=== PATIENT | male | born 1930 | race Caucasian/White ===

== ENCOUNTER → 2016-07-09 | Outpatient (CLI) | payer MEDICARE, BC ==
[~2016-07-09] MED LIST: ALAV10TA PO; ASCO500C PO; ASPI81 PO; CALC1TAB87 PO; CARA1SUS3 PO; CIAL5TAB PO; EQUALIQ7; GLYB1TAB51 PO; GLYB5TAB3 PO; HUMALOG SQ; HYDR25TA5 PO; LANTUS2P SQ; LEVA.63I NEB; LISI-515 PO; LISI-587 PO; LORA10TA PO; METF-324 PO; METF1000 PO; METO-309 PO; METO50TA PO; MSM/CAP PO; MULT1TAB85 PO; NITR0.4S SL; OMEGCAP29 PO; OMEP20TA PO; PANT40P IV PUSH; PROT40TA PO; RIVA20 PO; SIMV10TA PO; TAB-TAB PO; XARE20TA PO; ZOCO10TA PO; ZOCO40TA PO; ZYRT10TA PO
[2016-07-09 12:31] LABS: AUTOMATED NEUTROPHIL # 3.4 TH/MM3 (1.8-7.7); BASOPHIL % 0.8 % (0.0-2.0); EOSINOPHIL # 0.3 TH/MM3 (0-0.4); EOSINOPHIL % 4.8 % (0.0-4.0); HEMATOCRIT 35.3 % (39.0-51.0); HEMO FLAGS DIFF FINAL; LYMPH % 22.6 % (9.0-44.0); LYMPHOCYTE # 1.2 TH/MM3 (1.0-4.8); MEAN CELL VOLUME 81.3 FL (80.0-100.0); MEAN CORPUSCULAR HEMOGLOBIN 25.9 PG (27.0-34.0); MEAN CORPUSCULAR HGB CONC 31.8 % (32.0-36.0); MONO % 9.2 % (0.0-8.0); NEUT % 62.6 % (16.0-70.0); PLATELET COUNT 135 TH/MM3 (150-450); RED BLOOD COUNT 4.35 MIL/MM3 (4.50-5.90); RED CELL DISTRIBUTION WIDTH 14.7 % (11.6-17.2); WHITE BLOOD COUNT 5.5 TH/MM3 (4.0-11.0)
[2016-07-09 12:48] LABS: MICRO ALBUMIN RANDOM URINE RAW 18.9 MG/L (0.0-30.0)
[2016-07-09 12:59] LABS: ALKALINE PHOSPHATASE 42 U/L (45-117); ALT (GPT) 21 U/L (12-78); ANION GAP 8 MEQ/L (5-15); AST (GOT) 17 U/L (15-37); BICARBONATE 29.4 MEQ/L (21.0-32.0); BLOOD UREA NITROGEN 14 MG/DL (7-18); CHLORIDE 101 MEQ/L (98-107); FREE T4 0.96 NG/DL (0.76-1.46); GLOMERULAR FILTRATION RATE 87 ML/MIN (>89); GLUCOSE,FASTING 82 MG/DL (74-99); POTASSIUM 4.5 MEQ/L (3.5-5.1); SODIUM (NA) 138 MEQ/L (136-145); TOTAL BILIRUBIN ADULT 0.9 MG/DL (0.2-1.0)
[2016-07-09 13:50] LABS: HEMOGLOBIN A1a 1.4 %; HEMOGLOBIN A1b 1.8 %; HEMOGLOBIN Ao 83.8 %; HEMOGLOBIN LA1C 1.8 %; HEMOGLOBIN P3 3.9 %
== END ==
LOC: PLAB 07:43
PROVIDERS: ATTEND Family Medicine
DX: E11.9 Type 2 diabetes mellitus without complications (principal); R94.6 Abnormal results of thyroid function studies
CPT/HCPCS: 36415; 80053; 82043; 83036; 84153; 84439; 85025

== ENCOUNTER 2016-09-02 09:47 | Inpatient (IN) | payer MEDICARE, BC ==
[~2016-09-02] VITALS: Ht 182.9 cm; Wt 91.0 kg
[~2016-09-02 09:47] MED LIST changes: -ASCO500C PO; -CALC1TAB87 PO; -CARA1SUS3 PO; -CIAL5TAB PO; -EQUALIQ7; -GLYB5TAB3 PO; -HUMALOG SQ; -HYDR25TA5 PO; -LANTUS2P SQ; -LEVA.63I NEB; -LISI-515 PO; -LORA10TA PO; -METF1000 PO; -METO-309 PO; -MSM/CAP PO; -MULT1TAB85 PO; -OMEGCAP29 PO; -PANT40P IV PUSH; -PROT40TA PO; -SIMV10TA PO; -XARE20TA PO; -ZOCO10TA PO; -ZYRT10TA PO
[2016-09-02 09:53] VITALS: BP 108/61; PULSE 113; RESP 20
[2016-09-02 09:57] VITALS: O2SAT 98
[2016-09-02] MEDS ORDERED: SODIUM CHLORIDE 0.9% FLUSH 10 ML FLUSH IVF PRN (10:00)
[2016-09-02] MEDS ORDERED: OMEGCAP29 PO (10:07)
[2016-09-02] MEDS ORDERED: ASCO500C PO (10:07)
[2016-09-02] MEDS ORDERED: LORA10TA PO (10:07)
[2016-09-02] MEDS ORDERED: EQUALIQ7 (10:07)
[2016-09-02] MEDS ORDERED: LISI-515 PO (10:07)
[2016-09-02] MEDS ORDERED: XARE20TA PO (10:07)
[2016-09-02] MEDS ORDERED: HYDR25TA5 PO (10:07)
[2016-09-02] MEDS ORDERED: METO50TA PO (10:07)
[2016-09-02] MEDS ORDERED: OMEP20TA PO (10:07)
[2016-09-02] MEDS ORDERED: MULT1TAB85 PO (10:07)
[2016-09-02] MEDS ORDERED: CIAL5TAB PO (10:07)
[2016-09-02] MEDS ORDERED: CALC1TAB87 PO (10:07)
[2016-09-02] MEDS ORDERED: ZOCO10TA PO (10:07)
[2016-09-02] MEDS ORDERED: MSM/CAP PO (10:07)
[2016-09-02] MEDS ORDERED: GLYB5TAB3 PO (10:07)
[2016-09-02] MEDS ORDERED: METF1000 PO (10:07)
[2016-09-02 10:21] LABS: BASOPHIL % 0.8 % (0.0-2.0); EOSINOPHIL # 0.1 TH/MM3 (0-0.4); EOSINOPHIL % 1.9 % (0.0-4.0); HEMATOCRIT 29.6 % (39.0-51.0); HEMO FLAGS DIFF FINAL; LYMPH % 17.7 % (9.0-44.0); MEAN CELL VOLUME 80.3 FL (80.0-100.0); MEAN CORPUSCULAR HEMOGLOBIN 25.4 PG (27.0-34.0); MEAN CORPUSCULAR HGB CONC 31.6 % (32.0-36.0); MONO % 7.4 % (0.0-8.0); NEUT % 72.2 % (16.0-70.0); PLATELET COUNT 151 TH/MM3 (150-450); RED BLOOD COUNT 3.69 MIL/MM3 (4.50-5.90); RED CELL DISTRIBUTION WIDTH 16.4 % (11.6-17.2); WHITE BLOOD COUNT 5.6 TH/MM3 (4.0-11.0)
[2016-09-02 10:41] LABS: ALT (GPT) 18 U/L (12-78); ANION GAP 7 MEQ/L (5-15); AST (GOT) 14 U/L (15-37); BICARBONATE 27.7 MEQ/L (21.0-32.0); BLOOD UREA NITROGEN 26 MG/DL (7-18); CHLORIDE 107 MEQ/L (98-107); GLOMERULAR FILTRATION RATE 94 ML/MIN (>89); SODIUM (NA) 142 MEQ/L (136-145)
[2016-09-02 10:43] LABS: ALKALINE PHOSPHATASE 39 U/L (45-117); TOTAL BILIRUBIN ADULT 0.8 MG/DL (0.2-1.0)
--- NOTE | 2016-09-02 10:43 | PD ---
HPI Chief Complaint: Bleeding Time Seen by Provider: 09:55 Travel History International Travel<30 days: No Contact w/Intl Traveler<30days: No Traveled to known affect area: No History of Present Illness HPI Patient 86-year-old male who is on Xarelto for age fibrillation presents emergency department for evaluation of rectal bleeding. Patient states that he had some dark stool yesterday which became bloody this morning. He also endorses some fatigue. He states that when he sat up today he felt very dizzy and that's what caused him to come into the emergency department. He states as long as he lays down he feels okay. Denies any chest pain shortness of breath abdominal pain nausea or vomiting. Denies any fevers. He states that every bowel movement he is having now is nearly all blood. PFSH Past Medical History Arthritis: Yes (JOINTS) Atrial Fibrillation: Yes Autoimmune Disease: No Blood Disorders: No Anxiety: No Depression: No Heart Rhythm Problems: Yes (A FIB) Cancer: Yes (SKIN) Cardiac Catheterization: Yes Cardiovascular Problems: Yes High Cholesterol: Yes Chest Pain: Yes Congestive Heart Failure: No Coronary Artery Disease: Yes Diabetes: Yes Patient Takes Glucophage: Yes Diminished Hearing: No Endocrine: Yes Gastrointestinal Disorders: Yes GERD: Yes Glaucoma: No Genitourinary: No Hepatitis: No Hiatal Hernia: No Hypertension: Yes Immune Disorder: No Inguinal Hernia: Yes Implanted Vascular Access Dvce: No Musculoskeletal: Yes Neurologic: No Psychiatric: No Reproductive: No Respiratory: No Integumentary: No Immunizations Current: No Myocardial Infarction: No Thyroid Disease: No Ulcer: Yes Tetanus Vaccination: < 5 Years Past Surgical History Abdominal Surgery: Yes (MINE. INGUINAL HERNIOPLASTY) AICD: No Arteriovenous Shunt: No Cardiac Surgery: Yes (CARDIAC STENT X 2 PLACED) Coronary Stent: Yes (IN 2000) Ear Surgery: No Endocrine Surgery: No Eye Surgery: Yes (RIGHT LID SURGERY; CYST REMOVED) Genitourinary Surgery: No Gynecologic Surgery: No Insulin Pump: No Joint Replacement: Yes (RIGHT KNEE AND R ROTATOR CUFF) Neurologic Surgery: No Oral Surgery: No Pacemaker: No Thoracic Surgery: No Tonsillectomy: Yes Other Surgery: Yes (HERNIA X2, RIGHT KNEE,BILAT HANDS,EYE LID,LEFT CATARACT, HEMRHOIDS) Social History Alcohol Use: No Tobacco Use: No (quit 40+ yrs ago) Substance Use: No Allergies-Medications (Allergen,Severity, Reaction): Coded Allergies: No Known Allergies (Verified , 02/19/15) Reported Meds & Prescriptions Reported Meds & Active Scripts Active Reported Cialis (Tadalafil) 5 Mg Tab 5 Mg PO DAILY Do not exceed 1 dose/day. Xarelto (Rivaroxaban) 20 Mg Tab 20 Mg PO DAILY Omeprazole 20 Mg Tab 20 Mg PO DAILY Zocor (Simvastatin) 10 Mg Tab 10 Mg PO BID Metformin (Metformin HCl) 1,000 Mg Tab 1,000 Mg PO BIDPC With meals MSM-Glucosamine (Glucosamine Sulfate-Methylsulf) 250-250 Mg Cap 1 Cap PO DAILY Metoprolol Tartrate 50 Mg Tab 50 Mg PO BID Glyburide 5 Mg Tab 5 Mg PO BID Take with meals at the same time each day Hydrochlorothiazide 25 Mg Tab 25 Mg PO DAILY Lisinopril 20 Mg Tab 20 Mg PO DAILY Multivitamin Men (Multiple Vitamins W/ Minerals) 1 Tab Tab 1 Tab PO DAILY Vitamin C (Ascorbic Acid) 500 Mg Cap 500 Mg PO DAILY Equate (Nutritional Supplements) 1 Liq Liq Calcium 600 with Vitamin D (Calcium Carbonate-Cholecalciferol) 600-400 mg-Unit Tab 1 Tab PO DAILY Loratadine 10 Mg Tab 10 Mg PO DAILY [facility] ([place] 3 Fatty Xxhlr-Czelzs-Gmsdrypvfy) 250-2.5-0.5 Mg Cap 1 Cap PO DAILY Review of Systems Except as stated in HPI: all other systems reviewed are Neg Physical Exam Narrative GENERAL: Well-developed well-nourished no apparent distress, appears younger than stated age and quite pleasant. SKIN: Focused skin assessment warm/dry. HEAD: Atraumatic. Normocephalic. EYES: Pupils equal and round. No scleral icterus. No injection or drainage. ENT: No nasal bleeding or discharge. Mucous membranes pink and moist. NECK: Trachea midline. No JVD. CARDIOVASCULAR: Irregularly irregular with controlled rate, however become tachycardic when he sits up.. No murmur appreciated. RESPIRATORY: No accessory muscle use. Clear auscultation. Breath sounds equal bilaterally. GASTROINTESTINAL: Abdomen soft, non-tender, nondistended. Hepatic and splenic margins not palpable. Rectal exam shows moderate gross blood with minimal stool component. MUSCULOSKELETAL: No obvious deformities. No clubbing. No cyanosis. No edema. NEUROLOGICAL: Awake and alert. No obvious cranial nerve deficits. Motor grossly within normal limits. Normal speech. PSYCHIATRIC: Appropriate mood and affect; insight and judgment normal. Data Data Last Documented VS Vital Signs Date Time Temp Pulse Resp B/P Pulse Ox O2 Delivery O2 Flow Rate FiO2 09/02/16 09:57 98 09/02/16 09:53 113 20 108/61 Orders Complete Blood Count With Diff (09/02/16 09:55) Comprehensive Metabolic Panel (09/02/16 09:55) Prothrombin Time / Inr (Pt) (09/02/16 09:55) Act Partial Throm Time (Ptt) (09/02/16 09:55) Type And Screen (09/02/16 09:55) Ecg Monitoring (09/02/16 09:55) Iv Access Insert/Monitor (09/02/16 09:55) Oximetry (09/02/16 09:55) Sodium Chloride 0.9% Flush (Ns Flush) (09/02/16 10:00) Sodium Chlor 0.9% 1000 Ml Inj (Ns 1000 M (09/02/16 10:45) Pantoprazole Inj (Protonix Inj) (09/02/16 10:45) Pantoprazole Inj (Protonix Inj) (09/02/16 12:45) Consult Gastroenterology (09/02/16 ) (Hub Use Only)Inp Phy Cons/Ref (09/02/16 ) Admit Order (Ed Use Only) (09/02/16 ) Labs Laboratory Tests Test 09/02/16 10:00 Prothrombin Time 12.1 SEC Prothromb Time International 1.1 RATIO Ratio Activated Partial 22.7 SEC Thromboplast Time Sodium Level 142 MEQ/L Potassium Level 4.0 MEQ/L Chloride Level 107 MEQ/L Carbon Dioxide Level 27.7 MEQ/L Anion Gap 7 MEQ/L Blood Urea Nitrogen 26 MG/DL Creatinine 0.78 MG/DL Estimat Glomerular Filtration 94 ML/MIN Rate Random Glucose 216 MG/DL Calcium Level 8.4 MG/DL Total Bilirubin 0.8 MG/DL Aspartate Amino Transf 14 U/L (AST/SGOT) Alanine Aminotransferase 18 U/L (ALT/SGPT) Alkaline Phosphatase 39 U/L Total Protein 5.8 GM/DL Albumin 3.1 GM/DL Blood Type AB POSITIVE Antibody Screen NEGATIVE White Blood Count 5.6 TH/MM3 Red Blood Count 3.69 MIL/MM3 Hemoglobin 9.4 GM/DL Hematocrit 29.6 % Mean Corpuscular Volume 80.3 FL Mean Corpuscular Hemoglobin 25.4 PG Mean Corpuscular Hemoglobin 31.6 % Concent Red Cell Distribution Width 16.4 % Platelet Count 151 TH/MM3 Mean Platelet Volume 7.9 FL Neutrophils (%) (Auto) 72.2 % Lymphocytes (%) (Auto) 17.7 % Monocytes (%) (Auto) 7.4 % Eosinophils (%) (Auto) 1.9 % Basophils (%) (Auto) 0.8 % Neutrophils # (Auto) 4.0 TH/MM3 Lymphocytes # (Auto) 1.0 TH/MM3 Monocytes # (Auto) 0.4 TH/MM3 Eosinophils # (Auto) 0.1 TH/MM3 Basophils # (Auto) 0.0 TH/MM3 CBC Comment DIFF FINAL Differential Comment MDM Medical Decision Making Medical Screen Exam Complete: Yes Emergency Medical Condition: Yes Differential Diagnosis GI bleeding, diverticulosis, AVM, cancer wrist lesion in the GI tract, varices seems less likely, Narrative Course Patient 86-year-old male roomed in the emergency department, he appears well and in no distress and has no abdominal pain. Vital signs are normal except for when he sits up she does become somewhat tachycardic. He does have moderate amount of gross red blood on digital rectal exam, review of his labs show a downward trend of his hemoglobin over the past 4 months, he was 13 in April, last month and now 9. Coupled with the patient being on Xarelto this obviates the need for admission for further workup including colonoscopy and GI consultation. Patient was discussed with Drs. Tess Dumas who agrees. Patient was discussed for medicine for admission. He is stable at this time for the floor. Diagnosis Primary Impression: GI bleed Qualified Code: K92.2 - Gastrointestinal hemorrhage, unspecified gastrointestinal hemorrhage type Additional Impression: Anticoagulated Admitting Information Admitting Physician Requests: Admit Condition: Stable Garcia Durbin MD September 02, 2016 10:43
[2016-09-02 10:44] LABS: APTT (PATIENT) 22.7 SEC (24.3-30.1); INTERNATIONAL NORMALIZED RATIO 1.1 RATIO; PROTHROMBIN TIME - PATIENT 12.1 SEC (9.8-11.6)
[2016-09-02] MEDS ORDERED: SODIUM CHLOR 0.9% 1000 ML INJ 1,000 ML IV ONE (10:45)
[2016-09-02] MEDS ORDERED: PANTOPRAZOLE SODIUM 40 MG VIAL IV PUSH ONE (10:45)
--- NOTE | 2016-09-02 12:17 | PD.CONS ---
HPI History of Present Illness This is a 86 year old [gentleman] presented to ER with rectal bleeding that started yesterday afternoon. He had dark red blood while having BM, denies constipation or straining. He saw both dark and BRBper rectum when he wiped, and dark red "goo." He had liquid BM this morning with blood as well, that ran down his leg. He says his PCP told him a few months ago that he was anemic and he's been eating greens. He takes xarelto for AF he last had xarelto 2 days ago. Denies n/v, abdominal pain, dark tarry stool. He has distant h/o ulcers, 50 years ago. He last had colonoscopy years ago, doesn't remember results. Denies frequent NSAID use. Does take daily baby ASA. (Rachel Roberson) PFSH Past Medical History AF DM "whatever pills she gives me I take, i don't keep records" Past Surgical History right knee replacement 2 x stent in heart right rotator cuff repiar left hand surgery right eye surgery 2 x hernia repair, years ago (Rachel Roberson) Coded Allergies: No Known Allergies (Verified , 02/19/15) Medications Current Medications Medications (Trade) Dose Ordered Sig/Lennox Route PRN Reason Start Time Stop Time Status Last Admin Dose Admin Sodium Chloride 2 ml 2 ml UNSCH PRN IVF FLUSH AFTER USING IV ACCESS 09/02/16 10:00 Pantoprazole Sodium/Sodium Chloride (Protonix Inj/NS Inj) 100 ml @ 10 mls/hr Q10H IV 09/02/16 12:45 Family History unk Social History No ETOH, no tobacco, no drugs (Rachel Roberson) Review of Systems Constitutional: DENIES: Fever, Weight loss Eyes: DENIES: Blurred vision Ears, nose, mouth, throat: COMPLAINS OF: Hearing loss Respiratory: DENIES: Hemoptysis Cardiovascular: DENIES: Chest pain Gastrointestinal: COMPLAINS OF: Bloody stools, Diarrhea, DENIES: Abdominal pain, Black stools, Constipation, Nausea, Vomiting, Swelling of Abdomen, Hematemesis Genitourinary: DENIES: Hematuria Musculoskeletal: DENIES: Muscle aches Integumentary: DENIES: Abnormal pigmentation Hematologic/lymphatic: COMPLAINS OF: Bruising (from xarelto) Neurologic: DENIES: Abnormal gait Psychiatric: DENIES: Confusion (Rachel Roberson) GI Exam Vitals I&O Vital Signs Date Time Temp Pulse Resp B/P Pulse Ox O2 Delivery O2 Flow Rate FiO2 09/02/16 09:57 98 09/02/16 09:53 113 20 108/61 Laboratory Test 09/02/16 10:00 White Blood Count 5.6 TH/MM3 Red Blood Count 3.69 MIL/MM3 Hemoglobin 9.4 GM/DL Hematocrit 29.6 % Mean Corpuscular Volume 80.3 FL Mean Corpuscular Hemoglobin 25.4 PG Mean Corpuscular Hemoglobin 31.6 % Concent Red Cell Distribution Width 16.4 % Platelet Count 151 TH/MM3 Mean Platelet Volume 7.9 FL Neutrophils (%) (Auto) 72.2 % Lymphocytes (%) (Auto) 17.7 % Monocytes (%) (Auto) 7.4 % Eosinophils (%) (Auto) 1.9 % Basophils (%) (Auto) 0.8 % Neutrophils # (Auto) 4.0 TH/MM3 Lymphocytes # (Auto) 1.0 TH/MM3 Monocytes # (Auto) 0.4 TH/MM3 Eosinophils # (Auto) 0.1 TH/MM3 Basophils # (Auto) 0.0 TH/MM3 CBC Comment DIFF FINAL Differential Comment Prothrombin Time 12.1 SEC Prothromb Time International 1.1 RATIO Ratio Activated Partial 22.7 SEC Thromboplast Time Sodium Level 142 MEQ/L Potassium Level 4.0 MEQ/L Chloride Level 107 MEQ/L Carbon Dioxide Level 27.7 MEQ/L Anion Gap 7 MEQ/L Blood Urea Nitrogen 26 MG/DL Creatinine 0.78 MG/DL Estimat Glomerular Filtration 94 ML/MIN Rate Random Glucose 216 MG/DL Calcium Level 8.4 MG/DL Total Bilirubin 0.8 MG/DL Aspartate Amino Transf 14 U/L (AST/SGOT) Alanine Aminotransferase 18 U/L (ALT/SGPT) Alkaline Phosphatase 39 U/L Total Protein 5.8 GM/DL Albumin 3.1 GM/DL Blood Type AB POSITIVE Antibody Screen NEGATIVE Physical Examination HEENT: EOMI; normocephalic; atraumatic; no jaundice. CHEST: Chest is clear to auscultation and percussion. CARDIAC: irregularly irregular HR ABDOMEN: Soft, nondistended, nontender; no hepatosplenomegaly; bowel sounds are present in all four quadrants. EXTREMITIES: No clubbing, cyanosis, or edema. SKIN: Normal; no rash; no jaundice. SUPERVISOR CEREAL: No focal deficits; alert and oriented times three. (Rachel Roberson) Assessment and Plan Plan ASSESSMENT - Anemia with rectal bleeding - 9.4, 29.6. rectal bleeding that started yesterday with liquid BM and blood this morning. Pt reports he was told months ago by PCP he was anemic. Had been taking xarelto for AF, last had 2 days ago. PLAN - colonoscopy, EGD Saturday - obtain consents - clears today - GoLytely prep - NPO after midnight - monitor HH - transfused for hgb < 8.0 - further recommendations based on results of above This pt seen by myself and Dr Patel and this note is written on his behalf. ( Rachel Roberson) Physician Comments Seen and examined with [employer], rectal bleeding, egd/colonoscopy planned for saturday. Golytle prep. Monitor H/H and for signs of active bleeding. Dr. Dia to follow. Thank you (Maryan Patel MD) Rachel Roberson September 02, 2016 12:17 Maryan Patel MD September 02, 2016 16:27
[2016-09-02] MEDS ORDERED: GLUCAGON 1 MG/ML VIAL OTHER PRN (12:45)
[2016-09-02] MEDS ORDERED: DEXTROSE 50% IN WATER 50 ML VIAL(D50) IV PUSH PRN (12:45)
--- NOTE | 2016-09-02 12:47 | HHI.HP ---
[facility] Lynnette Ziegler MD Admission Diagnosis GI bleed, near syncope. Diagnoses: (1) Rectal bleed Diagnosis: Principal Chief Complaint: rectal bleed Travel History International Travel<30 Days: No Contact w/Intl Traveler <30 Da: No Traveled to Known Affected Are: No History of Present Illness patient is a 86 y/o male with history of CAD- s/p stent- on Xarelto, presented to ER with rectal bleed. he says that the he started to have rectal bleed yesterday afternoon. since then he's had a few blood bowel movements. he says that this morning when he went to bathroom he had a large amount of darkish blood per rectum. he says that he didn't have any abdominal pain, nausea or vomiting but he felt dizzy at the time. he didn't pass out and he denies any chest pain or sob. he says that he had EGD and colonoscopy in the past. reportedly he had peptic ulcer disease diagnosed years ago.he denies taking NSAIDs. Review of Systems Constitutional: COMPLAINS OF: Dizziness, DENIES: Fever, Weight loss, Chills, Night Sweats Eyes: DENIES: Blurred vision, Diplopia, Vision loss, Double Vision Ears, nose, mouth, throat: DENIES: Tinnitus, Vertigo, Throat pain, Epistaxis Respiratory: DENIES: Apneas, Cough, Snoring, Wheezing, Hemoptysis, Sputum production, Shortness of breath Cardiovascular: DENIES: Chest pain, Palpitations, Syncope, Dyspnea on Exertion , PND, Lower Extremity Edema, Orthopnea, Claudication Gastrointestinal: COMPLAINS OF: Bloody stools, DENIES: Abdominal pain, Black stools, Constipation, Diarrhea, Nausea, Vomiting, Difficulty Swallowing, Anorexia Genitourinary: DENIES: Urinary frequency, Urgency, Hematuria, Dysuria Musculoskeletal: DENIES: Joint pain, Muscle aches, Stiffness, Joint Swelling Integumentary: DENIES: Rash Neurologic: DENIES: Abnormal gait, Headache, Localized weakness, Paresthesias, Seizures, Speech Problems, Tremor, Poor Balance Psychiatric: DENIES: Anxiety, Confusion, Mood changes, Depression, Hallucinations, Agitation, Suicidal Ideation, Homicidal Ideation, Delusions Past Family Social History Past Medical History CAD hypertension a-fib diabetes mellitus Past Surgical History right knee replacement 2 x stent in heart right rotator cuff repiar left hand surgery right eye surgery 2 x hernia repair, years ago Reported Medications Cialis (Tadalafil) 5 Mg Tab 5 Mg PO DAILY Do not exceed 1 dose/day. Xarelto (Rivaroxaban) 20 Mg Tab 20 Mg PO DAILY Omeprazole 20 Mg Tab 20 Mg PO DAILY Zocor (Simvastatin) 10 Mg Tab 10 Mg PO BID Metformin (Metformin HCl) 1,000 Mg Tab 1,000 Mg PO BIDPC With meals MSM-Glucosamine (Glucosamine Sulfate-Methylsulf) 250-250 Mg Cap 1 Cap PO DAILY Metoprolol Tartrate 50 Mg Tab 50 Mg PO BID Glyburide 5 Mg Tab 5 Mg PO BID Take with meals at the same time each day Hydrochlorothiazide 25 Mg Tab 25 Mg PO DAILY Lisinopril 20 Mg Tab 20 Mg PO DAILY Multivitamin Men (Multiple Vitamins W/ Minerals) 1 Tab Tab 1 Tab PO DAILY Vitamin C (Ascorbic Acid) 500 Mg Cap 500 Mg PO DAILY Equate (Nutritional Supplements) 1 Liq Liq Calcium 600 with Vitamin D (Calcium Carbonate-Cholecalciferol) 600-400 mg-Unit Tab 1 Tab PO DAILY Loratadine 10 Mg Tab 10 Mg PO DAILY [facility] ([place] 3 Fatty Cdsek-Qcoohd-Yghfbgwkzd) 250-2.5-0.5 Mg Cap 1 Cap PO DAILY Allergies: Coded Allergies: No Known Allergies (Verified , 02/19/15) Active Ordered Medications Current Medications Sodium Chloride 2 ml 2 ml UNSCH PRN IVF FLUSH AFTER USING IV ACCESS; Start 09/02 at 10:00 Sodium Chloride (NS 1000 ml Inj) 1,000 ml @ 999 mls/hr BOLUS ONCE IV ; Start 09/02/16 at 10:45; Stop 09/02/16 at 11:45; Status DC Pantoprazole Sodium 40 mg 40 mg ONCE ONCE IV PUSH ; Start 09/02/16 at 10:45; Stop 09/02/16 at 10:46; Status DC Pantoprazole Sodium/Sodium Chloride (Protonix Inj/NS Inj) 100 ml @ 10 mls/hr Q10H IV ; Start 09/02/16 at 12:45 Dextrose (D50w (Vial) Inj) 25 ml UNSCH PRN IV PUSH HYPOGLYCEMIA-SEE COMMENTS; Start 09/02/16 at 12:45; Status UNV Glucagon (Glucagon Inj) 1 mg UNSCH PRN OTHER HYPOGLYCEMIA-SEE COMMENTS; Start 09/02/16 at 12:45; Status UNV Insulin Aspart 1 1 ACHS SLIDING SCALE SQ ; Start 09/02/16 at 16:00; Status UNV Sodium Chloride (NS 1000 ml Inj) 1,000 ml @ 84 mls/hr [id number] IV ; Start at 12:45; Status UNV Family History unk Social History No ETOH, no tobacco, no drugs Physical Exam Vital Signs Vital Signs Date Time Temp Pulse Resp B/P Pulse Ox O2 Delivery O2 Flow Rate FiO2 09/02/16 09:57 98 09/02/16 09:53 113 20 108/61 Physical Exam GENERAL: looks somewhat pale but in no apparent distress. SKIN: No rashes, ecchymoses or lesions. Cool and dry. HEAD: Atraumatic. Normocephalic. No temporal or scalp tenderness. EYES: Pupils equal round and reactive. Extraocular motions intact. No scleral icterus. No injection or drainage. ENT: Nose without bleeding, purulent drainage or septal hematoma. Throat without erythema, tonsillar hypertrophy or exudate. Uvula midline. Airway patent. NECK: Trachea midline. No JVD or lymphadenopathy. Supple, nontender, no meningeal signs. CARDIOVASCULAR: Regular rate and rhythm without murmurs, gallops, or rubs. RESPIRATORY: Clear to auscultation. Breath sounds equal bilaterally. No wheezes , rales, or rhonchi. GASTROINTESTINAL: Abdomen soft, non-tender, nondistended. No hepato-splenomegaly , or palpable masses. No guarding. MUSCULOSKELETAL: Extremities without clubbing, cyanosis, or edema. No joint tenderness, effusion, or edema noted. No calf tenderness. Negative Homans sign bilaterally. NEUROLOGICAL: Awake and alert. Cranial nerves II through XII intact. Motor and sensory grossly within normal limits. Five out of 5 muscle strength in all muscle groups. Normal speech. Laboratory Laboratory Tests Test 09/02/16 10:00 White Blood Count 5.6 Red Blood Count 3.69 Hemoglobin 9.4 Hematocrit 29.6 Mean Corpuscular Volume 80.3 Mean Corpuscular Hemoglobin 25.4 Mean Corpuscular Hemoglobin 31.6 Concent Red Cell Distribution Width 16.4 Platelet Count 151 Mean Platelet Volume 7.9 Neutrophils (%) (Auto) 72.2 Lymphocytes (%) (Auto) 17.7 Monocytes (%) (Auto) 7.4 Eosinophils (%) (Auto) 1.9 Basophils (%) (Auto) 0.8 Neutrophils # (Auto) 4.0 Lymphocytes # (Auto) 1.0 Monocytes # (Auto) 0.4 Eosinophils # (Auto) 0.1 Basophils # (Auto) 0.0 CBC Comment DIFF FINAL Differential Comment Prothrombin Time 12.1 Prothromb Time International 1.1 Ratio Activated Partial 22.7 Thromboplast Time Sodium Level 142 Potassium Level 4.0 Chloride Level 107 Carbon Dioxide Level 27.7 Anion Gap 7 Blood Urea Nitrogen 26 Creatinine 0.78 Estimat Glomerular Filtration 94 Rate Random Glucose 216 Calcium Level 8.4 Total Bilirubin 0.8 Aspartate Amino Transf 14 (AST/SGOT) Alanine Aminotransferase 18 (ALT/SGPT) Alkaline Phosphatase 39 Total Protein 5.8 Albumin 3.1 Blood Type AB POSITIVE Antibody Screen NEGATIVE Result Diagram: 09/02/16 1000 09/02/16 1000 Assessment and Plan Assessment and Plan A/P - rectal bleed- on Xarelto keep NPO- start IV fluid- continue with protonix- monitor H/H closely- GI consulted -CAD- s/p stent / a-fib/ hypertension- hold BP meds for now in light of GI bleed and dizziness- hold Xarelto. -diabetes mellitus; accu-check with SSI- hold oral hypoglycemics for now -DVT prophylaxis with SCD's- no chemical prophylaxis due to GI bleed. Discussed Condition With ER physician and the patient. Bora Chu MD September 02, 2016 12:46
[2016-09-02] MEDS: PANTOPRAZOLE INJ 80 MG in SODIUM CHLORIDE 0.9% INJ 100 ML IV SCH ×3 (12:59→21:37)
[2016-09-02] MEDS ORDERED: ONDANSETRON HCL 4 MG/2 ML VIAL IV PUSH PRN (13:00)
[2016-09-02] MEDS: SODIUM CHLOR 0.9% 1000 ML INJ 1,000 ML IV SCH ×2 (14:33→21:37)
[2016-09-02 16:00] VITALS: BP 119/67; PULSE 78; RESP 16; TEMP 97.6; O2SAT 100
[2016-09-02] MEDS: INSULIN ASPART SUPPLEMENTAL SCALE SQ SCH ×2 (16:00→21:00)
[2016-09-02] MEDS ORDERED: PEG (High)/E-LYTE SOLN 4000 ML BTL PO ONE (16:00)
[2016-09-02 18:32] LABS: HEMATOCRIT 24.7 % (39.0-51.0)
[2016-09-02 20:00] VITALS: BP 130/69; PULSE 99; RESP 20; TEMP 96.4; O2SAT 97
[2016-09-03] VITALS (16 sets, daily range): BP systolic 100–128; BP diastolic 53–66; PULSE 53–95; RESP 18–21; TEMP 96.8–98.1; O2SAT 96–100
[2016-09-03 00:20] LABS: HEMATOCRIT 28.7 % (39.0-51.0)
[2016-09-03] MEDS ORDERED: CHLORHEXIDINE GLUCONATE 2 % 1 PACK (2 CLOTHS) TOPICAL PRN (07:00)
[2016-09-03] MEDS ORDERED: METOPROLOL TARTRATE 25 MG TAB PO PRN (07:00)
[2016-09-03] MEDS ORDERED: POVIDONE IODINE 5% (ANTISEPSIS KIT) 4 APPLICATIONS EACH NARE PRN (07:00)
[2016-09-03] MEDS ORDERED: SODIUM CHLORID 0.9% 500 ML IV PRN (07:00)
[2016-09-03] MEDS ORDERED: LACTATED RINGER'S 1000 ML IV PRN (07:00)
[2016-09-03 07:04] LABS: HEMATOCRIT 22.7 % (39.0-51.0)
[2016-09-03] MEDS: PANTOPRAZOLE INJ 80 MG in SODIUM CHLORIDE 0.9% INJ 100 ML IV SCH ×2 (08:45→18:45)
--- NOTE | 2016-09-03 11:11 | EKG ---
Date Performed: 09/03/2016 Time Performed: 09:14:09 PTAGE: 86 years EKG: ATRIAL FIBRILLATION INCOMPLETE RIGHT BUNDLE BRANCH BLOCK MINIMAL ST DEPRESSION ABNORMAL RHY THM ECG PREVIOUS TRACING : 02/19/2015 20.31 DOCTOR: Uziel Riddle Interpretating Date/Time 09/03/2016 11:10:44
[2016-09-03] MEDS ORDERED: PROPOFOL 200 MG/20 ML AMP IV ONE (11:21)
[2016-09-03] MEDS ORDERED: PHENYLEPH/NS 1000 MCG/10 ML SYR IV ONE (12:00)
[2016-09-03] MEDS ORDERED: DO NOT ADM ANY ANTICOAGULANT DRUGS PRN (12:00)
[2016-09-03] MEDS ORDERED: ONDANSETRON HCL 4 MG/2 ML VIAL IV PUSH ONE (12:00)
--- NOTE | 2016-09-03 12:00 | GIPROC ---
[facility] [address] [facility]. [facility], [id number] EGD PROCEDURE REPORT EXAM DATE: 09/03/2016 PATIENT NAME: Jae Castillo MR #: [id number] BIRTHDATE: 1930 ATTENDING: Constance Dia MD ORDER #: [id number] [employer]: Patrick Aguilera Dan STATUS: inpatient INDICATIONS: The patient is a 86 yr old male here for an EGD due to anemia, gi bleeding PROCEDURE PERFORMED: EGD w/ biopsy MEDICATIONS: None and Per Anesthesia. TOPICAL ANESTHETIC: none CONSENT: The patient understands the risks and benefits of the procedure and understands that these risks include, but are not limited to: sedation, allergic reaction, infection, perforation and/or bleeding. Alternative means of evaluation and treatment include, among others: physical exam, x-rays, and/or surgical intervention. The patient elects to proceed with this endoscopic procedure. medical equipment was checked for proper function. Hand hygiene and appropriate measures for infection prevention was taken. After the risks, benefits and alternatives of the procedure were thoroughly explained, Informed consent was verified, confirmed and timeout was successfully executed by the treatment team. The patient was anesthetized with topical anesthesia and the [id number] (Pedi C) endoscope was introduced through the mouth and advanced to the second portion of the duodenum. Retroflexed views revealed a hiatal hernia The gastroscope was then slowly withdrawn and removed. 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 ADVERSE EVENTS: There were no complications. IMPRESSIONS: 1. 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 Retroflexed views revealed a hiatal hernia RECOMMENDATIONS: 1. Anti-reflux regimen 2. Await biopsy results. Biopsy results will not be ready for 7-10 days. If you don't hear from us in two weeks, call our office for biopsy results. 3. Start PPI 4. Avoid NSAIDS PATIENT CONDITION: stable DISPOSITION: Inpatient REPEAT EXAM: EGD pending biopsy results Constance Dia MD eSigned: Constance Dia MD 09/03/2016 12:00 PM cc: PATIENT NAME: Jae Castillo MR#: [id number]
--- NOTE | 2016-09-03 12:06 | GIPROC ---
[facility] [address] [facility]. [facility] [place], [address] COLONOSCOPY PROCEDURE REPORT EXAM DATE: 09/03/2016 PATIENT NAME: Jae Castillo MR #: [id number] BIRTHDATE: 1930 ENDOSCOPIST: Constance Dia MD ORDER #: [id number] GENERAL CLAIMS AGENT: Frankie Lucas and Gardenia Aguilera STATUS: inpatient INDICATIONS: The patient is a 86 yr old male here for a colonoscopy due to aneami, gi bleeding PROCEDURE PERFORMED: Colonoscopy, diagnostic MEDICATIONS: None and Per Anesthesia. PREP QUALITY: 50 % obscured PREP TYPE:GoLytely ESTIMATED BLOOD LOSS: None CONSENT: The patient understands the risks and benefits of the procedure and understands that these risks include, but are not limited to: sedation, allergic reaction, infection, perforation and/or bleeding. Alternative means of evaluation and treatment include, among others: physical exam, x-rays, and/or surgical intervention. The patient elects to proceed with this endoscopic procedure. medical equipment was checked for proper function. Hand hygiene and appropriate measures for infection prevention was taken. After the risks, benefits and alternatives of the procedure were thoroughly explained, Informed consent was verified, confirmed and timeout was successfully executed by the treatment team. A digital exam revealed hemorrhoids The Pentax [id number] endoscope was introduced through the anus and advanced to the cecum, which was identified by both the appendix and ileocecal valve. The instrument was then slowly withdrawn as the colon was fully examined. COLON FINDINGS: Large amount of fresh blood throughout colon, mostly in right colon pandiverticulosis no source of bleeding seen. Retroflexed views revealed internal hemorrhoids and Retroflexed views revealed medium internal hemorrhoids The scope was then completely withdrawn from the patient and the procedure terminated. PROCEDURE WITHDRAWAL TIME:10minutes ADVERSE EVENTS: There were no complications. IMPRESSIONS: 1. Large amount of fresh blood throughout colon, mostly in right colon pandiverticulosis no source of bleeding seen 2. Retroflexed views revealed internal hemorrhoids 3. Retroflexed views revealed medium internal hemorrhoids 4. Revealed hemorrhoids RECOMMENDATIONS: Transfer to unit transfuse total of 4 units of prbc stat IR consult for angiogram consult surgery cbc post prbc RECALL: 1. NONE 2. Return 2 days Colonoscopy Constance Dia MD eSigned: Constance Dia MD 09/03/2016 12:06 PM cc: PATIENT NAME: Jae Castillo Shaka MR#: [id number]
[2016-09-03] MEDS ORDERED: KETAMINE HCL 500 MG/5 ML VIAL ONE (12:09)
[2016-09-03] MEDS ORDERED: MIDAZOLAM HCL 2 MG/2 ML VIAL ONE (12:09)
[2016-09-03] MEDS: SODIUM CHLOR 0.9% 1000 ML INJ 1,000 ML IV SCH ×2 (13:00→23:01)
--- NOTE | 2016-09-03 13:24 | HHI.PR ---
Subjective Remarks in no acute distress. denies abdominal pain. no nausea or vomiting. noted a drop in H/H. receiving PRBC transfusion. d/w the RN. Objective Vitals Vital Signs Date Time Temp Pulse Resp B/P Pulse Ox O2 Delivery O2 Flow Rate FiO2 09/03/16 10:50 97.1 53 20 124/56 98 09/03/16 10:35 97.1 53 20 124/56 98 09/03/16 10:08 97.6 84 18 119/59 99 09/03/16 08:00 97.8 75 18 128/60 99 09/03/16 07:45 Room Air 09/03/16 04:00 97.8 78 18 119/56 99 09/03/16 00:00 97.5 77 20 100/56 100 09/02/16 20:00 96.4 99 20 130/69 97 09/02/16 19:30 Room Air 09/02/16 17:00 Room Air 09/02/16 16:00 97.6 78 16 119/67 100 I/O 09/02/16 09/02/16 09/02/16 09/03/16 09/03/16 09/03/16 07:00 15:00 23:00 07:00 15:00 23:00 Intake Total 547 ml 700 ml Balance 547 ml 700 ml Intake IV Total 547 ml 700 ml # Voids 2 Result Diagram: 09/03/16 0510 09/02/16 1000 Objective Remarks GENERAL: This is a well-nourished, well-developed patient, in no apparent distress. CARDIOVASCULAR: Regular rate and regular rhythm without murmurs, gallops, or rubs. RESPIRATORY: Clear to auscultation. Breath sounds equal bilaterally. No wheezes , rales, or rhonchi. GASTROINTESTINAL: Abdomen soft, non-tender, nondistended. Normal, active bowel sounds MUSCULOSKELETAL: Extremities without clubbing, cyanosis, or edema. NEURO: Alert & Oriented x4 to person, place, time, situation. Moves all ext x4 Procedures EGD/ colonoscopy Medications and IVs Current Medications Sodium Chloride 2 ml 2 ml UNSCH PRN IVF FLUSH AFTER USING IV ACCESS; Start 09/02 at 10:00 Sodium Chloride (NS 1000 ml Inj) 1,000 ml @ 999 mls/hr BOLUS ONCE IV Last administered on 09/02/16 13:38; Start 09/02/16 at 10:45; Stop 09/02/16 at 11:45; Status DC Pantoprazole Sodium 40 mg 40 mg ONCE ONCE IV PUSH Last administered on 13:37; Start 09/02/16 at 10:45; Stop 09/02/16 at 10:46; Status DC Pantoprazole Sodium/Sodium Chloride (Protonix Inj/NS Inj) 100 ml @ 10 mls/hr Q10H IV Last administered on 09/02/16 21:37; Start 09/02/16 at 12:45 Dextrose (D50w (Vial) Inj) 25 ml UNSCH PRN IV PUSH HYPOGLYCEMIA-SEE COMMENTS; Start 09/02/16 at 12:45 Glucagon (Glucagon Inj) 1 mg UNSCH PRN OTHER HYPOGLYCEMIA-SEE COMMENTS; Start 09/02/16 at 12:45 Insulin Aspart 1 1 ACHS SLIDING SCALE SQ ; Start 09/02/16 at 16:00 Sodium Chloride (NS 1000 ml Inj) 1,000 ml @ 84 mls/hr [id number] IV Last administered on 09/02/16 21:37; Start 09/02/16 at 12:45 Ondansetron HCl (Zofran Inj) 4 mg Q8HR PRN IV PUSH NAUSEA; Start 09/02/16 at 13: 00 Polyethylene Glycol/ Electrolytes 4000 ml 4,000 ml ONCE ONCE PO Last administered on 09/02/16 18:11; Start 09/02/16 at 16:00; Stop 09/02/16 at 16:01; Status DC Lactated Ringer's 1,000 ml @ 30 mls/hr Q24H PRN IV SEE LABEL COMMENTS; Start at 07:00; Stop 09/06/16 at 06:59 Sodium Chloride (NS 500 ml Inj) 500 ml @ 30 mls/hr [id number] PRN IV SEE LABEL COMMENTS; Start 09/03/16 at 07:00; Stop 09/06/16 at 06:59 Metoprolol Tartrate (Lopressor) 25 mg SEAFOOD PACKER PRN PO SEE LABEL COMMENTS; Start 09/03/16 at 07:00; Stop 09/06/16 at 06:59 Povidone Iodine (Betadine 5% Antisepsis Kit) 1 applic SEAFOOD PACKER PRN EACH NARE SEE LABEL COMMENTS; Start 09/03/16 at 07:00; Stop 09/06/16 at 06:59 Chlorhexidine Gluconate (Chlorhexidine 2% Cloth) 3 pack SEAFOOD PACKER PRN TOPICAL SEE LABEL COMMENTS; Start 09/03/16 at 07:00; Stop 09/06/16 at 06:59 Midazolam HCl (Versed Inj) 2 mg STK-MED ONCE .ROUTE ; Start 09/03/16 at 12:09; Stop 09/03/16 at 12:10; Status DC Ketamine HCl (Ketalar Inj) 500 mg STK-MED ONCE .ROUTE ; Start 09/03/16 at 12:09; Stop 09/03/16 at 12:10; Status DC Miscellaneous Information ALL NURSING DEPARTME... UNSCH PRN .XX SEE LABEL COMMENTS; Start 09/03/16 at 12:00; Stop 09/04/16 at 11:59 A/P Assessment and Plan A/P - rectal bleed- has been on Xarelto s/p EGD with gastritis and esophagitis s/p colonoscopy with fresh blood in the colon- diverticulosis with no obvious source of bleeding. IR and surgery were consulted- GI following. continue PPI. -acute anemia due to GI bleed- will transfuse with PRBC and close monitoring of H/H- GI work-up as noted above. -CAD- s/p stent / a-fib/ hypertension- hold BP meds for now in light of GI bleed and dizziness- hold Xarelto. -diabetes mellitus; accu-check with SSI- hold oral hypoglycemics for now -DVT prophylaxis with SCD's- no chemical prophylaxis due to GI bleed. patient has been transferred to ICU for close monitoring. d/w and INO. Bora Chu MD September 03, 2016 13:24
[2016-09-03] MEDS ORDERED: MIDAZOLAM HCL 5 MG/5 ML VIAL ONE (14:59)
[2016-09-03] MEDS ORDERED: fentaNYL CITRATE 250 MCG/5 ML AMP ONE (15:00)
[2016-09-03] MEDS: INSULIN ASPART SUPPLEMENTAL SCALE SQ SCH ×2 (16:00→21:00)
[2016-09-03] MEDS ORDERED: IODIXANOL 320 MG/ML 50 ML VIAL (for RAD SPEC) I-ARTERIAL ONE (16:05)
--- NOTE | 2016-09-03 16:43 | RADRPT ---
EXAM DATE/TIME: 09/03/2016 16:01 [facility] COMPARISON: No previous studies available for comparison. INDICATIONS : Rectal bleeding. MEDICAL HISTORY : 1. Rectal bleeding 2. CAD 3. HTN 4. A fib 5. DM SURGICAL HISTORY : 1Right knee 2. coronary stents 3. Right rotator cuff repair 4. Left hand surgery 5. hernia repair ENCOUNTER: Initial ACUITY: 1 day PAIN SCORE: 0/10 FLUORO TIME: 16.7 minutes IMAGE SERIES: 7 ACCESS SITE: Right Femoral artery SEDATION TIME: 50 minutes CONTRAST: 1.) 120 cc Visipaque (iodixanol) MEDICATION(S): 1.) 2 mg midazolam (Versed) IV 2.) 100 mcg fentanyl (Sublimaze) IV DEVICE(S): 1.) Right common femoral artery 6 fr Angio-Seal PROCEDURE : 1. Ultrasound-guided puncture of the access site. 2. Angiography of the access site prior to closure device. 3. Conscious sedation with continuous EKG and Oximetry monitoring. 4. Percutaneous closure of the access site. 5. Angiography of the abdominal aorta 6. Angiography of the superior mesenteric artery The risks, benefits and alternatives to the procedure were explained and verbal and written consent w as obtained. The site was prepped in sterile fashion. Full sterile technique was used, including ca p, mask, sterile gloves and gown and a large sterile sheet. Hand hygiene and 2% chlorhexidine and/or betadine/alcohol prep was utilized per protocol for cutaneous antisepsis. The skin and subcutaneous tissues were infiltrated with local anesthetic solution. With ultrasound and fluoroscopic guidance the selected artery was punctured and a vascular sheath was placed. Angiography of the common femoral artery was performed for evaluation prior to percutaneous closure device placement. Abdominal aortogram: A celiac, superior mesenteric and renal arteries are patent. There is a single renal artery to each k idney. Otherwise described disease is seen. Focal plaque with ulceration is identified in the mid inf rarenal segment. There is no evidence of aortic stenosis or aneurysm. The superior mesenteric artery contains a moderate stenosis at its origin measuring 50-60%. Superior mesenteric arteriogram: The superior mesenteric artery was selectively catheterized and a catheter advanced into the proximal segment. Digital angiography of the right colon and transverse colon performed. The arterial, capillary and venous phases are unremarkable. There are no angina dysplastic changes or evidence of active bleeding. Hemostasis was obtained with the prescribed medicated closure device. Conscious sedation was perform ed with the prescribed dosages and duration as above in the presence of an independent trained radiol ogy nurse to assist in the monitoring of the patient. EKG and oximetry remained stable throughout th e procedure. 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 Unremarkable superior mesenteric arteriogram without evidence of active bleeding, angiodysplasia or a bnormal blush. 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 Dale Forrset MD on September 03, 2016 at 16:32 Board Certified Radiologist. This report was verified electronically.
--- NOTE | 2016-09-03 16:58 | PD.RAD ---
Post Procedure Progress Note Pre Procedure Diagnosis: (1) GI bleed (2) Rectal bleed Post Procedure Diagnosis: (1) GI bleed (2) Rectal bleed Procedure Date: September 03, 2016 Supervising Radiologist: Dale Forrest Proceduralist/Assist: Selene Starks RT(R), Ashtyn Fonseca RT(R)(CV) Anesthesia: Local, Conscious Sedation Plan of Activity Patient to Unit: Critical Care Patient Condition: Fair See PACS Report for procedural detail/treatment Vascular-Arterial Procedure Procedure 1 Procedure Site: Abdominal Procedure(s): Angiogram Access Access Site(s): Right Femoral Artery Closure Site(s): Right vascular closure device Findings: No evid of active bleeding or focal lesion. Dale Forrest MD September 03, 2016 16:58
[2016-09-03 18:10] LABS: BASOPHIL % 0.4 % (0.0-2.0); EOSINOPHIL # 0.1 TH/MM3 (0-0.4); HEMATOCRIT 23.8 % (39.0-51.0); HEMO FLAGS DIFF FINAL; LYMPH % 12.1 % (9.0-44.0); LYMPHOCYTE # 1.2 TH/MM3 (1.0-4.8); MEAN CELL VOLUME 83.4 FL (80.0-100.0); MEAN CORPUSCULAR HEMOGLOBIN 27.2 PG (27.0-34.0); MEAN CORPUSCULAR HGB CONC 32.6 % (32.0-36.0); MONO % 5.6 % (0.0-8.0); NEUT % 80.9 % (16.0-70.0); PLATELET COUNT 110 TH/MM3 (150-450); RED BLOOD COUNT 2.85 MIL/MM3 (4.50-5.90); RED CELL DISTRIBUTION WIDTH 15.8 % (11.6-17.2); WHITE BLOOD COUNT 9.8 TH/MM3 (4.0-11.0)
[2016-09-03] MEDS ORDERED: MORPHINE SULFATE 4 MG/ML INJ IV PRN (19:00)
--- NOTE | 2016-09-03 22:51 | RADRPT ---
EXAM DATE/TIME: 09/03/2016 20:29 [facility] COMPARISON: No previous studies available for comparison. INDICATIONS : Rectal bleeding for one day. DOSE: 20.4 mCi Tc99m Ultratag labeled red blood cells IV IMAGIN hrs MEDICAL HISTORY : Diabetes mellitus type 2. Hypertension. SURGICAL HISTORY : Inguinal hernia repair. Coronary artery stent. ENCOUNTER: Initial ACUITY: 1 day PAIN SCALE: 0/10 LOCATION: upper quadrant TECHNIQUE: Following the modified in vitro labeling of autologous red cells, dynamic continuous images were acqu ired for the specified interval. FINDINGS: BIODISTRIBUTION: There is a very good labeling of red cells without significant uptake in the gastric wall. There is good delineation of the blood pool of the spleen and abdominal vessels. BLEEDING: No episodes of active GI bleeding are observed during specified interval of continuous observation. CONCLUSION: Negative Nishant English MD on September 03, 2016 at 22:48 Board Certified Radiologist. This report was verified electronically.
[2016-09-04] VITALS (14 sets, daily range): BP systolic 94–132; BP diastolic 47–61; PULSE 81–105; RESP 16–21; TEMP 97.4–98; O2SAT 96–100
[2016-09-04 02:08] LABS: HEMATOCRIT 23.7 % (39.0-51.0)
[2016-09-04] MEDS: PANTOPRAZOLE INJ 80 MG in SODIUM CHLORIDE 0.9% INJ 100 ML IV SCH ×2 (04:36→14:45)
[2016-09-04] MEDS: INSULIN ASPART SUPPLEMENTAL SCALE SQ SCH ×4 (04:38→21:00)
--- NOTE | 2016-09-04 05:56 | MB ---
cc: CHARKATTJHON FALCON DATE OF CONSULTATION 09/03/2016 REASON FOR CONSULTATION GI bleed. REQUESTING PHYSICIAN Dr. Constance Dia of GI HISTORY OF PRESENT ILLNESS The patient is an 86-year-old male who is currently on Xarelto for atrial fibrillation and bright red blood per rectum, was admitted to the hospital on 09/03/2011. The patient states that he has never previously had any GI bleeding but was placed on Xarelto after a stent with coronary artery disease and atrial fibrillation. The patient initially had some large amount of dark red blood per rectum. He had felt dizzy and presented to the emergency department. The patient denies abdominal pain, nausea, vomiting, fevers, chills, night sweats or any chest pain or shortness of breath. After admission the patient was noted have a hemoglobin of 8 and required transfusion. The patient was worked up with colonoscopy which showed blood throughout the colon, more on the right side with no active bleeding. Upper endoscopy was negative. Angiographic performed on 09/03/2016 at 04:40 p.m. was negative for bleeding or blush. Clinically the patient remained stable. Last hemoglobin was 7.1. The patient is actively being infused, was passing small amounts of bright red blood and blood clots per rectum. PAST MEDICAL HISTORY 1. Coronary artery disease. 2. Atrial fibrillation. 3. Hypertension. 4. Diabetes. PAST SURGICAL HISTORY 1. Knee replacement. 2. Two stents in heart. 3. Hernia repairs. MEDICATIONS 1. Cialis. 2. Xarelto. 3. Omeprazole. 4. Zocor. 5. Metformin. 6. Glucosamine. 7. Metoprolol. 8. Glyburide. 9. Hydrochlorothiazide. 10. Lisinopril. 11. Loratadine. ALLERGIES No known drug allergies. SOCIAL HISTORY The patient denies alcohol, tobacco or illicit drug use. FAMILY HISTORY Noncontributory. PHYSICAL EXAMINATION VITAL SIGNS: Blood pressure 110/55, heart rate 86, O2 saturation 98%. GENERAL: The patient is a well-developed, well-nourished male in no acute distress. HEAD: Normocephalic, atraumatic. EYES: Pupils round, reactive to light. Sclerae anicteric. Mucous membranes are moist. NECK: Supple. No JVD. LUNGS: Clear to auscultation bilaterally. HEART: PMI is nondisplaced. Heart is regular. No murmurs. ABDOMEN: Soft, nondistended. No organomegaly. No ascites. No rebound tenderness. No surgical scars on the midline or upper abdomen. EXTREMITIES: No clubbing, cyanosis or edema. BACK: No CVA tenderness. NEUROLOGIC EXAMINATION: Patient is awake and oriented x 4, moving all extremities nonfocally. Cranial nerves II-XII are grossly intact. ASSESSMENT AND PLAN The patient is an 86-year-old male with acute lower GI bleed, unknown source - questionable colon versus distal small bowel. The patient right now is hemodynamically stable, currently being transfused. Due to the patient being stable and of unknown source, I do recommend further workup for the patient's bleed to verify if he is still bleeding as well as locate a possible source. If the patient becomes denies unstable due to massive bleeding, we would recommend operative intervention and possible on-table endoscopies. However, if the patient does resolve, would recommend continued nonoperative management due to his surgical risk and coronary artery disease. The patient was taking Xarelto up until Saturday night. Thank you very much for this consultation. We will follow along with this patient. MD IVET Anderson/HEAVEN /6:22 PM /5:45 AM
[2016-09-04 05:59] LABS: HEMATOCRIT 25.4 % (39.0-51.0)
[2016-09-04 06:17] LABS: BICARBONATE 22.1 MEQ/L (21.0-32.0); POTASSIUM 3.6 MEQ/L (3.5-5.1)
--- NOTE | 2016-09-04 08:07 | HHI.PR ---
Subjective Remarks resting comfortably with no distress. last blood BM was last night. no abdominal pain. no dizziness or sob. d/w the RN. Objective Vitals Vital Signs Date Time Temp Pulse Resp B/P Pulse Ox O2 Delivery O2 Flow Rate FiO2 09/04/16 06:00 88 09/04/16 04:00 97.5 88 21 125/60 100 09/04/16 04:00 91 09/04/16 02:00 93 09/04/16 00:00 97.6 89 18 131/60 97 09/04/16 00:00 89 09/03/16 23:52 96 Nasal Cannula 2.00 09/03/16 22:00 88 09/03/16 20:00 89 09/03/16 20:00 97.2 95 21 106/56 98 09/03/16 19:30 97.2 89 20 106/56 99 09/03/16 19:00 99 Room Air 09/03/16 18:00 78 09/03/16 16:00 97.8 91 18 110/55 98 09/03/16 16:00 93 09/03/16 14:00 90 09/03/16 13:00 98.1 18 128/66 98 09/03/16 12:45 20 117/56 99 Nasal Cannula 2 09/03/16 12:30 20 114/56 99 Nasal Cannula 2 09/03/16 12:15 85 20 109/55 99 Nasal Cannula 2 09/03/16 12:02 97.6 92 20 125/58 99 Nasal Cannula 2 09/03/16 11:44 97.1 92 20 113/56 100 09/03/16 11:33 96.8 94 20 109/53 100 09/03/16 10:50 97.1 53 20 124/56 98 09/03/16 10:35 97.1 53 20 124/56 98 09/03/16 10:08 97.6 84 18 119/59 99 I/O 09/03/16 09/03/16 09/03/16 09/04/16 09/04/16 09/04/16 07:00 15:00 23:00 07:00 15:00 23:00 Intake Total 700 ml 2200 ml 532 ml 643 ml Output Total 200 ml 400 ml Balance 700 ml 2200 ml 332 ml 243 ml Intake IV Total 700 ml 900 ml 232 ml 643 ml Packed Cells 300 ml 300 ml Other 1000 ml Output Urine Total 200 ml 400 ml # Voids 2 2 # Bowel Movements 3 1 0 Result Diagram: 09/04/16 0530 09/04/16 0530 Imaging Last Impressions Abdominal Angiography 09/03/16 1603 Signed Impressions: Service Date/Time: Saturday, September 03, 2016 16:01 - CONCLUSION: 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 Unremarkable superior mesenteric arteriogram without evidence of active bleeding, angiodysplasia or abnormal blush. 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 Dale Forrest MD GI Bleed Scan Nuclear Medicine 09/03/16 0000 Signed Impressions: Service Date/Time: Saturday, September 03, 2016 20:29 - CONCLUSION: Negative Nishant English MD Objective Remarks GENERAL: This is a well-nourished, well-developed patient, in no apparent distress. CARDIOVASCULAR: Regular rate and regular rhythm without murmurs, gallops, or rubs. RESPIRATORY: Clear to auscultation. Breath sounds equal bilaterally. No wheezes , rales, or rhonchi. GASTROINTESTINAL: Abdomen soft, non-tender, nondistended. Normal, active bowel sounds MUSCULOSKELETAL: Extremities without clubbing, cyanosis, or edema. NEURO: Alert & Oriented x4 to person, place, time, situation. Moves all ext x4 Procedures EGD/ colonoscopy Medications and IVs Current Medications Sodium Chloride 2 ml 2 ml UNSCH PRN IVF FLUSH AFTER USING IV ACCESS; Start 09/02 at 10:00 Sodium Chloride (NS 1000 ml Inj) 1,000 ml @ 999 mls/hr BOLUS ONCE IV Last administered on 09/02/16 13:38; Start 09/02/16 at 10:45; Stop 09/02/16 at 11:45; Status DC Pantoprazole Sodium 40 mg 40 mg ONCE ONCE IV PUSH Last administered on 13:37; Start 09/02/16 at 10:45; Stop 09/02/16 at 10:46; Status DC Pantoprazole Sodium/Sodium Chloride (Protonix Inj/NS Inj) 100 ml @ 10 mls/hr Q10H IV Last administered on 09/04/16 04:36; Start 09/02/16 at 12:45 Dextrose (D50w (Vial) Inj) 25 ml UNSCH PRN IV PUSH HYPOGLYCEMIA-SEE COMMENTS; Start 09/02/16 at 12:45 Glucagon (Glucagon Inj) 1 mg UNSCH PRN OTHER HYPOGLYCEMIA-SEE COMMENTS Last administered on 09/03/16 16:47; Start 09/02/16 at 12:45 Insulin Aspart 1 1 ACHS SLIDING SCALE SQ ; Start 09/02/16 at 16:00 Sodium Chloride (NS 1000 ml Inj) 1,000 ml @ 84 mls/hr [id number] IV Last administered on 09/03/16 23:01; Start 09/02/16 at 12:45 Ondansetron HCl (Zofran Inj) 4 mg Q8HR PRN IV PUSH NAUSEA Last administered on 09/03/16 19:27; Start 09/02/16 at 13:00 Polyethylene Glycol/ Electrolytes 4000 ml 4,000 ml ONCE ONCE PO Last administered on 09/02/16 18:11; Start 09/02/16 at 16:00; Stop 09/02/16 at 16:01; Status DC Lactated Ringer's 1,000 ml @ 30 mls/hr Q24H PRN IV SEE LABEL COMMENTS; Start at 07:00; Stop 09/06/16 at 06:59 Sodium Chloride (NS 500 ml Inj) 500 ml @ 30 mls/hr [id number] PRN IV SEE LABEL COMMENTS; Start 09/03/16 at 07:00; Stop 09/06/16 at 06:59 Metoprolol Tartrate (Lopressor) 25 mg REJOINER PRN PO SEE LABEL COMMENTS; Start 09/03/16 at 07:00; Stop 09/06/16 at 06:59 Povidone Iodine (Betadine 5% Antisepsis Kit) 1 applic REJOINER PRN EACH NARE SEE LABEL COMMENTS; Start 09/03/16 at 07:00; Stop 09/06/16 at 06:59 Chlorhexidine Gluconate (Chlorhexidine 2% Cloth) 3 pack REJOINER PRN TOPICAL SEE LABEL COMMENTS; Start 09/03/16 at 07:00; Stop 09/06/16 at 06:59 Midazolam HCl (Versed Inj) 2 mg STK-MED ONCE .ROUTE ; Start 09/03/16 at 12:09; Stop 09/03/16 at 12:10; Status DC Ketamine HCl (Ketalar Inj) 500 mg STK-MED ONCE .ROUTE ; Start 09/03/16 at 12:09; Stop 09/03/16 at 12:10; Status DC Miscellaneous Information ALL NURSING DEPARTME... UNSCH PRN .XX SEE LABEL COMMENTS; Start 09/03/16 at 12:00; Stop 09/04/16 at 11:59 Midazolam HCl (Versed Inj) 5 mg STK-MED ONCE .ROUTE Last administered on 14:59; Start 09/03/16 at 14:59; Stop 09/03/16 at 15:00; Status DC Fentanyl Citrate (fentaNYL INJ) 250 mcg STK-MED ONCE .ROUTE Last administered on 09/03/16 15:00; Start 09/03/16 at 15:00; Stop 09/03/16 at 15:01; Status DC Iodixanol (VISIPAQUE 320 INJ (Rad Spec)) 120 ml STK-MED ONCE I-ARTERIAL Last administered on 09/03/16 16:05; Start 09/03/16 at 16:05; Stop 09/03/16 at 16:06; Status DC Propofol (Diprivan 200 Mg/20 ml Inj) 80 mg STK-MED ONCE IV ; Start 09/03/16 at 11:21; Stop 09/03/16 at 17:47; Status DC Morphine Sulfate (Morphine Inj) 2 mg Q4H PRN IV PAIN 1-10 Last administered on 09/03/16 19:27; Start 09/03/16 at 19:00 Heparin Sodium (Porcine) (Heparin Central Flush) 500 units STK-MED ONCE IV FLUSH ; Start 09/03/16 at 20:01; Stop 09/03/16 at 20:02; Status DC A/P Assessment and Plan A/P - rectal bleed- has been on Xarelto s/p EGD with gastritis and esophagitis s/p colonoscopy with fresh blood in the colon- diverticulosis with no obvious source of bleeding. abdominal angiogram negative for active bleed. surgery consult appreciated and recommended non-op work-up at this time. continue PPI. GI following and previously d/w . -acute anemia due to GI bleed-improved transfused with PRBC and will continue with close monitoring of H/H- GI work-up as noted above. -CAD- s/p stent / a-fib/ hypertension- hold BP meds for now in light of GI bleed - hold Xarelto. -diabetes mellitus; accu-check with SSI- hold oral hypoglycemics for now -DVT prophylaxis with SCD's- no chemical prophylaxis due to GI bleed. continue to observe in ICU for the next 24 hrs. d/w the RN. Bora Chu MD September 04, 2016 08:07 Bora Chu MD September 04, 2016 08:07
[2016-09-04] MEDS: SODIUM CHLOR 0.9% 1000 ML INJ 1,000 ML IV SCH (12:25)
--- NOTE | 2016-09-04 14:15 | HHI.GIFU ---
Subjective Remarks Resting in bed. States he is thirsty and wanting some soup that was promised to him. He denies nausea/vomiting/abdominal pain. He has not had any further bleeding. (Lilly Lopez) Objective Vitals I&O Vital Signs Date Time Temp Pulse Resp B/P Pulse Ox O2 Delivery O2 Flow Rate FiO2 09/04/16 12:00 85 09/04/16 12:00 98.0 82 20 132/59 96 09/04/16 10:00 85 09/04/16 09:36 98 21 09/04/16 08:00 98.0 88 16 129/61 99 09/04/16 08:00 101 09/04/16 07:00 95 3.00 09/04/16 06:00 88 09/04/16 04:00 97.5 88 21 125/60 100 09/04/16 04:00 91 09/04/16 02:00 93 09/04/16 00:00 97.6 89 18 131/60 97 09/04/16 00:00 89 09/03/16 23:52 96 Nasal Cannula 2.00 09/03/16 22:00 88 09/03/16 20:00 89 09/03/16 20:00 97.2 95 21 106/56 98 09/03/16 19:30 97.2 89 20 106/56 99 09/03/16 19:00 99 Room Air 09/03/16 18:00 78 09/03/16 16:00 97.8 91 18 110/55 98 09/03/16 16:00 93 I/O 09/03/16 09/03/16 09/03/16 09/04/16 09/04/16 09/04/16 07:00 15:00 23:00 07:00 15:00 23:00 Intake Total 700 ml 2200 ml 532 ml 643 ml Output Total 200 ml 400 ml Balance 700 ml 2200 ml 332 ml 243 ml Intake IV Total 700 ml 900 ml 232 ml 643 ml Packed Cells 300 ml 300 ml Other 1000 ml Output Urine Total 200 ml 400 ml # Voids 2 2 # Bowel Movements 3 1 0 Laboratory Laboratory Tests Test 09/03/16 09/04/16 09/04/16 17:29 01:52 05:30 White Blood Count 9.8 Red Blood Count 2.85 Hemoglobin 7.7 8.1 8.4 Hematocrit 23.8 23.7 25.4 Mean Corpuscular Volume 83.4 Mean Corpuscular Hemoglobin 27.2 Mean Corpuscular Hemoglobin 32.6 Concent Red Cell Distribution Width 15.8 Platelet Count 110 Mean Platelet Volume 8.0 Neutrophils (%) (Auto) 80.9 Lymphocytes (%) (Auto) 12.1 Monocytes (%) (Auto) 5.6 Eosinophils (%) (Auto) 1.0 Basophils (%) (Auto) 0.4 Neutrophils # (Auto) 8.0 Lymphocytes # (Auto) 1.2 Monocytes # (Auto) 0.6 Eosinophils # (Auto) 0.1 Basophils # (Auto) 0.0 CBC Comment DIFF FINAL Differential Comment Sodium Level 146 Potassium Level 3.6 Chloride Level 114 Carbon Dioxide Level 22.1 Anion Gap 10 Blood Urea Nitrogen 17 Creatinine 0.63 Estimat Glomerular Filtration 121 Rate Random Glucose 129 Calcium Level 7.5 Imaging Last Impressions Abdominal Angiography 09/03/16 1603 Signed Impressions: Service Date/Time: Saturday, September 03, 2016 16:01 - CONCLUSION: 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 Unremarkable superior mesenteric arteriogram without evidence of active bleeding, angiodysplasia or abnormal blush. 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 Dale Forrest MD GI Bleed Scan Nuclear Medicine 09/03/16 0000 Signed Impressions: Service Date/Time: Saturday, September 03, 2016 20:29 - CONCLUSION: Negative Nishant English MD Physical Exam HEENT: Normocephalic; atraumatic; no jaundice. CHEST: CTA CARDIAC: Irregular ABDOMEN: Soft, nondistended, nontender; no hepatosplenomegaly; bowel sounds are present in all four quadrants. EXTREMITIES: No clubbing, cyanosis, or edema. SKIN: Generalized pallor AERODYNAMICS TEACHER: No focal deficits; alert and oriented times three. (Lilly Lopez) Assessment and Plan Plan ASSESSMENT - GIB, Rectal bleeding in patient that was on Xarelto until Saturday night. S/P EGD/Colonoscopy (09/03/16)-----> 1. 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 Retroflexed views revealed a hiatal hernia, 1. Large amount of fresh blood throughout colon, mostly in right colon pandiverticulosis no source of bleeding seen 2. Retroflexed views revealed internal hemorrhoids 3. Retroflexed views revealed medium internal hemorrhoids 4. Revealed hemorrhoids. Had bleeding and therefore went for GI Bleed Scan Nuclear Medicine (09/03/16)---> Negative. 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 Unremarkable superior mesenteric arteriogram without evidence of active bleeding, angiodysplasia or abnormal blush. 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 No further bleeding. S/P 4 units PRBC. HH 8.4/25.4. GS following. Will give clears today and then plan for colonoscopy in am if no further bleeding. If active bleeding, then stat CTA abdomen. Xarelto on hold - Anemia secondary to blood loss. S/P 4 units PRBC. HH 8.4/25.4. - Atrial fibrillation. Was taking Xaraelto up until 08/31. Currently on hold. Per primary - DM, CAD, Hx HTN per primary PLAN - Plan for colonoscopy in am - Obtain consents - Clear liquids - NPO after midnight - Cont. PPI - If active bleeding, then stat CTA abdomen/pelvis - Monitor HH - Transfused for hgb < 8.0 - Hold anticoagulation - Further recommendations based on results of above - Pt seen and examined by Dr. Dia and myself and this note is written on her behalf (Lilly Lopez) Physician Comments seen, examined agree with above (Constance Dia MD) Lilly Lopez September 04, 2016 14:15 Constance Dia MD September 04, 2016 17:24
--- NOTE | 2016-09-04 16:28 | HHI.PR ---
Subjective Subjective Notes Resting in bed Thirsty No red blood SC since yesterday Objective Vitals/I&O Vital Signs Date Time Temp Pulse Resp B/P Pulse Ox O2 Delivery O2 Flow Rate FiO2 09/04/16 12:00 85 09/04/16 12:00 98.0 20 132/59 96 09/04/16 09:36 21 09/04/16 07:00 3.00 09/03/16 23:52 Nasal Cannula Labs Laboratory Tests Test 09/03/16 09/04/16 09/04/16 17:29 01:52 05:30 White Blood Count 9.8 Red Blood Count 2.85 Hemoglobin 7.7 8.1 8.4 Hematocrit 23.8 23.7 25.4 Mean Corpuscular Volume 83.4 Mean Corpuscular Hemoglobin 27.2 Mean Corpuscular Hemoglobin 32.6 Concent Red Cell Distribution Width 15.8 Platelet Count 110 Mean Platelet Volume 8.0 Neutrophils (%) (Auto) 80.9 Lymphocytes (%) (Auto) 12.1 Monocytes (%) (Auto) 5.6 Eosinophils (%) (Auto) 1.0 Basophils (%) (Auto) 0.4 Neutrophils # (Auto) 8.0 Lymphocytes # (Auto) 1.2 Monocytes # (Auto) 0.6 Eosinophils # (Auto) 0.1 Basophils # (Auto) 0.0 CBC Comment DIFF FINAL Differential Comment Sodium Level 146 Potassium Level 3.6 Chloride Level 114 Carbon Dioxide Level 22.1 Anion Gap 10 Blood Urea Nitrogen 17 Creatinine 0.63 Estimat Glomerular Filtration 121 Rate Random Glucose 129 Calcium Level 7.5 Cardiovascular: Regular Lungs: Clear Abdomen: Non-distended, Non-tender Extremities: No edema A/P Assessment and Plan 86 year old male on chronic anticoagulation with LGIB -s/p EGD/colonoscopy -Bleeding scan negative -Hmg 8.4 today---stable -VSS -Okay to start sips of clears -GI planning to repeat EGD/Colonoscopy tomorrow -No acute surgical issues at this time Attending Statement The exam, history, and the medical decision-making described in the above note were completed with the assistance of the mid-level provider. I reviewed and agree with the findings presented. I attest that I had a [id number] encounter with the patient on the same day, and personally performed and documented my assessment and findings in the medical record. vitals stable, recommend continued non-surgical management at this time, will follow Faviola Bullock September 04, 2016 16:28 Arun Mathew MD September 25, 2016 16:20
[2016-09-04 19:26] LABS: HEMATOCRIT 22.5 % (39.0-51.0); REVIEW FLAG FINAL
[2016-09-04 21:15] LABS: REVIEW FLAG FINAL
[2016-09-04 21:16] LABS: HEMATOCRIT 20.3 % (39.0-51.0)
[2016-09-04] MEDS ORDERED: IOHEXOL 350 MG/ML 10 ML VIAL (for RAD DIAG) IV ONE (21:23)
--- NOTE | 2016-09-04 21:38 | RADRPT ---
EXAM DATE/TIME: 09/04/2016 20:04 [facility] COMPARISON: No previous studies available for comparison. INDICATIONS : Diffuse abdomen pain. IV CONTRAST: 70 cc Omnipaque 350 (iohexol) IV ORAL CONTRAST: No oral contrast ingested. RADIATION DOSE: 7.45 CTDIvol (mGy) MEDICAL HISTORY : Cardiovascular disease. Hypertension. Diabetes mellitus type 2. SURGICAL HISTORY : Prostate sx ENCOUNTER: Initial ACUITY: 1 day PAIN SCALE: 3/10 LOCATION: Bilateral lower quadrant TECHNIQUE: Volumetric scanning was performed using a multi-row detector CT scanner. The data was post processed with a variety of visualization algorithms including full volume maximum intensity projection, multi -planar sliding thin slab reformation, curved planar reformation, and surface rendering techniques. Using automated exposure control and adjustment of the mA and/or kV according to patient size, radiat ion dose was kept as low as reasonably achievable to obtain optimal diagnostic quality images. FINDINGS: The abdominal aorta is notable for moderate atheromatous irregularity and patchy intimal calcificatio ns. There is no evidence of significant aortic or iliac stenosis. No aneurysm is present. The visuali zed proximal thigh vessels are intact. Looking at the aortic visceral vessels, the celiac is intact with minimal ostial stenosis. The SMA is notable for severe proximal stenosis estimated at greater than 70%. There is severe proximal left re nal artery stenosis. Minimal ostial narrowing of the right renal artery. The MARIAH is patent. Elsewhere on the exam comment note is made of consolidative changes in the lung bases, left worse logan t right with some elevation or eventration of the diaphragm which is incompletely evaluated on this s tudy. There are multiple stones layering in the gallbladder. A 14 mm circumscribed low density mass is present in the proximal body of the pancreas. This may be a small cyst, however followup would be recommended. Tiny renal cysts are present. There is diverticular involvement of the distal colon. No definite abnormal dilatation, wall thickeni ng or focal inflammatory change. There are prostatic calcifications present. Degenerative changes present in the spine and hips. CONCLUSION: High-grade proximal SMA stenosis Small low density mass in the pancreatic body. Additional imaging evaluation with PET CT and/or MRI o n an outpatient elective basis recommended Gallstones. Colonic diverticulosis. Incompletely evaluated changes in the lung bases.. Nishant English MD on September 04, 2016 at 21:26 Board Certified Radiologist. This report was verified electronically.
[2016-09-05] VITALS (16 sets, daily range): BP systolic 93–169; BP diastolic 51–71; PULSE 70–110; RESP 19–28; TEMP 97.7–97.9; O2SAT 97–100
[2016-09-05] MEDS: SODIUM CHLOR 0.9% 1000 ML INJ 1,000 ML IV SCH ×2 (00:20→12:15)
[2016-09-05] MEDS: PANTOPRAZOLE INJ 80 MG in SODIUM CHLORIDE 0.9% INJ 100 ML IV SCH ×3 (00:45→20:22)
[2016-09-05] MEDS ORDERED: MAGNESIUM CITRATE SOLN 300 ML BTL PO ONE (05:00)
[2016-09-05] MEDS: INSULIN ASPART SUPPLEMENTAL SCALE SQ SCH ×4 (06:11→20:32)
[2016-09-05 08:53] LABS: AUTOMATED NEUTROPHIL # 6.1 TH/MM3 (1.8-7.7); BASOPHIL % 0.3 % (0.0-2.0); EOSINOPHIL # 0.2 TH/MM3 (0-0.4); EOSINOPHIL % 2.5 % (0.0-4.0); HEMATOCRIT 24.7 % (39.0-51.0); HEMO FLAGS DIFF FINAL; LYMPH % 12.1 % (9.0-44.0); MEAN CORPUSCULAR HEMOGLOBIN 25.8 PG (27.0-34.0); MONO % 8.7 % (0.0-8.0); NEUT % 76.4 % (16.0-70.0); PLATELET COUNT 122 TH/MM3 (150-450); RED BLOOD COUNT 3.16 MIL/MM3 (4.50-5.90); RED CELL DISTRIBUTION WIDTH 20.3 % (11.6-17.2)
--- NOTE | 2016-09-05 08:53 | HHI.PR ---
Subjective Remarks in no acute distress. but had some more rectal bleed last night. denies abdominal pain, nausea or vomiting. awaiting colonoscopy today. Objective Vitals Vital Signs Date Time Temp Pulse Resp B/P Pulse Ox O2 Delivery O2 Flow Rate FiO2 09/05/16 06:00 105 09/05/16 04:00 80 09/05/16 04:00 97.7 80 20 126/62 100 09/05/16 02:00 75 09/05/16 00:00 89 09/05/16 00:00 97.8 89 20 126/58 99 09/04/16 22:00 87 09/04/16 21:50 98 21 09/04/16 20:00 104 09/04/16 20:00 97.4 104 16 94/47 99 09/04/16 19:00 99 Room Air 09/04/16 18:00 105 09/04/16 16:00 100 09/04/16 16:00 81 20 125/58 96 09/04/16 14:00 85 09/04/16 12:00 85 09/04/16 12:00 98.0 82 20 132/59 96 09/04/16 10:00 85 09/04/16 09:36 98 21 I/O 09/04/16 09/04/16 09/04/16 09/05/16 09/05/16 09/05/16 07:00 15:00 23:00 07:00 15:00 23:00 Intake Total 643 ml 950 ml 3360 ml 1573 ml Output Total 400 ml 500 ml 200 ml 560 ml Balance 243 ml 450 ml 3160 ml 1013 ml Intake Oral 300 ml 1065 ml 300 ml IV Total 643 ml 650 ml 1551 ml 595 ml Packed Cells 444 ml FFP 678 ml Platelets 300 ml Output Urine Total 400 ml 500 ml 200 ml 560 ml # Bowel Movements 0 3 0 0 Result Diagram: 09/04/16205409/04/16 0530 Imaging Last Impressions Abdomen/Pelvis CT 09/04/16 0000 Signed Impressions: Service Date/Time: Sunday, September 04, 2016 20:04 - CONCLUSION: High-grade proximal SMA stenosis Small low density mass in the pancreatic body. Additional imaging evaluation with PET CT and/or MRI on an outpatient elective basis recommended Gallstones. Colonic diverticulosis. Incompletely evaluated changes in the lung bases.. 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 Unremarkable superior mesenteric arteriogram without evidence of active bleeding, angiodysplasia or abnormal blush. 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 Dale Forrest MD GI Bleed Scan Nuclear Medicine 09/03/16 0000 Signed Impressions: Service Date/Time: Saturday, September 03, 2016 20:29 - CONCLUSION: Negative Nishant English MD Objective Remarks GENERAL: This is a well-nourished, well-developed patient, in no apparent distress. CARDIOVASCULAR: Regular rate and regular rhythm without murmurs, gallops, or rubs. RESPIRATORY: Clear to auscultation. Breath sounds equal bilaterally. No wheezes , rales, or rhonchi. GASTROINTESTINAL: Abdomen soft, non-tender, nondistended. Normal, active bowel sounds MUSCULOSKELETAL: Extremities without clubbing, cyanosis, or edema. NEURO: Alert & Oriented x4 to person, place, time, situation. Moves all ext x4 Procedures EGD/ colonoscopy Medications and IVs Current Medications Sodium Chloride 2 ml 2 ml UNSCH PRN IVF FLUSH AFTER USING IV ACCESS; Start 09/02 at 10:00 Sodium Chloride (NS 1000 ml Inj) 1,000 ml @ 999 mls/hr BOLUS ONCE IV Last administered on 09/02/16 13:38; Start 09/02/16 at 10:45; Stop 09/02/16 at 11:45; Status DC Pantoprazole Sodium 40 mg 40 mg ONCE ONCE IV PUSH Last administered on 13:37; Start 09/02/16 at 10:45; Stop 09/02/16 at 10:46; Status DC Pantoprazole Sodium/Sodium Chloride (Protonix Inj/NS Inj) 100 ml @ 10 mls/hr Q10H IV Last administered on 09/05/16 00:45; Start 09/02/16 at 12:45 Dextrose (D50w (Vial) Inj) 25 ml UNSCH PRN IV PUSH HYPOGLYCEMIA-SEE COMMENTS; Start 09/02/16 at 12:45 Glucagon (Glucagon Inj) 1 mg UNSCH PRN OTHER HYPOGLYCEMIA-SEE COMMENTS Last administered on 09/03/16 16:47; Start 09/02/16 at 12:45 Insulin Aspart 1 1 ACHS SLIDING SCALE SQ Last administered on 09/04/16 21:00; Start 09/02/16 at 16:00 Sodium Chloride (NS 1000 ml Inj) 1,000 ml @ 84 mls/hr [id number] IV Last administered on 09/05/16 00:20; Start 09/02/16 at 12:45 Ondansetron HCl (Zofran Inj) 4 mg Q8HR PRN IV PUSH NAUSEA Last administered on 09/03/16 19:27; Start 09/02/16 at 13:00 Polyethylene Glycol/ Electrolytes 4000 ml 4,000 ml ONCE ONCE PO Last administered on 09/02/16 18:11; Start 09/02/16 at 16:00; Stop 09/02/16 at 16:01; Status DC Lactated Ringer's 1,000 ml @ 30 mls/hr Q24H PRN IV SEE LABEL COMMENTS; Start at 07:00; Stop 09/06/16 at 06:59 Sodium Chloride (NS 500 ml Inj) 500 ml @ 30 mls/hr [id number] PRN IV SEE LABEL COMMENTS; Start 09/03/16 at 07:00; Stop 09/06/16 at 06:59 Metoprolol Tartrate (Lopressor) 25 mg BURNER HAND PRN PO SEE LABEL COMMENTS; Start 09/03/16 at 07:00; Stop 09/06/16 at 06:59 Povidone Iodine (Betadine 5% Antisepsis Kit) 1 applic BURNER HAND PRN EACH NARE SEE LABEL COMMENTS; Start 09/03/16 at 07:00; Stop 09/06/16 at 06:59 Chlorhexidine Gluconate (Chlorhexidine 2% Cloth) 3 pack BURNER HAND PRN TOPICAL SEE LABEL COMMENTS; Start 09/03/16 at 07:00; Stop 09/06/16 at 06:59 Midazolam HCl (Versed Inj) 2 mg STK-MED ONCE .ROUTE ; Start 09/03/16 at 12:09; Stop 09/03/16 at 12:10; Status DC Ketamine HCl (Ketalar Inj) 500 mg STK-MED ONCE .ROUTE ; Start 09/03/16 at 12:09; Stop 09/03/16 at 12:10; Status DC Miscellaneous Information ALL NURSING DEPARTME... UNSCH PRN .XX SEE LABEL COMMENTS; Start 09/03/16 at 12:00; Stop 09/04/16 at 11:59; Status DC Midazolam HCl (Versed Inj) 5 mg STK-MED ONCE .ROUTE Last administered on 14:59; Start 09/03/16 at 14:59; Stop 09/03/16 at 15:00; Status DC Fentanyl Citrate (fentaNYL INJ) 250 mcg STK-MED ONCE .ROUTE Last administered on 09/03/16 15:00; Start 09/03/16 at 15:00; Stop 09/03/16 at 15:01; Status DC Iodixanol (VISIPAQUE 320 INJ (Rad Spec)) 120 ml STK-MED ONCE I-ARTERIAL Last administered on 09/03/16 16:05; Start 09/03/16 at 16:05; Stop 09/03/16 at 16:06; Status DC Propofol (Diprivan 200 Mg/20 ml Inj) 80 mg STK-MED ONCE IV ; Start 09/03/16 at 11:21; Stop 09/03/16 at 17:47; Status DC Morphine Sulfate (Morphine Inj) 2 mg Q4H PRN IV PAIN 1-10 Last administered on 09/03/16 19:27; Start 09/03/16 at 19:00 Heparin Sodium (Porcine) (Heparin Central Flush) 500 units STK-MED ONCE IV FLUSH ; Start 09/03/16 at 20:01; Stop 09/03/16 at 20:02; Status DC Phenylephrine HCl (Neosynephrine/ NS 1000 Mcg/10ml Syr) 100 mcg STK-MED ONCE IV ; Start 09/03/16 at 12:00; Stop 09/04/16 at 09:04; Status DC Ondansetron HCl (Zofran Inj) 4 mg STK-MED ONCE IV PUSH ; Start 09/03/16 at 12:00 ; Stop 09/04/16 at 09:05; Status DC Iohexol (Omnipaque 350 Inj) 70 ml STK-MED ONCE IV Last administered on 21:23; Start 09/04/16 at 21:23; Stop 09/04/16 at 21:24; Status DC Magnesium Citrate (Citroma Liq) 300 ml ONCE ONCE PO Last administered on t 06:10; Start 09/05/16 at 05:00; Stop 09/05/16 at 05:01; Status DC A/P Assessment and Plan A/P - rectal bleed- has been on Xarelto s/p EGD with gastritis and esophagitis s/p colonoscopy with fresh blood in the colon- diverticulosis with no obvious source of bleeding. abdominal angiogram negative for active bleed. CT of the abdomen with high-grade proximal SMA stenosis Small low density mass in the pancreatic body. surgery following with conservative treatment. continue PPI. GI following ; plan for colonoscopy today. -acute anemia due to GI bleed-further drop in H/H last night- s/p PRBC transfusion. will continue to monitor H/H closely. GI work-up as noted above. -CAD- s/p stent / a-fib/ hypertension- hold BP meds for now in light of GI bleed - hold Xarelto. -diabetes mellitus; accu-check with SSI- hold oral hypoglycemics for now -DVT prophylaxis with SCD's- no chemical prophylaxis due to GI bleed. continue to observe in ICU . Bora Chu MD September 05, 2016 08:53
--- NOTE | 2016-09-05 13:47 | HHI.PR ---
Subjective Subjective Notes Patient sitting on the side of the bed Reports BM this AM that was red Understands he is going for colonoscopy today which is confirmed by RN Jeremiah Objective Vitals/I&O Vital Signs Date Time Temp Pulse Resp B/P Pulse Ox O2 Delivery O2 Flow Rate FiO2 09/05/16 12:00 85 09/05/16 12:00 97.8 19 143/65 98 09/05/16 08:04 21 09/05/16 07:00 3.00 09/04/16 19:00 Room Air Labs Laboratory Tests Test 09/04/16 09/04/16 09/04/16 09/04/16 18:31 18:50 20:55 21:58 Blood Type AB POSITIVE Crossmatch Leukocyte-Reduced Red Blood Cells Blood Bank Comment Hemoglobin 7.2 6.8 Hematocrit 22.5 20.3 Test 09/05/16 08:40 White Blood Count 8.0 Red Blood Count 3.16 Hemoglobin 8.1 Hematocrit 24.7 Mean Corpuscular Volume 78.0 Mean Corpuscular Hemoglobin 25.8 Mean Corpuscular Hemoglobin 33.0 Concent Red Cell Distribution Width 20.3 Platelet Count 122 Mean Platelet Volume 7.3 Neutrophils (%) (Auto) 76.4 Lymphocytes (%) (Auto) 12.1 Monocytes (%) (Auto) 8.7 Eosinophils (%) (Auto) 2.5 Basophils (%) (Auto) 0.3 Neutrophils # (Auto) 6.1 Lymphocytes # (Auto) 1.0 Monocytes # (Auto) 0.7 Eosinophils # (Auto) 0.2 Basophils # (Auto) 0.0 CBC Comment DIFF FINAL Differential Comment Cardiovascular: Regular Lungs: Clear Abdomen: Non-distended, Non-tender Extremities: No edema A/P Assessment and Plan 86 year old male on chronic anticoagulation with LGIB -Repeat colonoscopy today -Bleeding scan negative -Hmg 8.1 today---stable -VSS -NPO for colonoscopy -No acute surgical issues at this time Attending Statement The exam, history, and the medical decision-making described in the above note were completed with the assistance of the mid-level provider. I reviewed and agree with the findings presented. I attest that I had a [id number] encounter with the patient on the same day, and personally performed and documented my assessment and findings in the medical record. Abdominal exam stable, do not recommend surgery if not clear source and patient is stable Faviola Bullock September 05, 2016 13:47 Arun Mathew MD September 25, 2016 16:29
--- NOTE | 2016-09-05 15:26 | RADRPT ---
EXAM DATE/TIME: 09/05/2016 12:39 [facility] COMPARISON: No previous studies available for comparison. INDICATIONS : Rectal bleeding. DOSE: 21.2 mCi Tc99m Ultratag labeled red blood cells IV IMAGIN hrs MEDICAL HISTORY : Gastroesophageal reflux disease. Hypertension. SURGICAL HISTORY : Tonsillectomy. CABG Coronary artery stent. ENCOUNTER: Initial ACUITY: 3 days PAIN SCALE: 0/10 LOCATION: lower quadrant TECHNIQUE: Following the modified in vitro labeling of autologous red cells, dynamic continuous images were acqu ired for the specified interval. FINDINGS: BIODISTRIBUTION: There is a very good labeling of red cells without significant uptake in the gastric wall. There is good delineation of the blood pool of the spleen and abdominal vessels. BLEEDING: No episodes of active GI bleeding are observed during specified interval of continuous observation. CONCLUSION: No active GI bleeding. Nirav Lainez MD on September 05, 2016 at 15:22 Board Certified Radiologist. This report was verified electronically.
--- NOTE | 2016-09-05 16:45 | GIPROC ---
[facility] [address] [facility]. [facility] [place], [address] COLONOSCOPY PROCEDURE REPORT EXAM DATE: 09/05/2016 PATIENT NAME: Jae Castillo MR #: [id number] BIRTHDATE: 1930 ENDOSCOPIST: Constance Dia MD ORDER #: [id number] CRANE ENGINEER: Frankie Lucas and Stacy Guajardo STATUS: inpatient INDICATIONS: The patient is a 86 yr old male here for a colonoscopy due to bleeding PROCEDURE PERFORMED: Colonoscopy with polypectomy MEDICATIONS: None and Per Anesthesia. PREP QUALITY: fair PREP TYPE:Magnesium Citrate ESTIMATED BLOOD LOSS: None CONSENT: The patient understands the risks and benefits of the procedure and understands that these risks include, but are not limited to: sedation, allergic reaction, infection, perforation and/or bleeding. Alternative means of evaluation and treatment include, among others: physical exam, x-rays, and/or surgical intervention. The patient elects to proceed with this endoscopic procedure. medical equipment was checked for proper function. Hand hygiene and appropriate measures for infection prevention was taken. After the risks, benefits and alternatives of the procedure were thoroughly explained, Informed consent was verified, confirmed and timeout was successfully executed by the treatment team. A digital exam revealed hemorrhoids The Pentax [id number] endoscope was introduced through the anus and advanced to the cecum, which was identified by both the appendix and ileocecal valve. The instrument was then slowly withdrawn as the colon was fully examined. COLON FINDINGS: Diverticulosis sigmoid,descending polyp ascending colon- sessile 7 mm-hot snare polypectomy, 1 clip applied. Retroflexed views revealed internal hemorrhoids and Retroflexed views revealed small internal hemorrhoids The scope was then completely withdrawn from the patient and the procedure terminated. PROCEDURE WITHDRAWAL TIME:10minutes ADVERSE EVENTS: There were no complications. IMPRESSIONS: 1. Diverticulosis sigmoid,descending polyp ascending colon- sessile 7 mm-hot snare polypectomy, 1 clip applied 2. Retroflexed views revealed internal hemorrhoids 3. Retroflexed views revealed small internal hemorrhoids 4. Revealed hemorrhoids RECOMMENDATIONS: 1. Await biopsy results. Biopsy results will not be ready for 7-10 days. If you don't hear from us in two weeks, call our office for results. 2. Probiotics from any [facility] [address] or health food store 3. Yearly rectal exams RECALL: Colonoscopy, pending biopsy results Constance Dia MD eSigned: Constance Dia MD 09/05/2016 4:45 PM cc:
[2016-09-05] MEDS ORDERED: NAPHAZOLINE HCL 0.012% OPHT SOLN 15 ML BOTTLE EACH EYE PRN (17:00)
[2016-09-05] MEDS ORDERED: PROPOFOL 200 MG/20 ML AMP IV ONE (17:17)
[2016-09-05] MEDS ORDERED: DO NOT ADM ANY ANTICOAGULANT DRUGS PRN (17:45)
[2016-09-05 21:33] LABS: HEMATOCRIT 18.9 % (39.0-51.0); REVIEW FLAG FINAL
[2016-09-05] MEDS ORDERED: SODIUM CHLOR 0.9% 250 ML INJ 250 ML IV ONE (23:15)
--- NOTE | 2016-09-05 23:43 | PD.CONS ---
[facility] Service Critical Care Medicine Consult Requested By Dr. Dia Reason for Consult Critical care management of patient with active GI bleeding Primary Care Physician Lynnette Ziegler MD History of Present Illness 86-year-old male with past medical history of coronary artery disease status post PCI, hypertension, atrial fibrillation on chronic anticoagulation as an outpatient with xarelto, diabetes mellitus who presented to [facility] emergency department 09/02/16 with GI bleeding. The exact source of his bleeding has been challenging to determine and he has had recurrent episodes of brisk lower GI bleeding requiring transfusions. He has undergone colonoscopy 09/03 that demonstrated blood throughout the colon, primarily in Right colon with some in distal ileum. He underwent negative nuclear bleeding scan x2 09/03 and 09/05. Angiography 09/03 performed while bleeding was also negative. Tonight he has had recurrent bleeding and has had 5 a very large bowel movements with bright red blood per rectum. Transfusion of 4 units packed red cells, 2 units FFP, 1 platelet pharesis pack have been ordered and Dr. Dia has consulted [facility] to assist with resuscitation and management. Placed CVL to facilitate resuscitation as he had difficult IV access. He denies abdominal pain Past Family Social History Allergies: Coded Allergies: Cultivated Oat Pollen (Verified Allergy, Mild, nasal congestion, 09/11/16) Past Medical History Hypertension Diabetes Atrial fibrillation on Chronic anticoagulation with xarelto Hyperlipidemia Had a bleeding duodenal ulcer in the for which she was hospitalized for 30 days Past Surgical History Right knee replacement Right rotator cuff surgery Left Hand surgery Cardiac catheterization with stent 2 Right eye surgery Prior EGD in 1949 Reported Medications Lisinopril 20 mg by mouth daily Xarelto 20 mill grams by mouth daily Metoprolol 50 mg by mouth twice a day Metformin 1000 mill grams by mouth twice a day Nutritional supplement shakes Zocor 10 mill grams by mouth twice a day Multivitamin Glucosamine one by mouth daily [place]thage-3 fatty acids 1 tab by mouth daily Cialis 5 mill grams by mouth daily Omeprazole 20 mg by mouth daily Calcium carbonate 600 with vitamin D one by mouth daily Loratadine 10 mill grams by mouth daily Glyburide 5 mill grams by mouth twice a day HCTZ 25 mg by mouth daily Vitamin C 500 mg by mouth daily Family History Patient states his mother at age 84. He was not aware of any medical history. His father was killed in a mining accident. He has no siblings. Social History He states he quit smoking 50 years ago. Denies alcohol or illicit drug use His for 42 years in 2006 Physical Exam Vital Signs Vital Signs Date Time Temp Pulse Resp B/P Pulse Ox O2 Delivery O2 Flow Rate FiO2 09/05/16 18:00 70 09/05/16 17:15 98.6 80 23 131/62 99 Room Air 09/05/16 17:00 78 22 136/65 99 Room Air 09/05/16 16:47 97.8 83 23 117/56 99 Nasal Cannula 2 09/05/16 12:00 85 09/05/16 12:00 97.8 85 19 143/65 98 09/05/16 10:00 74 09/05/16 08:04 99 21 09/05/16 08:00 109 09/05/16 08:00 97.7 109 24 169/71 99 09/05/16 07:00 99 3.00 09/05/16 06:00 105 09/05/16 04:00 80 09/05/16 04:00 97.7 80 20 126/62 100 09/05/16 02:00 75 09/05/16 00:00 89 09/05/16 00:00 97.8 89 20 126/58 99 Physical Exam GENERAL: Very pleasant elderly male who appears younger than stated age. SKIN: Warm and dry. HEAD: Atraumatic. Normocephalic. EYES: Pupils equal and round. No scleral icterus. ENT: No nasal bleeding or discharge. NECK: Trachea midline. No JVD. CARDIOVASCULAR: Irregularly irregular with rate in the 110s no murmurs rubs or gallops. RESPIRATORY: No accessory muscle use. Clear to auscultation. Breath sounds equal bilaterally. GASTROINTESTINAL: Abdomen soft, non-tender, bowel sounds are present. MUSCULOSKELETAL: Extremities without clubbing, cyanosis, or edema. NEUROLOGICAL: Awake and alert. No obvious cranial nerve deficits. Motor grossly within normal limits. No apparent focal deficit. Normal speech. Laboratory Laboratory Tests Test 09/05/16 09/05/16 09/05/16 08:40 20:51 22:22 White Blood Count 8.0 Red Blood Count 3.16 Hemoglobin 8.1 6.1 Hematocrit 24.7 18.9 Mean Corpuscular Volume 78.0 Mean Corpuscular Hemoglobin 25.8 Mean Corpuscular Hemoglobin 33.0 Concent Red Cell Distribution Width 20.3 Platelet Count 122 Mean Platelet Volume 7.3 Neutrophils (%) (Auto) 76.4 Lymphocytes (%) (Auto) 12.1 Monocytes (%) (Auto) 8.7 Eosinophils (%) (Auto) 2.5 Basophils (%) (Auto) 0.3 Neutrophils # (Auto) 6.1 Lymphocytes # (Auto) 1.0 Monocytes # (Auto) 0.7 Eosinophils # (Auto) 0.2 Basophils # (Auto) 0.0 CBC Comment DIFF FINAL Differential Comment Crossmatch Leukocyte-Reduced Red Blood Cells Blood Bank Comment Result Diagram: 09/05/16205009/04/16 0530 Assessment and Plan Assessment and Plan NEURO: Morphine as needed for pain RESP: Nasal cannula wean as tolerated and spelled spirometry every hour CV: Atrial fibrillation Anticoagulation with xarelto has been on hold since admission due to acute GI bleeding Monitor hemodynamic GI: GI bleeding Protonix drip colonoscopy 09/03 that demonstrated blood throughout the colon, primarily in Right colon with some in distal ileum. Nuclear bleeding scan negative 09/03 and 09/05. Dr. Dia requested repeat nuclear scan, but unable to repeat currently due to residual tracer. Angiography 09/03 performed was also negative. Discussed with Dr. Forrest and he does not feel repeat angio is warranted in this patient. Dr. Dia suggest CTA abdomen however this was deferred because it appeared that bleeding had stopped. Can be reordered if appears bleeding has resumed. General Surgery following, Dr. Mathew. May require bowel resection but will make all attempts to localize bleeding first. FEN/RENAL: Voiding. Monitor intake and output. Monitor electrolytes and replace as indicated ID: Monitor for evidence infection HEME: Acute blood loss anemia Hemoglobin every 6 hours Transfusing 4 units packed red cells, 2 units FFP, 1 unit of platelets, 10 units prior currently. Follow up repeat coags and fibrinogen ENDO: Diabetes mellitus Low-dose insulin sliding scale ac/hs PROPH: Protonix drip as per above. Pharmacologic DVT prophylaxis contraindicated due to acute GI hemorrhage. SCDs for DVT prophylaxis ACCESS: Right IJ central venous line placed 09/05/#[address] Dia on multiple occasion. Discussed with Dr. Malone , Dr. Forrest and bedside RN Patient updated at bedside CCT 60 minutes exclusive of separately billable procedures. Sultana Rees MD September 05, 2016 23:43
--- NOTE | 2016-09-05 23:46 | PD.PROCEDR ---
Procedure Note Procedure DATE: 09/05/16 CENTRAL LINE PLACEMENT: Right internal jugular vein. Ultrasound-guided INDICATION: Central venous access CONSENT Informed consent for procedure was obtained from patient after discussion of risks, benefits, alternatives. Signed consent is on the chart. DESCRIPTION OF THE PROCEDURE The patient was placed in supine position, mild Trendelenburg. The skin was cleansed with Chloraprep x3. Additional barrier precautions included large sterile drape, sterile gloves, sterile gown, face mask, and hat. 1 % lidocaine was used for local anesthesia. Under direct ultrasound guidance and on single attempt, the vein was accessed with an introducer needle. The guide wire was advanced and the tract was dilated. Using Seldinger technique a 7 Malian 20 cm antimicrobial coated triple-lumen catheter was advanced to a depth of 18 centimeters. The guide wire was removed. All ports had good return of dark venous blood and flushed easily with saline. The central line was secured with 2.0 silk. A sterile dressing with antibiotic disc was applied. ESTIMATED BLOOD LOSS: Minimal COMPLICATIONS: No apparent complications. STAT chest x-ray is pending. Sultana Rees MD September 05, 2016 23:46
[2016-09-06] VITALS (33 sets, daily range): BP systolic 122–198; BP diastolic 58–124; PULSE 67–98; RESP 14–29; TEMP 98–98.7; O2SAT 74–100
[2016-09-06] MEDS: SODIUM CHLOR 0.9% 1000 ML INJ 1,000 ML IV SCH (00:10)
--- NOTE | 2016-09-06 00:53 | RADRPT ---
EXAM DATE/TIME: 09/06/2016 00:08 [place] COMPARISON: CHEST SINGLE AP, February 19, 2015, 21:13. INDICATIONS : Central line placement. MEDICAL HISTORY : Cardiovascular disease. Hypertension Diabetes mellitus type II. SURGICAL HISTORY : None. ENCOUNTER: Initial ACUITY: 1 day PAIN SCORE: 0/10 LOCATION: Bilateral chest FINDINGS: A single portable frontal view of the chest shows a right-sided central line. Tip is at the cavoatria l junction. No pneumothorax. Left lower lobe infiltrate. Mild cardiomegaly. No effusions. CONCLUSION: 1. Right-sided central line in good position without pneumothorax. 2. Left lower lobe infiltrate. Juanito Iqbal Jr., MD on September 06, 2016 at 0:50 Board Certified Radiologist. This report was verified electronically.
[2016-09-06 04:21] LABS: BICARBONATE 25.5 MEQ/L (21.0-32.0); POTASSIUM 3.3 MEQ/L (3.5-5.1)
[2016-09-06 04:32] LABS: CALCIUM-PROTEIN CORRECTED 8.4 MG/DL (8.5-10.1)
[2016-09-06] MEDS: PANTOPRAZOLE INJ 80 MG in SODIUM CHLORIDE 0.9% INJ 100 ML IV SCH ×2 (05:35→13:07)
[2016-09-06] MEDS: INSULIN ASPART SUPPLEMENTAL SCALE SQ SCH ×4 (06:41→21:00)
--- NOTE | 2016-09-06 10:10 | HHI.PR ---
Subjective Subjective Notes Patient sitting up in bed Reports no abdominal pain but did have bright red BM last night INO Cosby at bedside----on last unit of 4 of PRBCs Going to bleeding scan today Objective Vitals/I&O Vital Signs Date Time Temp Pulse Resp B/P Pulse Ox O2 Delivery O2 Flow Rate FiO2 09/06/16 08:00 95 Room Air 09/06/16 06:00 79 09/06/16 04:00 98.7 20 138/63 09/05/16 19:00 3.00 09/05/16 08:04 21 Labs Laboratory Tests Test 09/05/16 09/05/16 09/05/16 09/06/16 20:51 22:22 23:27 00:23 Hemoglobin 6.1 Hematocrit 18.9 Crossmatch Leukocyte-Reduced Leukocyte-Reduced Red Blood Red Blood Cells Cells Blood Bank Comment Blood Type AB POSITIVE Antibody Screen NEGATIVE Test 09/06/16 03:15 Sodium Level 143 Potassium Level 3.3 Chloride Level 110 Carbon Dioxide Level 25.5 Anion Gap 8 Blood Urea Nitrogen 11 Creatinine 0.60 Estimat Glomerular Filtration 128 Rate Random Glucose 185 Calcium Level 7.2 Protein Corrected Calcium 8.4 Total Protein 4.9 Cardiovascular: Regular Lungs: Clear Abdomen: Non-distended, Non-tender Extremities: No edema Narrative Exam RIGHT IJ central line in place A/P Assessment and Plan 86 year old male on chronic anticoagulation with LGIB -s/p repeat colonoscopy yesterday -Repeat bleeding scan today -Obtain hmg level after last transfusion complete -VSS -NPO -Will follow up on labs and bleeding scan -Discussed with INO Cosby at bedside Attending Statement The exam, history, and the medical decision-making described in the above note were completed with the assistance of the mid-level provider. I reviewed and agree with the findings presented. I attest that I had a [id number] encounter with the patient on the same day, and personally performed and documented my assessment and findings in the medical record. no bleeding source in colon or EGD, likely small bowel, possibly AVM, may need capsule endoscopy and/or provoked bleeding angiogram Faviola Bullock September 06, 2016 10:10 Arun Mathew MD September 25, 2016 16:36
--- NOTE | 2016-09-06 11:07 | HHI.GIFU ---
Subjective Remarks Resting in bed. Had GI bleeding overnight with rectal bleeding. Nurse reports he did not have any this shift until I went in to see patient and he passed about 200cc of dark maroon blood clots. Pt denies nausea, vomiting, abdominal pain. VSS. Call placed to [facility] for ongoing GI bleeding capsule endoscopy, +/- double balloon enteroscopy. Awaiting call back from taxation accountant physician. (Lilly Lopez) Objective Vitals I&O Vital Signs Date Time Temp Pulse Resp B/P Pulse Ox O2 Delivery O2 Flow Rate FiO2 09/06/16 08:00 95 Room Air 09/06/16 06:00 79 09/06/16 04:00 98.7 84 20 138/63 98 09/06/16 04:00 84 09/06/16 02:00 85 09/06/16 01:00 85 22 131/61 100 09/06/16 00:00 98.0 98 23 122/58 74 09/06/16 00:00 98 09/05/16 23:00 85 26 113/55 100 09/05/16 22:47 85 24 93/54 97 09/05/16 22:00 94 09/05/16 22:00 94 24 111/51 97 09/05/16 21:00 98 23 113/53 98 09/05/16 20:00 105 09/05/16 20:00 97.9 105 22 160/66 98 09/05/16 19:34 110 28 148/66 99 09/05/16 19:00 86 23 09/05/16 19:00 90 3.00 09/05/16 18:00 70 09/05/16 17:15 98.6 80 23 131/62 99 Room Air 09/05/16 17:00 78 22 136/65 99 Room Air 09/05/16 16:47 97.8 83 23 117/56 99 Nasal Cannula 2 09/05/16 12:00 85 09/05/16 12:00 97.8 85 19 143/65 98 I/O 09/05/16 09/05/16 09/05/16 09/06/16 09/06/16 09/06/16 07:00 15:00 23:00 07:00 15:00 23:00 Intake Total 1573 ml 875 ml 990 ml 2368 ml Output Total 560 ml 250 ml Balance 1013 ml 875 ml 990 ml 2118 ml Intake Oral 300 ml 100 ml 50 ml IV Total 595 ml 725 ml 740 ml 532 ml Packed Cells 500 ml FFP 678 ml 150 ml 576 ml Platelets 447 ml Cryoprecipitate 263 ml Other 150 ml Output Urine Total 560 ml 250 ml # Voids 2 # Bowel Movements 0 3 5 0 Laboratory Laboratory Tests Test 09/05/16 09/05/16 09/05/16 09/06/16 20:51 22:22 23:27 00:23 Hemoglobin 6.1 Hematocrit 18.9 Crossmatch Leukocyte-Reduced Leukocyte-Reduced Red Blood Red Blood Cells Cells Blood Bank Comment Blood Type AB POSITIVE Antibody Screen NEGATIVE Test 09/06/16 03:15 Sodium Level 143 Potassium Level 3.3 Chloride Level 110 Carbon Dioxide Level 25.5 Anion Gap 8 Blood Urea Nitrogen 11 Creatinine 0.60 Estimat Glomerular Filtration 128 Rate Random Glucose 185 Calcium Level 7.2 Protein Corrected Calcium 8.4 Total Protein 4.9 Imaging Last Impressions GI Bleed Scan Nuclear Medicine 09/05/16 0000 Signed Impressions: Service Date/Time: Monday, September 05, 2016 12:39 - CONCLUSION: No active GI bleeding. Nirav Lainez MD Chest X-Ray 09/05/16 0000 Signed Impressions: Service Date/Time: August 00:08 - CONCLUSION: 1. Right-sided central line in good position without pneumothorax. 2. Left lower lobe infiltrate. Juanito Iqbal Jr., MD Abdomen/Pelvis CT 09/04/16 0000 Signed Impressions: Service Date/Time: Sunday, September 04, 2016 20:04 - CONCLUSION: High-grade proximal SMA stenosis Small low density mass in the pancreatic body. Additional imaging evaluation with PET CT and/or MRI on an outpatient elective basis recommended Gallstones. Colonic diverticulosis. Incompletely evaluated changes in the lung bases.. 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 Unremarkable superior mesenteric arteriogram without evidence of active bleeding, angiodysplasia or abnormal blush. 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 Dale Forrest MD Physical Exam HEENT: Normocephalic; atraumatic; no jaundice. CHEST: CTA CARDIAC: Irregular, rate controlled. ABDOMEN: Soft, nondistended, nontender; no hepatosplenomegaly; bowel sounds are present in all four quadrants. Passed about 200cc dark maroon/blood clots from rectum. EXTREMITIES: No clubbing, cyanosis, or edema. SKIN: Generalized pallor MACHINE OPERATOR HELPER: No focal deficits; alert and oriented times three. (Lilly Lopez) Assessment and Plan Plan ASSESSMENT - Persistent GIB, Rectal bleeding in patient that was on Xarelto until Saturday night. S/P EGD/Colonoscopy (09/03/16)-----> 1. 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 Retroflexed views revealed a hiatal hernia, 1. Large amount of fresh blood throughout colon, mostly in right colon pandiverticulosis no source of bleeding seen 2. Retroflexed views revealed internal hemorrhoids 3. Retroflexed views revealed medium internal hemorrhoids 4. Revealed hemorrhoids. Had bleeding and therefore went for GI Bleed Scan Nuclear Medicine (09/03/16)---> Negative. 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 Unremarkable superior mesenteric arteriogram without evidence of active bleeding, angiodysplasia or abnormal blush. 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 No further bleeding. Rpt. Colonoscopy ()-----> 1. Diverticulosis sigmoid,descending polyp ascending colon- sessile 7 mm- hot snare polypectomy, 1 clip applied 2. Retroflexed views revealed internal hemorrhoids 3. Retroflexed views revealed small internal hemorrhoids 4. Revealed hemorrhoids. Pt had bleeding overnight and again this am when I evaluated patient- about 200cc of dark maroon blood clots. B/P and HR stable. Scheduled for bleeding scan at noon. [place] [facility] endoscopy, +/- double balloon enteroscopy. Awaiting call back from taxation accountant physician. CM consulted. S/P 10 units PRBC, 4 units FFP, 2 units platelets, 1 unit cryoprecipitate. Protonix Gtt. NPO. Last unit of blood finished. HH pending. D/W patient the plan. - Anemia secondary to blood loss. 10 units PRBC, 4 units FFP, 2 units platelets , 1 unit cryoprecipitate. Protonix Gtt. NPO. HH pending (just finished last unit of blood) - Barretts Esophagus with dysplasia. GE mucosal biopsy with moderate chronic gastric inflammatory changes consistent with reflux exhibiting foci of intestinal metaplasia and low grade dysplasia confined to subsurface glandular epithelium. Protonix. D/W patient. Will need EGD with Barrx as outpt. - Atrial fibrillation. Was taking Xaraelto up until 08/31. Currently on hold. Per primary - DM, CAD, Hx HTN per primary PLAN - NPO - Protonix - GI bleeding scan scheduled - Monitor HH - Transfuse as necessary - CM consult: Tx to tertiary ([facility] vs. [facility] for persistent GI bleeding, capsule endoscopy, +/- double balloon enteroscopy)- Spoke to transfer center for capsule endoscopy, +/- double balloon enteroscopy. Awaiting call back from taxation accountant physician. - Notify GI of active bleeding - Cont. to hold anticoagulation - Further recommendations based on results of above - Will need EGD with Barrx as outpatient for Frank's with low grade dysplasia- d/w patient - Pt seen and examined by Dr. Dia and myself and this note is written on her behalf Addendum: 12:15. Spoke to Dr. Hankins at [facility]- will accept patient as nonemergent, but if not transferred by tomorrow am, will change this to emergent. Will be admitted to Dr. Miramontes's service for GI. Tx to plug shaper hand for report, but poor connection and he requested that I call back in 10 minutes- Dr. Reyes (?sp). Will call back. Addendum: Spoke to Dr. Blake (plug shaper hand), report given, accept's pt. Will be under GI service- Kulwinder/Cr. (Lilly Lopez) Physician Comments seen, examined agree with above discussed with IR-no role of repeat angiogram, also discussed with surgery- would like a clear source of bleeding before taking to OR bleeding scan was ordered today, to much activity from yesterday study , bleeding scan cannot be done today capsule endoscopy not available as in patient at this hospital, patient cannot be discharged at this point to have this procedure outpatient transfer to a facility that can offer capsule endoscopy and potential double balloon enteroscopy discussed with patient and daughter (Constance Dia MD) Lilly Lopez September 06, 2016 11:07 Constance Dia MD September 06, 2016 15:27
--- NOTE | 2016-09-06 12:05 | HHI.CCPN ---
Subjective Remarks/Hospital Course 86-year-old male with past medical history of coronary artery disease status post PCI, hypertension, atrial fibrillation on chronic anticoagulation as an outpatient with xarelto, diabetes mellitus who presented to [facility] emergency department 09/02/16 with GI bleeding. The exact source of his bleeding has been challenging to determine and he has had recurrent episodes of brisk lower GI bleeding requiring transfusions. He has undergone colonoscopy 09/03 that demonstrated blood throughout the colon, primarily in Right colon with some in distal ileum. He underwent negative nuclear bleeding scan x2 09/03 and 09/05. Angiography 09/03 performed while bleeding was also negative. Tonight he has had recurrent bleeding and has had 5 a very large bowel movements with bright red blood per rectum. Transfusion of 4 units packed red cells, 2 units FFP, 1 platelet pheresis pack have been ordered and Dr. Dia has consulted [facility] to assist with resuscitation and management. Placed CVL to facilitate resuscitation as he had difficult IV access. He denies abdominal pain. Subjective: 09/06: Patient has received a total of 4 units of blood since admission. Discussion with Dr. Dia GI , there is a planned transfer to [facility]. Dr. Dubose. Continue serial H&H. Bleeding scan scheduled for today, follow-up results. Objective Vital Signs Date Time Temp Pulse Resp B/P Pulse Ox O2 Delivery O2 Flow Rate FiO2 09/06/16 08:00 95 Room Air 09/06/16 06:00 79 09/06/16 04:00 98.7 20 138/63 09/05/16 19:00 3.00 09/05/16 08:04 21 Intake and Output 09/05/16 09/05/16 09/05/16 07:59 15:59 23:59 Intake Total 1573 ml 875 ml 990 ml Output Total 560 ml Balance 1013 ml 875 ml 990 ml Result Diagram: 09/05/16205009/06/165 Other Results Current Medications Medications (Trade) Dose Ordered Sig/Lennox Route Start Time Stop Time Status Last Admin Sodium Chloride 2 ml 2 ml UNSCH PRN IVF 09/02/16 10:00 (Protonix Inj/NS Inj) 100 ml @ 10 mls/hr Q10H IV 09/02/16 12:45 09/06/16 13:07 (D50w (Vial) Inj) 25 ml UNSCH PRN IV PUSH 09/02/16 12:45 Glucagon 1 mg 1 mg UNSCH PRN OTHER 09/02/16 12:45 09/03/16 16:47 (NS 1000 ml Inj) 1,000 ml @ 84 mls/hr [id number] IV 09/02/16 12:45 09/06/16 00:10 (Zofran Inj) 4 mg Q8HR PRN IV PUSH 09/02/16 13:00 09/03/16 19:27 (Morphine Inj) 2 mg Q4H PRN IV 09/03/16 19:00 09/03/16 19:27 (Clear Eyes Redness Relief 0.012% Opth Soln) 1 drop QID PRN EACH EYE 09/05/16 17:00 Miscellaneous Information ALL NURSING DEPARTME... UNSCH PRN .XX 09/05/16 17:45 09/06/16 17:44 (Lopressor Inj) 2.5 mg Q6H PRN IV PUSH 09/06/16 12:30 09/06/16 12:15 Objective Remarks GENERAL: Very pleasant elderly male who appears younger than stated age. In no acute distress. SKIN: Warm and dry. HEAD: Atraumatic. Normocephalic. EYES: Pupils equal and round. No scleral icterus. ENT: No nasal bleeding or discharge. NECK: Trachea midline. No JVD. CARDIOVASCULAR: Irregularly irregular with rate in the 86, no murmurs rubs or gallops. RESPIRATORY: No accessory muscle use. Clear to auscultation. Breath sounds equal bilaterally. GASTROINTESTINAL: Abdomen soft, non-tender, bowel sounds are present. MUSCULOSKELETAL: Extremities without clubbing, cyanosis, or edema. NEUROLOGICAL: Awake and alert. No obvious cranial nerve deficits. Motor grossly within normal limits. No apparent focal deficit. Normal speech. Procedures Follow-up bleeding scan A/P Assessment and Plan NEURO: Morphine as needed for pain RESP: Nasal cannula wean as tolerated and incentive spirometry every hour while awake CV: Atrial fibrillation Anticoagulation with xarelto has been on hold since admission due to acute GI bleeding Monitor hemodynamic GI: GI bleeding Protonix drip colonoscopy 09/03 that demonstrated blood throughout the colon, primarily in Right colon with some in distal ileum. Nuclear bleeding scan negative 09/03 and 09/05. Dr. Dia requested repeat nuclear scan, but unable to repeat currently due to residual tracer. Angiography 09/03 performed was also negative. Discussed with Dr. Forrest and he does not feel repeat angio is warranted in this patient. Dr. Dia suggest CTA abdomen however this was deferred because it appeared that bleeding had stopped. Can be reordered if appears bleeding has resumed. General Surgery following, Dr. Mathew. May require bowel resection but will make all attempts to localize bleeding first. 09/06-repeat bleeding scan FEN/RENAL: Voiding. Monitor intake and output. Monitor electrolytes and replace as indicated ID: Monitor for evidence infection HEME: Acute blood loss anemia Hemoglobin every 6 hours Transfusing 4 units packed red cells, 2 units FFP, 1 unit of platelets, 10 units prior currently. Follow up repeat coags and fibrinogen ENDO: Diabetes mellitus Low-dose insulin sliding scale ac/hs PROPH: Protonix drip as per above. Pharmacologic DVT prophylaxis contraindicated due to acute GI hemorrhage. SCDs for DVT prophylaxis ACCESS: Right IJ central venous line placed 09/05/#1 Discussed with Tonya TORRES and CIRCUS HAND at bedside Patient updated at bedside This patient remains critically ill with one or more organ systems which are or may become a threat to life. I have spent in excess of 35 minutes discontinuously in the care and management of this patient. This time is exclusive of procedures, and includes, but is not limited to, evaluation of the patient, review of the medical record, discussions with family, consultants, nursing staff, or respiratory therapy, and documentation in the medical record. Physician Sade Dolan MD September 06, 2016 12:05
[2016-09-06] MEDS ORDERED: METOPROLOL TARTRATE 5 MG/5 ML VIAL ONE (12:14)
[2016-09-06] MEDS: METOPROLOL TARTRATE 5 MG/5 ML VIAL IV PUSH PRN ×2 (12:15→18:16)
[2016-09-06 13:50] LABS: HEMATOCRIT 25.3 % (39.0-51.0)
[2016-09-06 13:59] LABS: APTT (PATIENT) 25.8 SEC (24.3-30.1); PROTHROMBIN TIME - PATIENT 11.5 SEC (9.8-11.6)
[2016-09-06 14:23] LABS: BICARBONATE 24.9 MEQ/L (21.0-32.0)
[2016-09-06 14:35] LABS: CALCIUM-PROTEIN CORRECTED 8.6 MG/DL (8.5-10.1)
[2016-09-07] VITALS (13 sets, daily range): BP systolic 132–198; BP diastolic 75–96; PULSE 68–97; RESP 18–28; TEMP 98.3–98.7; O2SAT 94–95
[2016-09-07 00:03] LABS: HEMATOCRIT 25.5 % (39.0-51.0); PLATELET COUNT 105 TH/MM3 (150-450); RED BLOOD COUNT 3.19 MIL/MM3 (4.50-5.90); RED CELL DISTRIBUTION WIDTH 17.3 % (11.6-17.2); REVIEW FLAG FINAL
[2016-09-07] MEDS: METOPROLOL TARTRATE 5 MG/5 ML VIAL IV PUSH PRN ×2 (02:07→07:30)
[2016-09-07] MEDS: PANTOPRAZOLE INJ 80 MG in SODIUM CHLORIDE 0.9% INJ 100 ML IV SCH ×2 (02:40→13:41)
[2016-09-07 06:25] LABS: HEMATOCRIT 28.1 % (39.0-51.0); MEAN CELL VOLUME 80.8 FL (80.0-100.0); MEAN CORPUSCULAR HEMOGLOBIN 27.5 PG (27.0-34.0); PLATELET COUNT 119 TH/MM3 (150-450); RED BLOOD COUNT 3.48 MIL/MM3 (4.50-5.90); RED CELL DISTRIBUTION WIDTH 17.1 % (11.6-17.2); REVIEW FLAG FINAL; WHITE BLOOD COUNT 7.5 TH/MM3 (4.0-11.0)
[2016-09-07 06:48] LABS: BICARBONATE 25.8 MEQ/L (21.0-32.0); MAGNESIUM 2.2 MG/DL (1.5-2.5); POTASSIUM 3.2 MEQ/L (3.5-5.1)
--- NOTE | 2016-09-07 09:44 | HHI.PR ---
Subjective Subjective Notes Case management at bedside to do paperwork to transfer patient to Street Objective Vitals/I&O Vital Signs Date Time Temp Pulse Resp B/P Pulse Ox O2 Delivery O2 Flow Rate FiO2 09/07/16 06:00 78 09/07/16 04:00 98.5 20 174/84 95 09/06/16 20:00 Room Air 09/05/16 19:00 3.00 09/05/16 08:04 21 Labs Laboratory Tests Test 09/06/16 09/06/16 09/06/16 09/07/16 11:50 23:40 23:59 05:55 Hemoglobin 8.8 8.9 9.6 Hematocrit 25.3 25.5 28.1 Prothrombin Time 11.5 Prothromb Time International 1.0 Ratio Activated Partial 25.8 Thromboplast Time Fibrinogen 265 257 306 Sodium Level 144 144 Potassium Level 3.0 3.2 Chloride Level 110 109 Carbon Dioxide Level 24.9 25.8 Anion Gap 9 9 Blood Urea Nitrogen 10 6 Creatinine 0.43 0.54 Estimat Glomerular Filtration 188 144 Rate Random Glucose 138 138 Calcium Level 7.4 7.5 Protein Corrected Calcium 8.6 Total Protein 5.0 White Blood Count 6.0 7.5 Red Blood Count 3.19 3.48 Mean Corpuscular Volume 80.0 80.8 Mean Corpuscular Hemoglobin 28.0 27.5 Mean Corpuscular Hemoglobin 35.0 34.0 Concent Red Cell Distribution Width 17.3 17.1 Platelet Count 105 119 Mean Platelet Volume 7.5 7.4 Phosphorus Level 1.3 Magnesium Level 2.2 Cardiovascular: Regular Lungs: Clear Abdomen: Non-distended, Non-tender Extremities: No edema Narrative Exam RIGHT IJ central line in place A/P Assessment and Plan 86 year old male on chronic anticoagulation with LGIB -Arrangements being made to transfer to Street for capsule endoscopy -s/p repeat colonoscopy -Hmg 9.6 today -No rectal bleeding overnight -Discussed with INO Cosby at bedside Attending Statement The exam, history, and the medical decision-making described in the above note were completed with the assistance of the mid-level provider. I reviewed and agree with the findings presented. I attest that I had a [id number] encounter with the patient on the same day, and personally performed and documented my assessment and findings in the medical record. discussed with GI, will need capsule endoscopy, agree with transfer to [facility] September 07, 2016 09:44 Arun Mathew MD September 25, 2016 16:40
[2016-09-07] MEDS ORDERED: POTASSIUM CHLOR 20 MEQ PREMIX 100 ML IV PRN ×2 (10:00)
[2016-09-07] MEDS ORDERED: POTASSIUM CHLORIDE 25 MEQ EFFERVESCENT TAB PO PRN (10:00)
[2016-09-07] MEDS ORDERED: SODIUM PHOSPHATE INJ 30 MMOL in SODIUM CHLOR 0.9% 250 ML INJ 240 ML IV PRN (10:00)
[2016-09-07] MEDS ORDERED: hydrALAZINE HCL 20 MG/ML VIAL IV PUSH PRN (10:00)
[2016-09-07] MEDS ORDERED: METOPROLOL TARTRATE 50 MG TAB PO SCH (10:00)
[2016-09-07] MEDS ORDERED: MAGNESIUM OXIDE 400 MG TAB PO PRN (10:00)
[2016-09-07] MEDS ORDERED: POTASSIUM CHLOR 40 MEQ PREMIX 100 ML IV PRN ×2 (10:00)
[2016-09-07] MEDS ORDERED: MAGNESIUM SULFATE INJ 2 GM in SODIUM CHLORIDE 0.9% INJ 96 ML IV PRN (10:00)
[2016-09-07] MEDS ORDERED: POTASSIUM PHOSPHATE MONOBASIC 500 MG TAB PO/TUBE PRN (10:00)
[2016-09-07] MEDS ORDERED: POTASSIUM PHOSPHATE MONOBASIC 500 MG TAB PO PRN (10:00)
[2016-09-07] MEDS ORDERED: MAGNESIUM SULFATE INJ 4 GM in SODIUM CHLORIDE 0.9% INJ 92 ML IV PRN (10:00)
[2016-09-07] MEDS: RESP: ALBUTEROL 2.5 MG/IPRATROPIUM 0.5 MG NEB (SCH) NEB ×2 (10:14→15:47)
--- NOTE | 2016-09-07 10:14 | HHI.CCPN ---
Subjective Remarks/Hospital Course 86-year-old male with past medical history of coronary artery disease status post PCI, hypertension, atrial fibrillation on chronic anticoagulation as an outpatient with xarelto, diabetes mellitus who presented to [facility] emergency department 09/02/16 with GI bleeding. The exact source of his bleeding has been challenging to determine and he has had recurrent episodes of brisk lower GI bleeding requiring transfusions. He has undergone colonoscopy 09/03 that demonstrated blood throughout the colon, primarily in Right colon with some in distal ileum. He underwent negative nuclear bleeding scan x2 09/03 and 09/05. Angiography 09/03 performed while bleeding was also negative. Tonight he has had recurrent bleeding and has had 5 a very large bowel movements with bright red blood per rectum. Transfusion of 4 units packed red cells, 2 units FFP, 1 platelet pheresis pack have been ordered and Dr. Dia has consulted [facility] to assist with resuscitation and management. Placed CVL to facilitate resuscitation as he had difficult IV access. He denies abdominal pain. Subjective: 09/06: Patient has received a total of 4 units of blood since admission. Discussion with Dr. Dia GI , there is a planned transfer to [facility]. Dr. Dubose. Continue serial H&H. Bleeding scan scheduled for today, follow-up results. 09/07 No acute overnight. Hypertensive. On Protonix drip. For possible transfer to [facility] today for capsule endoscopy, +/- double balloon enteroscopy. No bleeding overnight. Objective Vital Signs Date Time Temp Pulse Resp B/P Pulse Ox O2 Delivery O2 Flow Rate FiO2 09/07/16 08:00 72 09/07/16 07:00 96 Room Air 09/07/16 04:00 98.5 20 174/84 09/05/16 19:00 3.00 09/05/16 08:04 21 Intake and Output 09/06/16 09/06/16 09/07/16 08:00 16:00 00:00 Intake Total 2368 ml 2644 ml 860 ml Output Total 250 ml 400 ml 725 ml Balance 2118 ml 2244 ml 135 ml Result Diagram: 09/07/16 0555 09/07/16 0555 Other Results Laboratory Tests Test 09/06/16 09/06/16 09/06/16 09/07/16 11:50 23:40 23:59 05:55 Hemoglobin 8.8 GM/DL 8.9 GM/DL 9.6 GM/DL Hematocrit 25.3 % 25.5 % 28.1 % Prothrombin Time 11.5 SEC Prothromb Time International 1.0 RATIO Ratio Activated Partial 25.8 SEC Thromboplast Time Fibrinogen 265 mg/dL 257 mg/dL 306 mg/dL Sodium Level 144 MEQ/L 144 MEQ/L Potassium Level 3.0 MEQ/L 3.2 MEQ/L Chloride Level 110 MEQ/L 109 MEQ/L Carbon Dioxide Level 24.9 MEQ/L 25.8 MEQ/L Anion Gap 9 MEQ/L 9 MEQ/L Blood Urea Nitrogen 10 MG/DL 6 MG/DL Creatinine 0.43 MG/DL 0.54 MG/DL Estimat Glomerular Filtration 188 ML/MIN 144 ML/MIN Rate Random Glucose 138 MG/DL 138 MG/DL Calcium Level 7.4 MG/DL 7.5 MG/DL Protein Corrected Calcium 8.6 MG/DL Total Protein 5.0 GM/DL White Blood Count 6.0 TH/MM3 7.5 TH/MM3 Red Blood Count 3.19 MIL/MM3 3.48 MIL/MM3 Mean Corpuscular Volume 80.0 FL 80.8 FL Mean Corpuscular Hemoglobin 28.0 PG 27.5 PG Mean Corpuscular Hemoglobin 35.0 % 34.0 % Concent Red Cell Distribution Width 17.3 % 17.1 % Platelet Count 105 TH/MM3 119 TH/MM3 Mean Platelet Volume 7.5 FL 7.4 FL Phosphorus Level 1.3 MG/DL Magnesium Level 2.2 MG/DL Imaging Last Impressions GI Bleed Scan Nuclear Medicine 09/05/16 0000 Signed Impressions: Service Date/Time: Monday, September 05, 2016 12:39 - CONCLUSION: No active GI bleeding. Nirav Lainez MD Chest X-Ray 09/05/16 0000 Signed Impressions: Service Date/Time: August 00:08 - CONCLUSION: 1. Right-sided central line in good position without pneumothorax. 2. Left lower lobe infiltrate. Juanito Iqbal Jr., MD Abdomen/Pelvis CT 09/04/16 0000 Signed Impressions: Service Date/Time: Sunday, September 04, 2016 20:04 - CONCLUSION: High-grade proximal SMA stenosis Small low density mass in the pancreatic body. Additional imaging evaluation with PET CT and/or MRI on an outpatient elective basis recommended Gallstones. Colonic diverticulosis. Incompletely evaluated changes in the lung bases.. 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 Unremarkable superior mesenteric arteriogram without evidence of active bleeding, angiodysplasia or abnormal blush. 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 Dale Forrest MD Objective Remarks GENERAL: Patient is lying in bed in NAD SKIN: Warm and dry. HEAD: Normocephalic. EYES: No scleral icterus. No injection or drainage. NECK: Supple, trachea midline. No JVD or lymphadenopathy. CARDIOVASCULAR: Regular rate and rhythm without murmurs, gallops, or rubs. RESPIRATORY: Breath sounds equal bilaterally. No accessory muscle use. GASTROINTESTINAL: Abdomen soft, non-tender, nondistended. MUSCULOSKELETAL: No cyanosis, or edema. BACK: Nontender without obvious deformity. No CVA tenderness. Neuro: awake and alert. Procedures Follow-up bleeding scan A/P Assessment and Plan NEURO: Morphine as needed for pain RESP: Nasal cannula wean as tolerated and incentive spirometry every hour while awake CV: Atrial fibrillation Hypertension Anticoagulation with xarelto has been on hold since admission due to acute GI bleeding Place on Lopressor 50mg Q12 for BP control. Monitor HR and BP keep MAP>65mmHg GI: GI bleeding For possible transfer to [facility] for capsule endoscopy, +/- double balloon enteroscopy On Protonix drip colonoscopy 09/03 that demonstrated blood throughout the colon, primarily in Right colon with some in distal ileum. Nuclear bleeding scan negative 09/03 and 09/05. Angiography 09/[address] Nails discussed with Dr. Forrest and he does not feel repeat angio is warranted in this patient. General Surgery following, Dr. Mathew. May require bowel resection but will make all attempts to localize bleeding first. On Clear liquid diet, d/c IVF : Monitor renal function, I/O's, electrolytes replacement per protocol. Will need K.Phos replacement today ID: Monitor for evidence infection(fever, WBC) HEME: Acute blood loss anemia Monitor CBC Transfusing 4 units packed red cells, 2 units FFP, 1 unit of platelets, 10 units prior ENDO: Diabetes mellitus Low-dose insulin sliding scale ac/hs PROPH: Protonix drip as per above. Pharmacologic DVT prophylaxis contraindicated due to acute GI hemorrhage. SCDs for DVT prophylaxis ACCESS: Right IJ central venous line placed 09/05 Level 3 Ijeoma Sears MD September 07, 2016 10:14
[2016-09-07] MEDS: INSULIN ASPART SUPPLEMENTAL SCALE SQ SCH ×2 (13:44→16:56)
[2016-09-07 16:01] LABS: REVIEW FLAG FINAL
--- NOTE | 2016-09-07 16:11 | HHI.GIFU ---
Subjective Remarks Resting in bed- no distress. He had not had any bleeding all day, but did have rectal bleeding with moderate amount of red blood/clots about 20 minutes ago. VSS. Stat H/H drawn. [facility] arrived to transport patient, but will hold until we get HH back to see if he needs to be transfused for transfer. Daughter at bedside. Updated on condition and plan. (Lilly Lopez) Objective Vitals I&O Vital Signs Date Time Temp Pulse Resp B/P Pulse Ox O2 Delivery O2 Flow Rate FiO2 09/07/16 14:00 87 09/07/16 12:00 69 09/07/16 12:00 98.3 69 28 155/75 94 09/07/16 10:00 76 09/07/16 08:00 72 09/07/16 08:00 98.4 76 21 198/86 94 09/07/16 07:00 96 Room Air 09/07/16 06:00 78 09/07/16 04:00 98.5 68 20 174/84 95 09/07/16 04:00 75 09/07/16 03:13 80 26 183/84 94 09/07/16 02:13 71 24 158/77 94 09/07/16 02:00 73 09/07/16 01:03 84 25 170/80 94 09/07/16 00:00 98.7 68 20 174/84 95 09/07/16 00:00 68 09/06/16 22:49 97 09/06/16 22:00 78 09/06/16 20:30 84 22 156/75 97 09/06/16 20:01 73 20 174/79 97 09/06/16 20:00 73 09/06/16 20:00 97 Room Air 09/06/16 19:30 91 24 147/78 92 09/06/16 19:00 83 22 174/84 94 09/06/16 18:00 67 09/06/16 16:00 69 22 176/72 98 09/06/16 16:00 69 I/O 09/06/16 09/06/16 09/06/16 09/07/16 09/07/16 09/07/16 07:00 15:00 23:00 07:00 15:00 23:00 Intake Total 2368 ml 2644 ml 860 ml 689 ml Output Total 250 ml 400 ml 725 ml 300 ml Balance 2118 ml 2244 ml 135 ml 389 ml Intake Oral 50 ml 520 ml 240 ml 120 ml IV Total 532 ml 624 ml 620 ml 569 ml Packed Cells 500 ml 1500 ml FFP 576 ml Platelets 447 ml Cryoprecipitate 263 ml Output Urine Total 250 ml 400 ml 725 ml 300 ml # Bowel Movements 0 1 2 0 Laboratory Laboratory Tests Test 09/06/16 09/06/16 09/07/16 23:40 23:59 05:55 Fibrinogen 257 306 White Blood Count 6.0 7.5 Red Blood Count 3.19 3.48 Hemoglobin 8.9 9.6 Hematocrit 25.5 28.1 Mean Corpuscular Volume 80.0 80.8 Mean Corpuscular Hemoglobin 28.0 27.5 Mean Corpuscular Hemoglobin 35.0 34.0 Concent Red Cell Distribution Width 17.3 17.1 Platelet Count 105 119 Mean Platelet Volume 7.5 7.4 Sodium Level 144 Potassium Level 3.2 Chloride Level 109 Carbon Dioxide Level 25.8 Anion Gap 9 Blood Urea Nitrogen 6 Creatinine 0.54 Estimat Glomerular Filtration 144 Rate Random Glucose 138 Calcium Level 7.5 Phosphorus Level 1.3 Magnesium Level 2.2 Imaging Last Impressions GI Bleed Scan Nuclear Medicine 09/05/16 0000 Signed Impressions: Service Date/Time: Monday, September 05, 2016 12:39 - CONCLUSION: No active GI bleeding. Nirav Lainez MD Chest X-Ray 09/05/16 0000 Signed Impressions: Service Date/Time: August 00:08 - CONCLUSION: 1. Right-sided central line in good position without pneumothorax. 2. Left lower lobe infiltrate. Juanito Iqbal Jr., MD Abdomen/Pelvis CT 09/04/16 0000 Signed Impressions: Service Date/Time: Sunday, September 04, 2016 20:04 - CONCLUSION: High-grade proximal SMA stenosis Small low density mass in the pancreatic body. Additional imaging evaluation with PET CT and/or MRI on an outpatient elective basis recommended Gallstones. Colonic diverticulosis. Incompletely evaluated changes in the lung bases.. 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 Unremarkable superior mesenteric arteriogram without evidence of active bleeding, angiodysplasia or abnormal blush. 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 Dale Forrest MD Physical Exam HEENT: Normocephalic; atraumatic; no jaundice. CHEST: CTA CARDIAC: Irregular, rate controlled. ABDOMEN: Soft, nondistended, nontender; no hepatosplenomegaly; bowel sounds are present in all four quadrants. EXTREMITIES: No clubbing, cyanosis, or edema. SKIN: Generalized pallor FORENSICS TEAM DIRECTOR: No focal deficits; alert and oriented times three. (LopezLilly) Assessment and Plan Plan ASSESSMENT - Persistent GIB, Rectal bleeding in patient that was on Xarelto until Saturday night. S/P EGD/Colonoscopy (09/03/16)-----> 1. 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 Retroflexed views revealed a hiatal hernia, 1. Large amount of fresh blood throughout colon, mostly in right colon pandiverticulosis no source of bleeding seen 2. Retroflexed views revealed internal hemorrhoids 3. Retroflexed views revealed medium internal hemorrhoids 4. Revealed hemorrhoids. Had bleeding and therefore went for GI Bleed Scan Nuclear Medicine (09/03/16)---> Negative. 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 Unremarkable superior mesenteric arteriogram without evidence of active bleeding, angiodysplasia or abnormal blush. 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 No further bleeding. Rpt. Colonoscopy ()-----> 1. Diverticulosis sigmoid,descending polyp ascending colon- sessile 7 mm- hot snare polypectomy, 1 clip applied 2. Retroflexed views revealed internal hemorrhoids 3. Retroflexed views revealed small internal hemorrhoids 4. Revealed hemorrhoids. Pt had recurrent bleeding yesterday. Recommend capsule endoscopy +/- double balloon enteroscopy, not available as inpatient at this facility and patient is not stable to be discharged. Spoke to [facility], (for GI) and Dr. Blake for deputy director service yesterday and they have accepted patient. Pt did not have any bleeding this am, but had another episode of bleeding this afternoon- VSS. Spoke to Dr. Juan Tolliver today (deputy director) to update prior to transfer, updated on recent bleed, stat h/h, possible transfusion for transfer. Call [facility] when ready to be transferred- state if he is receiving blood, nurse will need to go, but if not a nurse does not have to travel with patient- . Awaiting Stat H/H. - Anemia secondary to blood loss. 10 units PRBC, 4 units FFP, 2 units platelets , 1 unit cryoprecipitate. 9.6.1 earlier, stat H/H pending. - Barretts Esophagus with dysplasia. GE mucosal biopsy with moderate chronic gastric inflammatory changes consistent with reflux exhibiting foci of intestinal metaplasia and low grade dysplasia confined to subsurface glandular epithelium. Protonix. D/W patient. Will need EGD with Barrx as outpt. - Atrial fibrillation. Was taking Xaraelto up until 08/31. Currently on hold. Per primary - DM, CAD, Hx HTN per primary PLAN - Stat H/H Will start 1 unit PRBC. Once this is hanging the patient is okay to go via [facility]. - Protonix gtt - Plan is to transfer to [facility] for capsule endoscopy, possible double balloon enteroscopy. Accepted by Dr. Hankins (GI) Dr. Blake/Unruly (deputy director). Just awaiting to see if he needs transfusion for transfer - CM consult: Tx to tertiary ([facility] vs. [place] for persistent GI bleeding, capsule endoscopy, +/- double balloon enteroscopy)- Spoke to transfer center for capsule endoscopy, +/- double balloon enteroscopy. Awaiting call back from control system manager physician. - Cont. to hold anticoagulation - Will need EGD with Barrx as outpatient for Frank's with low grade dysplasia- d/w patient - Pt seen and examined by Dr. Dia and myself and this note is written on her behalf -9.0. Will start 1 unit PRBC. Once this is hanging the patient is okay to go via [facility]. (Lilly LopezP) Physician Comments seen, examined agree with above also has Farr's esophagus with low grade dysplasia -will need fu egd/barrx (Constance Dia MD) LopezLilly [email or web address] TORRES September 07, 2016 16:11 Constance Dia MD September 07, 2016 16:19
--- NOTE | 2016-10-15 12:23 | MD ---
cc: EDDIE SMITH M.D. ADMISSION DATE: 09/02/2016 DISCHARGE DATE: 09/07/2016 DATE OF 1930 BRIEF HISTORY AND HOSPITAL COURSE The patient is an 86-year-old female with history of coronary artery disease status post PCI, hypertension, A-fib on chronic anticoagulation, diabetes mellitus who presented to [facility] ED on September 02 with GI bleeding. She underwent a colonoscopy on September 03 which demonstrated blood throughout the colon primarily on the right with some in the distal ileum. She underwent nuclear bleeding scan on September 03 and September 05; both were negative. The patient also underwent angiography on September 03. She was transfused 4 units of PRBCs, 2 units of FFP, one platelet pheresis pack on arrival. The patient was admitted to the ICU for close observation. During her hospital course she was being followed by Dr. Mathew from General Surgery. The patient was placed on electrolyte replacement protocol for electrolyte replacement and sliding scale insulin for glycemic control. She was also placed on a Protonix drip. In addition the patient was on Lopressor 50 mg q. 12 for a blood pressure control. After discussion with Dr. Dia from the GI Service, the patient was transferred to [facility] for a capsule endoscopy +/- double balloon enteroscopy. She was discharged on September 07. MD ESVIN Velasquez/HEAVEN /3:24 PM /12:18 PM
== END 2016-09-07 21:07 | disposition short-term general hospital (02) | DRG 378 ==
LOC: NEPE 09:47 → NEDA 12:27 → N04B 15:09 → HIMW 09-03 13:10
PROVIDERS: ADMIT Anesthesiology; ATTEND Anesthesiology
PROC: 0DB68ZX Excision of Stomach, Via Natural or Artificial Opening Endoscopic, Diagnostic (ICD-10-PCS; 2016-09-03)
PROC: 0DJD8ZZ Inspection of Lower Intestinal Tract, Via Natural or Artificial Opening Endoscopic (ICD-10-PCS; 2016-09-03)
PROC: 30233N1 Transfusion of Nonautologous Red Blood Cells into Peripheral Vein, Percutaneous Approach (ICD-10-PCS; 2016-09-03)
PROC: B4141ZZ Fluoroscopy of Superior Mesenteric Artery using Low Osmolar Contrast (ICD-10-PCS; 2016-09-03)
PROC: B4101ZZ Fluoroscopy of Abdominal Aorta using Low Osmolar Contrast (ICD-10-PCS; 2016-09-03)
PROC: 0DB58ZX Excision of Esophagus, Via Natural or Artificial Opening Endoscopic, Diagnostic (ICD-10-PCS; 2016-09-03 10:38)
PROC: 6A551Z2 Pheresis of Platelets, Multiple (ICD-10-PCS; 2016-09-04)
PROC: 02HV33Z Insertion of Infusion Device into Superior Vena Cava, Percutaneous Approach (ICD-10-PCS; 2016-09-05)
PROC: 0DBK8ZX Excision of Ascending Colon, Via Natural or Artificial Opening Endoscopic, Diagnostic (ICD-10-PCS; principal; 2016-09-05 16:14)
PROC: 30233K1 Transfusion of Nonautologous Frozen Plasma into Peripheral Vein, Percutaneous Approach (ICD-10-PCS; 2016-09-06)
PROC: 30233M1 Transfusion of Nonautologous Plasma Cryoprecipitate into Peripheral Vein, Percutaneous Approach (ICD-10-PCS; 2016-09-06)
DX: K92.2 Gastrointestinal hemorrhage, unspecified (principal); D62 Acute posthemorrhagic anemia; K55.1 Chronic vascular disorders of intestine; I48.91 Unspecified atrial fibrillation; K22.710 Barrett's esophagus with low grade dysplasia; E11.9 Type 2 diabetes mellitus without complications; I25.10 Atherosclerotic heart disease of native coronary artery without angina pectoris; I10 Essential (primary) hypertension; K57.90 Diverticulosis of intestine, part unspecified, without perforation or abscess without bleeding; D12.2 Benign neoplasm of ascending colon; K29.70 Gastritis, unspecified, without bleeding; K21.0 Gastro-esophageal reflux disease with esophagitis; E78.5 Hyperlipidemia, unspecified; I70.0 Atherosclerosis of aorta; K44.9 Diaphragmatic hernia without obstruction or gangrene; K64.8 Other hemorrhoids; K57.30 Diverticulosis of large intestine without perforation or abscess without bleeding; K86.9 Disease of pancreas, unspecified; M19.90 Unspecified osteoarthritis, unspecified site; Z79.01 Long term (current) use of anticoagulants; Z79.84 Long term (current) use of oral hypoglycemic drugs; Z87.891 Personal history of nicotine dependence; Z95.5 Presence of coronary angioplasty implant and graft; Z96.651 Presence of right artificial knee joint
CPT/HCPCS: 36245; 36430; 36556; 71010; 74174; 75726; 76937; 78278; 80048; 80053; 82948; 83735; 84100; 84155; 85014; 85018; 85025; 85027; 85384; 85610; 85730; 86850; 86900; 86901; 86920; 86927; 86965; 88305; 88312; 93005; 94640; 94664; 99152; 99153; 99285; A9560; C1760; C1769; C1887; C1894; C9113; G0269; J0360; J1610; J1642; J1815; J2250; J2270; J2370; J2405; J3010; J3480; J7030; J7050; P9016; P9017; P9035; Q9967

== ENCOUNTER 2016-09-11 15:12 | Inpatient (IN) | payer MEDICARE, BC ==
[~2016-09-11 15:12] MED LIST changes: -ALAV10TA PO; +ASCO500C PO; -ASPI81 PO; +CALC1TAB87 PO; +CIAL5TAB PO; +EQUALIQ7; -GLYB1TAB51 PO; +GLYB5TAB3 PO; +HYDR25TA5 PO; +LISI-515 PO; -LISI-587 PO; +LORA10TA PO; -METF-324 PO; +METF1000 PO; +MSM/CAP PO; +MULT1TAB85 PO; -NITR0.4S SL; +OMEGCAP29 PO; -RIVA20 PO; -TAB-TAB PO; +XARE20TA PO; +ZOCO10TA PO; -ZOCO40TA PO
[2016-09-11] MEDS ORDERED: ZYRT10TA PO (22:38)
[2016-09-11] MEDS ORDERED: NALOXONE HCL 0.4 MG/ML AMP IV PRN (22:45)
[2016-09-11] MEDS ORDERED: SODIUM CHLORIDE 0.9% FLUSH 10 ML FLUSH IV FLUSH PRN (22:45)
[2016-09-11 22:48] VITALS: BP 160/86; PULSE 86; RESP 18; TEMP 98.1; O2SAT 98
[2016-09-11] MEDS ORDERED: LANTUS2P SQ (22:53)
[2016-09-11] MEDS ORDERED: LISI-515 PO (22:53)
[2016-09-11] MEDS ORDERED: HUMALOG SQ (22:53)
[2016-09-11] MEDS ORDERED: LEVA.63I NEB (22:53)
[2016-09-11] MEDS ORDERED: METO-309 PO (22:53)
[2016-09-11] MEDS ORDERED: PANT40P IV PUSH (22:53)
[2016-09-11] MEDS ORDERED: SIMV10TA PO (22:53)
[2016-09-11 23:00] VITALS: PULSE 92
[2016-09-12] VITALS (24 sets, daily range): BP systolic 128–153; BP diastolic 71–92; PULSE 48–100; RESP 16–22; TEMP 98.1–98.6; O2SAT 94–100
[2016-09-12 04:29] LABS: AUTOMATED NEUTROPHIL # 4.1 TH/MM3 (1.8-7.7); BASOPHIL % 0.3 % (0.0-2.0); EOSINOPHIL # 0.3 TH/MM3 (0-0.4); EOSINOPHIL % 5.2 % (0.0-4.0); HEMO FLAGS DIFF FINAL; LYMPH % 15.6 % (9.0-44.0); LYMPHOCYTE # 0.9 TH/MM3 (1.0-4.8); MEAN CELL VOLUME 82.7 FL (80.0-100.0); MEAN CORPUSCULAR HEMOGLOBIN 27.1 PG (27.0-34.0); MEAN CORPUSCULAR HGB CONC 32.7 % (32.0-36.0); MONO % 8.3 % (0.0-8.0); NEUT % 70.6 % (16.0-70.0); PLATELET COUNT 102 TH/MM3 (150-450); RED BLOOD COUNT 3.15 MIL/MM3 (4.50-5.90); RED CELL DISTRIBUTION WIDTH 17.2 % (11.6-17.2); WHITE BLOOD COUNT 5.8 TH/MM3 (4.0-11.0)
[2016-09-12 04:47] LABS: BICARBONATE 28.9 MEQ/L (21.0-32.0); POTASSIUM 3.3 MEQ/L (3.5-5.1)
[2016-09-12] MEDS ORDERED: POTASSIUM CHLORIDE 20 MEQ CONTROLLED RELEASE TAB PO ONE ×3 (05:45→10:30)
[2016-09-12] MEDS: NON-FORMULARY DRUG (Levalbuterol Neb (Xopenex Neb) 0.63 MG) NEB SCH ×4 (07:29→20:29)
--- NOTE | 2016-09-12 08:10 | HHI.HP ---
[facility] Service [facility] Primary Care Physician Lynnette Ziegler MD Admission Diagnosis Diagnoses: Chief Complaint: Transfer from [facility] in [place] Travel History International Travel<30 Days: No Contact w/Intl Traveler <30 Da: No Traveled to Known Affected Are: No History of Present Illness Admitted due to Rectal bleed Sep 02 2016 This is a pleasant 86 y/o Male admitted on Sep 02 2016 with rectal bleed, he has CAD status post coronary stent placement on Xarelto, had Abdominal pain nausea, and vomit, dizziness, transferred to Intensive Care Unit, seen by GI specialist, with Diagnosis of Persistent GI bleed, Rectal Bleeding in a patient that was on Xarelto, S/P EGD/Colonoscopy (09/03/16)-----> 1. 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 Retroflexed views revealed a hiatal hernia, 1. Large amount of fresh blood throughout colon, mostly in right colon pandiverticulosis no source of bleeding seen 2. Retroflexed views revealed internal hemorrhoids 3. Retroflexed views revealed medium internal hemorrhoids 4. Revealed hemorrhoids. Had bleeding and therefore went for GI Bleed Scan Nuclear Medicine (09/03/16)---> Negative. 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 Unremarkable superior mesenteric arteriogram without evidence of active bleeding, angiodysplasia or abnormal blush. 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 No further bleeding. Rpt. Colonoscopy (09/05/16)----->1. Diverticulosis sigmoid,descending polyp ascending colon- sessile 7 mm-hot snare polypectomy, 1 clip applied 2. Retroflexed views revealed internal hemorrhoids 3. Retroflexed views revealed small internal hemorrhoids 4. Revealed hemorrhoids. Pt had recurrent bleeding yesterday. Recommend capsule endoscopy +/- double balloon enteroscopy, not available as inpatient at this facility and patient is not stable to be discharged. Discussed by GI specialist with Dr. 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 Anemia secondary to acute blood loss. 10 units of PRBCs given and 4 units of FFP , 2 units of platelets and one unit of Cryoprecipitate. Barretts Esophagus with Dysplasia. GE mucosal biopsy with moderate chronic gastric inflammatory changes consistent with reflux exhibiting foci of intestinal metaplasia and low grade dysplasia confined to subsurface glandular epithelium. Atrial fibrillation. Was taking Xaraelto up until 08/31. Currently on hold. Per primary DM II Hypertension On that moment recommendations was transfer to [facility] for Capsule Endoscopy, possible Double ballon Enteroscopy, now sent back to [facility]. Past Family Social History Past Medical History CAD hypertension a-fib diabetes mellitus Past Surgical History right knee replacement 2 x stent in heart right rotator cuff repiar left hand surgery right eye surgery 2 x hernia repair, years ago Reported Medications Reported Meds & Active Scripts Active Reported Simvastatin 10 Mg Tab 10 Mg PO HS Lopressor (Metoprolol Tartrate) 50 Mg Tab 50 Mg PO BID Lisinopril 20 Mg Tab 20 Mg PO DAILY Xopenex Neb (Levalbuterol HCl) 0.63 Mg/3 Ml Neb 0.63 Mg NEB QID Humalog Inj (Insulin Human Lispro) 1,000 Unit/10 Ml Vial Unknown Dose SQ ACHS Max dose at bedtime:( )units; sugars< 70,(0)units; sugars 150-199,(1)unit; sugars 200-249,(3)units; sugars 250-299,(5)units; sugars 300-349,(7)units; sugars more than 349,(9)units. Protonix Inj (Pantoprazole Sodium) 40 Mg Inj 40 Mg IV PUSH Q12HR Lantus Inj (Insulin Glargine) 1,000 Unit/10 Ml Vial 15 Units SQ HS Zyrtec Allergy (Cetirizine HCl) 10 Mg Tab 10 Mg PO DAILY Allergies: Coded Allergies: Cultivated Oat Pollen (Verified Allergy, Mild, nasal congestion, 09/11/16) Active Ordered Medications Current Medications Medications (Trade) Dose Ordered Sig/Lennox Route Start Time Stop Time Status Last Admin (NS Flush) 2 ml UNSCH PRN IV FLUSH 09/11/16 22:45 (NS Flush) 2 ml BID IV FLUSH 09/12/16 09:00 (Narcan Inj) 0.4 mg UNSCH PRN IV 09/11/16 22:45 (ZyrTEC) 10 mg DAILY PO 09/12/16 09:00 (Levemir Inj) 15 units HS SQ 09/12/16 21:00 (Prinivil) 20 mg DAILY PO 09/12/16 09:00 (Lopressor) 50 mg BID PO 09/12/16 09:00 (Protonix Inj) 40 mg Q12HR IV PUSH 09/12/16 09:00 (Pravachol) 20 mg HS PO 09/12/16 21:00 (D50w (Vial) Inj) 25 ml UNSCH PRN IV PUSH 09/12/16 08:15 (Glucagon Inj) 1 mg UNSCH PRN OTHER 09/12/16 08:15 (NS Flush) 2 ml UNSCH PRN IV FLUSH 09/12/16 08:15 UNV (NS Flush) 2 ml BID IV FLUSH 09/12/16 09:00 UNV (Tylenol) 650 mg Q4H PRN PO 09/12/16 08:15 UNV (Zofran Inj) 4 mg Q6H PRN IVP 09/12/16 08:15 UNV (Dulcolax Supp) 10 mg DAILY PRN RECTAL 09/12/16 08:15 UNV (Colace) 100 mg Q12H PO 09/12/16 08:15 UNV (Narcan Inj) 0.4 mg UNSCH PRN IV 09/12/16 08:15 UNV Family History asked and denied. Social History denies any toxic habits. Physical Exam Vital Signs Vital Signs Date Time Temp Pulse Resp B/P Pulse Ox O2 Delivery O2 Flow Rate FiO2 09/12/16 06:00 62 09/12/16 05:00 80 09/12/16 04:00 80 09/12/16 03:00 73 09/12/16 03:00 98.6 70 18 146/80 97 09/12/16 02:00 86 09/12/16 01:00 82 09/12/16 00:00 86 09/11/16 23:00 92 09/11/16 22:48 98.1 86 18 160/86 98 Physical Exam GENERAL: no apparent distress. SKIN: No rashes, ecchymoses or lesions. Cool and dry. HEAD: Atraumatic. Normocephalic. No temporal or scalp tenderness. EYES: Pupils equal round and reactive. Extraocular motions intact. No scleral icterus. No injection or drainage. ENT: Nose without bleeding, purulent drainage or septal hematoma. NECK: Trachea midline. No JVD or lymphadenopathy. Supple, nontender, no meningeal signs. CARDIOVASCULAR: Regular rate and rhythm without murmurs, gallops, or rubs. RESPIRATORY: Clear to auscultation. Breath sounds equal bilaterally. No wheezes , rales, or rhonchi. GASTROINTESTINAL: Abdomen soft, non-tender, nondistended. No hepato-splenomegaly , or palpable masses. No guarding. MUSCULOSKELETAL: Extremities without clubbing, cyanosis, or edema. No joint tenderness, effusion, or edema noted. No calf tenderness. Negative Homans sign bilaterally. NEUROLOGICAL: Awake and alert. No focal deficits. Laboratory Laboratory Tests Test 09/12/16 04:11 White Blood Count 5.8 Red Blood Count 3.15 Hemoglobin 8.5 Hematocrit 26.0 Mean Corpuscular Volume 82.7 Mean Corpuscular Hemoglobin 27.1 Mean Corpuscular Hemoglobin 32.7 Concent Red Cell Distribution Width 17.2 Platelet Count 102 Mean Platelet Volume 7.8 Neutrophils (%) (Auto) 70.6 Lymphocytes (%) (Auto) 15.6 Monocytes (%) (Auto) 8.3 Eosinophils (%) (Auto) 5.2 Basophils (%) (Auto) 0.3 Neutrophils # (Auto) 4.1 Lymphocytes # (Auto) 0.9 Monocytes # (Auto) 0.5 Eosinophils # (Auto) 0.3 Basophils # (Auto) 0.0 CBC Comment DIFF FINAL Differential Comment Sodium Level 143 Potassium Level 3.3 Chloride Level 107 Carbon Dioxide Level 28.9 Anion Gap 7 Blood Urea Nitrogen 18 Creatinine 0.55 Estimat Glomerular Filtration 141 Rate Random Glucose 181 Calcium Level 8.0 Result Diagram: 09/12/1641009/12/16 041 Imaging No new Imaging studies. Assessment and Plan Assessment and Plan 1. GI bleed status post multiple blood transfusions and Colonoscopy x 2, GI bleeding scan and SMA angio with no obvious source of bleeding. has severe diverticulosis in the entire colon examined, no evidence of diverticular bleeding, single solitary clean based ulcer in alba ascending ileum. continue Protonix 2. Hypertension continue home medicines 3. DM II on sliding scale 4. Atrial fibrillation continue Metoprolol 5. BPH continue present care 6. Macular degeneration by history DVT prophylaxis with SCDs Code Status Full Code Discussed Condition With Expected in two to three days. Physician Certification 2 Midnight Certification Type: Admission for Inpatient Services Order for Inpatient Services The services are ordered in accordance with Medicare regulations or non- Medicare payer requirements, as applicable. In the case of services not specified as inpatient-only, they are appropriately provided as inpatient services in accordance with the 2-midnight benchmark. Estimated LOS (days): 3 days is the estimated time the patient will need to remain in the hospital, assuming treatment plan goals are met and no additional complications. Post-Hospital Plan: Not yet determined Lit Kaufman MD September 12, 2016 08:10
[2016-09-12 08:11] LABS: MAGNESIUM 2.3 MG/DL (1.5-2.5)
[2016-09-12] MEDS ORDERED: BISACODYL 10 MG SUPP RECTAL PRN (08:15)
[2016-09-12] MEDS ORDERED: NALOXONE HCL 0.4 MG/ML AMP IV PRN (08:15)
[2016-09-12] MEDS ORDERED: SODIUM CHLORIDE 0.9% FLUSH 10 ML FLUSH IV FLUSH PRN (08:15)
[2016-09-12] MEDS ORDERED: ACETAMINOPHEN 325 MG TAB PO PRN (08:15)
[2016-09-12] MEDS ORDERED: ONDANSETRON HCL 4 MG/2 ML VIAL IVP PRN (08:15)
[2016-09-12] MEDS ORDERED: DEXTROSE 50% IN WATER 50 ML VIAL(D50) IV PUSH PRN (08:15)
[2016-09-12] MEDS ORDERED: GLUCAGON 1 MG/ML VIAL OTHER PRN (08:15)
[2016-09-12] MEDS: METOPROLOL TARTRATE 50 MG TAB PO SCH ×2 (08:45→21:33)
[2016-09-12] MEDS: PANTOPRAZOLE SODIUM 40 MG VIAL IV PUSH SCH ×2 (08:45→21:33)
[2016-09-12] MEDS: DOCUSATE SODIUM 100 MG CAP PO SCH ×2 (08:45→21:33)
[2016-09-12] MEDS: LISINOPRIL 20 MG TAB PO SCH (08:45)
[2016-09-12] MEDS: SODIUM CHLORIDE 0.9% FLUSH 10 ML FLUSH IV FLUSH SCH ×2 (08:45→21:33)
[2016-09-12] MEDS: CETIRIZINE HCL 10 MG TAB PO SCH (08:46)
[2016-09-12] MEDS ORDERED: SODIUM CHLORIDE 0.9% FLUSH 10 ML FLUSH IV FLUSH SCH (09:00)
[2016-09-12] MEDS: INSULIN NovoLIN REGULAR SUPPLEMENTAL SCALE SQ SCH ×3 (12:20→21:17)
[2016-09-12] MEDS: RESP: IPRATROPIUM 0.5 MG/2.5 ML NEB NEB SCH ×2 (15:47→20:30)
[2016-09-12] MEDS ORDERED: INSULIN DETEMIR 100 UNITS/ML VIAL SQ SCH (21:00)
[2016-09-12] MEDS ORDERED: PRAVASTATIN SOD 20 MG TAB PO SCH (21:00)
[2016-09-13] VITALS (19 sets, daily range): BP systolic 124–158; BP diastolic 72–83; PULSE 52–90; RESP 16–20; TEMP 97.3–98.5; O2SAT 96–100
[2016-09-13] MEDS: RESP: IPRATROPIUM 0.5 MG/2.5 ML NEB NEB SCH ×3 (03:03→15:27)
[2016-09-13 06:27] LABS: ALKALINE PHOSPHATASE 42 U/L (45-117); ALT (GPT) 24 U/L (12-78); ANION GAP 8 MEQ/L (5-15); AST (GOT) 16 U/L (15-37); BICARBONATE 27.3 MEQ/L (21.0-32.0); BLOOD UREA NITROGEN 15 MG/DL (7-18); CHLORIDE 106 MEQ/L (98-107); GLOMERULAR FILTRATION RATE 123 ML/MIN (>89); POTASSIUM 3.9 MEQ/L (3.5-5.1); SODIUM (NA) 141 MEQ/L (136-145); TOTAL BILIRUBIN ADULT 0.7 MG/DL (0.2-1.0)
[2016-09-13] MEDS: INSULIN NovoLIN REGULAR SUPPLEMENTAL SCALE SQ SCH ×3 (07:00→16:00)
[2016-09-13] MEDS ORDERED: INSULIN DETEMIR 100 UNITS/ML VIAL SQ SCH (08:00)
[2016-09-13] MEDS: CETIRIZINE HCL 10 MG TAB PO SCH (08:35)
[2016-09-13] MEDS: PANTOPRAZOLE SODIUM 40 MG VIAL IV PUSH SCH (08:35)
[2016-09-13] MEDS: SODIUM CHLORIDE 0.9% FLUSH 10 ML FLUSH IV FLUSH SCH (08:35)
[2016-09-13] MEDS: DOCUSATE SODIUM 100 MG CAP PO SCH (08:36)
[2016-09-13] MEDS: METOPROLOL TARTRATE 50 MG TAB PO SCH (08:36)
[2016-09-13] MEDS: LISINOPRIL 20 MG TAB PO SCH (08:36)
[2016-09-13] MEDS ORDERED: PROT40TA PO (15:30)
[2016-09-13] MEDS ORDERED: CARA1SUS3 PO (15:30)
--- NOTE | 2016-09-13 15:31 | HHI.FF ---
Face to Face Verification Diagnosis: (1) GI bleed (2) Rectal bleed (3) Atrial fibrillation (4) GERD (gastroesophageal reflux disease) Physical Therapy Order: Evaluate and Treat, Improve ambulation, Strength and gait training Home Health Nursing Order: Medical education Signs/symptoms of disease process Diabetic education Medication education-adverse effect Nursing assessment with vital signs I have seen patient Jae Castillo on 09/13/16. My clinical findings support the need for the requested home health care services because: Ltd mobility - disease progression I certify that my clinical findings support that this patient is homebound because: Unsafe to leave home unassisted Lit Kaufman MD September 13, 2016 15:31
--- NOTE | 2016-09-13 16:37 | HHI.PR ---
Subjective Remarks Admitted due to Rectal bleed Sep 02 2016 This is a pleasant 86 y/o Male admitted on Sep 02 2016 with rectal bleed, he has CAD status post coronary stent placement on Xarelto, had Abdominal pain nausea, and vomit, dizziness, transferred to Intensive Care Unit, seen by GI specialist, with Diagnosis of Persistent GI bleed, Rectal Bleeding in a patient that was on Xarelto, S/P EGD/Colonoscopy (09/03/16)-----> 1. 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 Retroflexed views revealed a hiatal hernia, 1. Large amount of fresh blood throughout colon, mostly in right colon pandiverticulosis no source of bleeding seen 2. Retroflexed views revealed internal hemorrhoids 3. Retroflexed views revealed medium internal hemorrhoids 4. Revealed hemorrhoids. Had bleeding and therefore went for GI Bleed Scan Nuclear Medicine (09/03/16)---> Negative. 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 Unremarkable superior mesenteric arteriogram without evidence of active bleeding, angiodysplasia or abnormal blush. 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 No further bleeding. Rpt. Colonoscopy (09/05/16)----->1. Diverticulosis sigmoid,descending polyp ascending colon- sessile 7 mm-hot snare polypectomy, 1 clip applied 2. Retroflexed views revealed internal hemorrhoids 3. Retroflexed views revealed small internal hemorrhoids 4. Revealed hemorrhoids. Pt had recurrent bleeding yesterday. Recommend capsule endoscopy +/- double balloon enteroscopy, not available as inpatient at this facility and patient is not stable to be discharged. Discussed by GI specialist with Dr. 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 Anemia secondary to acute blood loss. 10 units of PRBCs given and 4 units of FFP , 2 units of platelets and one unit of Cryoprecipitate. Barretts Esophagus with Dysplasia. GE mucosal biopsy with moderate chronic gastric inflammatory changes consistent with reflux exhibiting foci of intestinal metaplasia and low grade dysplasia confined to subsurface glandular epithelium. Atrial fibrillation. Was taking Xaraelto up until 08/31. Currently on hold. Per primary DM II Hypertension On that moment recommendations was transfer to [facility] for Capsule Endoscopy, possible Double ballon Enteroscopy, now sent back to [facility]. 09/13: Patient stable seen in the room and discussed with nurse, discussed with patient and with his Daughter Mrs. Eve Melendez to the phone number [phone] the patient has no signs of bleeding, his Hemoglobin is stable will need to continue Monitoring he will need to have a new follow up with PCP in 2 days and follow with GI specialist the next 3 to 5 days, with Doctor Cosntance Dia No nausea, vomit or diarrhea. Objective Vital Signs Date Time Temp Pulse Resp B/P Pulse Ox O2 Delivery O2 Flow Rate FiO2 09/13/16 16:23 97.3 76 19 141/76 99 09/13/16 16:22 65 09/13/16 15:14 65 09/13/16 14:43 58 09/13/16 13:00 54 09/13/16 12:00 98.5 54 17 124/72 100 09/13/16 12:00 56 09/13/16 11:00 53 09/13/16 10:00 64 09/13/16 09:00 74 09/13/16 08:00 97.9 67 18 150/83 98 09/13/16 08:00 88 09/13/16 07:00 73 09/13/16 06:00 58 09/13/16 05:00 60 09/13/16 04:00 52 09/13/16 04:00 98.3 64 16 155/78 96 09/13/16 03:00 57 09/13/16 02:00 60 09/13/16 01:00 60 09/13/16 00:00 68 09/13/16 00:00 98.4 72 20 158/76 97 09/12/16 23:00 50 09/12/16 22:00 70 09/12/16 21:00 64 09/12/16 20:00 74 09/12/16 20:00 98.3 66 22 153/71 100 09/12/16 19:00 78 09/12/16 18:00 78 09/12/16 17:00 78 I/O 09/12/16 09/12/16 09/12/16 09/13/16 09/13/16 09/13/16 07:00 15:00 23:00 07:00 15:00 23:00 Intake Total 480 ml 900 ml 480 ml Output Total 450 ml 500 ml 1050 ml Balance 30 ml 400 ml -570 ml Intake Oral 480 ml 900 ml 480 ml Output Urine Total 450 ml 500 ml 1050 ml # Voids 4 # Bowel Movements 3 Result Diagram: 09/12/16 0411 09/13/16 0500 Imaging No new imaging performed. Procedures No new procedures performed. Other Results Laboratory Tests Test 09/12/16 09/13/16 04:11 05:00 White Blood Count 5.8 TH/MM3 Red Blood Count 3.15 MIL/MM3 Hemoglobin 8.5 GM/DL Hematocrit 26.0 % Mean Corpuscular Volume 82.7 FL Mean Corpuscular Hemoglobin 27.1 PG Mean Corpuscular Hemoglobin 32.7 % Concent Red Cell Distribution Width 17.2 % Platelet Count 102 TH/MM3 Mean Platelet Volume 7.8 FL Neutrophils (%) (Auto) 70.6 % Lymphocytes (%) (Auto) 15.6 % Monocytes (%) (Auto) 8.3 % Eosinophils (%) (Auto) 5.2 % Basophils (%) (Auto) 0.3 % Neutrophils # (Auto) 4.1 TH/MM3 Lymphocytes # (Auto) 0.9 TH/MM3 Monocytes # (Auto) 0.5 TH/MM3 Eosinophils # (Auto) 0.3 TH/MM3 Basophils # (Auto) 0.0 TH/MM3 CBC Comment DIFF FINAL Differential Comment Magnesium Level 2.3 MG/DL Sodium Level 141 MEQ/L Potassium Level 3.9 MEQ/L Chloride Level 106 MEQ/L Carbon Dioxide Level 27.3 MEQ/L Anion Gap 8 MEQ/L Blood Urea Nitrogen 15 MG/DL Creatinine 0.62 MG/DL Estimat Glomerular Filtration 123 ML/MIN Rate Random Glucose 136 MG/DL Calcium Level 8.0 MG/DL Total Bilirubin 0.7 MG/DL Aspartate Amino Transf 16 U/L (AST/SGOT) Alanine Aminotransferase 24 U/L (ALT/SGPT) Alkaline Phosphatase 42 U/L Total Protein 5.2 GM/DL Albumin 2.5 GM/DL Objective Remarks GENERAL: no apparent distress. SKIN: No rashes, ecchymoses or lesions. Cool and dry. HEAD: Atraumatic. Normocephalic. No temporal or scalp tenderness. EYES: Pupils equal round and reactive. Extraocular motions intact. No scleral icterus. No injection or drainage. ENT: Nose without bleeding, purulent drainage or septal hematoma. NECK: Trachea midline. No JVD or lymphadenopathy. Supple, nontender, no meningeal signs. CARDIOVASCULAR: Regular rate and rhythm without murmurs, gallops, or rubs. RESPIRATORY: Clear to auscultation. Breath sounds equal bilaterally. No wheezes , rales, or rhonchi. GASTROINTESTINAL: Abdomen soft, non-tender, nondistended. No hepato-splenomegaly , or palpable masses. No guarding. MUSCULOSKELETAL: Extremities without clubbing, cyanosis, or edema. No joint tenderness, effusion, or edema noted. No calf tenderness. Negative Homans sign bilaterally. NEUROLOGICAL: Awake and alert. No focal deficits. Medications and IVs Current Medications Medications (Trade) Dose Ordered Sig/Lennox Route Start Time Stop Time Status Last Admin (ZyrTEC) 10 mg DAILY PO 09/12/16 09:00 09/13/16 08:35 (Levemir Inj) 15 units HS SQ 09/12/16 21:00 09/12/16 21:00 (Prinivil) 20 mg DAILY PO 09/12/16 09:00 09/13/16 08:36 (Lopressor) 50 mg BID PO 09/12/16 09:00 09/13/16 08:36 (Protonix Inj) 40 mg Q12HR IV PUSH 09/12/16 09:00 09/13/16 08:35 (Pravachol) 20 mg HS PO 09/12/16 21:00 09/12/16 21:33 (D50w (Vial) Inj) 25 ml UNSCH PRN IV PUSH 09/12/16 08:15 (Glucagon Inj) 1 mg UNSCH PRN OTHER 09/12/16 08:15 (NS Flush) 2 ml UNSCH PRN IV FLUSH 09/12/16 08:15 (NS Flush) 2 ml BID IV FLUSH 09/12/16 09:00 09/13/16 08:35 (Tylenol) 650 mg Q4H PRN PO 09/12/16 08:15 (Zofran Inj) 4 mg Q6H PRN IVP 09/12/16 08:15 (Dulcolax Supp) 10 mg DAILY PRN RECTAL 09/12/16 08:15 (Colace) 100 mg Q12H PO 09/12/16 09:00 09/13/16 08:36 (Narcan Inj) 0.4 mg UNSCH PRN IV 09/12/16 08:15 (Levemir Inj) 15 units DAILYAC SQ 09/13/16 08:00 09/13/16 08:37 A/P Assessment and Plan 1. GI bleed status post multiple blood transfusions and Colonoscopy x 2, GI bleeding scan and SMA angio with no obvious source of bleeding. has severe diverticulosis in the entire colon examined, no evidence of diverticular bleeding, single solitary clean based ulcer in the ascending ileum. continue Protonix 40 mg BID and Carafate as outpatient. 2. Hypertension controlled continue Home medicines. 3. DM II on sliding scale, continue Home medicines. 4. Atrial fibrillation continue Metoprolol, not possible to anticoagulate. 5. BPH continue present care 6. Macular degeneration by history recommended Glucerna as Protein Boost for the patient three times a day. DVT prophylaxis with SCDs Code Status Full Code Discussed with patient nurse and his Daughter Mrs. Eve Melendez all questions answered to the best of my abilities. Discharge Planning Discharge Home today Lit Kaufman MD September 13, 2016 16:37
--- NOTE | 2016-09-13 16:40 | HHI.DS ---
Discharge Summary Admission Date September 11, 2016 at 22:00 Discharge Date: September 13, 2016 Admitting Diagnosis (1) GERD (gastroesophageal reflux disease) ICD Code: K21.9 Diagnosis: Principal (2) GI bleed ICD Code: K92.2 Diagnosis: Principal (3) Rectal bleed ICD Code: K62.5 Diagnosis: Principal Procedures No procedures performed. Brief History - From Admission Admitted due to Rectal bleed Sep 02 2016 This is a pleasant 86 y/o Male admitted on Sep 02 2016 with rectal bleed, he has CAD status post coronary stent placement on Xarelto, had Abdominal pain nausea, and vomit, dizziness, transferred to Intensive Care Unit, seen by GI specialist, with Diagnosis of Persistent GI bleed, Rectal Bleeding in a patient that was on Xarelto, S/P EGD/Colonoscopy (09/03/16)-----> 1. 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 Retroflexed views revealed a hiatal hernia, 1. Large amount of fresh blood throughout colon, mostly in right colon pandiverticulosis no source of bleeding seen 2. Retroflexed views revealed internal hemorrhoids 3. Retroflexed views revealed medium internal hemorrhoids 4. Revealed hemorrhoids. Had bleeding and therefore went for GI Bleed Scan Nuclear Medicine (09/03/16)---> Negative. 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 Unremarkable superior mesenteric arteriogram without evidence of active bleeding, angiodysplasia or abnormal blush. 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 No further bleeding. Rpt. Colonoscopy (09/05/16)----->1. Diverticulosis sigmoid,descending polyp ascending colon- sessile 7 mm-hot snare polypectomy, 1 clip applied 2. Retroflexed views revealed internal hemorrhoids 3. Retroflexed views revealed small internal hemorrhoids 4. Revealed hemorrhoids. Pt had recurrent bleeding yesterday. Recommend capsule endoscopy +/- double balloon enteroscopy, not available as inpatient at this facility and patient is not stable to be discharged. Discussed by GI specialist with Dr. Hankins at [facility] and back roller transferred to this facility. Anemia secondary to acute blood loss. 10 units of PRBCs given and 4 units of FFP , 2 units of platelets and one unit of Cryoprecipitate. Barretts Esophagus with Dysplasia. GE mucosal biopsy with moderate chronic gastric inflammatory changes consistent with reflux exhibiting foci of intestinal metaplasia and low grade dysplasia confined to subsurface glandular epithelium. Atrial fibrillation. Was taking Xaraelto up until 08/31. Currently on hold. Per primary DM II Hypertension On that moment recommendations was transfer to [facility] for Capsule Endoscopy, possible Double ballon Enteroscopy, now sent back to [facility]. CBC/BMP: 09/12/16 0411 09/13/16 0500 Significant Findings Laboratory Tests Test 09/12/16 09/13/16 04:11 05:00 Red Blood Count 3.15 MIL/MM3 (4.50-5.90) Hemoglobin 8.5 GM/DL (13.0-17.0) Hematocrit 26.0 % (39.0-51.0) Platelet Count 102 TH/MM3 (150-450) Neutrophils (%) (Auto) 70.6 % (16.0-70.0) Monocytes (%) (Auto) 8.3 % (0.0-8.0) Eosinophils (%) (Auto) 5.2 % (0.0-4.0) Lymphocytes # (Auto) 0.9 TH/MM3 (1.0-4.8) Potassium Level 3.3 MEQ/L (3.5-5.1) Creatinine 0.55 MG/DL (0.60-1.30) Random Glucose 181 MG/DL 136 MG/DL (74-106) (74-106) Calcium Level 8.0 MG/DL 8.0 MG/DL (8.5-10.1) (8.5-10.1) Alkaline Phosphatase 42 U/L (45-117) Total Protein 5.2 GM/DL (6.4-8.2) Albumin 2.5 GM/DL (3.4-5.0) Imaging No new imaging studies performed. PE at Discharge GENERAL: no apparent distress. SKIN: No rashes, ecchymoses or lesions. Cool and dry. HEAD: Atraumatic. Normocephalic. No temporal or scalp tenderness. EYES: Pupils equal round and reactive. Extraocular motions intact. No scleral icterus. No injection or drainage. ENT: Nose without bleeding, purulent drainage or septal hematoma. NECK: Trachea midline. No JVD or lymphadenopathy. Supple, nontender, no meningeal signs. CARDIOVASCULAR: Regular rate and rhythm without murmurs, gallops, or rubs. RESPIRATORY: Clear to auscultation. Breath sounds equal bilaterally. No wheezes , rales, or rhonchi. GASTROINTESTINAL: Abdomen soft, non-tender, nondistended. No hepato-splenomegaly , or palpable masses. No guarding. MUSCULOSKELETAL: Extremities without clubbing, cyanosis, or edema. No joint tenderness, effusion, or edema noted. No calf tenderness. Negative Homans sign bilaterally. NEUROLOGICAL: Awake and alert. No focal deficits. Hospital Course Admitted due to Rectal bleed Sep 02 2016 This is a pleasant 86 y/o Male admitted on Sep 02 2016 with rectal bleed, he has CAD status post coronary stent placement on Xarelto, had Abdominal pain nausea, and vomit, dizziness, transferred to Intensive Care Unit, seen by GI specialist, with Diagnosis of Persistent GI bleed, Rectal Bleeding in a patient that was on Xarelto, S/P EGD/Colonoscopy (09/03/16)-----> 1. 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 Retroflexed views revealed a hiatal hernia, 1. Large amount of fresh blood throughout colon, mostly in right colon pandiverticulosis no source of bleeding seen 2. Retroflexed views revealed internal hemorrhoids 3. Retroflexed views revealed medium internal hemorrhoids 4. Revealed hemorrhoids. Had bleeding and therefore went for GI Bleed Scan Nuclear Medicine (09/03/16)---> Negative. 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 Unremarkable superior mesenteric arteriogram without evidence of active bleeding, angiodysplasia or abnormal blush. 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 No further bleeding. Rpt. Colonoscopy (09/05/16)----->1. Diverticulosis sigmoid,descending polyp ascending colon- sessile 7 mm-hot snare polypectomy, 1 clip applied 2. Retroflexed views revealed internal hemorrhoids 3. Retroflexed views revealed small internal hemorrhoids 4. Revealed hemorrhoids. Pt had recurrent bleeding yesterday. Recommend capsule endoscopy +/- double balloon enteroscopy, not available as inpatient at this facility and patient is not stable to be discharged. Discussed by GI specialist with Dr. Hankins at [facility] and back roller transferred to this facility. Anemia secondary to acute blood loss. 10 units of PRBCs given and 4 units of FFP , 2 units of platelets and one unit of Cryoprecipitate. Barretts Esophagus with Dysplasia. GE mucosal biopsy with moderate chronic gastric inflammatory changes consistent with reflux exhibiting foci of intestinal metaplasia and low grade dysplasia confined to subsurface glandular epithelium. Atrial fibrillation. Was taking Xaraelto up until 08/31. Currently on hold. Per primary DM II Hypertension On that moment recommendations was transfer to [facility] for Capsule Endoscopy, possible Double ballon Enteroscopy, now sent back to [facility]. 09/13: Patient stable seen in the room and discussed with nurse, discussed with patient and with his Daughter Mrs. Eve Melendez to the phone number [phone] the patient has no signs of bleeding, his Hemoglobin is stable will need to continue Monitoring he will need to have a new follow up with PCP in 2 days and follow with GI specialist the next 3 to 5 days, with Doctor Constance Dia No nausea, vomit or diarrhea. Assessment and Plan 1. GI bleed status post multiple blood transfusions and Colonoscopy x 2, GI bleeding scan and SMA angio with no obvious source of bleeding. has severe diverticulosis in the entire colon examined, no evidence of diverticular bleeding, single solitary clean based ulcer in the ascending ileum. continue Protonix 40 mg BID and Carafate as outpatient. 2. Hypertension controlled continue Home medicines. 3. DM II on sliding scale, continue Home medicines. 4. Atrial fibrillation continue Metoprolol, not possible to anticoagulate. 5. BPH continue present care 6. Macular degeneration by history recommended Glucerna as Protein Boost for the patient three times a day. DVT prophylaxis with SCDs Code Status Full Code Discussed with patient nurse and his Daughter Mrs. Eve Melendez all questions answered to the best of my abilities. Discharge Planning Discharge Home today Pt Condition on Discharge: Good Discharge Disposition: Disch w/ Home Health Serv Discharge Time: <= 30 minutes Discharge Instructions DIET: Follow Instructions for: Heart Healthy Diet, Diabetic Diet Activities you can perform: Regular-No Restrictions Other Activity Instructions: follow physicial therapy recommendations. Lit Kaufman MD September 13, 2016 16:40
== END 2016-09-13 17:32 | disposition home health service (06) | DRG 379 ==
LOC: HCIS 22:00
PROVIDERS: ADMIT Internal Medicine; ATTEND Internal Medicine
DX: K92.2 Gastrointestinal hemorrhage, unspecified (principal); I48.91 Unspecified atrial fibrillation; E11.9 Type 2 diabetes mellitus without complications; H35.30 Unspecified macular degeneration; N40.0 Benign prostatic hyperplasia without lower urinary tract symptoms; I10 Essential (primary) hypertension; I25.10 Atherosclerotic heart disease of native coronary artery without angina pectoris; Z95.5 Presence of coronary angioplasty implant and graft; Z96.651 Presence of right artificial knee joint; K22.719 Barrett's esophagus with dysplasia, unspecified; K21.0 Gastro-esophageal reflux disease with esophagitis; K44.9 Diaphragmatic hernia without obstruction or gangrene; K64.8 Other hemorrhoids; K57.30 Diverticulosis of large intestine without perforation or abscess without bleeding; Z86.010 Personal history of colon polyps; K29.70 Gastritis, unspecified, without bleeding
CPT/HCPCS: 80048; 80053; 82948; 83735; 84132; 85025; 94640; 94664; C9113; J7644

== ENCOUNTER → 2016-09-27 | Outpatient (CLI) | payer MEDICARE, BC ==
[~2016-09-27] MED LIST changes: -ASCO500C PO; -CALC1TAB87 PO; +CARA1SUS3 PO; -CIAL5TAB PO; -EQUALIQ7; -GLYB5TAB3 PO; +HUMALOG SQ; -HYDR25TA5 PO; +LANTUS2P SQ; +LEVA.63I NEB; -LORA10TA PO; -METF1000 PO; +METO-309 PO; -METO50TA PO; -MSM/CAP PO; -MULT1TAB85 PO; -OMEGCAP29 PO; -OMEP20TA PO; +PANT40P IV PUSH; +PROT40TA PO; +SIMV10TA PO; -XARE20TA PO; -ZOCO10TA PO; +ZYRT10TA PO
[2016-09-27 09:00] LABS: POTASSIUM 3.8 MEQ/L (3.5-5.1)
[2016-09-27 09:05] LABS: BICARBONATE 27.7 MEQ/L (21.0-32.0)
[2016-09-27 09:50] LABS: AUTOMATED NEUTROPHIL # 2.2 TH/MM3 (1.8-7.7); BASOPHIL % 1.1 % (0.0-2.0); EOSINOPHIL # 0.3 TH/MM3 (0-0.4); EOSINOPHIL % 8.3 % (0.0-4.0); HEMATOCRIT 28.3 % (39.0-51.0); HEMO FLAGS DIFF FINAL; LYMPH % 19.7 % (9.0-44.0); LYMPHOCYTE # 0.7 TH/MM3 (1.0-4.8); MEAN CELL VOLUME 80.6 FL (80.0-100.0); MEAN CORPUSCULAR HEMOGLOBIN 25.4 PG (27.0-34.0); MEAN CORPUSCULAR HGB CONC 31.5 % (32.0-36.0); MONO % 10.1 % (0.0-8.0); NEUT % 60.8 % (16.0-70.0); PLATELET COUNT 193 TH/MM3 (150-450); RED BLOOD COUNT 3.52 MIL/MM3 (4.50-5.90); RED CELL DISTRIBUTION WIDTH 16.9 % (11.6-17.2); WHITE BLOOD COUNT 3.6 TH/MM3 (4.0-11.0)
== END ==
LOC: PLAB 07:13
PROVIDERS: ATTEND Internal Medicine Gastroenterology
DX: D64.9 Anemia, unspecified (principal); E78.2 Mixed hyperlipidemia; I11.9 Hypertensive heart disease without heart failure; I48.2 Chronic atrial fibrillation; E11.9 Type 2 diabetes mellitus without complications
CPT/HCPCS: 36415; 80048; 82272; 85025

== ENCOUNTER → 2016-10-16 | Outpatient (CLI) | payer MEDICARE, BC ==
[2016-10-16 09:27] LABS: AUTOMATED NEUTROPHIL # 2.5 TH/MM3 (1.8-7.7); BASOPHIL # 0.1 TH/MM3 (0-0.2); BASOPHIL % 1.5 % (0.0-2.0); EOSINOPHIL # 0.2 TH/MM3 (0-0.4); EOSINOPHIL % 5.7 % (0.0-4.0); HEMATOCRIT 30.4 % (39.0-51.0); HEMO FLAGS DIFF FINAL; LYMPH % 18.3 % (9.0-44.0); LYMPHOCYTE # 0.7 TH/MM3 (1.0-4.8); MEAN CELL VOLUME 78.2 FL (80.0-100.0); MEAN CORPUSCULAR HEMOGLOBIN 23.9 PG (27.0-34.0); MEAN CORPUSCULAR HGB CONC 30.6 % (32.0-36.0); MONO % 13.1 % (0.0-8.0); NEUT % 61.4 % (16.0-70.0); PLATELET COUNT 201 TH/MM3 (150-450); RED BLOOD COUNT 3.89 MIL/MM3 (4.50-5.90); RED CELL DISTRIBUTION WIDTH 18.2 % (11.6-17.2)
== END ==
LOC: PLAB 07:46
PROVIDERS: ATTEND Internal Medicine Interventional Cardiology
DX: D64.9 Anemia, unspecified (principal); Z79.01 Long term (current) use of anticoagulants
CPT/HCPCS: 36415; 85025

== ENCOUNTER → 2016-11-06 | Outpatient (CLI) | payer MEDICARE, BC ==
[2016-11-06 09:39] LABS: AUTOMATED NEUTROPHIL # 2.3 TH/MM3 (1.8-7.7); EOSINOPHIL # 0.2 TH/MM3 (0-0.4); HEMATOCRIT 31.2 % (39.0-51.0); HEMO FLAGS DIFF FINAL; LYMPH % 22.1 % (9.0-44.0); LYMPHOCYTE # 0.9 TH/MM3 (1.0-4.8); MEAN CELL VOLUME 77.7 FL (80.0-100.0); MEAN CORPUSCULAR HEMOGLOBIN 23.7 PG (27.0-34.0); MEAN CORPUSCULAR HGB CONC 30.5 % (32.0-36.0); MONO % 11.9 % (0.0-8.0); PLATELET COUNT 139 TH/MM3 (150-450); RED BLOOD COUNT 4.02 MIL/MM3 (4.50-5.90); RED CELL DISTRIBUTION WIDTH 19.2 % (11.6-17.2); WHITE BLOOD COUNT 3.9 TH/MM3 (4.0-11.0)
[2016-11-06 10:06] LABS: AST (GOT) 14 U/L (15-37); BICARBONATE 28.3 MEQ/L (21.0-32.0); BLOOD UREA NITROGEN 18 MG/DL (7-18); GLOMERULAR FILTRATION RATE 102 ML/MIN (>89); GLUCOSE,FASTING 86 MG/DL (74-99)
[2016-11-06 10:51] LABS: ALKALINE PHOSPHATASE 39 U/L (45-117); ALT (GPT) 16 U/L (12-78); ANION GAP 8 MEQ/L (5-15); CHLORIDE 104 MEQ/L (98-107); HDL CHOLESTEROL 34.4 MG/DL (40.0-60.0); LDL CHOLESTEROL 39 MG/DL (0-99); POTASSIUM 3.6 MEQ/L (3.5-5.1); SODIUM (NA) 140 MEQ/L (136-145); TOTAL BILIRUBIN ADULT 0.8 MG/DL (0.2-1.0); TRANSFERRIN IRON PROFILE 314 MG/DL (200-360)
== END ==
LOC: PLAB 07:25
PROVIDERS: ATTEND Family Medicine
DX: D64.9 Anemia, unspecified (principal); E78.5 Hyperlipidemia, unspecified; R94.6 Abnormal results of thyroid function studies
CPT/HCPCS: 36415; 80053; 80061; 83540; 83550; 84439; 84443; 85025

== ENCOUNTER → 2017-01-16 | Outpatient (CLI) | payer MEDICARE, BC ==
[2017-01-16 13:24] LABS: MEAN CELL VOLUME 84.2 FL (80.0-100.0); PLATELET COUNT 130 TH/MM3 (150-450); RED BLOOD COUNT 4.87 MIL/MM3 (4.50-5.90); RED CELL DISTRIBUTION WIDTH 19.4 % (11.6-17.2); REVIEW FLAG FINAL
== END ==
LOC: PLAB 10:12
PROVIDERS: ATTEND Internal Medicine Interventional Cardiology
DX: I48.0 Paroxysmal atrial fibrillation (principal); E11.9 Type 2 diabetes mellitus without complications; E78.2 Mixed hyperlipidemia; I25.111 Atherosclerotic heart disease of native coronary artery with angina pectoris with documented spasm; D64.9 Anemia, unspecified
CPT/HCPCS: 36415; 85027

== ENCOUNTER → 2017-02-11 | Outpatient (CLI) | payer MEDICARE, BC ==
[2017-02-11 09:44] LABS: AUTOMATED NEUTROPHIL # 3.2 TH/MM3 (1.8-7.7); BASOPHIL % 0.7 % (0.0-2.0); EOSINOPHIL # 0.4 TH/MM3 (0-0.4); EOSINOPHIL % 7.8 % (0.0-4.0); HEMATOCRIT 41.2 % (39.0-51.0); HEMO FLAGS DIFF FINAL; LYMPH % 22.4 % (9.0-44.0); LYMPHOCYTE # 1.2 TH/MM3 (1.0-4.8); MEAN CELL VOLUME 86.1 FL (80.0-100.0); MEAN CORPUSCULAR HEMOGLOBIN 27.8 PG (27.0-34.0); MEAN CORPUSCULAR HGB CONC 32.4 % (32.0-36.0); MONO % 8.9 % (0.0-8.0); NEUT % 60.2 % (16.0-70.0); PLATELET COUNT 130 TH/MM3 (150-450); RED BLOOD COUNT 4.79 MIL/MM3 (4.50-5.90); RED CELL DISTRIBUTION WIDTH 16.4 % (11.6-17.2); WHITE BLOOD COUNT 5.3 TH/MM3 (4.0-11.0)
[2017-02-11 10:33] LABS: ALT (GPT) 19 U/L (12-78); ANION GAP 8 MEQ/L (5-15); AST (GOT) 12 U/L (15-37); BICARBONATE 27.9 MEQ/L (21.0-32.0); BLOOD UREA NITROGEN 20 MG/DL (7-18); CHLORIDE 103 MEQ/L (98-107); GLOMERULAR FILTRATION RATE 104 ML/MIN (>89); GLUCOSE,FASTING 110 MG/DL (74-99); POTASSIUM 3.9 MEQ/L (3.5-5.1); SODIUM (NA) 139 MEQ/L (136-145)
[2017-02-11 10:43] LABS: ALKALINE PHOSPHATASE 39 U/L (45-117); HDL CHOLESTEROL 34.1 MG/DL (40.0-60.0); LDL CHOLESTEROL 39 MG/DL (0-99); TOTAL BILIRUBIN ADULT 0.6 MG/DL (0.2-1.0); TRANSFERRIN IRON PROFILE 268 MG/DL (200-360)
[2017-02-11 15:57] LABS: HEMOGLOBIN A1a 1.3 %; HEMOGLOBIN Ao 82.6 %; HEMOGLOBIN LA1C 2.1 %; HEMOGLOBIN P3 4.1 %
== END ==
LOC: PLAB 07:38
PROVIDERS: ATTEND Family Medicine
DX: E78.5 Hyperlipidemia, unspecified (principal); D64.9 Anemia, unspecified; R94.6 Abnormal results of thyroid function studies; E11.3299 Type 2 diabetes mellitus with mild nonproliferative diabetic retinopathy without macular edema, unspecified eye
CPT/HCPCS: 36415; 80053; 80061; 83036; 83540; 83550; 84443; 85025

== ENCOUNTER 2017-04-09 09:29 | Emergency (ER) | payer MEDICARE, BC ==
[~2017-04-09] VITALS: Ht 175.3 cm; Wt 86.0 kg
[2017-04-09] MEDS ORDERED: FISHCAP4 PO ×2 (09:38)
[2017-04-09] MEDS ORDERED: MULT10CA PO ×2 (09:38)
[2017-04-09] MEDS ORDERED: METF500T PO ×2 (09:38)
[2017-04-09] MEDS ORDERED: CIAL5TAB PO ×2 (09:38)
[2017-04-09] MEDS ORDERED: VITA250C3 CHEW ×2 (09:38)
[2017-04-09] MEDS ORDERED: APIX5TAB PO ×2 (09:38)
[2017-04-09] MEDS ORDERED: MULTTAB67 PO ×2 (09:38)
[2017-04-09] MEDS ORDERED: OMEP20TA93 PO ×2 (09:38)
[2017-04-09] MEDS ORDERED: GLYB5TAB3 PO ×2 (09:38)
[2017-04-09] MEDS ORDERED: TYLE325T PO ×2 (09:38)
[2017-04-09] MEDS ORDERED: LISI20TA3 PO ×2 (09:38)
[2017-04-09] MEDS ORDERED: TRAM50 PO ×2 (09:38)
[2017-04-09 09:39] VITALS: BP 145/83; PULSE 65; RESP 18; TEMP 98; O2SAT 98
[2017-04-09] MEDS ORDERED: TYLETAB34 PO (09:56)
[2017-04-09] MEDS ORDERED: MORPHINE SULFATE 8 MG/ML INJ IM ONE (10:00)
[2017-04-09] MEDS ORDERED: ONDANSETRON HCL 4 MG/2 ML VIAL IM ONE (10:00)
--- NOTE | 2017-04-09 10:01 | PD ---
HPI Chief Complaint: Back/ Neck Pain or Injury Time Seen by Provider: 09:47 Travel History International Travel<30 days: No Contact w/Intl Traveler<30days: No Traveled to known affect area: No History of Present Illness HPI This patient complains of right sided buttock pain that radiates down the back of his leg to the midshin level. Duration one week. No injury. He has no muscle weakness or change in urinary or bowel patterns or any new neurologic problem. He does have some chronic diabetic neuropathy in both feet. He's been taking some tramadol for this without relief. Symptoms severity is moderate. It's worse with position change in activity. PFSH Past Medical History Hx Anticoagulant Therapy: Yes Arthritis: Yes (JOINTS) Atrial Fibrillation: Yes Autoimmune Disease: No Blood Disorders: No Anxiety: No Depression: No Heart Rhythm Problems: Yes (A FIB) Cancer: No Cardiac Catheterization: Yes Cardiovascular Problems: Yes High Cholesterol: Yes Chest Pain: Yes Congestive Heart Failure: No Coronary Artery Disease: Yes Diabetes: Yes Patient Takes Glucophage: Yes Diminished Hearing: No Endocrine: Yes Gastrointestinal Disorders: Yes GERD: Yes Glaucoma: No Genitourinary: No Hepatitis: No Hiatal Hernia: No Hypertension: Yes Immune Disorder: No Inguinal Hernia: Yes Implanted Vascular Access Dvce: No Musculoskeletal: Yes Neurologic: No Psychiatric: No Reproductive: No Respiratory: No Integumentary: No Immunizations Current: No Myocardial Infarction: No Thyroid Disease: No Ulcer: Yes Influenza Vaccination: Yes ?: Not Past Surgical History Abdominal Surgery: Yes (MINE. INGUINAL HERNIOPLASTY) AICD: No Arteriovenous Shunt: No Cardiac Surgery: Yes (CARDIAC STENT X 2 PLACED) Coronary Stent: Yes (IN 2000) Ear Surgery: No Endocrine Surgery: No Eye Surgery: Yes (RIGHT LID SURGERY; CYST REMOVED) Genitourinary Surgery: No Gynecologic Surgery: No Insulin Pump: No Joint Replacement: Yes (RIGHT KNEE AND R ROTATOR CUFF) Neurologic Surgery: No Oral Surgery: No Pacemaker: No Thoracic Surgery: No Tonsillectomy: Yes Other Surgery: Yes (HERNIA X2, RIGHT KNEE,BILAT HANDS,EYE LID,LEFT CATARACT, HEMRHOIDS) Social History Alcohol Use: No Tobacco Use: No (quit 40+ yrs ago) Substance Use: No Allergies-Medications (Allergen,Severity, Reaction): Coded Allergies: grass pollen (Unverified Allergy, Mild, nasal congestion, 04/09/17) Reported Meds & Prescriptions Reported Meds & Active Scripts Active Tylenol-Codeine #3 (Acetaminophen-Codeine) 300-30 mg Tab 1 Tab PO Q6HR PRN Reported Fish Oil + D3 (Fish Oil-Cholecalciferol) 1,200-1,000 Mg-Unit Cap 1 Cap PO DAILY Preservision Areds 2 Softgel (Vit C/E/Zn/Coppr/Lutein/Zeaxan) 250-200-40 Capsule 1 Tab PO HS Ultram (Tramadol HCl) 50 Mg Tab 50 Mg PO Q6H PRN Cialis (Tadalafil) 5 Mg Tab 5 Mg PO HS Do not exceed 1 dose/day. Metformin (Metformin HCl) 500 Mg Tab 500 Mg PO BIDPC Eliquis (Apixaban) 5 Mg Tab 5 Mg PO BID Tylenol (Acetaminophen) 325 Mg Tab 325 Mg PO Q4H PRN Multiple Vitamin 1 Tab 1 Tab PO DAILY Vitamin C (Ascorbic Acid) 250 Mg Chew 500 Mg CHEW DAILY Omeprazole 20 Mg Tab 20 Mg PO HS Lisinopril-Hctz 20-25 Mg Tab 1 Tab PO DAILY Glyburide 5 Mg Tab 5 Mg PO BID Take with meals at the same time each day Simvastatin 10 Mg Tab 20 Mg PO HS Lopressor (Metoprolol Tartrate) 50 Mg Tab 50 Mg PO BID Review of Systems General / Constitutional: No: Fever HENT: No: Headaches Cardiovascular: No: Chest Pain or Discomfort Respiratory: No: Cough Physical Exam Narrative GENERAL: Well-nourished, well-developed patient in no apparent distress. SKIN: Focused skin assessment reveals no rash and nodules. Skin is Warm and dry. HEAD: Atraumatic. Normocephalic. EYES: Pupils equal and round. No scleral icterus. No injection or drainage. ENT: No nasal bleeding or discharge. Mucous membranes pink and moist. NECK: Trachea midline. No JVD. CARDIOVASCULAR: Irregularly irregular rhythm. No murmur appreciated. RESPIRATORY: No accessory muscle use. Clear to auscultation. Breath sounds equal bilaterally. GASTROINTESTINAL: Abdomen soft, non-tender, nondistended. Hepatic and splenic margins not palpable. MUSCULOSKELETAL: No obvious deformities. No clubbing. No cyanosis. No edema. Positive straight leg raise on the right, negative on left. No midline tenderness to the back NEUROLOGICAL: Awake and alert. No obvious cranial nerve deficits. Motor grossly within normal limits. Normal speech. PSYCHIATRIC: Appropriate mood and affect; insight and judgment normal. Data Data Last Documented VS Vital Signs Date Time Temp Pulse Resp B/P (MAP) Pulse Ox O2 Delivery O2 Flow Rate FiO2 04/09/17 09:39 98.0 65 18 145/83 (103) 98 Orders Orders Ondansetron Inj (Zofran Inj) (04/09/17 10:00) Morphine Inj (Morphine Inj) (04/09/17 10:00) [facility] Medical Decision Making Medical Screen Exam Complete: Yes Emergency Medical Condition: Yes Medical Record Reviewed: Yes Differential Diagnosis Sciatica, disc herniation, lumbar strain Narrative Course I have reviewed the patient's electronic medical record. His patient has classic sciatica presentation. He has no neurologic deficit objectively and no urinary complaints or injury. No red flags to suggest emergent imaging is indicated. I have discussed with him and considered imaging but I don't think it would change any management.. I don't think he has a AAA. His A. fib is chronic. His vitals are okay and he is comfortable lying in the bed. However if I raise his right leg or he changes position he develops some discomfort. No pulsatile abdominal mass. I've written him some Tylenol with codeine and gave him injection of morphine and Zofran here for symptom relief He should contact his primary physician for follow-up. Diagnosis Primary Impression: Sciatica of right side Additional Instructions: The patient was advised to follow up with their physician and return if they worsen. The patient was warned about potential sedation for the medications they will receive on prescription. Med/Other Pt SpecificInfo: Prescription(s) given Scripts Acetaminophen-Codeine (Tylenol-Codeine #3) 300-30 mg Tab 1 TAB PO Q6HR Y for PAIN, #20 TAB 0 Refills Prov: Tay Hoffmann MD 04/09/17 Disposition: 01 DISCHARGE HOME Condition: Stable Tay Hoffmann MD Apr 09, 2017 10:01
[2017-04-09 11:07] VITALS: BP 121/59; PULSE 66; RESP 18; O2SAT 98
--- NOTE | 2017-04-09 11:19 | RADRPT ---
EXAM DATE/TIME: 04/09/2017 10:16 [facility] COMPARISON: No previous studies available for comparison. INDICATIONS : Right sided back pain radiating down leg. No injury. RADIATION DOSE: 40.01 CTDIvol (mGy) MEDICAL HISTORY : Hypercholesterolemia. Cardiovascular disease Hypertension.Anticoagulant therapy. Diabetes. SURGICAL HISTORY : Coronary artery stent. Inguinal hernia repair.Orthopedic surgery. ENCOUNTER: Initial ACUITY: 4 - 6 days PAIN SCALE: 5/10 LOCATION: Right spine TECHNIQUE: Volumetric scanning of the lumbar spine was performed. Multiplanar reconstructions in the sagittal, coronal and oblique axial planes were performed. Using automated exposure control and adjustment of the mA and/or kV according to patient size, radiation dose was kept as low as reasonably achievable t o obtain optimal diagnostic quality images. DICOM format image data is available electronically for review and comparison. FINDINGS: VERTEBRAE: Normal vertebral body height. ALIGNMENT: S-shaped scoliosis of the lumbar spine. Sagittal alignment is maintained. Miscellaneous findings: Moderate sigmoid diverticulosis. Diffusely calcified infrarenal aorta which appears non-aneurysmal. T12-L1: Disc space loss with anterior vacuum disc phenomenon. Left eccentric disc protrusion which appears to efface the left anterior thecal sac. Caudal narrowing of the left neural foramina. L1-L2: Severe disc space loss with anterior osteophyte formation and endplate sclerosis. The posterior disc osteophyte complex with effacement of the anterior thecal sac. Bony central canal is grossly patent. Mild caudal bilateral neural foraminal narrowing. L2-L3: Severe disc space loss with osteophyte formation. Mild facet arthropathy. Mild effacement of the ante rior thecal sac. Bony central canal appears grossly patent. Moderate left and mild right neural diallo inal stenosis due to disc osteophyte complex. L3-L4: Severe disc space loss with osteophyte formation and vacuum disc phenomenon. There is mild bilateral facet arthropathy. Central canal is grossly patent. Moderate left and moderate to severe right neural foraminal stenosis secondary to disc osteophyte complex. L4-L5: Severe disc space loss with osteophyte formation and vacuum disc phenomenon. Mild effacement of the a nterior thecal sac. Mild facet arthropathy. Suspect a moderate sized 11 x 6 mm right facet synovial c yst which results in effacement of the right lateral recess. Mild caudal left neural foraminal stenos is. L5-S1: Vacuum disc phenomenon with suspected calcified right disc extrusion effacing the right anterior late ral recess. Mild caudal bilateral neural foraminal narrowing. CONCLUSION: 1. S-shaped lumbar scoliosis with associated advanced multilevel degenerative spondylosis. This is mo st prominent at L4-5 and L5-S1. 2. Suspect a moderate sized 11 x 6 mm right facet synovial cyst which effaces the posterior right lat eral recess at L4-5. Suspect calcified right disc extrusion at L5-S1 effacing the right anterior late ral recess. 3. There is also moderate to severe right neural foraminal stenosis at L3-4 secondary to disc osteoph yte complex. 4. Consider MRI exam or CT myelography if MRI is contraindicated for better evaluation. Mauricio Burgess MD on April 09, 2017 at 11:01 Board Certified Radiologist. This report was verified electronically.
== END 2017-04-09 11:33 | disposition home or self-care (01) ==
LOC: PHED 09:29
DX: M54.31 Sciatica, right side (principal); M51.27 Other intervertebral disc displacement, lumbosacral region; E11.40 Type 2 diabetes mellitus with diabetic neuropathy, unspecified; M19.90 Unspecified osteoarthritis, unspecified site; I48.91 Unspecified atrial fibrillation; E78.00 Pure hypercholesterolemia, unspecified; I25.10 Atherosclerotic heart disease of native coronary artery without angina pectoris; K21.9 Gastro-esophageal reflux disease without esophagitis; I10 Essential (primary) hypertension; Z79.84 Long term (current) use of oral hypoglycemic drugs; Z79.01 Long term (current) use of anticoagulants; Z86.79 Personal history of other diseases of the circulatory system; Z87.19 Personal history of other diseases of the digestive system; Z87.39 Personal history of other diseases of the musculoskeletal system and connective tissue
CPT/HCPCS: 72131; 96372; J2270; J2405

== ENCOUNTER 2017-04-10 04:14 | Inpatient (IN) | payer MEDICARE, BC ==
[~2017-04-10] VITALS: Ht 180.3 cm; Wt 83.4 kg
[~2017-04-10 04:14] MED LIST changes: +APIX5TAB PO; +CIAL5TAB PO; +FISHCAP4 PO; +GLYB5TAB3 PO; +LISI20TA3 PO; +METF500T PO; +MULT10CA PO; +MULTTAB67 PO; +OMEP20TA93 PO; +TRAM50 PO; +TYLE325T PO; +TYLETAB34 PO; +VITA250C3 CHEW
[2017-04-10] MEDS ORDERED: GADODIAMIDE PF 287 MG/ML 20 ML VIAL (for RAD MRI) IVCONTRAST ONE (04:15)
[2017-04-10 04:21] VITALS: BP 150/75; PULSE 86; RESP 18; TEMP 98.6; O2SAT 98
--- NOTE | 2017-04-10 04:22 | PD ---
HPI Time Seen by Provider: 04:20 PFSH Past Medical History Hx Anticoagulant Therapy: Yes Arthritis: Yes (JOINTS) Atrial Fibrillation: Yes Autoimmune Disease: No Blood Disorders: No Anxiety: No Depression: No Heart Rhythm Problems: Yes (A FIB) Cancer: No Cardiac Catheterization: Yes Cardiovascular Problems: Yes High Cholesterol: Yes Chest Pain: Yes Congestive Heart Failure: No Coronary Artery Disease: Yes Diabetes: Yes Diminished Hearing: No Endocrine: Yes Gastrointestinal Disorders: Yes GERD: Yes Glaucoma: No Genitourinary: No Hepatitis: No Hiatal Hernia: No Hypertension: Yes Immune Disorder: No Inguinal Hernia: Yes Implanted Vascular Access Dvce: No Musculoskeletal: Yes Neurologic: No Psychiatric: No Reproductive: No Respiratory: No Integumentary: No Immunizations Current: No Myocardial Infarction: No Thyroid Disease: No Ulcer: Yes Past Surgical History Abdominal Surgery: Yes (MINE. INGUINAL HERNIOPLASTY) AICD: No Arteriovenous Shunt: No Cardiac Surgery: Yes (CARDIAC STENT X 2 PLACED) Coronary Stent: Yes (IN 2000) Ear Surgery: No Endocrine Surgery: No Eye Surgery: Yes (RIGHT LID SURGERY; CYST REMOVED) Genitourinary Surgery: No Gynecologic Surgery: No Insulin Pump: No Joint Replacement: Yes (RIGHT KNEE AND R ROTATOR CUFF) Neurologic Surgery: No Oral Surgery: No Pacemaker: No Thoracic Surgery: No Tonsillectomy: Yes Other Surgery: Yes (HERNIA X2, RIGHT KNEE,BILAT HANDS,EYE LID,LEFT CATARACT, HEMRHOIDS) Social History Alcohol Use: No Tobacco Use: No (quit 40+ yrs ago) Substance Use: No Allergies-Medications (Allergen,Severity, Reaction): Coded Allergies: grass pollen (Unverified Allergy, Mild, nasal congestion, 04/09/17) Reported Meds & Prescriptions Reported Meds & Active Scripts Active Tylenol-Codeine #3 (Acetaminophen-Codeine) 300-30 mg Tab 1 Tab PO Q6HR PRN Reported Fish Oil + D3 (Fish Oil-Cholecalciferol) 1,200-1,000 Mg-Unit Cap 1 Cap PO DAILY Preservision Areds 2 Softgel (Vit C/E/Zn/Coppr/Lutein/Zeaxan) 250-200-40 Capsule 1 Tab PO HS Ultram (Tramadol HCl) 50 Mg Tab 50 Mg PO Q6H PRN Cialis (Tadalafil) 5 Mg Tab 5 Mg PO HS Do not exceed 1 dose/day. Metformin (Metformin HCl) 500 Mg Tab 500 Mg PO BIDPC Eliquis (Apixaban) 5 Mg Tab 5 Mg PO BID Tylenol (Acetaminophen) 325 Mg Tab 325 Mg PO Q4H PRN Multiple Vitamin 1 Tab 1 Tab PO DAILY Vitamin C (Ascorbic Acid) 250 Mg Chew 500 Mg CHEW DAILY Omeprazole 20 Mg Tab 20 Mg PO HS Lisinopril-Hctz 20-25 Mg Tab 1 Tab PO DAILY Glyburide 5 Mg Tab 5 Mg PO BID Take with meals at the same time each day Simvastatin 10 Mg Tab 20 Mg PO HS Lopressor (Metoprolol Tartrate) 50 Mg Tab 50 Mg PO BID Data Data Last Documented VS Vital Signs Date Time Temp Pulse Resp B/P (MAP) Pulse Ox O2 Delivery O2 Flow Rate FiO2 04/10/17 07:18 76 18 100/46 (64) 95 Room Air 04/10/17 05:00 2.00 04/10/17 04:21 98.6 Orders Orders Basic Metabolic Panel (Bmp) (04/10/17 04:21) Comprehensive Metabolic Panel (04/10/17 04:21) Urinalysis - C+S If Indicated (04/10/17 04:21) Iv Access Insert/Monitor (04/10/17 04:21) Ecg Monitoring (04/10/17 04:21) Oximetry (04/10/17 04:21) Morphine Inj (Morphine Inj) (04/10/17 04:30) Sodium Chloride 0.9% Flush (Ns Flush) (04/10/17 04:30) Urinary Catheter Management FIDELIA.Q8H (04/10/17 04:21) Mri T Spine W/O Contrast (04/10/17 ) Complete Blood Count With Diff (04/10/17 05:18) Morphine Inj (Morphine Inj) (04/10/17 06:15) Mri L Spine W&W/O Contrast (04/10/17 ) Gadodiamide Pf Inj (Omniscan Pf Inj) (04/10/17 04:15) Admit Order (Ed Use Only) (04/10/17 08:43) Labs Laboratory Tests Test 04/10/17 04:57 White Blood Count 6.4 TH/MM3 Red Blood Count 4.06 MIL/MM3 Hemoglobin 11.6 GM/DL Hematocrit 36.9 % Mean Corpuscular Volume 91.0 FL Mean Corpuscular Hemoglobin 28.7 PG Mean Corpuscular Hemoglobin Concent 31.6 % Red Cell Distribution Width 13.4 % Platelet Count 136 TH/MM3 Mean Platelet Volume 8.1 FL Neutrophils (%) (Auto) 76.7 % Lymphocytes (%) (Auto) 9.9 % Monocytes (%) (Auto) 10.8 % Eosinophils (%) (Auto) 2.2 % Basophils (%) (Auto) 0.4 % Neutrophils # (Auto) 5.0 TH/MM3 Lymphocytes # (Auto) 0.6 TH/MM3 Monocytes # (Auto) 0.7 TH/MM3 Eosinophils # (Auto) 0.1 TH/MM3 Basophils # (Auto) 0.0 TH/MM3 CBC Comment DIFF FINAL Differential Comment Urine Color YELLOW Urine Turbidity SLIGHT Urine pH 5.0 Urine Specific [place] 1.016 Urine Protein NEG mg/dL Urine Glucose (UA) NEG mg/dL Urine Ketones NEG mg/dL Urine Occult Blood SMALL Urine Nitrite NEG Urine Bilirubin NEG Urine Leukocyte Esterase NEG Urine RBC 4-9 /hpf Urine Squamous Epithelial Cells 0-5 /hpf Urine Amorphous Sediment MOD Urine Hyaline Casts 3-5 /lpf Urine Mucus FEW /lpf Microscopic Urinalysis Comment CULT NOT INDICATED Blood Urea Nitrogen 22 MG/DL Creatinine 0.76 MG/DL Random Glucose 68 MG/DL Total Protein 6.8 GM/DL Albumin 3.5 GM/DL Calcium Level 8.7 MG/DL Alkaline Phosphatase 45 U/L Aspartate Amino Transf (AST/SGOT) 14 U/L Alanine Aminotransferase (ALT/SGPT) 17 U/L Total Bilirubin 1.4 MG/DL Sodium Level 133 MEQ/L Potassium Level 3.4 MEQ/L Chloride Level 99 MEQ/L Carbon Dioxide Level 24.5 MEQ/L Anion Gap 10 MEQ/L Estimat Glomerular Filtration Rate 97 ML/MIN Garcia Durbin MD Apr 10, 2017 04:22
[2017-04-10] MEDS ORDERED: MORPHINE SULFATE 4 MG/ML INJ IV PUSH ONE ×2 (04:30→21:45)
[2017-04-10] MEDS ORDERED: SODIUM CHLORIDE 0.9% FLUSH 10 ML FLUSH IV FLUSH PRN ×2 (04:30→09:00)
--- NOTE | 2017-04-10 04:46 | PD ---
HPI Chief Complaint: Pain: Acute or Chronic Time Seen by Provider: 04:20 Travel History International Travel<30 days: No Contact w/Intl Traveler<30days: No Traveled to known affect area: No History of Present Illness HPI Patient is an 86 year old male presents to the ER for a repeat evaluation of low back pain. He was seen yesterday for same diagnosed with low back pain and sciatica of right side. No imaging was indicated at that time according to note but patient did have ct lumbar spine showing multiple degenerative changes. Patinet states since he left he has not been able to urinate and now the pain is going down both legs. States spontaneous onset and no injury recalled. No fevers, no saddle anesthesia. He states pain is severe. Low back. Radiating down both legs. Associated s/s as above. PFSH Past Medical History Hx Anticoagulant Therapy: Yes Arthritis: Yes (JOINTS) Atrial Fibrillation: Yes Autoimmune Disease: No Blood Disorders: No Anxiety: No Depression: No Heart Rhythm Problems: Yes (A FIB) Cancer: No Cardiac Catheterization: Yes Cardiovascular Problems: Yes High Cholesterol: Yes Chest Pain: Yes Congestive Heart Failure: No Coronary Artery Disease: Yes Diabetes: Yes Patient Takes Glucophage: Yes Diminished Hearing: No Endocrine: Yes Gastrointestinal Disorders: Yes GERD: Yes Glaucoma: No Genitourinary: No Hepatitis: No Hiatal Hernia: No Hypertension: Yes Immune Disorder: No Inguinal Hernia: Yes Implanted Vascular Access Dvce: No Musculoskeletal: Yes Neurologic: No Psychiatric: No Reproductive: No Respiratory: No Integumentary: No Immunizations Current: No Myocardial Infarction: No Thyroid Disease: No Ulcer: Yes Past Surgical History Abdominal Surgery: Yes (MINE. INGUINAL HERNIOPLASTY) AICD: No Arteriovenous Shunt: No Cardiac Surgery: Yes (CARDIAC STENT X 2 PLACED) Coronary Stent: Yes (IN 2000) Ear Surgery: No Endocrine Surgery: No Eye Surgery: Yes (RIGHT LID SURGERY; CYST REMOVED) Genitourinary Surgery: No Gynecologic Surgery: No Insulin Pump: No Joint Replacement: Yes (RIGHT KNEE AND R ROTATOR CUFF) Neurologic Surgery: No Oral Surgery: No Pacemaker: No Thoracic Surgery: No Tonsillectomy: Yes Other Surgery: Yes (HERNIA X2, RIGHT KNEE,BILAT HANDS,EYE LID,LEFT CATARACT, HEMRHOIDS) Social History Alcohol Use: No Tobacco Use: No (quit 40+ yrs ago) Substance Use: No Allergies-Medications (Allergen,Severity, Reaction): Coded Allergies: grass pollen (Unverified Allergy, Mild, nasal congestion, 04/09/17) Reported Meds & Prescriptions Reported Meds & Active Scripts Active Tylenol-Codeine #3 (Acetaminophen-Codeine) 300-30 mg Tab 1 Tab PO Q6HR PRN Reported Fish Oil + D3 (Fish Oil-Cholecalciferol) 1,200-1,000 Mg-Unit Cap 1 Cap PO DAILY Preservision Areds 2 Softgel (Vit C/E/Zn/Coppr/Lutein/Zeaxan) 250-200-40 Capsule 1 Tab PO HS Ultram (Tramadol HCl) 50 Mg Tab 50 Mg PO Q6H PRN Cialis (Tadalafil) 5 Mg Tab 5 Mg PO HS Do not exceed 1 dose/day. Metformin (Metformin HCl) 500 Mg Tab 500 Mg PO BIDPC Eliquis (Apixaban) 5 Mg Tab 5 Mg PO BID Tylenol (Acetaminophen) 325 Mg Tab 325 Mg PO Q4H PRN Multiple Vitamin 1 Tab 1 Tab PO DAILY Vitamin C (Ascorbic Acid) 250 Mg Chew 500 Mg CHEW DAILY Omeprazole 20 Mg Tab 20 Mg PO HS Lisinopril-Hctz 20-25 Mg Tab 1 Tab PO DAILY Glyburide 5 Mg Tab 5 Mg PO BID Take with meals at the same time each day Simvastatin 10 Mg Tab 20 Mg PO HS Lopressor (Metoprolol Tartrate) 50 Mg Tab 50 Mg PO BID Review of Systems Except as stated in HPI: all other systems reviewed are Neg Physical Exam Narrative GENERAL: WD/WN appears uncomfortable. SKIN: Warm and dry. There is a transverse wound well healed in the high lumbar region. patient denies history of surgery to back. HEAD: Atraumatic. Normocephalic. EYES: Pupils equal and round. No scleral icterus. No injection or drainage. ENT: No nasal bleeding or discharge. Mucous membranes pink and moist. NECK: Trachea midline. No JVD. CARDIOVASCULAR: Regular rate and rhythm. RESPIRATORY: No accessory muscle use. Clear to auscultation. Breath sounds equal bilaterally. GASTROINTESTINAL: Abdomen soft, non-tender, nondistended. Hepatic and splenic margins not palpable. MUSCULOSKELETAL: Extremities without clubbing, cyanosis, or edema. No obvious deformities. No midline CTL spine tenderness. patient states hurts in mid lumbar region. NEUROLOGICAL: Awake and alert. No obvious cranial nerve deficits. Motor grossly within normal limits. Five out of 5 muscle strength in the arms and legs. Normal speech. Sensation normal and equal over L4/5 and S1. rectal tone normal. PSYCHIATRIC: Appropriate mood and affect; insight and judgment normal. Data Data Last Documented VS Vital Signs Date Time Temp Pulse Resp B/P (MAP) Pulse Ox O2 Delivery O2 Flow Rate FiO2 04/10/17 07:18 76 18 100/46 (64) 95 Room Air 04/10/17 05:00 2.00 04/10/17 04:21 98.6 Orders Orders Basic Metabolic Panel (Bmp) (04/10/17 04:21) Comprehensive Metabolic Panel (04/10/17 04:21) Urinalysis - C+S If Indicated (04/10/17 04:21) Iv Access Insert/Monitor (04/10/17 04:21) Ecg Monitoring (04/10/17 04:21) Oximetry (04/10/17 04:21) Morphine Inj (Morphine Inj) (04/10/17 04:30) Sodium Chloride 0.9% Flush (Ns Flush) (04/10/17 04:30) Urinary Catheter Management FIDELIA.Q8H (04/10/17 04:21) Mri T Spine W/O Contrast (04/10/17 ) Complete Blood Count With Diff (04/10/17 05:18) Morphine Inj (Morphine Inj) (04/10/17 06:15) Mri L Spine W&W/O Contrast (04/10/17 ) Gadodiamide Pf Inj (Omniscan Pf Inj) (04/10/17 04:15) Admit Order (Ed Use Only) (04/10/17 08:43) Labs Laboratory Tests Test 04/10/17 04:57 White Blood Count 6.4 TH/MM3 Red Blood Count 4.06 MIL/MM3 Hemoglobin 11.6 GM/DL Hematocrit 36.9 % Mean Corpuscular Volume 91.0 FL Mean Corpuscular Hemoglobin 28.7 PG Mean Corpuscular Hemoglobin Concent 31.6 % Red Cell Distribution Width 13.4 % Platelet Count 136 TH/MM3 Mean Platelet Volume 8.1 FL Neutrophils (%) (Auto) 76.7 % Lymphocytes (%) (Auto) 9.9 % Monocytes (%) (Auto) 10.8 % Eosinophils (%) (Auto) 2.2 % Basophils (%) (Auto) 0.4 % Neutrophils # (Auto) 5.0 TH/MM3 Lymphocytes # (Auto) 0.6 TH/MM3 Monocytes # (Auto) 0.7 TH/MM3 Eosinophils # (Auto) 0.1 TH/MM3 Basophils # (Auto) 0.0 TH/MM3 CBC Comment DIFF FINAL Differential Comment Urine Color YELLOW Urine Turbidity SLIGHT Urine pH 5.0 Urine Specific [place] 1.016 Urine Protein NEG mg/dL Urine Glucose (UA) NEG mg/dL Urine Ketones NEG mg/dL Urine Occult Blood SMALL Urine Nitrite NEG Urine Bilirubin NEG Urine Leukocyte Esterase NEG Urine RBC 4-9 /hpf Urine Squamous Epithelial Cells 0-5 /hpf Urine Amorphous Sediment MOD Urine Hyaline Casts 3-5 /lpf Urine Mucus FEW /lpf Microscopic Urinalysis Comment CULT NOT INDICATED Blood Urea Nitrogen 22 MG/DL Creatinine 0.76 MG/DL Random Glucose 68 MG/DL Total Protein 6.8 GM/DL Albumin 3.5 GM/DL Calcium Level 8.7 MG/DL Alkaline Phosphatase 45 U/L Aspartate Amino Transf (AST/SGOT) 14 U/L Alanine Aminotransferase (ALT/SGPT) 17 U/L Total Bilirubin 1.4 MG/DL Sodium Level 133 MEQ/L Potassium Level 3.4 MEQ/L Chloride Level 99 MEQ/L Carbon Dioxide Level 24.5 MEQ/L Anion Gap 10 MEQ/L Estimat Glomerular Filtration Rate 97 ML/MIN [facility] Medical Decision Making Medical Screen Exam Complete: Yes Emergency Medical Condition: Yes Differential Diagnosis Cauda equina, cold fracture, degenerative disc disease, sciatica, BPH, Narrative Course patient roomed in emergency department, reviewed CAT scan results from earlier today showing the following Lumbar scoliosis and multilevel degenerative changes, is a moderate size right facet synovial cysts which effaces the posterior right lateral recess, right disc extrusion at L5-S1 the face in the right anterior lateral recess, moderate to severe right neural foraminal stenosis at L3-L4. Given the symptoms, Zheng catheter was placed in a post void residual 500 cc was found, could be secondary to prostate enlargement could be secondary to cauda equina. Rectal tone was normal, good strength in bilateral lower extremities and sensation is intact. MRI was ordered, will discuss with oncoming provider to follow-up MRI results and disposition the patient properly. Garcia Durbin MD Apr 10, 2017 04:46
[2017-04-10 05:00] VITALS: O2SAT 97
[2017-04-10 05:12] LABS: BLOOD, URINE SMALL (NEG); GLUCOSE,URINE NEG (NEG); KETONE, URINE NEG (NEG); NITRITE,URINE NEG (NEG)
[2017-04-10 05:19] LABS: MUCUS URINE FEW /lpf (OCC); URINE COLOR YELLOW (YELLW/STRAW)
[2017-04-10 05:20] LABS: SQUAMOUS EPITHELIAL CELL URINE 0-5 /hpf (0-5)
[2017-04-10 05:21] LABS: COMMENT (UR) CULT NOT INDICATED; CULTURE IF INDICATED CULT NOT INDICATED
[2017-04-10 05:22] LABS: CHLORIDE 99 MEQ/L (98-107); POTASSIUM 3.4 MEQ/L (3.5-5.1); SODIUM (NA) 133 MEQ/L (136-145)
[2017-04-10 05:26] LABS: ANION GAP 10 MEQ/L (5-15); BICARBONATE 24.5 MEQ/L (21.0-32.0); BLOOD UREA NITROGEN 22 MG/DL (7-18)
[2017-04-10 05:29] LABS: ALT (GPT) 17 U/L (12-78); AST (GOT) 14 U/L (15-37); GLOMERULAR FILTRATION RATE 97 ML/MIN (>89)
[2017-04-10 05:30] LABS: TOTAL BILIRUBIN ADULT 1.4 MG/DL (0.2-1.0)
[2017-04-10 05:32] LABS: ALKALINE PHOSPHATASE 45 U/L (45-117)
[2017-04-10 05:47] LABS: BASOPHIL % 0.4 % (0.0-2.0); EOSINOPHIL # 0.1 TH/MM3 (0-0.4); EOSINOPHIL % 2.2 % (0.0-4.0); HEMATOCRIT 36.9 % (39.0-51.0); HEMO FLAGS DIFF FINAL; LYMPH % 9.9 % (9.0-44.0); LYMPHOCYTE # 0.6 TH/MM3 (1.0-4.8); MEAN CORPUSCULAR HEMOGLOBIN 28.7 PG (27.0-34.0); MEAN CORPUSCULAR HGB CONC 31.6 % (32.0-36.0); MONO % 10.8 % (0.0-8.0); NEUT % 76.7 % (16.0-70.0); PLATELET COUNT 136 TH/MM3 (150-450); RED BLOOD COUNT 4.06 MIL/MM3 (4.50-5.90); RED CELL DISTRIBUTION WIDTH 13.4 % (11.6-17.2); WHITE BLOOD COUNT 6.4 TH/MM3 (4.0-11.0)
[2017-04-10] MEDS ORDERED: MORPHINE SULFATE 8 MG/ML INJ IV PUSH ONE (06:15)
--- NOTE | 2017-04-10 07:15 | RADRPT ---
EXAM DATE/TIME: 04/10/2017 06:12 [facility] COMPARISON: No previous studies available for comparison. INDICATIONS : Severe back pain. MEDICAL HISTORY : Hypertension. Diabetes mellitus type 2. SURGICAL HISTORY : Total knee replacement, right. Inguinal hernia repair. ENCOUNTER: Initial ACUITY: 1 day PAIN SCORE: 0/10 LOCATION: [facility] TECHNIQUE: Multiplanar multisequence MRI of the thoracic spine was performed. FINDINGS: Thoracic kyphosis is slightly exaggerated. No subluxations are demonstrated. Severe disc space narrow ing and suspected ankylosis seen at T6/T7. There is mild disc space narrowing at other levels and wit h very small posterior protrusions from T4/T5-T9/T10. Mild, reactive appearing endplate marrow edema noted, mostly T3/T4, T9/T10. A central to left paracentral mass is seen at T12/L1, most likely an extruded disc fragment. This lev el will be described further on the lumbar spine MRI report to follow. Mild costovertebral and facet osteoarthritis seen bilaterally at essentially all levels. No high-grad e foraminal stenosis demonstrated. CONCLUSION: 1. 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 Generally mild degenerative changes at other levels f rom C7/T1-T11/T12. 2. Large extruded disc fragment at T12/L1; MRI the lumbar spine follow. 3. Mild, reactive appearing endplate marrow edema, most conspicuous at T3/T4 and T9/T10. No fracture or subluxation seen of the thoracic spine. Nishant Unger MD on April 10, 2017 at 7:08 Board Certified Radiologist. This report was verified electronically.
[2017-04-10 07:18] VITALS: BP 100/46; PULSE 76; RESP 18; O2SAT 95
--- NOTE | 2017-04-10 07:48 | RADRPT ---
EXAM DATE/TIME: 04/10/2017 06:12 [facility] COMPARISON: MRI THORACIC SPINE W/O CONTRAST, April 10, 2017, 6:12. CT LUMBAR SPINE W/O CONTRAST, April 09, 2017, 10:16. INDICATIONS : Pain. Abnormal CT. CONTRAST: 18 cc Omniscan (gadodiamide) IV MEDICAL HISTORY : Hypertension. Diabetes mellitus type 2. SURGICAL HISTORY : Total knee replacement, right. Inguinal hernia repair. ENCOUNTER: Initial ACUITY: 1 day PAIN SCORE: 5/10 LOCATION: [facility] TECHNIQUE: Multiplanar multisequence MRI of the lumbar spine was performed with and without contrast. FINDINGS: No fracture or subluxation seen in the lumbar spine. There is an S-shaped curvature. Vertebral bodies have normal height. Conus terminates within normal limits comment of the level of L1. T12-L1: Large, nonenhancing left paracentral epidural mass, presumably an extruded disc fragment. This measur es approximately 9 x 10 mm in greatest transaxial dimension and 18 mm craniocaudal. It extrudes super iorly greater than inferiorly. There is eccentric compression on the conus. No Conus signal abnormali ty demonstrated. Study also shows mild to moderate bilateral costovertebral and facet osteoarthritis at this level. No significant foraminal stenosis. There is mild endplate marrow edema. L1-L2: The disc is desiccated and has severe loss of height. There is mild endplate marrow edema. There is a small moderate, broad but especially left paracentral/foraminal/lateral disc osteophyte complex. Mil d to moderate bilateral facet osteoarthritis present with thickening of the ligamentum flavum. There is mild spinal stenosis without evidence of transiting nerve root impingement. There is mild right an d moderate left foraminal stenosis. L2-L3: The disc is desiccated and has moderate loss of height. There is a small, broad but especially left f oraminal/lateral disc osteophyte complex. Moderate bilateral facet osteoarthritis with thickening of the ligamentum flavum. There is mild spinal stenosis without evidence of transiting nerve root imping ement. There is mild right and moderate left foraminal stenosis. L3-L4: The disc is desiccated and has moderate to severe loss of height. There is a small, broad/diffuse dis c osteophyte complex and moderate bilateral facet osteoarthritis with thickening of the ligamentum fl avum. There is mild spinal stenosis. There is moderate to severe right and moderate left foraminal st enosis. L4-L5: The disc is desiccated and has moderate to severe loss of height. There is a small, broad/diffuse dis c osteophyte complex. There is severe, bilateral facet osteoarthritis with thickening of the ligament um flavum. A right posterolateral nonenhancing epidural mass is present, measures approximately 10 x 13 x 25 mm in size and is presumably a synovial cyst of the right facet joint. There is associated se leslie spinal stenosis and very likely impingement on the transiting right L5 and S1 nerve roots. There is moderate bilateral foraminal stenosis. L5-S1: The disc is desiccated and has mild loss of height and vacuum phenomena. There is a very small, broad /diffuse disc protrusion. Moderate to severe bilateral facet osteoarthritis present. There is mild sp inal stenosis and mild to moderate right, mild left foraminal stenosis. CONCLUSION: 1. Scoliosis and multilevel degenerative changes of the lumbar spine as above. 2. There is a large left paracentral extruded disc fragment at T12/L1 causing spinal stenosis and ecc entric conus compression. 3. 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 There is associated severe spinal stenosis, especially the right lateral recess. 4. Moderate to severe right and moderate left foraminal stenosis at L3/L4. There is moderate bilatera l foraminal stenosis at L4/L5. Elsewhere, foraminal stenosis is generally in the mild or mild to mode rate range. 5. No fracture or acute appearing malalignment demonstrated. Nishant Unger MD on April 10, 2017 at 7:32 Board Certified Radiologist. This report was verified electronically.
--- NOTE | 2017-04-10 08:06 | PD ---
Physical Exam Date Seen by Provider: Apr 10, 2017 Time Seen by Provider: 08:04 Narrative 86-year-old male was seen in the emergency room for lower back pain that is intractable. Patient was seen earlier in the emergency room is in 24 hours ago and came back because the pain continues. The CT scan of his back that was done was abnormal. The previous physicians saw the patient the second time and ordered MRI. Please refer to his history and physical for further details. Sign out was to follow-up on the MRI. Thoracic and the lumbar spine MRI just came back and is significantly abnormal. There is significant spinal stenosis from an epidural Cyst that is large as well as protruded disc material. I put a call out for neurosurgery. Awaiting for surgeon to call back so that I can discuss the case. Data Data Last Documented VS Vital Signs Date Time Temp Pulse Resp B/P (MAP) Pulse Ox O2 Delivery O2 Flow Rate FiO2 04/10/17 07:18 76 18 100/46 (64) 95 Room Air Orders Orders Basic Metabolic Panel (Bmp) (04/10/17 04:21) Comprehensive Metabolic Panel (04/10/17 04:21) Urinalysis - C+S If Indicated (04/10/17 04:21) Iv Access Insert/Monitor (04/10/17 04:21) Ecg Monitoring (04/10/17 04:21) Oximetry (04/10/17 04:21) Morphine Inj (Morphine Inj) (04/10/17 04:30) Sodium Chloride 0.9% Flush (Ns Flush) (04/10/17 04:30) Urinary Catheter Management FIDELIA.Q8H (04/10/17 04:21) Mri T Spine W/O Contrast (04/10/17 ) Complete Blood Count With Diff (04/10/17 05:18) Morphine Inj (Morphine Inj) (04/10/17 06:15) Mri L Spine W&W/O Contrast (04/10/17 ) Gadodiamide Pf Inj (Omniscan Pf Inj) (04/10/17 04:15) Admit Order (Ed Use Only) (04/10/17 08:43) Labs Laboratory Tests Test 04/10/17 04:57 White Blood Count 6.4 TH/MM3 Red Blood Count 4.06 MIL/MM3 Hemoglobin 11.6 GM/DL Hematocrit 36.9 % Mean Corpuscular Volume 91.0 FL Mean Corpuscular Hemoglobin 28.7 PG Mean Corpuscular Hemoglobin Concent 31.6 % Red Cell Distribution Width 13.4 % Platelet Count 136 TH/MM3 Mean Platelet Volume 8.1 FL Neutrophils (%) (Auto) 76.7 % Lymphocytes (%) (Auto) 9.9 % Monocytes (%) (Auto) 10.8 % Eosinophils (%) (Auto) 2.2 % Basophils (%) (Auto) 0.4 % Neutrophils # (Auto) 5.0 TH/MM3 Lymphocytes # (Auto) 0.6 TH/MM3 Monocytes # (Auto) 0.7 TH/MM3 Eosinophils # (Auto) 0.1 TH/MM3 Basophils # (Auto) 0.0 TH/MM3 CBC Comment DIFF FINAL Differential Comment Urine Color YELLOW Urine Turbidity SLIGHT Urine pH 5.0 Urine Specific [place] 1.016 Urine Protein NEG mg/dL Urine Glucose (UA) NEG mg/dL Urine Ketones NEG mg/dL Urine Occult Blood SMALL Urine Nitrite NEG Urine Bilirubin NEG Urine Leukocyte Esterase NEG Urine RBC 4-9 /hpf Urine Squamous Epithelial Cells 0-5 /hpf Urine Amorphous Sediment MOD Urine Hyaline Casts 3-5 /lpf Urine Mucus FEW /lpf Microscopic Urinalysis Comment CULT NOT INDICATED Blood Urea Nitrogen 22 MG/DL Creatinine 0.76 MG/DL Random Glucose 68 MG/DL Total Protein 6.8 GM/DL Albumin 3.5 GM/DL Calcium Level 8.7 MG/DL Alkaline Phosphatase 45 U/L Aspartate Amino Transf (AST/SGOT) 14 U/L Alanine Aminotransferase (ALT/SGPT) 17 U/L Total Bilirubin 1.4 MG/DL Sodium Level 133 MEQ/L Potassium Level 3.4 MEQ/L Chloride Level 99 MEQ/L Carbon Dioxide Level 24.5 MEQ/L Anion Gap 10 MEQ/L Estimat Glomerular Filtration Rate 97 ML/MIN [facility] Supervised Visit with RODERICK: No Narrative Course 8:18 AM I discussed the case with Dr. Chamberlain. He wants the patient to be transferred to the main hospital based on the MRI findings. As per him patient right now can eat. He will see the patient and decide what needs to be done once he has looked at the films. Awaiting for the hospitalist to call back. I let the patient know about the MRI findings and the plan. He is ok with it. He said his pain was controlled at this point. Physician Communication Physician Communication Dr. Chamberlain Diagnosis Primary Impression: Epidural mass Additional Impressions: Spinal stenosis of lumbar region Qualified Codes: M48.062 - Spinal stenosis, lumbar region with neurogenic claudication Protrusion of lumbar intervertebral disc Intractable back pain Admitting Information Admitting Physician Requests: Admit Karla Byrne MD Apr 10, 2017 08:06
[2017-04-10] MEDS ORDERED: DEXTROSE 50% IN WATER 50 ML VIAL(D50) IV PUSH PRN (09:00)
[2017-04-10] MEDS ORDERED: GLUCAGON 1 MG/ML VIAL OTHER PRN (09:00)
[2017-04-10] MEDS ORDERED: NON-FORMULARY DRUG (Lisinopril-Hctz 1 TAB) PO SCH (09:00)
[2017-04-10] MEDS ORDERED: ONDANSETRON HCL 4 MG/2 ML VIAL IVP PRN (09:00)
[2017-04-10] MEDS ORDERED: ACETAMINOPHEN 325 MG TAB PO PRN (09:00)
[2017-04-10] MEDS ORDERED: NALOXONE HCL 0.4 MG/ML AMP IV PUSH PRN (09:00)
[2017-04-10] MEDS: METOPROLOL TARTRATE 50 MG TAB PO SCH ×2 (09:32→20:35)
[2017-04-10] MEDS: LISINOPRIL 20 MG TAB PO SCH (09:32)
[2017-04-10] MEDS: HYDROCHLOROTHIAZIDE 25 MG TAB PO SCH (09:32)
[2017-04-10] MEDS: DOCUSATE SODIUM 50 MG/SENNA 8.6 MG TAB PO SCH ×2 (09:32→20:34)
[2017-04-10] MEDS: SODIUM CHLORIDE 0.9% FLUSH 10 ML FLUSH IV FLUSH SCH ×2 (09:33→20:33)
[2017-04-10] MEDS: MORPHINE SULFATE 2 MG/ML INJ IV PUSH PRN ×4 (09:33→20:34)
--- NOTE | 2017-04-10 10:11 | PD.CONS ---
(Carlos Chamberlain MD) HPI Consult Requested By Primary Care Physician Lynntete Ziegler MD (Carlos Chamberlain MD) Service NRS Consult Requested By Dr. Cortes Reason for Consult epidural mass History of Present Illness Mr. Castillo is 86-year-old male who presented to the ED with severe lower back pain. He reports severe lumbar pain and pain radiating down both lower extremities following L5 distribution with associated dysesthesias. 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 He reports difficulty urinating. He has difficulty walking due to the severity of his pain. An MRI of the Thoracic spine also shows disc extrusion at T12-L1. He denies lower extremity weakness, bowel incontinence, fevers or chills. He was on Eloquis for Atrial Fibrillation which has been held upon admission. (Faustina Garza) Review of Systems Constitutional: DENIES: Fever, Chills Eyes: DENIES: Diplopia, Vision loss Ears, nose, mouth, throat: COMPLAINS OF: Hearing loss, DENIES: Vertigo Respiratory: DENIES: Apneas, Hemoptysis, Shortness of breath Cardiovascular: DENIES: Chest pain, Palpitations Gastrointestinal: DENIES: Nausea, Vomiting Musculoskeletal: COMPLAINS OF: Back pain Neurologic: COMPLAINS OF: Paresthesias, DENIES: Headache, Seizures Psychiatric: DENIES: Confusion (Faustina Garza) Past Family Social History Allergies: Coded Allergies: grass pollen (Unverified Allergy, Mild, nasal congestion, 04/09/17) Active Ordered Medications Current Medications Morphine Sulfate (Morphine Inj) 4 mg ONCE ONCE IV PUSH Last administered on t 05:07; Start 04/10/17 at 04:30; Stop 04/10/17 at 04:31; Status DC Sodium Chloride (NS Flush) 2 ml UNSCH PRN IV FLUSH FLUSH AFTER USING IV ACCESS ; Start 04/10/17 at 04:30; Stop 04/10/17 at 09:02; Status DC Morphine Sulfate (Morphine Inj) 6 mg ONCE ONCE IV PUSH Last administered on 06:13; Start 04/10/17 at 06:15; Stop 04/10/17 at 06:16; Status DC Gadodiamide (Omniscan Pf Inj) 18 ml STK-MED ONCE IVCONTRAST Last administered on 04/10/17 04:15; Start 04/10/17 at 04:15; Stop 04/10/17 at 06:59; Status DC Sodium Chloride (NS Flush) 2 ml UNSCH PRN IV FLUSH FLUSH AFTER USING IV ACCESS ; Start 04/10/17 at 09:00 Sodium Chloride (NS Flush) 2 ml BID IV FLUSH Last administered on 04/10/17 09 :33; Start 04/10/17 at 09:00 Acetaminophen (Tylenol) 650 mg Q4H PRN PO TEMP > 100.4; Start 04/10/17 at 09: 00 Ondansetron HCl (Zofran Inj) 4 mg Q6H PRN IVP NAUSEA OR VOMITING; Start at 09:00 Naloxone HCl (Narcan Inj) 0.4 mg UNSCH PRN IV PUSH SEE LABEL COMMENTS; Start 04/10/17 at 09:00 Senna/Docusate Sodium (Lis-Colace) 1 tab BID PO Last administered on 09:32; Start 04/10/17 at 09:00 Morphine Sulfate (Morphine Inj) 2 mg Q3H PRN IV PUSH pain 1-10 Last administered on 04/10/17 09:33; Start 04/10/17 at 09:00 Dextrose (D50w (Vial) Inj) 50 ml UNSCH PRN IV PUSH HYPOGLYCEMIA-SEE COMMENTS; Start 04/10/17 at 09:00 Glucagon (Glucagon Inj) 1 mg UNSCH PRN OTHER HYPOGLYCEMIA-SEE COMMENTS; Start 04/10/17 at 09:00 Insulin Aspart (NovoLOG SUPPLEMENTAL SCALE) 1 ACHS SLIDING SCALE SQ ; Start at 12:00 Metoprolol Tartrate (Lopressor) 50 mg BID PO Last administered on 04/10/17 09 :32; Start 04/10/17 at 09:15 Non-Formulary Medication 1 tab DAILY PO ; Start 04/10/17 at 09:00; Status UNV Lisinopril (Prinivil) 20 mg DAILY PO Last administered on 04/10/17 09:32; Start 04/10/17 at 09:30 Hydrochlorothiazide (Hydrodiuril) 25 mg DAILY PO Last administered on 09:32; Start 04/10/17 at 09:30 Current Medications Morphine Sulfate (Morphine Inj) 4 mg ONCE ONCE IV PUSH Last administered on 05:07; Start 04/10/17 at 04:30; Stop 04/10/17 at 04:31; Status DC Sodium Chloride (NS Flush) 2 ml UNSCH PRN IV FLUSH FLUSH AFTER USING IV ACCESS ; Start 04/10/17 at 04:30; Stop 04/10/17 at 09:02; Status DC Morphine Sulfate (Morphine Inj) 6 mg ONCE ONCE IV PUSH Last administered on 06:13; Start 04/10/17 at 06:15; Stop 04/10/17 at 06:16; Status DC Gadodiamide (Omniscan Pf Inj) 18 ml STK-MED ONCE IVCONTRAST Last administered on 04/10/17 04:15; Start 04/10/17 at 04:15; Stop 04/10/17 at 06:59; Status DC Sodium Chloride (NS Flush) 2 ml UNSCH PRN IV FLUSH FLUSH AFTER USING IV ACCESS ; Start 04/10/17 at 09:00 Sodium Chloride (NS Flush) 2 ml BID IV FLUSH Last administered on 04/10/17 09 :33; Start 04/10/17 at 09:00 Acetaminophen (Tylenol) 650 mg Q4H PRN PO TEMP > 100.4; Start 04/10/17 at 09: 00 Ondansetron HCl (Zofran Inj) 4 mg Q6H PRN IVP NAUSEA OR VOMITING; Start at 09:00 Naloxone HCl (Narcan Inj) 0.4 mg UNSCH PRN IV PUSH SEE LABEL COMMENTS; Start 04/10/17 at 09:00 Senna/Docusate Sodium (Lis-Colace) 1 tab BID PO Last administered on 09:32; Start 04/10/17 at 09:00 Morphine Sulfate (Morphine Inj) 2 mg Q3H PRN IV PUSH pain 1-10 Last administered on 04/10/17 17:08; Start 04/10/17 at 09:00 Dextrose (D50w (Vial) Inj) 50 ml UNSCH PRN IV PUSH HYPOGLYCEMIA-SEE COMMENTS; Start 04/10/17 at 09:00 Glucagon (Glucagon Inj) 1 mg UNSCH PRN OTHER HYPOGLYCEMIA-SEE COMMENTS; Start 04/10/17 at 09:00 Insulin Aspart (NovoLOG SUPPLEMENTAL SCALE) 1 ACHS SLIDING SCALE SQ ; Start at 12:00 Metoprolol Tartrate (Lopressor) 50 mg BID PO Last administered on 04/10/17 09 :32; Start 04/10/17 at 09:15 Non-Formulary Medication 1 tab DAILY PO ; Start 04/10/17 at 09:00; Status UNV Lisinopril (Prinivil) 20 mg DAILY PO Last administered on 04/10/17 09:32; Start 04/10/17 at 09:30 Hydrochlorothiazide (Hydrodiuril) 25 mg DAILY PO Last administered on 09:32; Start 04/10/17 at 09:30 Potassium Bicarb/ Potassium Chloride (K-Lyte Cl Eff) 25 meq ONCE ONCE PO Last administered on 04/10/17 12:20; Start 04/10/17 at 11:30; Stop 04/10/17 at 11:37; Status DC Pantoprazole Sodium (Protonix) 20 mg HS PO ; Start 04/10/17 at 21:00 Pravastatin Sodium (Pravachol) 40 mg HS PO ; Start 04/10/17 at 21:00 (Carlos Chamberlain MD) Past Medical History Atrial fibrillation on Eliquis Coronary Artery Disease Hypertension Hyperlipidemia Diabetes GERD Osteoarthritis Past Surgical History Coronary Artery Stent Right knee replacement Rotator cuff repair Hernia repair Tonsillectomy Reported Medications Family History Patient reports no significant family history Social History denies tobacco, etoh or illicit drug use (Faustina Garza) Physical Exam Vital Signs Vital Signs Date Time Temp Pulse Resp B/P (MAP) Pulse Ox O2 Delivery O2 Flow Rate FiO2 04/10/17 07:18 76 18 100/46 (64) 95 Room Air 04/10/17 05:00 97 Nasal Cannula 2.00 04/10/17 04:21 98.6 86 18 150/75 (100) 98 Laboratory Laboratory Tests Test 04/10/17 04:57 White Blood Count 6.4 Red Blood Count 4.06 Hemoglobin 11.6 Hematocrit 36.9 Mean Corpuscular Volume 91.0 Mean Corpuscular Hemoglobin 28.7 Mean Corpuscular Hemoglobin Concent 31.6 Red Cell Distribution Width 13.4 Platelet Count 136 Mean Platelet Volume 8.1 Neutrophils (%) (Auto) 76.7 Lymphocytes (%) (Auto) 9.9 Monocytes (%) (Auto) 10.8 Eosinophils (%) (Auto) 2.2 Basophils (%) (Auto) 0.4 Neutrophils # (Auto) 5.0 Lymphocytes # (Auto) 0.6 Monocytes # (Auto) 0.7 Eosinophils # (Auto) 0.1 Basophils # (Auto) 0.0 CBC Comment DIFF FINAL Differential Comment Urine Color YELLOW Urine Turbidity SLIGHT Urine pH 5.0 Urine Specific [place] 1.016 Urine Protein NEG Urine Glucose (UA) NEG Urine Ketones NEG Urine Occult Blood SMALL Urine Nitrite NEG Urine Bilirubin NEG Urine Leukocyte Esterase NEG Urine RBC 4-9 Urine Squamous Epithelial Cells 0-5 Urine Amorphous Sediment MOD Urine Hyaline Casts 3-5 Urine Mucus FEW Microscopic Urinalysis Comment CULT NOT INDICATED Blood Urea Nitrogen 22 Creatinine 0.76 Random Glucose 68 Total Protein 6.8 Albumin 3.5 Calcium Level 8.7 Alkaline Phosphatase 45 Aspartate Amino Transf (AST/SGOT) 14 Alanine Aminotransferase (ALT/SGPT) 17 Total Bilirubin 1.4 Sodium Level 133 Potassium Level 3.4 Chloride Level 99 Carbon Dioxide Level 24.5 Anion Gap 10 Estimat Glomerular Filtration Rate 97 (Carlos Chamberlain MD) Result Diagram: 04/10/17 0457 04/10/17 0457 Imaging Last 48 hours Impressions Thoracic Spine MRI 04/10/17 0000 Signed Impressions: Service Date/Time: Monday, April 10, 2017 06:12 - CONCLUSION: 1. 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 Generally mild degenerative changes at other levels from C7/T1-T11/T12. 2. Large extruded disc fragment at T12/L1; MRI the lumbar spine follow. 3. Mild, reactive appearing endplate marrow edema , most conspicuous at T3/T4 and T9/T10. No fracture or subluxation seen of the thoracic spine. Nishant Unger MD Lumbar Spine MRI 04/10/17 0000 Signed Impressions: Service Date/Time: Monday, April 10, 2017 06:12 - CONCLUSION: 1. Scoliosis and multilevel degenerative changes of the lumbar spine as above. 2. There is a large left paracentral extruded disc fragment at T12/L1 causing spinal stenosis and eccentric conus compression. 3. 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 There is associated severe spinal stenosis, especially the right lateral recess. 4. Moderate to severe right and moderate left foraminal stenosis at L3/L4. There is moderate bilateral foraminal stenosis at L4/L5. Elsewhere, foraminal stenosis is generally in the mild or mild to moderate range. 5. No fracture or acute appearing malalignment demonstrated. Nishant Unger MD Last 48 hours Impressions Thoracic Spine MRI 04/10/17 0000 Signed Impressions: Service Date/Time: Monday, April 10, 2017 06:12 - CONCLUSION: 1. 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 Generally mild degenerative changes at other levels from C7/T1-T11/T12. 2. Large extruded disc fragment at T12/L1; MRI the lumbar spine follow. 3. Mild, reactive appearing endplate marrow edema , most conspicuous at T3/T4 and T9/T10. No fracture or subluxation seen of the thoracic spine. Nishant Unger MD Lumbar Spine MRI 04/10/17 0000 Signed Impressions: Service Date/Time: Monday, April 10, 2017 06:12 - CONCLUSION: 1. Scoliosis and multilevel degenerative changes of the lumbar spine as above. 2. There is a large left paracentral extruded disc fragment at T12/L1 causing spinal stenosis and eccentric conus compression. 3. 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 There is associated severe spinal stenosis, especially the right lateral recess. 4. Moderate to severe right and moderate left foraminal stenosis at L3/L4. There is moderate bilateral foraminal stenosis at L4/L5. Elsewhere, foraminal stenosis is generally in the mild or mild to moderate range. 5. No fracture or acute appearing malalignment demonstrated. Nishant Unger MD (Carlos Chamberlain MD) Assessment and Plan Assessment and Plan Caprini VTE Risk Assessment Caprini VTE Risk Assessment: Mod/High Risk (score >= 2) Caprini Risk Assessment Model Point Value = 1 Point Value = 2 Point Value = 3 Point Value = 5 Age 41-60 Minor surgery BMI > 25 kg/m2 Swollen legs Varicose veins or History of unexplained or recurrent spontaneous Oral contraceptives or hormone replacement Sepsis (< 1 month) Serious lung disease, including pneumonia (< 1 month) Abnormal pulmonary function Acute myocardial infarction Congestive heart failure (< 1 month) History of inflammatory bowel disease Medical patient at bed rest Age 61-74 Arthroscopic surgery Major open surgery (> 45 min) Laparoscopic surgery (> 45 min) Malignancy Confined to bed (> 72 hours) Immobilizing plaster cast Central venous access Age >= 75 History of VTE Family history of VTE Factor V Leiden Prothrombin [id number] Lupus anticoagulant Anticardiolipin antibodies Elevated serum homocysteine Heparin-induced thrombocytopenia Other congenital or acquired thrombophilia Stroke (< 1 month) Elective arthroplasty Hip, pelvis, or leg fracture Acute spinal cord injury (< 1 month) Prophylaxis Regimen Total Risk Factor Score Risk Level Prophylaxis Regimen 0-1 Low Early ambulation 2 Moderate Order ONE of the following: *Sequential Compression Device (SCD) *Heparin 5000 units SQ BID 3-4 Higher Order ONE of the following medications: *Heparin 5000 units SQ TID *Enoxaparin/Lovenox 40 mg SQ daily (WT < 150 kg, CrCl > 30 mL/min) *Enoxaparin/Lovenox 30 mg SQ daily (WT < 150 kg, CrCl > 10-29 mL/min) *Enoxaparin/Lovenox 30 mg SQ BID (WT < 150 kg, CrCl > 30 mL/min) AND/OR *Sequential Compression Device (SCD) 5 or more Highest Order ONE of the following medications: *Heparin 5000 units SQ TID (Preferred with Epidurals) *Enoxaparin/Lovenox 40 mg SQ daily (WT < 150 kg, CrCl > 30 mL/min) *Enoxaparin/Lovenox 30 mg SQ daily (WT < 150 kg, CrCl > 10-29 mL/min) *Enoxaparin/Lovenox 30 mg SQ BID (WT < 150 kg, CrCl > 30 mL/min) AND *Sequential Compression Device (SCD) (Carlos Chamberlain MD) Attending Statement Assessment and Plan Epidural mass Lumbar MRI has been reviewed showing large right posterolateral epidural mass at L4/L5 appears at the synovial cyst of the right facet joint. Severe spinal stenosis. I had an extensive discussion with the patient regarding the clinical and radiological findings. I have discussed the alternative methods of treatment including, conservative management, pain management by an interventional spray painting machine operator, or a surgical decompression as a last resort. I discussed the details including the [id number] details of the surgical procedure, its indications, alternatives, risks, and potential complications. Risks and potential complications include, but are not limited to, infection, blood loss, CSF leak, partial or complete loss of sight in one or both eyes, paresis, paralysis, permanent pain or difficulty swallowing, loss of bowel or bladder function, complications from anesthesia, blood clot, stroke, myocardial infarction, or even . Diabetes mellitus ICD Code: E11.9 - Diabetes mellitus Status: Chronic Plan: ACCU checks ACHS, sliding scale insulin, cover as needed. Arterial Hypertension ICD Code: I10 - Hypertension Status: Chronic Plan: Monitor BP trends. Continue home Lisinopril and HCTZ. CAD (coronary artery disease) ICD Code: I25.10 - Coronary artery disease Status: Chronic Plan: Continue Metoprolol. Hyperkalemia ICD Code: E87.5 - Hyperkalemia Status: Acute Plan: K 3.4 on presentation. Replete. Follow BMP. Atrial fibrillation ICD Code: I48.91 - Atrial fibrillation Status: Chronic Plan: Hold Eliquis at this time for possible surgical evaluation. Pulmonary. Continue aggressive pulmonary toilette, nasotracheal suction, and breathing treatments with nebulizers. ID to monitor for signs of infection Protonix for stress ulcer prophylaxis Sj hose and SCD's for DVT prophylaxis Further recommendations will be provided depending on the patient's clinical evaluation and follow up studies. (Carlos Chamberlain MD) Carlos Chamberlain MD Apr 10, 2017 10:11 Faustina Garza Apr 10, 2017 16:47
--- NOTE | 2017-04-10 11:13 | HHI.HP ---
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 Cortes on 04/10/17 at 11:00. Mr. Castillo is a pleasant 86-year-old male patient with a known medical history of atrial fibrillation, chronic back pain, dyslipidemia, CAD with stent placement who presented to the ED with continued complaints of severe lower back pain. Patient had presented to the ED yesterday with similar complaints of right sided buttock pain with radiation down his right leg. A CT of the lumbar spine was performed showing degenerative changes as well as a right facet synovial cyst. Was discharged with pain medication and injection. Patient states that the pain has worsened since his presentation with complaints of inability to urinate as well as the pain now radiating down bilateral lower extremities. He states that this pain spontaneously started 5 days ago after getting up out of bed, has been constant and shooting in nature, a 10/10 on pain scale, aggravating factors include increased activity and movement. Patient tried Tylenol for pain with little relief. Does suffer from chronic back pain but denies ever having this pain before. Denies any recent illness including fevers, chills, headaches, chest pain, shortness of breath, ab pain, n /v/d or dysuria. Does complain of a mild nonproductive cough. Patient follows with Dr. Granados, urology, for enlarged prostate. Venue Manager is Dr. Christie. Review of Systems Constitutional: DENIES: Fever, Chills Respiratory: COMPLAINS OF: Cough, DENIES: Shortness of breath Cardiovascular: DENIES: Chest pain, Syncope Gastrointestinal: COMPLAINS OF: Constipation, DENIES: Abdominal pain, Bloody stools, Diarrhea, Nausea, Vomiting Musculoskeletal: COMPLAINS OF: Back pain Neurologic: COMPLAINS OF: Abnormal gait, Paresthesias, Poor Balance Psychiatric: DENIES: Anxiety Except as stated in HPI: all other systems reviewed are Neg Past Family Social History Past Medical History Atrial fibrillation on Eliquis Arthritis Hyperlipidemia CAD Type 2 diabetes GERD Hypertension Past Surgical History Bilateral inguinal hernioplasty Cardiac stent x 2 Right eyelid surgery Right knee replacement Right rotator cuff repair Tonsillectomy Hernia repair x 2 Reported Medications Active Tylenol-Codeine #3 (Acetaminophen-Codeine) 300-30 mg Tab 1 Tab PO Q6HR PRN Reported Fish Oil + D3 (Fish Oil-Cholecalciferol) 1,200-1,000 Mg-Unit Cap 1 Cap PO DAILY Preservision Areds 2 Softgel (Vit C/E/Zn/Coppr/Lutein/Zeaxan) 250-200-40 Capsule 1 Tab PO HS Ultram (Tramadol HCl) 50 Mg Tab 50 Mg PO Q6H PRN Cialis (Tadalafil) 5 Mg Tab 5 Mg PO HS Do not exceed 1 dose/day. Metformin (Metformin HCl) 500 Mg Tab 500 Mg PO BIDPC Eliquis (Apixaban) 5 Mg Tab 5 Mg PO BID Tylenol (Acetaminophen) 325 Mg Tab 325 Mg PO Q4H PRN Multiple Vitamin 1 Tab 1 Tab PO DAILY Vitamin C (Ascorbic Acid) 250 Mg Chew 500 Mg CHEW DAILY Omeprazole 20 Mg Tab 20 Mg PO HS Lisinopril-Hctz 20-25 Mg Tab 1 Tab PO DAILY Glyburide 5 Mg Tab 5 Mg PO BID Take with meals at the same time each day Simvastatin 10 Mg Tab 20 Mg PO HS Lopressor (Metoprolol Tartrate) 50 Mg Tab 50 Mg PO BID Allergies: Coded Allergies: grass pollen (Unverified Allergy, Mild, nasal congestion, 04/09/17) Active Ordered Medications Current Medications Medications (Trade) Dose Ordered Sig/Lennox Route Start Time Stop Time Status Last Admin (NS Flush) 2 ml UNSCH PRN IV FLUSH 04/10/17 09:00 (NS Flush) 2 ml BID IV FLUSH 04/10/17 09:00 04/10/17 09:33 (Tylenol) 650 mg Q4H PRN PO 04/10/17 09:00 (Zofran Inj) 4 mg Q6H PRN IVP 04/10/17 09:00 (Narcan Inj) 0.4 mg UNSCH PRN IV PUSH 04/10/17 09:00 (Lis-Colace) 1 tab BID PO 04/10/17 09:00 04/10/17 09:32 (Morphine Inj) 2 mg Q3H PRN IV PUSH 04/10/17 09:00 04/10/17 09:33 (D50w (Vial) Inj) 50 ml UNSCH PRN IV PUSH 04/10/17 09:00 (Glucagon Inj) 1 mg UNSCH PRN OTHER 04/10/17 09:00 (NovoLOG SUPPLEMENTAL SCALE) 1 ACHS SLIDING SCALE SQ 04/10/17 12:00 (Lopressor) 50 mg BID PO 04/10/17 09:15 04/10/17 09:32 (Prinivil) 20 mg DAILY PO 04/10/17 09:30 04/10/17 09:32 (Hydrodiuril) 25 mg DAILY PO 04/10/17 09:30 04/10/17 09:32 Family History Paternal medical history unknown. No significant maternal medical history. Social History Denies any tobacco use. Denies any alcohol use. Denies any illicit drug use. Physical Exam Vital Signs Vital Signs Date Time Temp Pulse Resp B/P (MAP) Pulse Ox O2 Delivery O2 Flow Rate FiO2 04/10/17 07:18 76 18 100/46 (64) 95 Room Air 04/10/17 05:00 97 Nasal Cannula 2.00 04/10/17 04:21 98.6 86 18 150/75 (100) 98 Physical Exam GENERAL: This is a well-nourished, well-developed elderly male patient, in no apparent distress. SKIN: Warm and dry. HEAD: Atraumatic. Normocephalic. EYES: Pupils equal and round. No scleral icterus. No injection or drainage. ENT: No nasal bleeding or discharge. Mucous membranes pink and moist. NECK: Trachea midline. No JVD. CARDIOVASCULAR: Irregularly irregular rhythm. No murmur noted. RESPIRATORY: No accessory muscle use. Clear to auscultation. Breath sounds equal bilaterally. GASTROINTESTINAL: Abdomen soft, non-tender, nondistended. Active bowel sounds x 4. : FC in place. MUSCULOSKELETAL: Extremities without clubbing, cyanosis, or edema. No obvious deformities. Midlumbar pain to palpation. NEUROLOGICAL: Awake and alert. No obvious cranial nerve deficits. Motor grossly within normal limits. Five out of 5 muscle strength in the arms and legs. Normal speech. Some numbness and tingling to bilateral lower extremities Laboratory Laboratory Tests Test 04/10/17 04:57 White Blood Count 6.4 Red Blood Count 4.06 Hemoglobin 11.6 Hematocrit 36.9 Mean Corpuscular Volume 91.0 Mean Corpuscular Hemoglobin 28.7 Mean Corpuscular Hemoglobin Concent 31.6 Red Cell Distribution Width 13.4 Platelet Count 136 Mean Platelet Volume 8.1 Neutrophils (%) (Auto) 76.7 Lymphocytes (%) (Auto) 9.9 Monocytes (%) (Auto) 10.8 Eosinophils (%) (Auto) 2.2 Basophils (%) (Auto) 0.4 Neutrophils # (Auto) 5.0 Lymphocytes # (Auto) 0.6 Monocytes # (Auto) 0.7 Eosinophils # (Auto) 0.1 Basophils # (Auto) 0.0 CBC Comment DIFF FINAL Differential Comment Urine Color YELLOW Urine Turbidity SLIGHT Urine pH 5.0 Urine Specific [place] 1.016 Urine Protein NEG Urine Glucose (UA) NEG Urine Ketones NEG Urine Occult Blood SMALL Urine Nitrite NEG Urine Bilirubin NEG Urine Leukocyte Esterase NEG Urine RBC 4-9 Urine Squamous Epithelial Cells 0-5 Urine Amorphous Sediment MOD Urine Hyaline Casts 3-5 Urine Mucus FEW Microscopic Urinalysis Comment CULT NOT INDICATED Blood Urea Nitrogen 22 Creatinine 0.76 Random Glucose 68 Total Protein 6.8 Albumin 3.5 Calcium Level 8.7 Alkaline Phosphatase 45 Aspartate Amino Transf (AST/SGOT) 14 Alanine Aminotransferase (ALT/SGPT) 17 Total Bilirubin 1.4 Sodium Level 133 Potassium Level 3.4 Chloride Level 99 Carbon Dioxide Level 24.5 Anion Gap 10 Estimat Glomerular Filtration Rate 97 Result Diagram: 04/10/17 0457 04/10/17 0457 Imaging Last Impressions Thoracic Spine MRI 04/10/17 0000 Signed Impressions: Service Date/Time: Monday, April 10, 2017 06:12 - CONCLUSION: 1. 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 Generally mild degenerative changes at other levels from C7/T1-T11/T12. 2. Large extruded disc fragment at T12/L1; MRI the lumbar spine follow. 3. Mild, reactive appearing endplate marrow edema , most conspicuous at T3/T4 and T9/T10. No fracture or subluxation seen of the thoracic spine. Nishant Unger MD Lumbar Spine MRI 04/10/17 0000 Signed Impressions: Service Date/Time: Monday, April 10, 2017 06:12 - CONCLUSION: 1. Scoliosis and multilevel degenerative changes of the lumbar spine as above. 2. There is a large left paracentral extruded disc fragment at T12/L1 causing spinal stenosis and eccentric conus compression. 3. 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 There is associated severe spinal stenosis, especially the right lateral recess. 4. Moderate to severe right and moderate left foraminal stenosis at L3/L4. There is moderate bilateral foraminal stenosis at L4/L5. Elsewhere, foraminal stenosis is generally in the mild or mild to moderate range. 5. No fracture or acute appearing malalignment demonstrated. MD Bello Martinez VTE Risk Assessment Caprini VTE Risk Assessment: Mod/High Risk (score >= 2) Caprini Risk Assessment Model Point Value = 1 Point Value = 2 Point Value = 3 Point Value = 5 Age 41-60 Minor surgery BMI > 25 kg/m2 Swollen legs Varicose veins or History of unexplained or recurrent spontaneous Oral contraceptives or hormone replacement Sepsis (< 1 month) Serious lung disease, including pneumonia (< 1 month) Abnormal pulmonary function Acute myocardial infarction Congestive heart failure (< 1 month) History of inflammatory bowel disease Medical patient at bed rest Age 61-74 Arthroscopic surgery Major open surgery (> 45 min) Laparoscopic surgery (> 45 min) Malignancy Confined to bed (> 72 hours) Immobilizing plaster cast Central venous access Age >= 75 History of VTE Family history of VTE Factor V Leiden Prothrombin [id number] Lupus anticoagulant Anticardiolipin antibodies Elevated serum homocysteine Heparin-induced thrombocytopenia Other congenital or acquired thrombophilia Stroke (< 1 month) Elective arthroplasty Hip, pelvis, or leg fracture Acute spinal cord injury (< 1 month) Prophylaxis Regimen Total Risk Factor Score Risk Level Prophylaxis Regimen 0-1 Low Early ambulation 2 Moderate Order ONE of the following: *Sequential Compression Device (SCD) *Heparin 5000 units SQ BID 3-4 Higher Order ONE of the following medications: *Heparin 5000 units SQ TID *Enoxaparin/Lovenox 40 mg SQ daily (WT < 150 kg, CrCl > 30 mL/min) *Enoxaparin/Lovenox 30 mg SQ daily (WT < 150 kg, CrCl > 10-29 mL/min) *Enoxaparin/Lovenox 30 mg SQ BID (WT < 150 kg, CrCl > 30 mL/min) AND/OR *Sequential Compression Device (SCD) 5 or more Highest Order ONE of the following medications: *Heparin 5000 units SQ TID (Preferred with Epidurals) *Enoxaparin/Lovenox 40 mg SQ daily (WT < 150 kg, CrCl > 30 mL/min) *Enoxaparin/Lovenox 30 mg SQ daily (WT < 150 kg, CrCl > 10-29 mL/min) *Enoxaparin/Lovenox 30 mg SQ BID (WT < 150 kg, CrCl > 30 mL/min) AND *Sequential Compression Device (SCD) Assessment and Plan Problem List: (1) Epidural mass ICD Code: G96.19 - Other disorders of meninges, not elsewhere classified Status: Acute Plan: Lumbar MRI has been reviewed showing large right posterolateral epidural mass at L4/L5 appears at the synovial cyst of the right facet joint. Spinal stenosis. Neurosurgery has been consulted, appreciate further input and recommendations. Plan will be for patient to transfer to [facility] for evaluation and possible surgical intervention. Continue to monitor neurological status. (2) Spinal stenosis of lumbar region ICD Code: M48.061 - Spinal stenosis, lumbar region without neurogenic claudication Status: Acute Plan: See plan above. (3) Protrusion of lumbar intervertebral disc ICD Code: M51.26 - Other intervertebral disc displacement, lumbar region Status: Acute Plan: See plan above. (4) Intractable back pain ICD Code: M54.9 - Dorsalgia, unspecified Status: Acute Plan: Morphine IV available PRN per pain scale. Supportive care. (5) Diabetes mellitus ICD Code: E11.9 - Diabetes mellitus Status: Chronic Plan: ACCU checks ACHS, sliding scale insulin, cover as needed. (6) Hypertension ICD Code: I10 - Hypertension Status: Chronic Plan: Monitor BP trends. Continue home Lisinopril and HCTZ. (7) CAD (coronary artery disease) ICD Code: I25.10 - Coronary artery disease Status: Chronic Plan: Continue Metoprolol. (8) Hyperkalemia ICD Code: E87.5 - Hyperkalemia Status: Acute Plan: K 3.4 on presentation. Replete. Follow BMP. (9) Atrial fibrillation ICD Code: I48.91 - Atrial fibrillation Status: Chronic Plan: Hold Eliquis at this time for possible surgical evaluation. DVT prophylaxis: SCDs. Code Status Full code. Discussed Condition With Patient Physician Certification 2 Midnight Certification Type: Admission for Inpatient Services Order for Inpatient Services The services are ordered in accordance with Medicare regulations or non- Medicare payer requirements, as applicable. In the case of services not specified as inpatient-only, they are appropriately provided as inpatient services in accordance with the 2-midnight benchmark. Estimated LOS (days): 3 3 days is the estimated time the patient will need to remain in the hospital, assuming treatment plan goals are met and no additional complications. Post-Hospital Plan: Not yet determined Medical Decision Making Impression and Plan This note was transcribed by lincoln [[email or web address]]. I, Dr. Rosa M Cortes personally performed the history, physical exam, and medical decision making; and confirmed the accuracy of the information in the transcribed note. Authenticated by Dr. Rosa M Cortes on 04/10/17 at 12:19. Problem Qualifiers (1) Spinal stenosis of lumbar region: Qualified Codes: M48.062 - Spinal stenosis, lumbar region with neurogenic claudication (2) Diabetes mellitus: Pam Singh Apr 10, 2017 11:13 Rosa M Cortes MD Apr 10, 2017 12:19
[2017-04-10 11:23] VITALS: BP 101/63; PULSE 74; RESP 16; O2SAT 98
[2017-04-10] MEDS ORDERED: POTASSIUM CHLORIDE 25 MEQ EFFERVESCENT TAB PO ONE (11:30)
[2017-04-10] MEDS: INSULIN ASPART SUPPLEMENTAL SCALE SQ SCH ×3 (12:00→20:35)
[2017-04-10] MEDS: PANTOPRAZOLE SOD 20 MG DELAYED RELEASE TAB PO SCH (20:34)
[2017-04-10] MEDS: PRAVASTATIN SOD 40 MG TAB PO SCH (20:35)
[2017-04-10 21:00] VITALS: BP 140/64; PULSE 60; RESP 19; TEMP 98.3; O2SAT 93
[2017-04-11] VITALS (8 sets, daily range): BP systolic 118–144; BP diastolic 58–70; PULSE 50–70; RESP 18–20; TEMP 97.6–98.9; O2SAT 93–98
[2017-04-11] MEDS: MORPHINE SULFATE 2 MG/ML INJ IV PUSH PRN ×6 (00:27→20:43)
[2017-04-11] MEDS ORDERED: MORPHINE SULFATE 2 MG/ML INJ IV PUSH ONE (01:15)
[2017-04-11 07:24] LABS: BASOPHIL % 0.4 % (0.0-2.0); EOSINOPHIL # 0.2 TH/MM3 (0-0.4); EOSINOPHIL % 1.9 % (0.0-4.0); HEMATOCRIT 33.8 % (39.0-51.0); HEMO FLAGS DIFF FINAL; LYMPH % 10.1 % (9.0-44.0); LYMPHOCYTE # 0.9 TH/MM3 (1.0-4.8); MEAN CELL VOLUME 90.1 FL (80.0-100.0); MEAN CORPUSCULAR HEMOGLOBIN 31.3 PG (27.0-34.0); MEAN CORPUSCULAR HGB CONC 34.8 % (32.0-36.0); MONO % 7.8 % (0.0-8.0); NEUT % 79.8 % (16.0-70.0); PLATELET COUNT 117 TH/MM3 (150-450); RED BLOOD COUNT 3.76 MIL/MM3 (4.50-5.90); RED CELL DISTRIBUTION WIDTH 13.8 % (11.6-17.2); WHITE BLOOD COUNT 8.7 TH/MM3 (4.0-11.0)
[2017-04-11 07:37] LABS: INTERNATIONAL NORMALIZED RATIO 1.2 RATIO; PROTHROMBIN TIME - PATIENT 11.7 SEC (9.8-11.6)
[2017-04-11 07:48] LABS: BICARBONATE 28.7 MEQ/L (21.0-32.0); POTASSIUM 3.6 MEQ/L (3.5-5.1)
[2017-04-11] MEDS: INSULIN ASPART SUPPLEMENTAL SCALE SQ SCH ×4 (08:00→20:39)
--- NOTE | 2017-04-11 08:25 | HHI.PR ---
Subjective Remarks Follow up for spinal stenosis, epidural mass. Patient is in bed but complains of significant pain. His pain is sharp in nature and radiates down his legs. Denies any CP, SOB, fever, chills. Objective Vitals Vital Signs Date Time Temp Pulse Resp B/P (MAP) Pulse Ox O2 Delivery O2 Flow Rate FiO2 04/11/17 08:16 98.9 70 18 122/58 (79) 96 04/11/17 04:15 98.3 63 19 144/70 (94) 94 04/11/17 00:00 97.6 66 20 125/62 (83) 93 04/10/17 22:10 Nasal Cannula 2.00 04/10/17 21:00 98.3 60 19 140/64 (89) 93 04/10/17 13:13 04/10/17 11:23 74 16 101/63 (76) 98 Room Air I/O 04/10/17 04/10/17 04/10/17 04/11/17 04/11/17 04/11/17 07:00 15:00 23:00 07:00 15:00 23:00 Intake Total 240 ml 400 ml 600 ml Output Total 500 ml 1200 ml Balance 240 ml -100 ml -600 ml Intake Oral 240 ml 400 ml 600 ml Output Urine Total 500 ml 1200 ml # Bowel Movements 0 0 Result Diagram: 04/11/17 0556 04/11/17 0556 Imaging Last Impressions Thoracic Spine MRI 04/10/17 0000 Signed Impressions: Service Date/Time: Monday, April 10, 2017 06:12 - CONCLUSION: 1. 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 Generally mild degenerative changes at other levels from C7/T1-T11/T12. 2. Large extruded disc fragment at T12/L1; MRI the lumbar spine follow. 3. Mild, reactive appearing endplate marrow edema , most conspicuous at T3/T4 and T9/T10. No fracture or subluxation seen of the thoracic spine. Nishant Unger MD Lumbar Spine MRI 04/10/17 0000 Signed Impressions: Service Date/Time: Monday, April 10, 2017 06:12 - CONCLUSION: 1. Scoliosis and multilevel degenerative changes of the lumbar spine as above. 2. There is a large left paracentral extruded disc fragment at T12/L1 causing spinal stenosis and eccentric conus compression. 3. 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 There is associated severe spinal stenosis, especially the right lateral recess. 4. Moderate to severe right and moderate left foraminal stenosis at L3/L4. There is moderate bilateral foraminal stenosis at L4/L5. Elsewhere, foraminal stenosis is generally in the mild or mild to moderate range. 5. No fracture or acute appearing malalignment demonstrated. Nishant Unger MD Objective Remarks GENERAL: AOX3,. NAD. SKIN: Warm and dry. HEAD: Normocephalic. EYES: No scleral icterus. No injection or drainage. NECK: Supple, trachea midline. No JVD or lymphadenopathy. CARDIOVASCULAR: Regular rate and rhythm without murmurs, gallops, or rubs. RESPIRATORY: Breath sounds equal bilaterally. No accessory muscle use. GASTROINTESTINAL: Abdomen soft, non-tender, nondistended. MUSCULOSKELETAL: No cyanosis, or edema. BACK: Nontender without obvious deformity. No CVA tenderness. Procedures None. A/P Problem List: (1) Intractable back pain ICD Code: M54.9 - Dorsalgia, unspecified Status: Acute (2) Epidural mass ICD Code: G96.19 - Other disorders of meninges, not elsewhere classified Status: Acute (3) Spinal stenosis of lumbar region ICD Code: M48.061 - Spinal stenosis, lumbar region without neurogenic claudication Status: Acute Assessment and Plan Mr. Catsillo is a pleasant 86-year-old male patient with a known medical history of atrial fibrillation, chronic back pain, dyslipidemia, CAD with stent placement who presented to the ED with continued complaints of severe lower back pain on 04/10/2017. He reported inability to urinate as well as the pain now radiating down bilateral lower extremities. He denied any fever or chills. - L4-L5 epidural mass - T12-L1 paracentral spinal stenosis - T12-L1 extr - L3-L4 moderate to severe foraminal stenosis - L4-L5 moderate foraminal stenosis - Neurosurgery following - seems like a discussion was placed regarding surgery. - Will wait for neurosurgery input on any surgical intervention. - Continue pain management with acetaminophen, Percocet, morphine. - Also start baclofen 20 mg every 8 hours. 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 - Patient's Afib is well controlled, Hemodynamically stable. - Diabetes mellitus - Blood glucose is well controlled. Goal blood glucose 140-180 while in the hospital. - Continue sliding scale insulin if needed. - Hypertension - Hyperlipidemia - Continue lisinopril 20 mg daily, HCTZ 25 mg daily - Continue pravastatin 40 mg daily at bedtime. - Atrial fibrillation - Continue metoprolol 50 mg twice a day. - Anti-coagulation on hold due to possible surgical intervention. - Patient is on apixaban 5 mg twice a day at home. Full code. SCDs. Discussed with Dr. Chamberlain (Neurosurgery). Problem Qualifiers (1) Spinal stenosis of lumbar region: Qualified Codes: M48.062 - Spinal stenosis, lumbar region with neurogenic claudication Natasha Khan DO Apr 11, 2017 8:25 am
[2017-04-11] MEDS: METOPROLOL TARTRATE 50 MG TAB PO SCH ×2 (08:35→20:40)
[2017-04-11] MEDS: HYDROCHLOROTHIAZIDE 25 MG TAB PO SCH (08:35)
[2017-04-11] MEDS: SODIUM CHLORIDE 0.9% FLUSH 10 ML FLUSH IV FLUSH SCH ×2 (08:35→20:38)
[2017-04-11] MEDS: DOCUSATE SODIUM 50 MG/SENNA 8.6 MG TAB PO SCH ×2 (08:35→20:40)
[2017-04-11] MEDS: LISINOPRIL 20 MG TAB PO SCH (08:35)
[2017-04-11] MEDS: BACLOFEN 20 MG TAB PO SCH ×2 (09:08→17:02)
[2017-04-11] MEDS ORDERED: MAGNESIUM HYDROXIDE SUSP 30 ML CUP PO PRN (10:00)
[2017-04-11] MEDS ORDERED: BISACODYL 10 MG SUPP RECTAL PRN (10:00)
[2017-04-11] MEDS ORDERED: LACTULOSE SYRUP 20 GM/30 ML CUP PO PRN (10:00)
[2017-04-11] MEDS ORDERED: SENNOSIDES 8.6 MG TAB PO PRN (10:00)
[2017-04-11] MEDS: oxyCODONE/ACETAMINOPHEN 7.5 MG/325 MG TAB PO PRN ×3 (11:21→21:36)
--- NOTE | 2017-04-11 13:31 | HHI.NSPN ---
(Faustina Garza) Note Status Status: Progress Note (Faustina Garza) Interval History Interval History Mr. Castillo is 86-year-old male who presented to the ED with severe lower back pain. He reports severe lumbar pain and pain radiating down both lower extremities following L5 distribution with associated dysesthesias. 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 He reports difficulty urinating. He has difficulty walking due to the severity of his pain. An MRI of the Thoracic spine also shows disc extrusion at T12-L1. He denies lower extremity weakness, bowel incontinence, fevers or chills. He was on Eloquis for Atrial Fibrillation which has been held upon admission. 04/11: persistent severe lumbar pain and pain radiating down his lower extremities posterolaterally. he is requesting surgical intervention. (Faustina Garza) Labs, Micro, & Vital Signs Results Date Time Temp Pulse Resp B/P (MAP) Pulse Ox O2 Delivery O2 Flow Rate FiO2 04/11/17 12:30 18 04/11/17 12:08 98.2 60 20 118/62 (80) 97 04/11/17 08:40 16 04/11/17 08:16 98.9 70 18 122/58 (79) 96 04/11/17 04:15 98.3 63 19 144/70 (94) 94 04/11/17 00:00 97.6 66 20 125/62 (83) 93 04/10/17 22:10 Nasal Cannula 2.00 04/10/17 21:00 98.3 60 19 140/64 (89) 93 Constitutional Vital Signs Date Time Temp Pulse Resp B/P (MAP) Pulse Ox O2 Delivery O2 Flow Rate FiO2 04/11/17 12:30 18 04/11/17 12:08 98.2 60 20 118/62 (80) 97 04/11/17 08:40 16 04/11/17 08:16 98.9 70 18 122/58 (79) 96 04/11/17 04:15 98.3 63 19 144/70 (94) 94 04/11/17 00:00 97.6 66 20 125/62 (83) 93 04/10/17 22:10 Nasal Cannula 2.00 04/10/17 21:00 98.3 60 19 140/64 (89) 93 (Faustina Garza) Review of Systems Constitutional: DENIES: Fever, Chills Cardiovascular: DENIES: Chest pain Musculoskeletal: COMPLAINS OF: Back pain Neurologic: COMPLAINS OF: Paresthesias (Faustina Garza) Physical Exam Mr. Castillo is alert and oriented x 3. Appears uncomfortable due to his pain. Speech is fluent. Cranial nerve examination: pupils equal, round and reactive to light. EOMs are intact. Facial motor are normal and symmetrical. Neck is soft and supple Muscle strength: limited exam due to severity of his pain, but motor is grossly 4 to 5/5 in bilateral iliopsoas, quadriceps, hamstrings, tibialis anterior, gastrocnemius, and EHL. He is able to moves his upper extremities 5/5. Sensory: grossly intact to light touch in lower extremities with c/o paresthesias following L5 distribution. Deep tendon reflexes are 1+ in upper and lower extremities. There is a bilateral plantar flexion response. No ankle clonus. Cerebellar examination is unremarkable, without deficits. (Faustina Garza) Mr. Castillo is alert and oriented x 3. Appears uncomfortable due to his pain. Speech is fluent. Cranial nerve examination: pupils equal, round and reactive to light. EOMs are intact. Facial motor are normal and symmetrical. Neck is soft and supple Muscle strength: limited exam due to severity of his pain, but motor is grossly 4 to 5/5 in bilateral iliopsoas, quadriceps, hamstrings, tibialis anterior, gastrocnemius, and EHL. He is able to moves his upper extremities 5/5. Sensory: grossly intact to light touch in lower extremities with c/o paresthesias following L5 distribution. Deep tendon reflexes are 1+ in upper and lower extremities. There is a bilateral plantar flexion response. No ankle clonus. Cerebellar examination is unremarkable, without deficits. (Carlos Chamberlain MD) Medications Current Medications Current Medications Medications (Trade) Dose Ordered Sig/Lennox Route PRN Reason Start Time Stop Time Status Last Admin Dose Admin Sodium Chloride (NS Flush) 2 ml UNSCH PRN IV FLUSH FLUSH AFTER USING IV ACCESS 04/10/17 09:00 Sodium Chloride (NS Flush) 2 ml BID IV FLUSH 04/10/17 09:00 04/11/17 08:35 Acetaminophen (Tylenol) 650 mg Q4H PRN PO Headache, fever, pain 1-4 04/10/17 09:00 Ondansetron HCl (Zofran Inj) 4 mg Q6H PRN IVP NAUSEA OR VOMITING 04/10/17 09:00 Naloxone HCl (Narcan Inj) 0.4 mg UNSCH PRN IV PUSH SEE LABEL COMMENTS 04/10/17 09:00 Senna/Docusate Sodium (Lis-Colace) 1 tab BID PO 04/10/17 09:00 04/11/17 08:35 Morphine Sulfate (Morphine Inj) 2 mg Q3H PRN IV PUSH pain 1-10 04/10/17 09:00 04/11/17 08:34 Dextrose (D50w (Vial) Inj) 50 ml UNSCH PRN IV PUSH HYPOGLYCEMIA-SEE COMMENTS 04/10/17 09:00 Glucagon (Glucagon Inj) 1 mg UNSCH PRN OTHER HYPOGLYCEMIA-SEE COMMENTS 04/10/17 09:00 Insulin Aspart (NovoLOG SUPPLEMENTAL SCALE) 1 ACHS SLIDING SCALE SQ 04/10/17 12:00 Metoprolol Tartrate (Lopressor) 50 mg BID PO 04/10/17 09:15 04/11/17 08:35 Lisinopril (Prinivil) 20 mg DAILY PO 04/10/17 09:30 04/11/17 08:35 Hydrochlorothiazide (Hydrodiuril) 25 mg DAILY PO 04/10/17 09:30 04/11/17 08:35 Pantoprazole Sodium (Protonix) 20 mg HS PO 04/10/17 21:00 04/10/17 20:34 Pravastatin Sodium (Pravachol) 40 mg HS PO 04/10/17 21:00 04/10/17 20:35 Oxycodone/ Acetaminophen (Percocet 7.5-325 Mg) 1 tab Q6H PRN PO PAIN SCALE 5 TO 10 04/11/17 08:30 04/11/17 11:21 Morphine Sulfate (Morphine Inj) 4 mg Q3H PRN IV PUSH BREAKTHROUGH PAIN 04/11/17 08:30 04/11/17 13:19 Baclofen (Lioresal) 20 mg Q8H PO 04/11/17 09:00 04/11/17 09:08 Magnesium Hydroxide (Milk Of Magnesia Liq) 30 ml Q12H PRN PO Mild constipation 04/11/17 10:00 Sennosides (Senokot) 17.2 mg Q12H PRN PO Moderate constipation 04/11/17 10:00 Bisacodyl (Dulcolax Supp) 10 mg DAILY PRN RECTAL SEVERE CONSITIPATION 04/11/17 10:00 Lactulose (Lactulose Liq) 30 ml DAILY PRN PO SEVERE CONSITIPATION 04/11/17 10:00 (Faustina Garza) Current Medications Current Medications Morphine Sulfate (Morphine Inj) 4 mg ONCE ONCE IV PUSH Last administered on 05:07; Start 04/10/17 at 04:30; Stop 04/10/17 at 04:31; Status DC Sodium Chloride (NS Flush) 2 ml UNSCH PRN IV FLUSH FLUSH AFTER USING IV ACCESS ; Start 04/10/17 at 04:30; Stop 04/10/17 at 09:02; Status DC Morphine Sulfate (Morphine Inj) 6 mg ONCE ONCE IV PUSH Last administered on 06:13; Start 04/10/17 at 06:15; Stop 04/10/17 at 06:16; Status DC Gadodiamide (Omniscan Pf Inj) 18 ml STK-MED ONCE IVCONTRAST Last administered on 04/10/17 04:15; Start 04/10/17 at 04:15; Stop 04/10/17 at 06:59; Status DC Sodium Chloride (NS Flush) 2 ml UNSCH PRN IV FLUSH FLUSH AFTER USING IV ACCESS ; Start 04/10/17 at 09:00 Sodium Chloride (NS Flush) 2 ml BID IV FLUSH Last administered on 04/12/17 08 :32; Start 04/10/17 at 09:00 Acetaminophen (Tylenol) 650 mg Q4H PRN PO Headache, fever, pain 1-4; Start at 09:00 Ondansetron HCl (Zofran Inj) 4 mg Q6H PRN IVP NAUSEA OR VOMITING Last administered on 04/11/17 21:36; Start 04/10/17 at 09:00 Naloxone HCl (Narcan Inj) 0.4 mg UNSCH PRN IV PUSH SEE LABEL COMMENTS; Start 04/10/17 at 09:00 Senna/Docusate Sodium (Lis-Colace) 1 tab BID PO Last administered on 08:35; Start 04/10/17 at 09:00 Morphine Sulfate (Morphine Inj) 2 mg Q3H PRN IV PUSH pain 1-10 Last administered on 04/12/17 08:33; Start 04/10/17 at 09:00 Dextrose (D50w (Vial) Inj) 50 ml UNSCH PRN IV PUSH HYPOGLYCEMIA-SEE COMMENTS; Start 04/10/17 at 09:00 Glucagon (Glucagon Inj) 1 mg UNSCH PRN OTHER HYPOGLYCEMIA-SEE COMMENTS; Start 04/10/17 at 09:00 Insulin Aspart (NovoLOG SUPPLEMENTAL SCALE) 1 ACHS SLIDING SCALE SQ Last administered on 04/11/17 20:39; Start 04/10/17 at 12:00 Metoprolol Tartrate (Lopressor) 50 mg BID PO Last administered on 04/11/17 20 :40; Start 04/10/17 at 09:15 Non-Formulary Medication 1 tab DAILY PO ; Start 04/10/17 at 09:00; Status UNV Lisinopril (Prinivil) 20 mg DAILY PO Last administered on 04/11/17 08:35; Start 04/10/17 at 09:30 Hydrochlorothiazide (Hydrodiuril) 25 mg DAILY PO Last administered on 08:35; Start 04/10/17 at 09:30 Potassium Bicarb/ Potassium Chloride (K-Lyte Cl Eff) 25 meq ONCE ONCE PO Last administered on 04/10/17 12:20; Start 04/10/17 at 11:30; Stop 04/10/17 at 11:37; Status DC Pantoprazole Sodium (Protonix) 20 mg HS PO Last administered on 04/11/17 20: 41; Start 04/10/17 at 21:00 Pravastatin Sodium (Pravachol) 40 mg HS PO Last administered on 04/11/17 20: 40; Start 04/10/17 at 21:00 Morphine Sulfate (Morphine Inj) 3 mg ONCE ONCE IV PUSH Last administered on 22:06; Start 04/10/17 at 21:45; Stop 04/10/17 at 21:47; Status DC Morphine Sulfate (Morphine Inj) 3 mg ONCE ONCE IV PUSH Last administered on 02:42; Start 04/11/17 at 01:15; Stop 04/11/17 at 01:16; Status DC Oxycodone/ Acetaminophen (Percocet 7.5-325 Mg) 1 tab Q6H PRN PO PAIN SCALE 5 TO 10 Last administered on 04/11/17 21:36; Start 04/11/17 at 08:30 Morphine Sulfate (Morphine Inj) 4 mg Q3H PRN IV PUSH BREAKTHROUGH PAIN Last administered on 04/12/17 10:51; Start 04/11/17 at 08:30 Baclofen (Lioresal) 20 mg Q8H PO Last administered on 04/12/17 01:15; Start 04/11/17 at 09:00 Magnesium Hydroxide (Milk Of Magnesia Liq) 30 ml Q12H PRN PO Mild constipation ; Start 04/11/17 at 10:00 Sennosides (Senokot) 17.2 mg Q12H PRN PO Moderate constipation; Start at 10:00 Bisacodyl (Dulcolax Supp) 10 mg DAILY PRN RECTAL SEVERE CONSITIPATION; Start 04/11/17 at 10:00 Lactulose (Lactulose Liq) 30 ml DAILY PRN PO SEVERE CONSITIPATION; Start 04/11 at 10:00 Cefazolin Sodium/ Dextrose 50 ml @ 150 mls/hr ONCE ONCE IV Last administered on 04/12/17 06:26; Start 04/12/17 at 06:00; Stop 04/12/17 at 06:19; Status DC Chlorhexidine Gluconate (Hibiclens 4% Top Soln) 1 applic HS TOP ; Start at 21:00; Stop 04/13/17 at 21:01 Albuterol/ Ipratropium (Duoneb Neb) 1 ampule Q4HR NEB PRN NEB SOB/WHEEZING Last administered on 04/12/17 05:00; Start 04/11/17 at 22:15 Lactated Ringer's 1,000 ml @ 30 mls/hr Q24H PRN IV SEE LABEL COMMENTS; Start 04/12/17 at 03:15; Stop 04/15/17 at 03:14 Sodium Chloride 500 ml @ 30 mls/hr [id number] PRN IV SEE LABEL COMMENTS; Start at 03:15; Stop 04/15/17 at 03:14 Povidone Iodine (Betadine 5% Antisepsis Kit) 1 applic INSTRUMENT AND ELECTRICAL TECHNICIAN PRN EACH NARE SEE LABEL COMMENTS; Start 04/12/17 at 03:15; Stop 04/15/17 at 03:14 Chlorhexidine Gluconate (Chlorhexidine 2% Cloth) 3 pack [employer]STRUMENT [employer]LECTRICAL TECHNICIAN PRN TOPICAL SEE LABEL COMMENTS; Start 04/12/17 at 03:15; Stop 04/15/17 at 03:14 Morphine Sulfate (Morphine Inj) 5 mg ONCE ONCE IV PUSH ; Start 04/12/17 at 10: 45; Stop 04/12/17 at 10:47; Status DC Acetaminophen 100 ml @ As Directed STK-MED ONCE IV ; Start 04/12/17 at 11:17; Stop 04/12/17 at 11:18; Status DC Propofol 200 ml @ As Directed STK-MED ONCE .ROUTE ; Start 04/12/17 at 11:17; Stop 04/12/17 at 11:18; Status DC Artificial Tears (Lacrilube Opht Oint) 3.5 applic STK-MED ONCE .ROUTE ; Start 04/12/17 at 11:17; Stop 04/12/17 at 11:18; Status DC Thrombin (Thrombin Top Soln) 10,000 units STK-MED ONCE .ROUTE ; Start 04/12/17 at 11:29; Stop 04/12/17 at 11:30; Status DC Bupivacaine HCl/ Epinephrine Bitart (Sensorcaine-Epinephrine Pf 0.5% Inj) 30 ml STK-MED ONCE .ROUTE ; Start 04/12/17 at 11:29; Stop 04/12/17 at 11:30; Status DC Methylprednisolone Acetate (Depo-Medrol Inj) 40 mg STK-MED ONCE .ROUTE ; Start 04/12/17 at 11:29; Stop 04/12/17 at 11:30; Status DC Gelatin (Gelfoam 100 Top) 1 foam STK-MED ONCE .ROUTE ; Start 04/12/17 at 11:29 ; Stop 04/12/17 at 11:30; Status DC Gentamicin Sulfate (Gentamicin Inj) 240 mg STK-MED ONCE .ROUTE ; Start at 11:33; Stop 04/12/17 at 11:34; Status DC (Carlos Chamberlain MD) Medical Decision Making MDM Remarks 86 y/o male with intractable lumbar and L5 radiculopathy, MRI shows an 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 Severe focal spinal stenosis. T11-T12 HNP is asymptomatic. I again discussed the alternative methods of treatment including a surgical decompression as a last resort. For surgical decompression in AM. I discussed with him the details including the [id number] details of the surgical procedure, its indications, alternatives, risks, and potential complications. Risks and potential complications include, but are not limited to, infection, blood loss, CSF leak, partial or complete loss of sight in one or both eyes, paresis, paralysis, permanent pain or difficulty swallowing, loss of bowel or bladder function, complications from anesthesia, blood clot, stroke , myocardial infarction, or even . Diabetes mellitus ACCU checks ACHS, sliding scale insulin, cover as needed. Arterial Hypertension Plan: Monitor BP trends. Continue home Lisinopril and HCTZ. CAD (coronary artery disease) Plan: Continue Metoprolol. Hyperkalemia Follow BMP. Atrial fibrillation Plan: Hold Eliquis at this time for possible surgical evaluation. Pulmonary. Continue aggressive pulmonary toilette, nasotracheal suction, and breathing treatments with nebulizers. ID to monitor for signs of infection Protonix for stress ulcer prophylaxis Sj hose and SCD's for DVT prophylaxis The exam, history, and the medical decision-making described in the above note were completed with the assistance of the mid-level provider. I reviewed and agree with the findings presented. I attest that I had a [id number] encounter with the patient on the same day, and personally performed and documented my assessment and findings in the medical record. (aCrlos Chamberlain MD) Faustina Garza Apr 11, 2017 13:31 Carlos Chamberlain MD Apr 12, 2017 12:36
--- NOTE | 2017-04-11 13:34 | MB ---
cc: JOSE CARLOS BROOKS M.D.,MOLLY Reina M.D. JAGJIT KELLEY DATE OF CONSULTATION: 04/11/[address] Kelley[address] PRIMARY CARE PHYSICIAN Dr. Ziegler. HISTORY OF PRESENT ILLNESS Mr. Castillo is a 86-year-old white gentleman, well-known to me with history of coronary artery disease, permanent atrial fibrillation, hypertension and diabetes mellitus type 2. He was admitted to the hospital on April 10, 2017 because of complaints of lower back pain with radiating down his right leg as well as difficulty urinating. He has been evaluated by neurosurgery who feels he has a spinal stenosis and a mass, a cyst that is causing some obstruction and has planned lower back surgery tomorrow to relieve his pain and obstruction. The patient has been doing well from a cardiac standpoint, recently, he has had no chest pain, palpitations, shortness of breath, lightheadedness or syncopal episodes. He has been taking all of his medication as directed. He cannot quite recall but he thinks his last dose of Eliquis was 2 days ago on Saturday. It has been held at least since he has been admitted yesterday morning. He is currently lying in bed and is in moderate lower back pain. PAST MEDICAL HISTORY As mentioned above, in addition he has had: 1. Inguinal hernias. 2. Hypertension. 3. Hyperlipidemia. 4. Arthritis. 5. Long-term anticoagulation therapy with Eliquis. 6. He denies history of myocardial infarction, stroke, thyroid, liver or kidney disease. 7. He has had a history of GI bleeding secondary to ulcerated ileum status post cauterization in August of 2016 without recurrent bleeding. PAST SURGICAL HISTORY 1. GI ileum cauterization as mentioned. 2. Bare metal stent implant to the LAD December 03, 2011 and has been stable since then and asymptomatic. 3. He has had a right eyelid surgery. 4. Right knee replacement. 5. Right rotator cuff repair. 6. Tonsillectomy. 7. Hernia repair x2. ALLERGIES None known. MEDICATIONS 1. Senokot 17.2 mg q.12 hours. 2. Dulcolax 10 mg MN daily. 3. Mtbm-[id number] 30 mL q.12 hours p.r.n. 4. Baclofen 20 mg p.o. q.8 hours. 5. Morphine 4 mg IV q.3 hours p.r.n. pain. 6. Protonix 20 mg at bedtime. 7. Pravastatin 40 mg at bedtime. 8. Novolog insulin sliding scale. 9. Lisinopril 20 mg daily. 10. Hydrochlorothiazide 25 mg daily. 11. Metoprolol tartrate 50 mg b.i.d. 12. Tylenol p.r.n. FAMILY HISTORY Noncontributory. SOCIAL HISTORY The patient denies tobacco, alcohol or illicit drug use at this time. REVIEW OF SYSTEMS Denies lower extremity edema or claudication. Denies fevers, chills, night sweats, nausea, vomiting, diarrhea. Denies bleeding or clotting disorders. Except for that mentioned in the HPI, his complete 12-point review of systems otherwise negative. PHYSICAL EXAMINATION GENERAL: Physical exam reveals an elderly white male lying in bed in mild distress. VITAL SIGNS: Blood pressure 118/62 mmHg, heart rate is 60 and irregular, respiratory rate 18, temperature 98.2, ox saturation 97% on room air. HEENT: Head is normocephalic and atraumatic. Pupils equal, round and reactive to light. Sclerae anicteric. Extraocular movements intact. NECK: The neck is supple. There is no adenopathy or jugular venous distension at 30 degrees. Carotid upstrokes are normal. No bruits. Thyroid exam is normal. LUNGS: Lungs are clear. HEART: PMI is not displaced. S1-S2 are irregular. No murmurs, gallops, clicks or rubs. ABDOMEN: Benign. EXTREMITIES: No cyanosis, clubbing or edema. Perfusion is adequate in the upper and lower extremities. No femoral bruits. NEUROLOGIC: Exam is deferred. EKG No EKG on this visit available, has not been completed. LABORATORY DATA CBC white count 8.7, hemoglobin 11.8, hematocrit 33.8, platelet count 117,000. Coags were normal. Chemistries sodium 133, potassium 3.6, chloride 98, CO2 28.7, BUN 18, creatinine 0.63. Glucose 89. Coags are normal. He had a pharmacologic stress test, stress-myocardial perfusion imaging test on November 02, 2014 that was negative for ischemia. He had an echocardiogram March 28, 2016 that showed a left ventricular ejection fraction of 55% and no wall motion abnormalities. Moderate left atrial enlargement with mild right atrial enlargement. Dilated right ventricle with normal function. Moderate +2 TR with mild MR, RVSP 42 mmHg. IMAGING STUDIES No chest x-ray available. Imaging of the lumbar spine shows scoliosis and multilevel degenerative changes of the lumbar spine, left paracentral extruded disk fragment at T12/L1 causing spinal stenosis and eccentric conus compression. Large right posterolateral epidural mass at L4/L5, appears to be a synovial cyst of the right facet joint. Moderate to severe right and moderate left foraminal stenosis at L3-L4. IMPRESSION 1. Severe lower back pain with nerve impingement and planned surgical intervention tomorrow. 2. History of permanent atrial fibrillation, rate well controlled and currently asymptomatic. 3. ASHD status post previous bare metal stent implant to LAD December 03, 2011, currently stable and asymptomatic. 4. Hypertension, well-controlled. 5. Diabetes mellitus type 2. 6. Long-term anticoagulation therapy with Eliquis, currently on hold for anticipated surgery tomorrow. RECOMMENDATIONS The patient is stable from cardiovascular standpoint at this time. He has been off his Eliquis at least for the past 24-36 hours that I can tell. He should be safe to perform anticipated surgery by tomorrow morning. I do not feel any further inpatient cardiac testing is necessary but will get a preoperative EKG performed incase we need it later. All of his home meds have been restarted except for his Eliquis and his atrial fibrillation rate control is good. He has had increased but acceptable risks for the anticipated surgery and anesthesia for his spinal surgery. Dr. Moncada will be covering me tomorrow, if needed, please call. I would resume his Eliquis 12 hours after surgery or as soon as it is safe to do so. I will arrange followup with him in my office as previously scheduled. Thank you for allowing me to participate in the care of this patient. Jose Carlos MD ALL Torres/JANETT /12:42 PM /1:01 PM
[2017-04-11] MEDS: PRAVASTATIN SOD 40 MG TAB PO SCH (20:40)
[2017-04-11] MEDS: PANTOPRAZOLE SOD 20 MG DELAYED RELEASE TAB PO SCH (20:41)
[2017-04-11] MEDS ORDERED: CHLORHEXIDINE GLUCONATE 4% SOLN 120 ML BTL TOP SCH (21:00)
[2017-04-11] MEDS: RESP: ALBUTEROL 2.5 MG/IPRATROPIUM 0.5 MG NEB (PRN) NEB (23:50)
[2017-04-12] VITALS (8 sets, daily range): BP systolic 114–146; BP diastolic 59–71; PULSE 49–86; RESP 16–22; TEMP 97.2–98.3; O2SAT 89–99
[2017-04-12] MEDS: MORPHINE SULFATE 2 MG/ML INJ IV PUSH PRN ×3 (01:15→10:51)
[2017-04-12] MEDS: BACLOFEN 20 MG TAB PO SCH ×3 (01:15→17:00)
[2017-04-12] MEDS ORDERED: POVIDONE IODINE 5% (ANTISEPSIS KIT) 4 APPLICATIONS EACH NARE PRN (03:15)
[2017-04-12] MEDS ORDERED: CHLORHEXIDINE GLUCONATE 2 % 1 PACK (2 CLOTHS) TOPICAL PRN (03:15)
[2017-04-12] MEDS ORDERED: LACTATED RINGER'S 1000 ML IV PRN (03:15)
[2017-04-12] MEDS ORDERED: SODIUM CHLORID 0.9% 500 ML IV PRN (03:15)
[2017-04-12] MEDS: RESP: ALBUTEROL 2.5 MG/IPRATROPIUM 0.5 MG NEB (PRN) NEB (05:00)
[2017-04-12] MEDS ORDERED: ceFAZolin 2 GM PREMIX 50 ML IV ONE ×2 (06:00→14:10)
[2017-04-12] MEDS: INSULIN ASPART SUPPLEMENTAL SCALE SQ SCH ×3 (08:00→21:00)
[2017-04-12] MEDS: LISINOPRIL 20 MG TAB PO SCH (08:32)
[2017-04-12] MEDS: DOCUSATE SODIUM 50 MG/SENNA 8.6 MG TAB PO SCH ×2 (08:32→21:59)
[2017-04-12] MEDS: SODIUM CHLORIDE 0.9% FLUSH 10 ML FLUSH IV FLUSH SCH ×2 (08:32→21:59)
[2017-04-12] MEDS: METOPROLOL TARTRATE 50 MG TAB PO SCH ×2 (08:32→21:59)
[2017-04-12] MEDS: HYDROCHLOROTHIAZIDE 25 MG TAB PO SCH (08:32)
[2017-04-12] MEDS ORDERED: MORPHINE SULFATE 8 MG/ML INJ IV PUSH ONE (10:45)
[2017-04-12] MEDS ORDERED: PROPOFOL 500 MG/50 ML INJ 200 ML ONE (11:17)
[2017-04-12] MEDS ORDERED: ACETAMINOPHEN 1000 MG/100 ML 100 ML IV ONE (11:17)
[2017-04-12] MEDS ORDERED: ARTIFICIAL TEARS OPTH OINT 3.5 APPLIC/3.5 GM TUBO ONE (11:17)
[2017-04-12] MEDS ORDERED: methylPREDNISolone ACETATE 40 MG/ML VIAL ONE (11:29)
[2017-04-12] MEDS ORDERED: THROMBIN (TOPICAL) 5,000 UNIT VIAL ONE (11:29)
[2017-04-12] MEDS ORDERED: GELFOAM SIZE 100 ONE (11:29)
[2017-04-12] MEDS ORDERED: BUPIVACAINE/EPINEPHRINE 0.5% PF 30 ML VIAL ONE (11:29)
[2017-04-12] MEDS ORDERED: GENTAMICIN SULFATE 80 MG/2 ML VIAL ONE (11:33)
[2017-04-12] MEDS ORDERED: DEXAMETHASONE SOD PHOS 4 MG/ML VIAL IV ONE (12:00)
[2017-04-12] MEDS ORDERED: NEOSTIGMINE 5 MG/5 ML SYRINGE IV PUSH ONE (12:00)
[2017-04-12] MEDS ORDERED: GLYCOPYRROLATE 1 MG/5 ML SYRINGE IV PUSH ONE (12:00)
[2017-04-12] MEDS ORDERED: PHENYLEPH/NS 1000 MCG/10 ML SYR IV ONE (12:00)
[2017-04-12] MEDS ORDERED: ONDANSETRON HCL 4 MG/2 ML VIAL IV ONE (12:00)
[2017-04-12] MEDS ORDERED: LIDOCAINE HCL 1% PF 5 ML SYRINGE OTHER ONE (12:00)
[2017-04-12] MEDS ORDERED: PHENYLEPHRINE HCL 10 MG/ML VIAL IV ONE (12:00)
[2017-04-12] MEDS ORDERED: MIDAZOLAM HCL 2 MG/2 ML VIAL IV ONE (12:00)
[2017-04-12] MEDS ORDERED: MORPHINE SULFATE 4 MG/ML INJ IV ONE (12:00)
[2017-04-12] MEDS ORDERED: LACTATED RINGER'S 1000 ML INJ 1,000 ML IV ONE (12:00)
[2017-04-12] MEDS ORDERED: PROPOFOL 200 MG/20 ML AMP IV ONE (12:00)
[2017-04-12] MEDS ORDERED: ESMOLOL HCL 100 MG/10 ML VIAL IV ONE (12:00)
[2017-04-12] MEDS ORDERED: ROCURONIUM INJ 50 MG/5 ML SYRINGE IV PUSH ONE (12:00)
--- NOTE | 2017-04-12 14:39 | HHI.PR ---
Subjective Remarks Follow up for spinal stenosis, epidural mass. Patient is doing well. Pain is well controlled. Daughter at bedside. No fever, chills. Objective Vitals Vital Signs Date Time Temp Pulse Resp B/P (MAP) Pulse Ox O2 Delivery O2 Flow Rate FiO2 04/12/17 14:14 92 Nasal Cannula 2.00 04/12/17 11:24 98.3 86 18 130/59 (82) 92 04/12/17 08:23 97.7 63 18 116/59 (78) 96 04/12/17 05:12 97.7 66 18 142/61 (88) 99 04/12/17 01:23 97.9 49 18 114/59 (77) 95 04/11/17 23:58 95 Nasal Cannula 2.00 04/11/17 20:42 97.8 52 18 130/59 (82) 98 04/11/17 17:45 18 04/11/17 16:55 97.6 50 20 139/63 (88) 98 I/O 04/11/17 04/11/17 04/11/17 04/12/17 04/12/17 04/12/17 07:00 15:00 23:00 07:00 15:00 23:00 Intake Total 600 ml 660 ml Output Total 1200 ml 1950 ml 500 ml 725 ml Balance -600 ml -1290 ml -500 ml -725 ml Intake Oral 600 ml 660 ml Output Urine Total 1200 ml 1950 ml 500 ml 725 ml # Bowel Movements 0 Result Diagram: 04/11/17 0556 04/11/17 0556 Objective Remarks GENERAL: AOX3,. NAD. SKIN: Warm and dry. HEAD: Normocephalic. EYES: No scleral icterus. No injection or drainage. NECK: Supple, trachea midline. No JVD or lymphadenopathy. CARDIOVASCULAR: Regular rate and rhythm without murmurs, gallops, or rubs. RESPIRATORY: Breath sounds equal bilaterally. No accessory muscle use. GASTROINTESTINAL: Abdomen soft, non-tender, nondistended. MUSCULOSKELETAL: No cyanosis, or edema. BACK: Nontender without obvious deformity. No CVA tenderness. Procedures None. A/P Problem List: (1) Intractable back pain ICD Code: M54.9 - Dorsalgia, unspecified Status: Acute (2) Epidural mass ICD Code: G96.19 - Other disorders of meninges, not elsewhere classified Status: Acute (3) Spinal stenosis of lumbar region ICD Code: M48.061 - Spinal stenosis, lumbar region without neurogenic claudication Status: Acute Assessment and Plan Mr. Castillo is a pleasant 86-year-old male patient with a known medical history of atrial fibrillation, chronic back pain, dyslipidemia, CAD with stent placement who presented to the ED with continued complaints of severe lower back pain on 04/10/2017. He reported inability to urinate as well as the pain now radiating down bilateral lower extremities. He denied any fever or chills. - L4-L5 epidural mass - T12-L1 paracentral spinal stenosis - T12-L1 extr - L3-L4 moderate to severe foraminal stenosis - L4-L5 moderate foraminal stenosis - Neurosurgery following - seems like a discussion was placed regarding surgery. - Surgical intervention by Neurosurgery 04/12/2017. - Continue pain management with acetaminophen, Percocet, morphine. - baclofen 20 mg every 8 hours. - Bowel regimen - Cardiology evaluation done for surgical clearance. - Patient's Afib is well controlled, Hemodynamically stable. - Diabetes mellitus - Blood glucose is well controlled. Goal blood glucose 140-180 while in the hospital. - Continue sliding scale insulin if needed. - Hypertension - Hyperlipidemia - Continue lisinopril 20 mg daily, HCTZ 25 mg daily - Continue pravastatin 40 mg daily at bedtime. - Atrial fibrillation - Continue metoprolol 50 mg twice a day. - Anti-coagulation on hold due to possible surgical intervention. - Patient is on apixaban 5 mg twice a day at home which can be continued once cleared by Neurosurgery. Full code. SCDs. Problem Qualifiers (1) Spinal stenosis of lumbar region: Qualified Codes: M48.062 - Spinal stenosis, lumbar region with neurogenic claudication Natasha Khan DO Apr 12, 2017 2:39 pm
[2017-04-12] MEDS ORDERED: DO NOT ADM ANY ANTICOAGULANT DRUGS PRN (15:30)
--- NOTE | 2017-04-12 16:40 | PD.OP ---
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 He was found to have severe lumbar spinal stenosis with a large synovial cyst arising from the L4-5 facet on the right side, with suspected calcifications. He failed maximum nonsurgical management. A surgical decompression was indicated as a last resource. The [id number] details of the procedure, indications, alternatives, risks and potential complications were fully discussed with the patient. The patient fully understood. All the questions were answered. No guarantees were given. The patient voiced requesting the procedure and provided informed consents. The patient was offered the alternative of delaying the procedure and continuing with nonsurgical management. DETAILS OF THE SURGICAL PROCEDURE After the induction of general anesthesia, endotracheal intubation was performed. A Zheng catheter, bilateral HORTENCIA hose and sequential compression devices were placed and kept throughout the procedure. The patient was positioned prone on a Abelardo table over a Michael frame. All pressure points were carefully padded with eggcrate mattress. The eyes were tapped shut after ointment was applied by the anesthesiologist to prevent corneal abrasion. A Chase hugger was placed over the exposed lower body to maintain control of the core body temperature. The lower lumbar region was prepped and draped in the usual sterile fashion. A spinal needle was placed on the paraspinal muscle and a cross-table lateral x-ray performed with a C-arm. The skin incision was made over the spinous process of L4 and L5 along the midline. Small subcutaneous bleeders were controlled with a bipolar. The subcutaneous tissue and thoracolumbar fascia was opened with the Bovie and the spinous process of L4 and L5 were exposed. Then, using a Valdivia elevator and a Bovie a subperiosteal dissection was performed over the spinous process lamina and facet at L4 and L5 on the right side. A microdiscectomy self-retaining retractor was placed and an instrument was placed underneath the lamina of L4, and another cross-table lateral x-ray performed for radiological confirmation of the level. At this point in the procedure the operating microscope was draped in the usual sterile fashion and brought to the field. The rest of the surgical procedure was performed using microsurgical dissection technique with exception of the closure. Once the level was confirmed, a TPS drill brought to the field and a hemilaminectomy was performed at L4-L5 on the right side in standard fashion using a 4mm drill bit, exposing the ligamentum flavum. The superior free border of the ligamentum flavum was from the dura with a ligament dissector and the ligamentum flavum was carefully removed with a 3 mm thin footplate Kerrison. The ligament Flavum and facets were significantly hypertrophic resulting on mass effect on the dural sac. Then, the medial aspect of the facet was drilled and undermined and the exiting L5 nerve root was identified and followed towards the foramen. A foraminotomy was performed with a 3 mm Kerrison. Then, the TPS drill was used to undermine the base of the spinous process. The ligamentum flavum across the midline was dissected from the dura with a ligament dissector and carefully removed with a 3 mm thin footplate Kerrison. A large synovial cyst was identified, callusing significant mass effect on the due to sac and exiting L5 nerve root. Towards the midline, there was an associated significant epidural hematoma, with chronic dark, black blood. Using a ligament dissector it was carefully dissected from the surrounding tissues. Disease was very adherent to the due to sac and extreme care was taking viewed in the dissection to avoid a dural tear and CSF leak. A gross total resection of the C-spine was achieved, which was sent to pathology for histopathological analysis. An appropriate decompression of the dural sac and nerve root was achieved. Epidural veins located laterally to the dural sac were carefully coagulated with a bipolar and incised with microscissors. Gentle medial retraction of the dural sac allowed inspection of the disc space. The patient disk was unremarkable. Microdiscectomy was not deemed necessary. The incision was then thoroughly irrigated with antibiotic solution and hemostasis secured with the bipolar cauthery. A Valsalva maneuver failed to show any cerebrospinal fluid leak or bleeding. The incision was irrigated and closed in layers. 0 Vicryl with interrupted sutures was used to close the thoracolumbar fascia and superficial fascia. The subcutaneous tissue was closed with 3-0 Vicryl. The skin was closed with 4-0 running subcuticular Vicryl. Dermabond was applied to the skin. At the end of the procedure, the sponge, needle and instrument counts were all correct. Estimated blood loss was less than 80 cc. No blood transfusion was given. No intraoperative complications occurred. The patient received prophylactic antibiotics. The patient was then extubated and transferred to the recovery room in stable condition. Carlos Chamberlain MD Apr 12, 2017 16:40
--- NOTE | 2017-04-12 16:46 | PD.CONS ---
HPI Service Critical Care Medicine Consult Requested By Dr. Chamberlain Reason for Consult Afib with RVR postop Primary Care Physician Lynnette Ziegler MD History of Present Illness History of Present Illness 86-year-old male with a medical history significant for atrial fibrillation, coronary artery disease, dyslipidemia, chronic back pain was admitted with severe low back pain. 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 He reported difficulty urinating. He had difficulty walking due to the severity of his pain. An MRI of the Thoracic spine also shows disc extrusion at T12-L1. He denied lower extremity weakness, bowel incontinence, fevers or chills. He was on Eliquis for Atrial Fibrillation which was held upon admission. Patient was evaluated by Dr. Chamberlain from neurosurgery and subsequently underwent decompressive laminectomy L4-L5 with resection of epidural abscess/hematoma under general anesthesia on 04/12/2017, EBL 2 50 cc, received crystalloid 1 L, Intra-Op urine output 450 cc. He tolerated procedure well and was subsequently extubated and transferred to PACU. Postoperatively he did have rapid A. fib transiently with heart rate up to 140s. Dr. Chamberlain consulted critical care medicine in view of A. fib with RVR. I evaluated the patient in PACU at which time his heart rate did come down to the 80s atrial fibrillation. He was otherwise drowsy though easily arousable moving all 4 extremities. History was obtained by reviewing records and discussion with PACU nursing staff as well as Dr. Chamberlain. Review of Systems Unable to be obtained in detail in view of drowsiness postanesthesia for surgery at the time of my evaluation Past Family Social History Past Medical History Atrial fibrillation on Eliquis Arthritis Hyperlipidemia CAD Type 2 diabetes GERD Hypertension Past Surgical History Bilateral inguinal hernioplasty Cardiac stent x 2 Right eyelid surgery Right knee replacement Right rotator cuff repair Tonsillectomy Hernia repair x 2 Reported Medications Active Tylenol-Codeine #3 (Acetaminophen-Codeine) 300-30 mg Tab 1 Tab PO Q6HR PRN Reported Fish Oil + D3 (Fish Oil-Cholecalciferol) 1,200-1,000 Mg-Unit Cap 1 Cap PO DAILY Preservision Areds 2 Softgel (Vit C/E/Zn/Coppr/Lutein/Zeaxan) 250-200-40 Capsule 1 Tab PO HS Ultram (Tramadol HCl) 50 Mg Tab 50 Mg PO Q6H PRN Cialis (Tadalafil) 5 Mg Tab 5 Mg PO HS Do not exceed 1 dose/day. Metformin (Metformin HCl) 500 Mg Tab 500 Mg PO BIDPC Eliquis (Apixaban) 5 Mg Tab 5 Mg PO BID Tylenol (Acetaminophen) 325 Mg Tab 325 Mg PO Q4H PRN Multiple Vitamin 1 Tab 1 Tab PO DAILY Vitamin C (Ascorbic Acid) 250 Mg Chew 500 Mg CHEW DAILY Omeprazole 20 Mg Tab 20 Mg PO HS Lisinopril-Hctz 20-25 Mg Tab 1 Tab PO DAILY Glyburide 5 Mg Tab 5 Mg PO BID Take with meals at the same time each day Simvastatin 10 Mg Tab 20 Mg PO HS Lopressor (Metoprolol Tartrate) 50 Mg Tab 50 Mg PO BID Allergies: Coded Allergies: grass pollen (Unverified Allergy, Mild, nasal congestion, 04/09/17) Active Ordered Medications Administered Medications Medications (Trade) Dose Ordered Sig/Lennox Route PRN Reason Start Time Stop Time Status Last Admin Dose Admin Sodium Chloride (NS Flush) 2 ml BID IV FLUSH 04/10/17 09:00 04/12/17 08:32 Ondansetron HCl (Zofran Inj) 4 mg Q6H PRN IVP NAUSEA OR VOMITING 04/10/17 09:00 04/11/17 21:36 Senna/Docusate Sodium (Lis-Colace) 1 tab BID PO 04/10/17 09:00 04/11/17 08:35 Insulin Aspart (NovoLOG SUPPLEMENTAL SCALE) 1 ACHS SLIDING SCALE SQ 04/10/17 12:00 04/11/17 20:39 Metoprolol Tartrate (Lopressor) 50 mg BID PO 04/10/17 09:15 04/11/17 20:40 Lisinopril (Prinivil) 20 mg DAILY PO 04/10/17 09:30 04/11/17 08:35 Hydrochlorothiazide (Hydrodiuril) 25 mg DAILY PO 04/10/17 09:30 04/11/17 08:35 Pantoprazole Sodium (Protonix) 20 mg HS PO 04/10/17 21:00 04/11/17 20:41 Pravastatin Sodium (Pravachol) 40 mg HS PO 04/10/17 21:00 04/11/17 20:40 Baclofen (Lioresal) 20 mg Q8H PO 04/11/17 09:00 04/12/17 01:15 Albuterol/ Ipratropium (Duoneb Neb) 1 ampule Q4HR NEB PRN NEB SOB/WHEEZING 04/11/17 22:15 04/12/17 05:00 Family History Paternal medical history unknown. No significant maternal medical history. Social History Denies any tobacco use. Denies any alcohol use. Denies any illicit drug use. Physical Exam Vital Signs Vital Signs Date Time Temp Pulse Resp B/P (MAP) Pulse Ox O2 Delivery O2 Flow Rate FiO2 04/12/17 16:15 86 16 103/57 (72) 96 Nasal Cannula 4 04/12/17 16:00 105 16 145/65 (91) 95 Nasal Cannula 4 04/12/17 15:45 108 16 150/64 (92) 97 Nasal Cannula 4 04/12/17 15:30 97.8 101 16 123/88 (100) 94 Nasal Cannula 5 04/12/17 14:14 92 Nasal Cannula 2.00 04/12/17 11:24 98.3 86 18 130/59 (82) 92 04/12/17 08:23 97.7 63 18 116/59 (78) 96 04/12/17 05:12 97.7 66 18 142/61 (88) 99 04/12/17 01:23 97.9 49 18 114/59 (77) 95 04/11/17 23:58 95 Nasal Cannula 2.00 04/11/17 20:42 97.8 52 18 130/59 (82) 98 04/11/17 17:45 18 04/11/17 16:55 97.6 50 20 139/63 (88) 98 Physical Exam HEENT/Neuro: No pallor or icterus, tongue moist, AKILA, drowsy, arousable, nonfocal grossly, moving all 4 extremities Neck: No JVD Chest/pulmonary: CTA bilaterally Cardiovascular: S1-S2 irregularly irregular, no gallop or murmur GI/abdomen: Soft, nontender, bowel sounds present Back: Dressing was surgical site in place, RANDI drain in place Extremities: Warm bilaterally, no edema Result Diagram: 04/11/17 0556 04/11/17 0556 Imaging Last Impressions Thoracic Spine MRI 04/10/17 0000 Signed Impressions: Service Date/Time: Monday, April 10, 2017 06:12 - CONCLUSION: 1. 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 Generally mild degenerative changes at other levels from C7/T1-T11/T12. 2. Large extruded disc fragment at T12/L1; MRI the lumbar spine follow. 3. Mild, reactive appearing endplate marrow edema , most conspicuous at T3/T4 and T9/T10. No fracture or subluxation seen of the thoracic spine. Nishant Unger MD Lumbar Spine MRI 04/10/17 0000 Signed Impressions: Service Date/Time: Monday, April 10, 2017 06:12 - CONCLUSION: 1. Scoliosis and multilevel degenerative changes of the lumbar spine as above. 2. There is a large left paracentral extruded disc fragment at T12/L1 causing spinal stenosis and eccentric conus compression. 3. 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 There is associated severe spinal stenosis, especially the right lateral recess. 4. Moderate to severe right and moderate left foraminal stenosis at L3/L4. There is moderate bilateral foraminal stenosis at L4/L5. Elsewhere, foraminal stenosis is generally in the mild or mild to moderate range. 5. No fracture or acute appearing malalignment demonstrated. Nishant Unger MD Assessment and Plan Assessment and Plan 86-year-old male with: A. fib with RVR currently rate controlled Lumbar canal stenosis with spinal cyst status post L4-L5 laminectomy with evacuation of epidural hematoma and resection of spinal cyst (04/12) Arthritis Hyperlipidemia CAD Type 2 diabetes GERD Hypertension Plan: Neuro: Continue pain medications per neurosurgery, follow neuro status. Status post L4-L5 laminectomy by Dr. Chamberlain. Cardiovascular: Resume Lopressor, lisinopril Pulmonary: Abdomen low O2, bronchodilators as needed GI/liver: Advance by mouth per neurosurgery recommendation Renal/: IV hydration, strict intake output, monitor and replete electrolytes, follow BUN creatinine. ID: Perioperative antibiotic prophylaxis per neurosurgery Heme: Follow CBC. Eliquis on hold currently in view of postop state till cleared by neurosurgery Endocrine: SSI for glycemic control as needed. Prophylaxis: Protonix, SCDs. Subcutaneous Lovenox when cleared by neurosurgery. Critical care will follow while in ICU. Transfer to floor when okay with Dr. Chamberlain. William Batista MD Apr 12, 2017 16:46
--- NOTE | 2017-04-12 16:46 | RADRPT ---
EXAM DATE/TIME: 04/12/2017 13:50 [facility] COMPARISON: No previous studies available for comparison. INDICATIONS : Level Localization For cyst removal L4,L5. MEDICAL HISTORY : Hypertension. Diabetes mellitus type 2. SURGICAL HISTORY : Total knee replacement, right. Inguinal hernia repair. ENCOUNTER: Subsequent ACUITY: 2 days PAIN SCORE: Non-responsive. LOCATION: Lumbar spine. FINDINGS: There is localization device posteriorly at the level of L5. CONCLUSION: Localization device posteriorly at L5. Shailesh Jacobs MD on April 12, 2017 at 16:43 Board Certified Radiologist. This report was verified electronically.
[2017-04-12] MEDS: ceFAZolin 2 GM PREMIX 50 ML IV SCH ×2 (17:52→23:34)
[2017-04-12] MEDS: SODIUM CHLOR 0.9% 1000 ML INJ 1,000 ML IV SCH (17:53)
[2017-04-12 18:32] LABS: HEMATOCRIT 34.8 % (39.0-51.0); MEAN CELL VOLUME 90.3 FL (80.0-100.0); MEAN CORPUSCULAR HEMOGLOBIN 30.8 PG (27.0-34.0); MEAN CORPUSCULAR HGB CONC 34.1 % (32.0-36.0); PLATELET COUNT 122 TH/MM3 (150-450); RED BLOOD COUNT 3.85 MIL/MM3 (4.50-5.90); RED CELL DISTRIBUTION WIDTH 13.8 % (11.6-17.2); REVIEW FLAG FINAL; WHITE BLOOD COUNT 7.8 TH/MM3 (4.0-11.0)
[2017-04-12 19:01] LABS: BICARBONATE 26.1 MEQ/L (21.0-32.0); POTASSIUM 4.1 MEQ/L (3.5-5.1)
[2017-04-12] MEDS: PRAVASTATIN SOD 40 MG TAB PO SCH (21:59)
[2017-04-12] MEDS: PANTOPRAZOLE SOD 20 MG DELAYED RELEASE TAB PO SCH (21:59)
[2017-04-12] MEDS: oxyCODONE/ACETAMINOPHEN 10 MG/325 MG TAB PO PRN (22:24)
[2017-04-13] VITALS (9 sets, daily range): BP systolic 96–140; BP diastolic 49–69; PULSE 59–85; RESP 13–20; TEMP 96.8–98; O2SAT 92–100
[2017-04-13] MEDS: BACLOFEN 20 MG TAB PO SCH ×3 (01:00→17:00)
[2017-04-13] MEDS: oxyCODONE/ACETAMINOPHEN 10 MG/325 MG TAB PO PRN ×4 (02:03→17:19)
[2017-04-13] MEDS: ceFAZolin 2 GM PREMIX 50 ML IV SCH (07:00)
[2017-04-13] MEDS: INSULIN ASPART SUPPLEMENTAL SCALE SQ SCH ×4 (08:00→21:00)
[2017-04-13] MEDS: SODIUM CHLORIDE 0.9% FLUSH 10 ML FLUSH IV FLUSH SCH ×2 (08:15→21:25)
[2017-04-13] MEDS: DOCUSATE SODIUM 50 MG/SENNA 8.6 MG TAB PO SCH ×2 (08:28→21:01)
[2017-04-13] MEDS: METOPROLOL TARTRATE 50 MG TAB PO SCH ×2 (08:28→21:02)
[2017-04-13] MEDS: LISINOPRIL 20 MG TAB PO SCH (08:28)
[2017-04-13] MEDS: HYDROCHLOROTHIAZIDE 25 MG TAB PO SCH (08:28)
[2017-04-13] MEDS: MORPHINE SULFATE 2 MG/ML INJ IV PUSH PRN ×3 (08:49→21:07)
--- NOTE | 2017-04-13 10:11 | HHI.CCPN ---
Subjective Remarks/Hospital Course 86-year-old male with a medical history significant for atrial fibrillation, coronary artery disease, dyslipidemia, chronic back pain was admitted with severe low back pain. 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 He reported difficulty urinating. He had difficulty walking due to the severity of his pain. An MRI of the Thoracic spine also shows disc extrusion at T12-L1. He denied lower extremity weakness, bowel incontinence, fevers or chills. He was on Eliquis for Atrial Fibrillation which was held upon admission. Patient was evaluated by Dr. Chamberlain from neurosurgery and subsequently underwent decompressive laminectomy L4-L5 with resection of epidural hematoma under general anesthesia on 04/12/2017, EBL 2 50 cc, received crystalloid 1 L, Intra- Op urine output 450 cc. He tolerated procedure well and was subsequently extubated and transferred to PACU. Postoperatively he did have rapid A. fib transiently with heart rate up to 140s. Dr. Chamberlain consulted critical care medicine in view of A. fib with RVR. Dr. Batista evaluated the patient in PACU at which time his heart rate did come down to the 80s atrial fibrillation. He was otherwise drowsy though easily arousable moving all 4 extremities. History was obtained by reviewing records and discussion with PACU nursing staff as well as Dr. Chamberlain. Subjective: 04/13 Afib is rate controlled on home metoprolol. Pain controlled with current regimen. Motor intact. He does says he has baseline chronic lower extremity numbness that he attributes to diabetic neuropathy. Objective Vital Signs Date Time Temp Pulse Resp B/P (MAP) Pulse Ox O2 Delivery O2 Flow Rate FiO2 04/13/17 08:00 97.4 78 20 128/57 (80) 99 04/13/17 02:35 Nasal Cannula 3.00 Intake and Output 04/13/17 04/13/17 04/14/17 08:00 16:00 00:00 Intake Total 748 ml Output Total 1040 ml Balance -292 ml Result Diagram: 04/12/17180704/12/171807 Imaging Last Impressions Thoracic Spine MRI 04/10/17 0000 Signed Impressions: Service Date/Time: Monday, April 10, 2017 06:12 - CONCLUSION: 1. 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 Generally mild degenerative changes at other levels from C7/T1-T11/T12. 2. Large extruded disc fragment at T12/L1; MRI the lumbar spine follow. 3. Mild, reactive appearing endplate marrow edema , most conspicuous at T3/T4 and T9/T10. No fracture or subluxation seen of the thoracic spine. Nishant Unger MD Lumbar Spine MRI 04/10/17 0000 Signed Impressions: Service Date/Time: Monday, April 10, 2017 06:12 - CONCLUSION: 1. Scoliosis and multilevel degenerative changes of the lumbar spine as above. 2. There is a large left paracentral extruded disc fragment at T12/L1 causing spinal stenosis and eccentric conus compression. 3. 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 There is associated severe spinal stenosis, especially the right lateral recess. 4. Moderate to severe right and moderate left foraminal stenosis at L3/L4. There is moderate bilateral foraminal stenosis at L4/L5. Elsewhere, foraminal stenosis is generally in the mild or mild to moderate range. 5. No fracture or acute appearing malalignment demonstrated. Nishant Unger MD Objective Remarks GENERAL: Well-nourished, well-developed patient who is sitting up in bedside chair. Alert and conversant with his daughter. SKIN: Warm and dry. HEAD: Atraumatic. Normocephalic. EYES: Pupils equal and round. No scleral icterus. No injection or drainage. ENT: No nasal bleeding or discharge. Mucous membranes pink and moist. NECK: Trachea midline. No JVD. CARDIOVASCULAR: Irregularly irregular, rate. No murmurs rubs or gallops. RESPIRATORY: No accessory muscle use. Clear to auscultation. Breath sounds equal bilaterally. GASTROINTESTINAL: Abdomen soft, non-tender, nondistended. Bowel sounds present MUSCULOSKELETAL: Extremities without clubbing, cyanosis, or edema. No obvious deformities. NEUROLOGICAL: Awake and alert. No obvious cranial nerve deficits. Strength 5 out of 5 in all extremities. Sensation to soft touch intact. Normal speech. Procedures None. A/P Assessment and Plan 86-year-old male with: A. fib with RVR currently rate controlled Lumbar canal stenosis with spinal cyst status post L4-L5 laminectomy with evacuation of epidural hematoma and resection of spinal cyst (04/12) Arthritis Hyperlipidemia CAD Type 2 diabetes GERD Hypertension Plan: Neuro: Continue pain medications per neurosurgery, follow neuro status. Percocet prn with morphine prn breakthrough. Status post L4-L5 laminectomy by Dr. Chamberlain. Pathology pending. Cardiovascular: Continue Lopressor, lisinopril, hctz 25 mg po dailyi. Pulmonary: Abdomen low O2, bronchodilators as needed GI/liver: 2000 calorie ADA diet Renal/: IV fluids stopped. ID: Perioperative antibiotic prophylaxis per neurosurgery Heme: Follow CBC. Eliquis on hold currently in view of postop state till cleared by neurosurgery Endocrine: SSI for glycemic control as needed. Prophylaxis: Protonix, SCDs. Subcutaneous Lovenox when cleared by neurosurgery. ACCESS: PIV. PT consulted Level [address] Huggins, neurosurgery, who agrees with transfer to floor with tele. Patient and his were updated at bedside. Sultana Rees MD Apr 13, 2017 10:11
[2017-04-13] MEDS: SODIUM CHLOR 0.9% 1000 ML INJ 1,000 ML IV SCH ×2 (10:30→20:30)
--- NOTE | 2017-04-13 12:11 | EKG ---
Date Performed: 04/11/2017 Time Performed: 18:12:09 PTAGE: 86 years EKG: ATRIAL FIBRILLATION SEPTAL MYOCARDIAL INFARCTION , PROBABLY OLD INFERIOR MYOCARDIAL INFARCT ION , PROBABLY OLD ABNORMAL ECG PREVIOUS TRACING : 09/03/2016 09.14 DOCTOR: Janet Giron Interpretating Date/Time 04/13/2017 12:10:25
--- NOTE | 2017-04-13 13:40 | HHI.NSPN ---
Back surgery History Interval History Pt improved Pain is controlled Sitting in chair System Review Comments no change Exam Results Vital Signs Date Time Temp Pulse Resp B/P (MAP) Pulse Ox O2 Delivery O2 Flow Rate FiO2 04/13/17 12:00 97.8 59 13 114/61 (78) 97 04/13/17 11:00 21 04/13/17 02:35 Nasal Cannula 3.00 Intake and Output 04/13/17 04/13/17 04/14/17 08:00 16:00 00:00 Intake Total 748 ml Output Total 1040 ml Balance -292 ml Physical Examination Alert and awake Sitting in chair Pain is controlled Drain 70 cc bloody fluid Moves LEs well Medical Decision Making Impression and Plan Doing well, Stable P: To be transferred Total Minutes: 15 Johnny Huggins MD Apr 13, 2017 13:40
[2017-04-13] MEDS: PANTOPRAZOLE SOD 20 MG DELAYED RELEASE TAB PO SCH (21:02)
[2017-04-13] MEDS: PRAVASTATIN SOD 40 MG TAB PO SCH (21:02)
[2017-04-14] VITALS (7 sets, daily range): BP systolic 104–150; BP diastolic 46–68; PULSE 52–77; RESP 17–18; TEMP 95.9–99.5; O2SAT 95–99
[2017-04-14] MEDS: oxyCODONE/ACETAMINOPHEN 10 MG/325 MG TAB PO PRN ×2 (00:29→08:54)
[2017-04-14] MEDS: BACLOFEN 20 MG TAB PO SCH ×3 (00:29→17:00)
[2017-04-14] MEDS: SODIUM CHLOR 0.9% 1000 ML INJ 1,000 ML IV SCH ×2 (06:30→16:30)
[2017-04-14 06:55] LABS: AUTOMATED NEUTROPHIL # 4.2 TH/MM3 (1.8-7.7); BASOPHIL # 0.1 TH/MM3 (0-0.2); BASOPHIL % 0.8 % (0.0-2.0); EOSINOPHIL # 0.3 TH/MM3 (0-0.4); EOSINOPHIL % 4.5 % (0.0-4.0); HEMATOCRIT 32.2 % (39.0-51.0); HEMO FLAGS DIFF FINAL; LYMPHOCYTE # 1.2 TH/MM3 (1.0-4.8); MEAN CELL VOLUME 89.4 FL (80.0-100.0); MEAN CORPUSCULAR HEMOGLOBIN 30.5 PG (27.0-34.0); MEAN CORPUSCULAR HGB CONC 34.2 % (32.0-36.0); MONO % 11.5 % (0.0-8.0); NEUT % 65.2 % (16.0-70.0); PLATELET COUNT 144 TH/MM3 (150-450); RED BLOOD COUNT 3.61 MIL/MM3 (4.50-5.90); RED CELL DISTRIBUTION WIDTH 13.6 % (11.6-17.2); WHITE BLOOD COUNT 6.5 TH/MM3 (4.0-11.0)
[2017-04-14 07:03] LABS: BICARBONATE 28.2 MEQ/L (21.0-32.0); POTASSIUM 3.9 MEQ/L (3.5-5.1)
[2017-04-14] MEDS: HYDROCHLOROTHIAZIDE 25 MG TAB PO SCH (08:58)
[2017-04-14] MEDS: LISINOPRIL 20 MG TAB PO SCH (08:58)
[2017-04-14] MEDS: INSULIN ASPART SUPPLEMENTAL SCALE SQ SCH ×4 (08:59→19:58)
[2017-04-14] MEDS: METOPROLOL TARTRATE 50 MG TAB PO SCH ×2 (08:59→19:56)
[2017-04-14] MEDS: DOCUSATE SODIUM 50 MG/SENNA 8.6 MG TAB PO SCH ×2 (08:59→19:55)
[2017-04-14] MEDS: SODIUM CHLORIDE 0.9% FLUSH 10 ML FLUSH IV FLUSH SCH (09:01)
--- NOTE | 2017-04-14 15:47 | HHI.NSPN ---
History Chief Complaint: S/p lumbar surgery Interval History complains of back discomfort System Review Comments no change Exam Results Vital Signs Date Time Temp Pulse Resp B/P (MAP) Pulse Ox O2 Delivery O2 Flow Rate FiO2 04/14/17 12:05 95.9 54 18 104/46 (65) 99 04/14/17 11:03 21 04/13/17 02:35 Nasal Cannula 3.00 Intake and Output 04/14/17 04/14/17 04/15/17 08:00 16:00 00:00 Intake Total 240 ml Output Total 1415 ml Balance -1175 ml Physical Examination Somewhat sleepy today Awakens easily and is conversational Moves all extremities well Wound is clean Drain removed Medical Decision Making Impression and Plan Stable. Drain removed Discussed status with daughter and nurse P; May need Rehab Total Minutes: 20 Johnny Huggins MD Apr 14, 2017 15:47
--- NOTE | 2017-04-14 18:18 | HHI.PR ---
Subjective Remarks Mr. Castillo is glad to be recovering from his ordeal, he fretfully recounts the amount of pain he was in only a week ago and is very glad to be improving. He has had some trouble urinating today and reports he takes cialis for that. His pain is well controlled. Objective Vital Signs Date Time Temp Pulse Resp B/P (MAP) Pulse Ox O2 Delivery O2 Flow Rate FiO2 04/14/17 16:00 98.0 58 18 134/68 (90) 95 04/14/17 12:05 95.9 54 18 104/46 (65) 99 04/14/17 11:03 97 21 04/14/17 08:00 98.7 69 18 108/57 (74) 96 04/14/17 05:21 21 04/14/17 04:00 97.6 52 17 118/67 (84) 97 04/13/17 23:15 97.8 65 17 140/69 (92) 92 04/13/17 20:05 96.8 62 16 104/66 (79) 93 I/O 04/13/17 04/13/17 04/13/17 04/14/17 04/14/17 04/14/17 07:00 15:00 23:00 07:00 15:00 23:00 Intake Total 700 ml 48 ml 240 ml 240 ml Output Total 1040 ml 20 ml 1415 ml Balance -340 ml 48 ml 220 ml -1175 ml Intake Oral 650 ml 240 ml 240 ml IV Total 50 ml 48 ml Output Urine Total 1000 ml 1400 ml Drainage Total 40 ml 20 ml 15 ml Bladder Scan Volume Amount 388 ml 388 ml # Voids 1 # Bowel Movements 0 0 0 Result Diagram: 04/14/17 0608 04/14/17 0608 Imaging Last Impressions Lumbar Spine X-Ray 04/12/17 0000 Signed Impressions: Service Date/Time: Wednesday, April 12, 2017 13:50 - CONCLUSION: Localization device posteriorly at L5. Shailesh Jacobs MD Thoracic Spine MRI 04/10/17 0000 Signed Impressions: Service Date/Time: Monday, April 10, 2017 06:12 - CONCLUSION: 1. 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 Generally mild degenerative changes at other levels from C7/T1-T11/T12. 2. Large extruded disc fragment at T12/L1; MRI the lumbar spine follow. 3. Mild, reactive appearing endplate marrow edema , most conspicuous at T3/T4 and T9/T10. No fracture or subluxation seen of the thoracic spine. Nishant Unger MD Lumbar Spine MRI 04/10/17 0000 Signed Impressions: Service Date/Time: Monday, April 10, 2017 06:12 - CONCLUSION: 1. Scoliosis and multilevel degenerative changes of the lumbar spine as above. 2. There is a large left paracentral extruded disc fragment at T12/L1 causing spinal stenosis and eccentric conus compression. 3. 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 There is associated severe spinal stenosis, especially the right lateral recess. 4. Moderate to severe right and moderate left foraminal stenosis at L3/L4. There is moderate bilateral foraminal stenosis at L4/L5. Elsewhere, foraminal stenosis is generally in the mild or mild to moderate range. 5. No fracture or acute appearing malalignment demonstrated. Nishant Unger MD Procedures Decompressive laminectomy L4-5 with evacuation of lumbar hematoma Objective Remarks GENERAL: Elderly man who is well nourished, alert and oriented. SKIN: Warm and dry. HEAD: Normocephalic. EYES: No scleral icterus. No injection or drainage. NECK: Supple, trachea midline. No JVD or lymphadenopathy. CARDIOVASCULAR: irregular, approx 60 bpm, no murmur. RESPIRATORY: Breath sounds equal bilaterally. No wheezing GASTROINTESTINAL: Abdomen soft, non-tender, nondistended. MUSCULOSKELETAL: No cyanosis, or edema. BACK: Nontender without obvious deformity. No CVA tenderness. EXTREMITIES: some decreased sensation in bilateral feet, equal distribution Assessment and Plan Problem List: (1) Epidural mass ICD Codes: G96.19 - Other disorders of meninges, not elsewhere classified Status: Acute (2) Intractable back pain ICD Codes: M54.9 - Dorsalgia, unspecified Status: Acute (3) Atrial fibrillation ICD Codes: I48.91 - Atrial fibrillation Status: Chronic (4) Diabetes mellitus ICD Codes: E11.9 - Diabetes mellitus Status: Chronic (5) Hypertension ICD Codes: I10 - Hypertension Status: Chronic Assessment and Plan Epidural Mass - s/p decompressive laminectomy of L4-5 with evacuation of hematoma on 04/12/17 - Pain adequately controlled - Continue PT, ambulating with a walker Atrial Fibrillation - was in the ICU for A Fib with RVR, but was converted - Eliquis Type 2 Diabetes - adequate control - continue sliding scale insulin as needed h/o Dyslipidemia and CAD - continue home meds DVT Prophylaxis - On Eliquis for atrial fib Problem Qualifiers (1) Diabetes mellitus: Bhupinder Jain MD Apr 14, 2017 18:18
[2017-04-14] MEDS: PRAVASTATIN SOD 40 MG TAB PO SCH (19:56)
[2017-04-14] MEDS: PANTOPRAZOLE SOD 20 MG DELAYED RELEASE TAB PO SCH (19:56)
[2017-04-14] MEDS: MORPHINE SULFATE 2 MG/ML INJ IV PUSH PRN (19:57)
[2017-04-15] MEDS: oxyCODONE/ACETAMINOPHEN 10 MG/325 MG TAB PO PRN ×4 (02:08→21:35)
[2017-04-15] MEDS: BACLOFEN 20 MG TAB PO SCH ×3 (02:08→18:19)
[2017-04-15 04:23] VITALS: BP 135/67; PULSE 75; RESP 18; TEMP 98.6; O2SAT 95
[2017-04-15 08:00] VITALS: BP 121/61; PULSE 50; RESP 18; TEMP 97.3; O2SAT 99
[2017-04-15] MEDS: LISINOPRIL 20 MG TAB PO SCH (09:49)
[2017-04-15] MEDS: DOCUSATE SODIUM 50 MG/SENNA 8.6 MG TAB PO SCH ×2 (09:49→20:37)
[2017-04-15] MEDS: METOPROLOL TARTRATE 50 MG TAB PO SCH ×2 (09:49→20:37)
[2017-04-15] MEDS: HYDROCHLOROTHIAZIDE 25 MG TAB PO SCH (09:49)
[2017-04-15] MEDS: INSULIN ASPART SUPPLEMENTAL SCALE SQ SCH ×4 (09:50→21:56)
[2017-04-15] MEDS: SODIUM CHLORIDE 0.9% FLUSH 10 ML FLUSH IV FLUSH SCH ×3 (09:53→20:39)
--- NOTE | 2017-04-15 10:25 | HHI.NSPN ---
(Faustina Garza) Note Status Status: Progress Note (Faustina Garza) Interval History Interval History Mr. Castillo is 86-year-old male who presented to the ED with severe lower back pain. He reports severe lumbar pain and pain radiating down both lower extremities following L5 distribution with associated dysesthesias. 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 He reports difficulty urinating. He has difficulty walking due to the severity of his pain. An MRI of the Thoracic spine also shows disc extrusion at T12-L1. He denies lower extremity weakness, bowel incontinence, fevers or chills. He was on Eloquis for Atrial Fibrillation which has been held upon admission. 04/11: persistent severe lumbar pain and pain radiating down his lower extremities posterolaterally. he is requesting surgical intervention. 04/15: s/p L4-5 decompressive laminectomy with resection of synovial cyst and epidural hematoma 04/12/17. Mr. Castillo is doing well, he reports his previous radicular pain is improving, he complains of mild to moderate surgical pain which is controlled. He is pleased with his surgical outcome. (Faustina Garza) Labs, Micro, & Vital Signs Results Date Time Temp Pulse Resp B/P (MAP) Pulse Ox O2 Delivery O2 Flow Rate FiO2 04/15/17 08:00 97.3 50 18 121/61 (81) 99 04/15/17 04:23 98.6 75 18 135/67 (89) 95 04/15/17 03:08 18 04/14/17 23:40 99.5 77 18 113/54 (73) 96 04/14/17 20:02 18 04/14/17 19:25 98.3 63 18 150/64 (92) 95 04/14/17 16:00 98.0 58 18 134/68 (90) 95 04/14/17 12:05 95.9 54 18 104/46 (65) 99 04/14/17 11:03 97 21 Constitutional Vital Signs Date Time Temp Pulse Resp B/P (MAP) Pulse Ox O2 Delivery O2 Flow Rate FiO2 04/15/17 08:00 97.3 50 18 121/61 (81) 99 04/15/17 04:23 98.6 75 18 135/67 (89) 95 04/15/17 03:08 18 04/14/17 23:40 99.5 77 18 113/54 (73) 96 04/14/17 20:02 18 04/14/17 19:25 98.3 63 18 150/64 (92) 95 04/14/17 16:00 98.0 58 18 134/68 (90) 95 04/14/17 12:05 95.9 54 18 104/46 (65) 99 04/14/17 11:03 97 21 (Faustina Garza) Review of Systems Constitutional: DENIES: Fever Musculoskeletal: COMPLAINS OF: Back pain Neurologic: COMPLAINS OF: Paresthesias (Faustina Garza) Physical Exam Sitting up in chair with quick draw corset Awake, watching TV. Patient hard of hearing but conversing and follows commands. Motor: moves all major muscle groups of lower extremities well Wound is clean (Faustina Garza) Medications Current Medications Current Medications Medications (Trade) Dose Ordered Sig/Lennox Route PRN Reason Start Time Stop Time Status Last Admin Dose Admin Sodium Chloride (NS Flush) 2 ml UNSCH PRN IV FLUSH FLUSH AFTER USING IV ACCESS 04/10/17 09:00 Sodium Chloride (NS Flush) 2 ml BID IV FLUSH 04/10/17 09:00 04/15/17 09:54 Acetaminophen (Tylenol) 650 mg Q4H PRN PO Headache, fever 04/10/17 09:00 Ondansetron HCl (Zofran Inj) 4 mg Q6H PRN IVP NAUSEA OR VOMITING 04/10/17 09:00 04/11/17 21:36 Naloxone HCl (Narcan Inj) 0.4 mg UNSCH PRN IV PUSH SEE LABEL COMMENTS 04/10/17 09:00 Senna/Docusate Sodium (Lis-Colace) 1 tab BID PO 04/10/17 09:00 04/15/17 09:49 Dextrose (D50w (Vial) Inj) 50 ml UNSCH PRN IV PUSH HYPOGLYCEMIA-SEE COMMENTS 04/10/17 09:00 Glucagon (Glucagon Inj) 1 mg UNSCH PRN OTHER HYPOGLYCEMIA-SEE COMMENTS 04/10/17 09:00 Insulin Aspart (NovoLOG SUPPLEMENTAL SCALE) 1 ACHS SLIDING SCALE SQ 04/10/17 12:00 04/15/17 09:50 Metoprolol Tartrate (Lopressor) 50 mg BID PO 04/10/17 09:15 04/15/17 09:49 Lisinopril (Prinivil) 20 mg DAILY PO 04/10/17 09:30 04/15/17 09:49 Hydrochlorothiazide (Hydrodiuril) 25 mg DAILY PO 04/10/17 09:30 04/15/17 09:49 Pantoprazole Sodium (Protonix) 20 mg HS PO 04/10/17 21:00 04/14/17 19:56 Pravastatin Sodium (Pravachol) 40 mg HS PO 04/10/17 21:00 04/14/17 19:56 Baclofen (Lioresal) 20 mg Q8H PO 04/11/17 09:00 04/15/17 09:49 Magnesium Hydroxide (Milk Of Magnesia Liq) 30 ml Q12H PRN PO Mild constipation 04/11/17 10:00 Sennosides (Senokot) 17.2 mg Q12H PRN PO Moderate constipation 04/11/17 10:00 Bisacodyl (Dulcolax Supp) 10 mg DAILY PRN RECTAL SEVERE CONSITIPATION 04/11/17 10:00 Lactulose (Lactulose Liq) 30 ml DAILY PRN PO SEVERE CONSITIPATION 04/11/17 10:00 Albuterol/ Ipratropium (Duoneb Neb) 1 ampule Q4HR NEB PRN NEB SOB/WHEEZING 04/11/17 22:15 04/12/17 05:00 Morphine Sulfate (Morphine Inj) 2 mg Q2HR PRN IV PUSH BREAKTHROUGH PAIN 04/12/17 14:45 04/14/17 19:57 Sodium Chloride 1,000 ml @ 100 mls/hr Q10H IV 04/12/17 14:30 04/12/17 17:53 Oxycodone/ Acetaminophen (Percocet 10-325 Mg) 1 tab Q4H PRN PO PAIN SCALE 1 TO 5 04/12/17 14:30 04/15/17 09:50 Oxycodone/ Acetaminophen (Percocet 10-325 Mg) 2 tab Q4H PRN PO PAIN SCALE 6 TO 10 04/12/17 14:30 (Faustina Garza) Medical Decision Making MDM Remarks 86 y/o male with intractable lumbar and L5 radiculopathy, MRI shows an 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 I reviewed and agree with the findings presented. I attest that I had a [id number] encounter with the patient on the same day, and personally performed and documented my assessment and findings in the medical record. (Carlos Chamberlain MD) Faustina Garza Apr 15, 2017 10:25 Carlos Chamberlain MD Apr 15, 2017 15:01
[2017-04-15 12:00] VITALS: BP 115/59; PULSE 57; RESP 18; TEMP 97; O2SAT 93
[2017-04-15] MEDS: SODIUM CHLOR 0.9% 1000 ML INJ 1,000 ML IV SCH ×2 (12:30→22:30)
--- NOTE | 2017-04-15 14:19 | HHI.PR ---
Subjective Remarks Mr. Castillo is in good spirits today, he is up to a chair and happy to be vertical. He admits he feels somewhat unbalanced and is working with PT on his balance. Objective Vital Signs Date Time Temp Pulse Resp B/P (MAP) Pulse Ox O2 Delivery O2 Flow Rate FiO2 04/15/17 12:00 97.0 57 18 115/59 (77) 93 04/15/17 08:00 97.3 50 18 121/61 (81) 99 04/15/17 04:23 98.6 75 18 135/67 (89) 95 04/15/17 03:08 18 04/14/17 23:40 99.5 77 18 113/54 (73) 96 04/14/17 20:02 18 04/14/17 19:25 98.3 63 18 150/64 (92) 95 04/14/17 16:00 98.0 58 18 134/68 (90) 95 I/O 04/14/17 04/14/17 04/14/17 04/15/17 04/15/17 04/15/17 07:00 15:00 23:00 07:00 15:00 23:00 Intake Total 240 ml 360 ml 360 ml Output Total 1415 ml 4575 ml 1350 ml Balance -1175 ml -4215 ml -990 ml Intake Oral 240 ml 360 ml 360 ml Output Urine Total 1400 ml 4575 ml 1350 ml Drainage Total 15 ml Bladder Scan Volume Amount 388 ml 388 ml # Bowel Movements 0 0 0 Result Diagram: 04/14/17 0608 04/14/17 0608 Procedures Decompressive laminectomy L4-5 with evacuation of lumbar hematoma Objective Remarks GENERAL: Elderly man who is well nourished, alert and oriented. SKIN: Warm and dry. HEAD: Normocephalic. EYES: No scleral icterus. No injection or drainage. NECK: Supple, trachea midline. No JVD or lymphadenopathy. CARDIOVASCULAR: irregular, approx 60 bpm, no murmur. RESPIRATORY: Breath sounds equal bilaterally. No wheezing GASTROINTESTINAL: Abdomen soft, non-tender, nondistended. MUSCULOSKELETAL: No cyanosis, or edema. BACK: Nontender without obvious deformity. No CVA tenderness. EXTREMITIES: some decreased sensation in bilateral feet, equal distribution Assessment and Plan Problem List: (1) Epidural mass ICD Codes: G96.19 - Other disorders of meninges, not elsewhere classified Status: Acute (2) Intractable back pain ICD Codes: M54.9 - Dorsalgia, unspecified Status: Acute (3) Atrial fibrillation ICD Codes: I48.91 - Atrial fibrillation Status: Chronic (4) Diabetes mellitus ICD Codes: E11.9 - Diabetes mellitus Status: Chronic (5) Hypertension ICD Codes: I10 - Hypertension Status: Chronic Assessment and Plan Epidural Mass - s/p decompressive laminectomy of L4-5 with evacuation of hematoma on 04/12/17 - Pain adequately controlled, up in chair today - Continue PT, ambulating with a walker Atrial Fibrillation - was in the ICU for A Fib with RVR, but was converted - Continue Eliquis Type 2 Diabetes - adequate control - continue sliding scale insulin as needed h/o Dyslipidemia and CAD - continue home meds DVT Prophylaxis - On Eliquis for atrial fib Problem Qualifiers (1) Diabetes mellitus: Bhupinder Jain MD Apr 15, 2017 14:19
[2017-04-15 16:00] VITALS: BP 115/55; PULSE 62; RESP 18; TEMP 97.2; O2SAT 97
[2017-04-15] MEDS: PRAVASTATIN SOD 40 MG TAB PO SCH (20:37)
[2017-04-15] MEDS: PANTOPRAZOLE SOD 20 MG DELAYED RELEASE TAB PO SCH (20:37)
[2017-04-15 21:58] VITALS: BP 137/73; PULSE 73; RESP 16; TEMP 98.3; O2SAT 93
[2017-04-16 01:00] VITALS: BP 131/75; PULSE 62; RESP 17; TEMP 97.6; O2SAT 99
[2017-04-16] MEDS: BACLOFEN 20 MG TAB PO SCH ×3 (01:00→18:15)
[2017-04-16 08:00] VITALS: BP 145/63; PULSE 63; RESP 16; TEMP 96.8; O2SAT 93
[2017-04-16] MEDS: INSULIN ASPART SUPPLEMENTAL SCALE SQ SCH ×4 (08:00→20:48)
[2017-04-16] MEDS: SODIUM CHLORIDE 0.9% FLUSH 10 ML FLUSH IV FLUSH SCH ×2 (09:00→20:48)
[2017-04-16] MEDS: DOCUSATE SODIUM 50 MG/SENNA 8.6 MG TAB PO SCH ×2 (09:16→20:48)
[2017-04-16] MEDS: HYDROCHLOROTHIAZIDE 25 MG TAB PO SCH (09:16)
[2017-04-16] MEDS: LISINOPRIL 20 MG TAB PO SCH (09:16)
[2017-04-16] MEDS: METOPROLOL TARTRATE 50 MG TAB PO SCH ×2 (09:17→20:48)
[2017-04-16] MEDS: oxyCODONE/ACETAMINOPHEN 10 MG/325 MG TAB PO PRN (09:17)
[2017-04-16] MEDS: SODIUM CHLOR 0.9% 1000 ML INJ 1,000 ML IV SCH ×2 (11:39→18:19)
--- NOTE | 2017-04-16 11:51 | HHI.NSPN ---
(Faustina Garza) Note Status Status: Progress Note (Faustina Garza) Interval History Interval History Mr. Castillo is 86-year-old male who presented to the ED with severe lower back pain. He reports severe lumbar pain and pain radiating down both lower extremities following L5 distribution with associated dysesthesias. 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 He reports difficulty urinating. He has difficulty walking due to the severity of his pain. An MRI of the Thoracic spine also shows disc extrusion at T12-L1. He denies lower extremity weakness, bowel incontinence, fevers or chills. He was on Eloquis for Atrial Fibrillation which has been held upon admission. 04/11: persistent severe lumbar pain and pain radiating down his lower extremities posterolaterally. he is requesting surgical intervention. 04/15: s/p L4-5 decompressive laminectomy with resection of synovial cyst and epidural hematoma 04/12/17. Mr. Castillo is doing well, he reports his previous radicular pain is improving, he complains of mild to moderate surgical pain which is controlled. He is pleased with his surgical outcome. 04/16: no new complaints, dc planning to [facility] today (Faustina Garza) Labs, Micro, & Vital Signs Results Date Time Temp Pulse Resp B/P (MAP) Pulse Ox O2 Delivery O2 Flow Rate FiO2 04/16/17 01:00 97.6 62 17 131/75 (93) 99 04/15/17 21:58 98.3 73 16 137/73 (94) 93 04/15/17 16:00 97.2 62 18 115/55 (75) 97 04/15/17 12:00 97.0 57 18 115/59 (77) 93 Constitutional Vital Signs Date Time Temp Pulse Resp B/P (MAP) Pulse Ox O2 Delivery O2 Flow Rate FiO2 04/16/17 01:00 97.6 62 17 131/75 (93) 99 04/15/17 21:58 98.3 73 16 137/73 (94) 93 04/15/17 16:00 97.2 62 18 115/55 (75) 97 04/15/17 12:00 97.0 57 18 115/59 (77) 93 (Faustina Garza) Physical Exam Awake, conversing well. Resting comfortably. Patient hard of hearing but conversing and follows commands. Motor: moves all major muscle groups of lower extremities well Wound with clean, dry dressing (Faustina Garza) Medications Current Medications Current Medications Medications (Trade) Dose Ordered Sig/Lennox Route PRN Reason Start Time Stop Time Status Last Admin Dose Admin Sodium Chloride (NS Flush) 2 ml UNSCH PRN IV FLUSH FLUSH AFTER USING IV ACCESS 04/10/17 09:00 Sodium Chloride (NS Flush) 2 ml BID IV FLUSH 04/10/17 09:00 04/15/17 20:39 Acetaminophen (Tylenol) 650 mg Q4H PRN PO Headache, fever 04/10/17 09:00 Ondansetron HCl (Zofran Inj) 4 mg Q6H PRN IVP NAUSEA OR VOMITING 04/10/17 09:00 04/11/17 21:36 Naloxone HCl (Narcan Inj) 0.4 mg UNSCH PRN IV PUSH SEE LABEL COMMENTS 04/10/17 09:00 Senna/Docusate Sodium (Lis-Colace) 1 tab BID PO 04/10/17 09:00 04/16/17 09:16 Dextrose (D50w (Vial) Inj) 50 ml UNSCH PRN IV PUSH HYPOGLYCEMIA-SEE COMMENTS 04/10/17 09:00 Glucagon (Glucagon Inj) 1 mg UNSCH PRN OTHER HYPOGLYCEMIA-SEE COMMENTS 04/10/17 09:00 Insulin Aspart (NovoLOG SUPPLEMENTAL SCALE) 1 ACHS SLIDING SCALE SQ 04/10/17 12:00 04/15/17 21:56 Metoprolol Tartrate (Lopressor) 50 mg BID PO 04/10/17 09:15 04/16/17 09:17 Lisinopril (Prinivil) 20 mg DAILY PO 04/10/17 09:30 04/16/17 09:16 Hydrochlorothiazide (Hydrodiuril) 25 mg DAILY PO 04/10/17 09:30 04/16/17 09:16 Pantoprazole Sodium (Protonix) 20 mg HS PO 04/10/17 21:00 04/15/17 20:37 Pravastatin Sodium (Pravachol) 40 mg HS PO 04/10/17 21:00 04/15/17 20:37 Baclofen (Lioresal) 20 mg Q8H PO 04/11/17 09:00 04/16/17 09:17 Magnesium Hydroxide (Milk Of Magnesia Liq) 30 ml Q12H PRN PO Mild constipation 04/11/17 10:00 04/16/17 09:16 Sennosides (Senokot) 17.2 mg Q12H PRN PO Moderate constipation 04/11/17 10:00 Bisacodyl (Dulcolax Supp) 10 mg DAILY PRN RECTAL SEVERE CONSITIPATION 04/11/17 10:00 Lactulose (Lactulose Liq) 30 ml DAILY PRN PO SEVERE CONSITIPATION 04/11/17 10:00 Albuterol/ Ipratropium (Duoneb Neb) 1 ampule Q4HR NEB PRN NEB SOB/WHEEZING 04/11/17 22:15 04/12/17 05:00 Morphine Sulfate (Morphine Inj) 2 mg Q2HR PRN IV PUSH BREAKTHROUGH PAIN 04/12/17 14:45 04/14/17 19:57 Sodium Chloride 1,000 ml @ 100 mls/hr Q10H IV 04/12/17 14:30 04/16/17 11:39 Oxycodone/ Acetaminophen (Percocet 10-325 Mg) 1 tab Q4H PRN PO PAIN SCALE 1 TO 5 04/12/17 14:30 04/16/17 09:17 Oxycodone/ Acetaminophen (Percocet 10-325 Mg) 2 tab Q4H PRN PO PAIN SCALE 6 TO 10 04/12/17 14:30 (Faustina Garza) Medical Decision Making MDM Remarks 86 y/o male with intractable lumbar and L5 radiculopathy, MRI shows an 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 I reviewed and agree with the findings presented. I attest that I had a [id number] encounter with the patient on the same day, and personally performed and documented my assessment and findings in the medical record. (Carlos Chamberlain MD) Faustina Garza Apr 16, 2017 11:51 Carlos Chamberlain MD Apr 16, 2017 13:57
[2017-04-16 12:00] VITALS: BP 134/75; PULSE 123; RESP 16; TEMP 98; O2SAT 92
--- NOTE | 2017-04-16 13:09 | MB ---
cc: PATITO LOVE M.D. DATE OF CONSULTATION 04/16/2017 DATE OF 1930 AGE [age] years old. REASON FOR CONSULTATION Diplopia. HISTORY OF PRESENT ILLNESS A pleasant 86-year-old man admitted to the hospital on 04/10/2017 for an epidural mass in the lumbar spine, spinal stenosis, back pain. He has a known history of atrial fibrillation, chronic low back pain, hyperlipidemia, heart disease with stents. He came in actually with severe low back pain radiating down his right leg. He was found to have a right facet synovial cyst, discharged on some pain meds. It became worse with in ability to urinate as well as pain radiating down both legs. He is status post decompressive laminectomy at L4-5 with evacuation of hematoma on 04/12/2017. Apparently he had developed A-fib with RVR and was converted and placed on Eliquis. He is now back on the sixth floor, has undergone physical therapy yesterday. Apparently developed some time yesterday double vision and Neurology consulted. MRI brain is pending. He wears trifocals and states without the glasses he sees double with either eye closed, not side to side but up and down. When he puts his glasses on it is more noticeable for him he states in his left eye. He denies any eye pain or headache. He denies any weaknesses in his arms or legs or trouble speaking. PAST MEDICAL HISTORY He stated past medical history of - 1. A-fib on Eliquis. 2. Arthritis. 3. Hyperlipidemia. 4. Heart disease. 5. Type 2 diabetes. 6. Reflux. 7. Hypertension. 8. Cardiac stents x2. PAST SURGICAL HISTORY 1. Right eyelid surgery. 2. Cataracts in the past. His eye doctor is Dr. Almeida. 3. He has had right knee replacement. 4. Right rotator cuff surgery. 5. Hernia repair. 6. Tonsillectomy. CURRENT MEDICINES 1. Morphine p.r.n. 2. Percocet p.r.n. 3. Albuterol p.r.n. 4. Pantoprazole. 5. Pravastatin. 6. Lisinopril. 7. Hydrochlorothiazide. 8. Metoprolol. 9. Baclofen. He is not on any anticoagulation. PHYSICAL EXAMINATION VITALS: Temperature is 97.6, pulse 62, respiratory rate 17, blood pressure 131/75. NECK: Supple. No appreciable bruits. HEART: Regular. NEUROLOGICAL EXAMINATION He is awake, alert. He is fluent. His pupils are reactive. His face is symmetrical. Tongue is midline. There is no ptosis. No proptosis. Extraocular muscles seem to be intact. He has conjugate gaze. He does exhibit diplopia with either eye closed up and down when he looks at his also but when he puts his glasses on it is better on the right and worse on the left eye. Motor-moj[place] I do not appreciate any weakness. No drift or leg lag. DTRs are 1+. Sensory intact. His toes withdraw. Gait is withheld at this time. LABORATORY DATA Labs are reviewed. Hemoglobin is 11, platelets 144,000. Coag panel - PT 11.7. Chemistries - Sodium is 130, BUN of 30, glucose 169, calcium 8.3. Urine is unremarkable. IMPRESSION Diplopia. Certainly with his history concerning would be an infarct. However, it is somewhat confusing, improves with his glasses. RECOMMENDATIONS 1. We will go ahead and get an MRI of the brain just to look for any stroke. 2. Why he is not on his anticoagulation is not clear from my perspective; it should be restarted. He was on it at home as well. 3. Given his history of A-fib he is at risk for embolic phenomenon. We will get him out of bed with physical therapy. Continue current care as he has been doing. 4. Depending on MRI findings, further recommendations will be made. MD GIL Mason/HEAVEN /11:24 AM /12:48 PM
--- NOTE | 2017-04-16 14:48 | HHI.PR ---
Subjective Remarks The plan was to send Mr. Castillo to rehab today, but he told me this morning that he has been having double vision since yesterday afternoon. He otherwise feels well and denies any weakness or speech changes. Objective Vital Signs Date Time Temp Pulse Resp B/P (MAP) Pulse Ox O2 Delivery O2 Flow Rate FiO2 04/16/17 12:00 99 Room Air 04/16/17 08:00 96.8 63 16 145/63 (90) 93 04/16/17 01:00 97.6 62 17 131/75 (93) 99 04/15/17 21:58 98.3 73 16 137/73 (94) 93 04/15/17 16:00 97.2 62 18 115/55 (75) 97 I/O 04/15/17 04/15/17 04/15/17 04/16/17 04/16/17 04/16/17 07:00 15:00 23:00 07:00 15:00 23:00 Intake Total 360 ml 600 ml 600 ml 240 ml Output Total 1350 ml 650 ml 376 ml 450 ml Balance -990 ml -50 ml 224 ml -210 ml Intake Oral 360 ml 600 ml 600 ml 240 ml Output Urine Total 1350 ml 650 ml 375 ml 450 ml Stool Total 1 ml # Bowel Movements 0 0 0 0 Result Diagram: 04/14/17 0608 04/14/17 0608 Procedures Decompressive laminectomy L4-5 with evacuation of lumbar hematoma Objective Remarks GENERAL: Elderly man who is well nourished, alert and oriented. SKIN: Warm and dry. HEAD: Normocephalic. EYES: No scleral icterus. No injection or drainage. NECK: Supple, trachea midline. No JVD or lymphadenopathy. CARDIOVASCULAR: irregular, approx 60 bpm, no murmur. RESPIRATORY: Breath sounds equal bilaterally. No wheezing GASTROINTESTINAL: Abdomen soft, non-tender, nondistended. MUSCULOSKELETAL: No cyanosis, or edema. BACK: Nontender without obvious deformity. No CVA tenderness. EXTREMITIES: some decreased sensation in bilateral feet, equal distribution Neuro: CN 2-12 intact on exam, no focal weakness, no slurring of speech. Reports diplopia. 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 - MRI Brain today to rule out small stroke. Epidural Mass - s/p decompressive laminectomy of L4-5 with evacuation of hematoma on 04/12/17 - Pain adequately controlled, up in chair today - Continue PT, ambulating with a walker, ready for rehab Atrial Fibrillation - was in the ICU for A Fib with RVR, but was converted - Continue Eliquis Type 2 Diabetes - adequate control - continue sliding scale insulin as needed h/o Dyslipidemia and CAD - continue home meds DVT Prophylaxis - On Eliquis for atrial fib Problem Qualifiers (1) Diabetes mellitus: Bhupinder Jain MD Apr 16, 2017 14:48
[2017-04-16 16:00] VITALS: BP 155/84; PULSE 66; RESP 16; TEMP 98.9; O2SAT 97
--- NOTE | 2017-04-16 16:25 | RADRPT ---
EXAM DATE/TIME: 04/16/2017 15:55 [facility] COMPARISON: No previous studies available for comparison. INDICATIONS : CVA. MEDICAL HISTORY : Hypertension. Diabetes mellitus type 2. SURGICAL HISTORY : Total knee replacement, right. Inguinal hernia repair. ENCOUNTER: Subsequent ACUITY: 1 day PAIN SCORE: 3/10 LOCATION: cranial TECHNIQUE: Multiplanar, multisequence MRI of the brain was performed without contrast. FINDINGS: CEREBRUM: The ventricles are normal for age. No evidence of midline shift, mass lesion, hemorrhage or acute in farction. No extraaxial fluid collections are seen. The pituitary gland and suprasellar cistern are normal in configuration. WHITE MATTER: Periventricular areas of increased T2 flair signal intensity are characteristic of moderately severe small vessel ischemic demyelination in POSTERIOR FOSSA: The cerebellum and brainstem are intact. The 4th ventricle is midline. The cerebellopontine angle is unremarkable. The cerebellar tonsils are normal in position. DIFFUSION IMAGING: Punctate areas of true diffusion restriction are seen at the left temporal occipital watershed area e xtending to the cortex of the occiput. This would explain the patient's reported visual changes with a possible partial right visual field deficit. EXTRACRANIAL: The visualized portions of the orbits and paranasal sinuses are unremarkable. CONCLUSION: 1. Diffusion restriction in the left temporal occipital watershed area with extension to the cortex. Findings are characteristic of a branch vessel left DEICER KIT ASSEMBLER infarct. 2. 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 Ryan Vega MD on April 16, 2017 at 16:17 Board Certified Radiologist. This report was verified electronically.
[2017-04-16] MEDS ORDERED: ENOXAPARIN SODIUM 40 MG/0.4 ML SYRINGE SQ SCH (20:00)
[2017-04-16 20:35] VITALS: BP 153/71; PULSE 58; RESP 16; TEMP 99.4; O2SAT 98
[2017-04-16] MEDS: PANTOPRAZOLE SOD 20 MG DELAYED RELEASE TAB PO SCH (20:47)
[2017-04-16] MEDS: PRAVASTATIN SOD 40 MG TAB PO SCH (20:48)
[2017-04-16 23:55] VITALS: BP 134/77; PULSE 59; RESP 17; TEMP 98.3; O2SAT 96
[2017-04-17] MEDS: BACLOFEN 20 MG TAB PO SCH ×3 (02:03→18:21)
[2017-04-17] MEDS: SODIUM CHLOR 0.9% 1000 ML INJ 1,000 ML IV SCH ×2 (04:30→14:30)
--- NOTE | 2017-04-17 07:59 | HHI.PR ---
Subjective Remarks Still with blurry vision. No new motor deficit. In the chair eating breakfast, says it took a long time and with difficulty to transfer to the chair. No overt bleeding. Eating well no n/v/d/c. Says she wants the weinstein in as he doesn't feel well enough to use urinal. No fever or chills.No chest pain or sob. Back pain is fairly controlled by meds. Objective Vitals Vital Signs Date Time Temp Pulse Resp B/P (MAP) Pulse Ox O2 Delivery O2 Flow Rate FiO2 04/16/17 23:55 98.3 59 17 134/77 (96) 96 04/16/17 20:35 99.4 58 16 153/71 (98) 98 04/16/17 16:00 98.9 66 16 155/84 (107) 97 04/16/17 12:00 99 Room Air 04/16/17 12:00 98.0 123 16 134/75 (94) 92 04/16/17 08:00 96.8 63 16 145/63 (90) 93 I/O 04/16/17 04/16/17 04/16/17 04/17/17 04/17/17 04/17/17 07:00 15:00 23:00 07:00 15:00 23:00 Intake Total 240 ml 240 ml 240 ml Output Total 450 ml 1350 ml 750 ml Balance -210 ml -1110 ml -510 ml Intake Oral 240 ml 240 ml 240 ml Output Urine Total 450 ml 1350 ml 750 ml # Bowel Movements 0 0 0 Result Diagram: 04/14/17 0608 04/14/17 0608 Imaging Last Impressions Brain MRI 04/16/17 0000 Signed Impressions: Service Date/Time: Sunday, April 16, 2017 15:55 - CONCLUSION: 1. Diffusion restriction in the left temporal occipital watershed area with extension to the cortex. Findings are characteristic of a branch vessel left DOVETAILER infarct. 2. 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 Ryan Vega MD Lumbar Spine X-Ray 04/12/17 0000 Signed Impressions: Service Date/Time: Wednesday, April 12, 2017 13:50 - CONCLUSION: Localization device posteriorly at L5. Shailesh Jacobs MD Thoracic Spine MRI 04/10/17 0000 Signed Impressions: Service Date/Time: Monday, April 10, 2017 06:12 - CONCLUSION: 1. 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 Generally mild degenerative changes at other levels from C7/T1-T11/T12. 2. Large extruded disc fragment at T12/L1; MRI the lumbar spine follow. 3. Mild, reactive appearing endplate marrow edema , most conspicuous at T3/T4 and T9/T10. No fracture or subluxation seen of the thoracic spine. Nishant Unger MD Lumbar Spine MRI 04/10/17 0000 Signed Impressions: Service Date/Time: Monday, April 10, 2017 06:12 - CONCLUSION: 1. Scoliosis and multilevel degenerative changes of the lumbar spine as above. 2. There is a large left paracentral extruded disc fragment at T12/L1 causing spinal stenosis and eccentric conus compression. 3. 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 There is associated severe spinal stenosis, especially the right lateral recess. 4. Moderate to severe right and moderate left foraminal stenosis at L3/L4. There is moderate bilateral foraminal stenosis at L4/L5. Elsewhere, foraminal stenosis is generally in the mild or mild to moderate range. 5. No fracture or acute appearing malalignment demonstrated. Nishant Unger MD Objective Remarks GENERAL: Elderly man who is well nourished, alert and oriented. CARDIOVASCULAR: irregular, approx 60 bpm, no murmur. RESPIRATORY: Breath sounds equal bilaterally. No wheezing GASTROINTESTINAL: Abdomen soft, non-tender, nondistended. MUSCULOSKELETAL: No cyanosis, or edema. BACK: Nontender without obvious deformity. No CVA tenderness. EXTREMITIES: some decreased sensation in bilateral feet, equal distribution Neuro: Alert and oriented. CN grossly 2-12normal, diplopia, no focal weakness, no slurring of speech. Procedures None. A/P Problem List: (1) Intractable back pain ICD Code: M54.9 - Dorsalgia, unspecified Status: Acute (2) Epidural mass ICD Code: G96.19 - Other disorders of meninges, not elsewhere classified Status: Acute (3) Spinal stenosis of lumbar region ICD Code: M48.061 - Spinal stenosis, lumbar region without neurogenic claudication Status: Acute Assessment and Plan Diplopia - New onset since yesterday afternoon, but he did not tell staff. - MRI results reviewed showing new left DOVETAILER infarct in the area of the brain that would affect eyesight, which explains diplopia. Anticoagulation was discussed with family the pros and cons of restarting anticoagulants following evacuation of a lumbar cyst and hematoma. Best decision at this point seems to be to start anticoagulant, and keep patient in the hospital 1-2 more days to monitor for any evidence of bleeding into lumbar spine. Neurology consulted and following Epidural Mass - s/p decompressive laminectomy of L4-5 with evacuation of hematoma on 04/12/17 - Pain adequately controlled, up in chair today - Continue PT, ambulating with a walker, ready for rehab Atrial Fibrillation - was in the ICU for A Fib with RVR, but was converted - Continue Eliquis Type 2 Diabetes - adequate control - continue sliding scale insulin as needed h/o Dyslipidemia and CAD - continue home meds DVT Prophylaxis - On Eliquis for atrial fib DC plan DC in 1-2 day if no hematoma occurs after staring anticoagulation. DC when cleared by consultants, neuro Problem Qualifiers (1) Spinal stenosis of lumbar region: Qualified Codes: M48.062 - Spinal stenosis, lumbar region with neurogenic claudication Janey Valiente MD Apr 17, 2017 07:59
[2017-04-17 08:00] VITALS: BP 142/76; PULSE 84; RESP 17; TEMP 96.4; O2SAT 92
[2017-04-17] MEDS: INSULIN ASPART SUPPLEMENTAL SCALE SQ SCH ×4 (08:00→20:58)
[2017-04-17] MEDS: oxyCODONE/ACETAMINOPHEN 10 MG/325 MG TAB PO PRN ×2 (08:23→20:58)
[2017-04-17] MEDS: METOPROLOL TARTRATE 50 MG TAB PO SCH ×2 (08:23→20:57)
[2017-04-17] MEDS: DOCUSATE SODIUM 50 MG/SENNA 8.6 MG TAB PO SCH ×2 (08:23→20:57)
[2017-04-17] MEDS: LISINOPRIL 20 MG TAB PO SCH (08:23)
[2017-04-17] MEDS: SODIUM CHLORIDE 0.9% FLUSH 10 ML FLUSH IV FLUSH SCH ×2 (08:24→20:58)
[2017-04-17] MEDS: HYDROCHLOROTHIAZIDE 25 MG TAB PO SCH (08:24)
[2017-04-17] MEDS ORDERED: PERI PO (10:35)
[2017-04-17] MEDS ORDERED: OXYC1TAB36 PO (10:35)
[2017-04-17 12:00] VITALS: BP 120/65; PULSE 96; RESP 16; TEMP 96.6; O2SAT 97
--- NOTE | 2017-04-17 13:18 | HHI.PR ---
Review/Management Diagnosis Acute ischemic left BRASS RECLAIMER territory infarction H/o A fib Plan Neuro checks Q4h - MRA neck - Eliquis 5mg bid - PT/ OT, recommendations are appreciated - DVT prophylaxis - GI prophylaxis Diagnosis/Plan: Subjective Subjective Comments No new complaints, denies diplopia, headache Sits on a chair No family at bed side MRI brain revealed left BRASS RECLAIMER watershed infarction Active Medications Current Medications Medications (Trade) Dose Ordered Sig/Lennox Route Start Time Stop Time Status Last Admin (NS Flush) 2 ml UNSCH PRN IV FLUSH 04/10/17 09:00 (NS Flush) 2 ml BID IV FLUSH 04/10/17 09:00 04/17/17 08:24 (Tylenol) 650 mg Q4H PRN PO 04/10/17 09:00 (Zofran Inj) 4 mg Q6H PRN IVP 04/10/17 09:00 04/11/17 21:36 (Narcan Inj) 0.4 mg UNSCH PRN IV PUSH 04/10/17 09:00 (Lis-Colace) 1 tab BID PO 04/10/17 09:00 04/17/17 08:23 (D50w (Vial) Inj) 50 ml UNSCH PRN IV PUSH 04/10/17 09:00 (Glucagon Inj) 1 mg UNSCH PRN OTHER 04/10/17 09:00 (NovoLOG SUPPLEMENTAL SCALE) 1 ACHS SLIDING SCALE SQ 04/10/17 12:00 04/16/17 20:48 (Lopressor) 50 mg BID PO 04/10/17 09:15 04/17/17 08:23 (Prinivil) 20 mg DAILY PO 04/10/17 09:30 04/17/17 08:23 (Hydrodiuril) 25 mg DAILY PO 04/10/17 09:30 04/17/17 08:24 (Protonix) 20 mg HS PO 04/10/17 21:00 04/16/17 20:47 (Pravachol) 40 mg HS PO 04/10/17 21:00 04/16/17 20:48 (Lioresal) 20 mg Q8H PO 04/11/17 09:00 04/17/17 08:23 (Milk Of Magnesia Liq) 30 ml Q12H PRN PO 04/11/17 10:00 04/16/17 09:16 (Senokot) 17.2 mg Q12H PRN PO 04/11/17 10:00 (Dulcolax Supp) 10 mg DAILY PRN RECTAL 04/11/17 10:00 (Lactulose Liq) 30 ml DAILY PRN PO 04/11/17 10:00 (Duoneb Neb) 1 ampule Q4HR NEB PRN NEB 04/11/17 22:15 04/12/17 05:00 (Morphine Inj) 2 mg Q2HR PRN IV PUSH 04/12/17 14:45 04/14/17 19:57 Sodium Chloride 1,000 ml @ 100 mls/hr Q10H IV 04/12/17 14:30 04/16/17 11:39 (Percocet 10-325 Mg) 1 tab Q4H PRN PO 04/12/17 14:30 04/16/17 09:17 (Percocet 10-325 Mg) 2 tab Q4H PRN PO 04/12/17 14:30 04/17/17 08:23 (Eliquis) 5 mg BID PO 04/17/17 21:00 UNV Allergies Allergies Coded Allergies rivaroxaban (Verified Allergy, Severe, Bleeding, 04/12/17) grass pollen (Unverified Allergy, Mild, nasal congestion, 04/12/17) Review of Systems All other ROS: ROS reviewed as documented in chart Exam I&O / VS Vital Signs Date Time Temp Pulse Resp B/P (MAP) Pulse Ox O2 Delivery O2 Flow Rate FiO2 04/17/17 09:23 16 04/17/17 08:00 96.4 84 17 142/76 (98) 92 04/16/17 23:55 98.3 59 17 134/77 (96) 96 04/16/17 20:35 99.4 58 16 153/71 (98) 98 04/16/17 16:00 98.9 66 16 155/84 (107) 97 General: Alert and Oriented, No acute distress Eye: PERRL, EOMI, Normal conjuctiva Respiratory: Lungs CTA, Non-labored respirations Cardiology: Normal rate, No murmur Neurologic: Alert, Oriented, Normal motor, No focal defects, CN II-XII intact Objective Radiology Results Last 72 hours Impressions Neck Magnetic Resonance Angiography 04/17/17 0000 Signed Impressions: Service Date/Time: Monday, April 17, 2017 14:57 - CONCLUSION: Negative for hemodynamically significant stenosis Quinton Gonsalez MD FACR Brain MRI 04/16/17 0000 Signed Impressions: Service Date/Time: Sunday, April 16, 2017 15:55 - CONCLUSION: 1. Diffusion restriction in the left temporal occipital watershed area with extension to the cortex. Findings are characteristic of a branch vessel left BRASS RECLAIMER infarct. 2. 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 Ryan Vega MD OssiSheri MD Apr 17, 2017 13:18
[2017-04-17] MEDS ORDERED: GADODIAMIDE PF 287 MG/ML 20 ML VIAL (for RAD MRI) IVCONTRAST ONE (15:00)
[2017-04-17 16:00] VITALS: BP 143/65; PULSE 92; RESP 16; TEMP 97; O2SAT 96
--- NOTE | 2017-04-17 16:24 | RADRPT ---
EXAM DATE/TIME: 04/17/2017 14:57 [facility] COMPARISON: No previous studies available for comparison. INDICATIONS : Stroke. CONTRAST: 20 cc Omniscan (gadodiamide) IV MEDICAL HISTORY : Hypertension. Diabetes mellitus type 2. Afib SURGICAL HISTORY : Total knee replacement, right. Inguinal hernia repair. Rotator cuff. ENCOUNTER: Initial ACUITY: 2 day PAIN SCORE: 0/10 LOCATION: neck Percent stenosis is calculated using the diameter of the stenotic region over the diameter of the nor mal distal internal carotid artery. TECHNIQUE: Bolus infused MRA of the extracranial circulation was performed using a neurovascular coil. Post pro cessing was performed including rotating subvolume maximum intensity projections of each carotid santos ry, rotating full volume maximum intensity projections of both carotid arteries, sagittal and coronal sliding thin slab reformations of each carotid artery, and left oblique sliding thin slab reformatio n through the aortic arch to include the origin of the arch branch vessels. FINDINGS: AORTIC ARCH: There is a three vessel origin of the great vessels from the aorta. No evidence of ostial narrowing. RIGHT CAROTID: The common carotid artery is intact. The carotid bulb has a normal configuration without ulceration or narrowing. The internal carotid artery lumen is smooth without stenosis. The external carotid ar santino is intact. LEFT CAROTID: The common carotid artery is intact. The carotid bulb has a normal configuration without ulceration or narrowing. The internal carotid artery lumen is smooth without stenosis. The external carotid ar santino is intact. VERTEBRALS: The vertebral arteries have a symmetric diameter. No stenotic lesions are seen. CONCLUSION: Negative for hemodynamically significant stenosis Quinton Gonsalez MD FACR on April 17, 2017 at 16:21 Board Certified Radiologist. This report was verified electronically.
[2017-04-17 20:34] VITALS: BP 142/73; PULSE 66; RESP 18; TEMP 99; O2SAT 97
[2017-04-17] MEDS: APIXABAN 5 MG TABLET PO SCH (20:57)
[2017-04-17] MEDS: PANTOPRAZOLE SOD 20 MG DELAYED RELEASE TAB PO SCH (20:58)
[2017-04-17] MEDS: PRAVASTATIN SOD 40 MG TAB PO SCH (20:58)
[2017-04-18] MEDS: SODIUM CHLOR 0.9% 1000 ML INJ 1,000 ML IV SCH (00:30)
[2017-04-18 00:50] VITALS: BP 172/86; PULSE 69; RESP 18; TEMP 98.7; O2SAT 98
[2017-04-18] MEDS: BACLOFEN 20 MG TAB PO SCH ×2 (01:53→09:15)
[2017-04-18 03:48] VITALS: BP 161/80; PULSE 53; RESP 18; TEMP 97.1; O2SAT 98
[2017-04-18 07:46] VITALS: BP 161/76; PULSE 61; RESP 16; TEMP 96.4; O2SAT 97
[2017-04-18] MEDS: INSULIN ASPART SUPPLEMENTAL SCALE SQ SCH ×2 (08:00→12:00)
[2017-04-18] MEDS: SODIUM CHLORIDE 0.9% FLUSH 10 ML FLUSH IV FLUSH SCH (09:00)
[2017-04-18] MEDS: APIXABAN 5 MG TABLET PO SCH (09:15)
[2017-04-18] MEDS: METOPROLOL TARTRATE 50 MG TAB PO SCH (09:16)
[2017-04-18] MEDS: HYDROCHLOROTHIAZIDE 25 MG TAB PO SCH (09:16)
[2017-04-18] MEDS: DOCUSATE SODIUM 50 MG/SENNA 8.6 MG TAB PO SCH (09:16)
[2017-04-18] MEDS: LISINOPRIL 20 MG TAB PO SCH (09:16)
--- NOTE | 2017-04-18 10:47 | HHI.DS ---
Discharge Summary Admission Date Apr 10, 2017 at 08:46 Discharge Date: Apr 18, 2017 Admitting Diagnosis Epidural mass in the lumbar spine, spinal stenosis, intractable back pain (1) Intractable back pain ICD Code: M54.9 - Dorsalgia, unspecified Diagnosis: Secondary Status: Acute (2) Epidural mass ICD Code: G96.19 - Other disorders of meninges, not elsewhere classified Diagnosis: Principal Status: Acute (3) Spinal stenosis of lumbar region ICD Code: M48.061 - Spinal stenosis, lumbar region without neurogenic claudication Diagnosis: Principal Status: Acute Procedures None. Brief History - From Admission Written by Pam Singh, acting as scribe for Dr. Cortes on 04/10/17 at 11:00. Mr. Castillo is a pleasant 86-year-old male patient with a known medical history of atrial fibrillation, chronic back pain, dyslipidemia, CAD with stent placement who presented to the ED with continued complaints of severe lower back pain. Patient had presented to the ED yesterday with similar complaints of right sided buttock pain with radiation down his right leg. A CT of the lumbar spine was performed showing degenerative changes as well as a right facet synovial cyst. Was discharged with pain medication and injection. Patient states that the pain has worsened since his presentation with complaints of inability to urinate as well as the pain now radiating down bilateral lower extremities. He states that this pain spontaneously started 5 days ago after getting up out of bed, has been constant and shooting in nature, a 10/10 on pain scale, aggravating factors include increased activity and movement. Patient tried Tylenol for pain with little relief. Does suffer from chronic back pain but denies ever having this pain before. Denies any recent illness including fevers, chills, headaches, chest pain, shortness of breath, ab pain, n /v/d or dysuria. Does complain of a mild nonproductive cough. Patient follows with Dr. Granados, urology, for enlarged prostate. Convention Services Director is Dr. Christie. CBC/BMP: 04/14/17 0608 04/14/17 0608 Imaging Last Impressions Neck Magnetic Resonance Angiography 04/17/17 0000 Signed Impressions: Service Date/Time: Monday, April 17, 2017 14:57 - CONCLUSION: Negative for hemodynamically significant stenosis Quinton Gonsalez MD FACR Brain MRI 04/16/17 0000 Signed Impressions: Service Date/Time: Sunday, April 16, 2017 15:55 - CONCLUSION: 1. Diffusion restriction in the left temporal occipital watershed area with extension to the cortex. Findings are characteristic of a branch vessel left TERADATA SOLUTION ARCHITECT infarct. 2. 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 Ryan Vega MD Lumbar Spine X-Ray 04/12/17 0000 Signed Impressions: Service Date/Time: Wednesday, April 12, 2017 13:50 - CONCLUSION: Localization device posteriorly at L5. Shailesh Jacobs MD Thoracic Spine MRI 04/10/17 0000 Signed Impressions: Service Date/Time: Monday, April 10, 2017 06:12 - CONCLUSION: 1. 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 Generally mild degenerative changes at other levels from C7/T1-T11/T12. 2. Large extruded disc fragment at T12/L1; MRI the lumbar spine follow. 3. Mild, reactive appearing endplate marrow edema , most conspicuous at T3/T4 and T9/T10. No fracture or subluxation seen of the thoracic spine. Nishant Unger MD Lumbar Spine MRI 04/10/17 0000 Signed Impressions: Service Date/Time: Monday, April 10, 2017 06:12 - CONCLUSION: 1. Scoliosis and multilevel degenerative changes of the lumbar spine as above. 2. There is a large left paracentral extruded disc fragment at T12/L1 causing spinal stenosis and eccentric conus compression. 3. 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 There is associated severe spinal stenosis, especially the right lateral recess. 4. Moderate to severe right and moderate left foraminal stenosis at L3/L4. There is moderate bilateral foraminal stenosis at L4/L5. Elsewhere, foraminal stenosis is generally in the mild or mild to moderate range. 5. No fracture or acute appearing malalignment demonstrated. Nishant Unger MD PE at Discharge GENERAL: Elderly man who is well nourished, alert and oriented. CARDIOVASCULAR: irregular, approx 60 bpm, no murmur. RESPIRATORY: Breath sounds equal bilaterally. No wheezing GASTROINTESTINAL: Abdomen soft, non-tender, nondistended. MUSCULOSKELETAL: No cyanosis, or edema. BACK: Nontender without obvious deformity. No CVA tenderness. EXTREMITIES: some decreased sensation in bilateral feet, equal distribution Neuro: Alert and oriented. CN grossly 2-12normal, diplopia, no focal weakness, no slurring of speech. Hospital Course Diplopia - New onset since yesterday afternoon, but he did not tell staff. - MRI results reviewed showing new left TERADATA SOLUTION ARCHITECT infarct in the area of the brain that would affect eyesight, which explains diplopia. Anticoagulation was discussed with family the pros and cons of restarting anticoagulants following evacuation of a lumbar cyst and hematoma. Best decision at this point seems to be to start anticoagulant, and keep patient in the hospital 1-2 more days to monitor for any evidence of bleeding into lumbar spine. -Discussed with Dr Suárez neurology. Patient had MRA neck findings reviewed and discussed with patient and neurology and negative. Neurology consulted and following Epidural Mass - s/p decompressive laminectomy of L4-5 with evacuation of hematoma on 04/12/17 - Pain adequately controlled, up in chair today - Continue PT, ambulating with a walker, ready for rehab Atrial Fibrillation - was in the ICU for A Fib with RVR, but was converted - Continue Eliquis Type 2 Diabetes - adequate control - continue sliding scale insulin as needed H/o Dyslipidemia and CAD - continue home meds DVT Prophylaxis - On Eliquis for atrial fib DC plan: DC to [facility] rehab Discussed with Dr Suárez neurology cleared patient for DC. To continue eliquis at DC and to follow up as OP with neuro Pt Condition on Discharge: Stable Discharge Disposition: Rehab Inpatient Discharge Time: > 30 minutes Discharge Instructions Follow up Referrals: Neurology - 2 Weeks with Gill Franco MD Neurosurgery - 1 Week with Carlos Chamberlain MD PCP Follow-up - 2-3 Days New Medications: Oxycodone HCl/Acetaminophen (Oxycodone-Acetaminophen 10-325) 10 Mg-325 Mg Tablet 1 TAB PO Q4H PRN for pain management , #30 MG Sennosides-Docusate Sodium (Gnp Senna Plus 8.6-50 mg) 8.6 Mg-50 Mg Tab 1 TAB PO BID for Constipation, #60 TAB Continued Medications: Acetaminophen (Tylenol) 325 Mg Tab 325 MG PO Q4H PRN for PAIN SCALE 1 TO 2, TAB 0 Refills Acetaminophen-Codeine (Tylenol-Codeine #3) 300-30 mg Tab 1 TAB PO Q6HR PRN for PAIN, #20 TAB 0 Refills Apixaban (Eliquis) 5 Mg Tab 5 MG PO BID for Blood Clot Prevention, #60 TAB 0 Refills Ascorbic Acid (Vitamin C) 250 Mg Chew 500 MG CHEW DAILY for Nutritional Supplement, #30 TAB 0 Refills Fish Oil-Cholecalciferol (Fish Oil + D3) 1,200-1,000 Mg-Unit Cap 1 CAP PO DAILY for Nutritional Supplement, #30 CAP 0 Refills Glyburide (Glyburide) 5 Mg Tab 5 MG PO BID for Blood Sugar Management, #60 TAB 0 Refills Take with meals at the same time each day Lisinopril-Hctz (Lisinopril-Hctz) 20-25 Mg Tab 1 TAB PO DAILY for Blood Pressure Management, #30 TAB 0 Refills Metformin (Metformin) 500 Mg Tab 500 MG PO BIDPC for Blood Sugar Management, #60 TAB 0 Refills Metoprolol Tartrate (Lopressor) 50 Mg Tab 50 MG PO BID, #60 TAB 0 Refills Multiple Vitamin (Multiple Vitamin) 1 Tab 1 TAB PO DAILY for Nutritional Supplement, TAB 0 Refills Omeprazole (Omeprazole) 20 Mg Tab 20 MG PO HS, #30 TAB 0 Refills Simvastatin (Simvastatin) 10 Mg Tab 20 MG PO HS for Cholesterol Management, #30 TAB 0 Refills Tadalafil (Cialis) 5 Mg Tab 5 MG PO HS, TAB 0 Refills Do not exceed 1 dose/day. Vit C/E/Zn/Coppr/Lutein/Zeaxan (Preservision Areds 2 Softgel) 250-200-40 Capsule 1 TAB PO HS Discontinued Medications: Tramadol (Ultram) 50 Mg Tab 50 MG PO Q6H PRN for PAIN, TAB 0 Refills Janey Valiente MD Apr 18, 2017 10:47
--- NOTE | 2017-04-18 10:49 | HHI.PR ---
Subjective Remarks Feels much better. No fever or chills.No n/v/d/c. He was ambulating in the hallways with PT. Pain is better controlled and feels imprpved. Still with blurry vision when he is looking at his phone. Otherwise feel better and ready for rehab. Discussed with Dr Suárez neurology cleared patient for DC. To continue eliquis at DC and to follow up as OP with neuro Objective Vitals Vital Signs Date Time Temp Pulse Resp B/P (MAP) Pulse Ox O2 Delivery O2 Flow Rate FiO2 04/18/17 07:46 96.4 61 16 161/76 (104) 97 04/18/17 03:48 97.1 53 18 161/80 (107) 98 04/18/17 00:50 98.7 69 18 172/86 (114) 98 04/17/17 20:34 99.0 66 18 142/73 (96) 97 04/17/17 16:00 97.0 92 16 143/65 (91) 96 04/17/17 12:00 96.6 96 16 120/65 (83) 97 I/O 04/17/17 04/17/17 04/17/17 04/18/17 04/18/17 04/18/17 07:00 15:00 23:00 07:00 15:00 23:00 Intake Total 240 ml 600 ml 480 ml Output Total 750 ml 500 ml 600 ml Balance -510 ml 100 ml -120 ml Intake Oral 240 ml 600 ml 480 ml Output Urine Total 750 ml 500 ml 600 ml Bladder Scan Volume Amount 388 ml # Bowel Movements 0 0 Result Diagram: 04/14/17 0608 04/14/17 0608 Imaging Last Impressions Neck Magnetic Resonance Angiography 04/17/17 0000 Signed Impressions: Service Date/Time: Monday, April 17, 2017 14:57 - CONCLUSION: Negative for hemodynamically significant stenosis Quinton Gonsalez MD FACR Brain MRI 04/16/17 0000 Signed Impressions: Service Date/Time: Sunday, April 16, 2017 15:55 - CONCLUSION: 1. Diffusion restriction in the left temporal occipital watershed area with extension to the cortex. 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 2. 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 Ryan Vega MD Lumbar Spine X-Ray 04/12/17 0000 Signed Impressions: Service Date/Time: Wednesday, April 12, 2017 13:50 - CONCLUSION: Localization device posteriorly at L5. Shailesh Jacobs MD Thoracic Spine MRI 04/10/17 0000 Signed Impressions: Service Date/Time: Monday, April 10, 2017 06:12 - CONCLUSION: 1. 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 Generally mild degenerative changes at other levels from C7/T1-T11/T12. 2. Large extruded disc fragment at T12/L1; MRI the lumbar spine follow. 3. Mild, reactive appearing endplate marrow edema , most conspicuous at T3/T4 and T9/T10. No fracture or subluxation seen of the thoracic spine. Nishant Unger MD Lumbar Spine MRI 04/10/17 0000 Signed Impressions: Service Date/Time: Monday, April 10, 2017 06:12 - CONCLUSION: 1. Scoliosis and multilevel degenerative changes of the lumbar spine as above. 2. There is a large left paracentral extruded disc fragment at T12/L1 causing spinal stenosis and eccentric conus compression. 3. 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 There is associated severe spinal stenosis, especially the right lateral recess. 4. Moderate to severe right and moderate left foraminal stenosis at L3/L4. There is moderate bilateral foraminal stenosis at L4/L5. Elsewhere, foraminal stenosis is generally in the mild or mild to moderate range. 5. No fracture or acute appearing malalignment demonstrated. Nishant Unger MD Objective Remarks GENERAL: Elderly man who is well nourished, alert and oriented. CARDIOVASCULAR: irregular, approx 60 bpm, no murmur. RESPIRATORY: Breath sounds equal bilaterally. No wheezing GASTROINTESTINAL: Abdomen soft, non-tender, nondistended. MUSCULOSKELETAL: No cyanosis, or edema. BACK: Nontender without obvious deformity. No CVA tenderness. EXTREMITIES: some decreased sensation in bilateral feet, equal distribution Neuro: Alert and oriented. CN grossly 2-12normal, diplopia, no focal weakness, no slurring of speech. Procedures None. A/P Problem List: (1) Intractable back pain ICD Code: M54.9 - Dorsalgia, unspecified Status: Acute (2) Epidural mass ICD Code: G96.19 - Other disorders of meninges, not elsewhere classified Status: Acute (3) Spinal stenosis of lumbar region ICD Code: M48.061 - Spinal stenosis, lumbar region without neurogenic claudication Status: Acute Assessment and Plan Diplopia - New onset since yesterday afternoon, but he did not tell staff. - MRI results reviewed showing new left [employer]ICES INSPECTOR/TESTER infarct in the area of the brain that would affect eyesight, which explains diplopia. Anticoagulation was discussed with family the pros and cons of restarting anticoagulants following evacuation of a lumbar cyst and hematoma. Best decision at this point seems to be to start anticoagulant, and keep patient in the hospital 1-2 more days to monitor for any evidence of bleeding into lumbar spine. -Discussed with Dr Suárez neurology. Patient had MRA neck findings reviewed and discussed with patient and neurology and negative. Neurology consulted and following Epidural Mass - s/p decompressive laminectomy of L4-5 with evacuation of hematoma on 04/12/17 - Pain adequately controlled, up in chair today - Continue PT, ambulating with a walker, ready for rehab Atrial Fibrillation - was in the ICU for A Fib with RVR, but was converted - Continue Eliquis Type 2 Diabetes - adequate control - continue sliding scale insulin as needed H/o Dyslipidemia and CAD - continue home meds DVT Prophylaxis - On Eliquis for atrial fib DC plan: DC to [facility] Discussed with Dr Suárez neurology cleared patient for DC. To continue eliquis at DC and to follow up as OP with neuro Problem Qualifiers (1) Spinal stenosis of lumbar region: Qualified Codes: M48.062 - Spinal stenosis, lumbar region with neurogenic claudication aJney Valiente MD Apr 18, 2017 10:49
[2017-04-18 11:31] VITALS: BP 140/72; PULSE 58; RESP 16; TEMP 96.5; O2SAT 98
== END 2017-04-18 18:05 | DRG 28 ==
LOC: PHED 04:14 → PHEDA 08:46 → N05B 13:49 → N03B 04-12 15:38 → N03A 04-12 16:46 → N06B 04-13 15:24 → N06A 04-14 17:59
PROVIDERS: ADMIT Hospitalist; ATTEND Hospitalist
PROC: 0T9B70Z Drainage of Bladder with Drainage Device, Via Natural or Artificial Opening (ICD-10-PCS; principal; 2017-04-10)
PROC: 00BT0ZZ Excision of Spinal Meninges, Open Approach (ICD-10-PCS; 2017-04-12)
PROC: 00CT0ZZ Extirpation of Matter from Spinal Meninges, Open Approach (ICD-10-PCS; 2017-04-12)
DX: G95.19 Other vascular myelopathies (principal); I63.532 Cerebral infarction due to unspecified occlusion or stenosis of left posterior cerebral artery; M71.38 Other bursal cyst, other site; M51.16 Intervertebral disc disorders with radiculopathy, lumbar region; E11.40 Type 2 diabetes mellitus with diabetic neuropathy, unspecified; I48.2 Chronic atrial fibrillation; M41.9 Scoliosis, unspecified; I10 Essential (primary) hypertension; I25.10 Atherosclerotic heart disease of native coronary artery without angina pectoris; M48.061 Spinal stenosis, lumbar region without neurogenic claudication; K21.9 Gastro-esophageal reflux disease without esophagitis; E78.5 Hyperlipidemia, unspecified; M19.90 Unspecified osteoarthritis, unspecified site; H53.2 Diplopia; M48.04 Spinal stenosis, thoracic region; N40.0 Benign prostatic hyperplasia without lower urinary tract symptoms; E87.5 Hyperkalemia; R26.2 Difficulty in walking, not elsewhere classified; Z79.01 Long term (current) use of anticoagulants; Z87.891 Personal history of nicotine dependence; Z95.5 Presence of coronary angioplasty implant and graft; Z96.651 Presence of right artificial knee joint; H91.90 Unspecified hearing loss, unspecified ear; M51.27 Other intervertebral disc displacement, lumbosacral region; Z79.84 Long term (current) use of oral hypoglycemic drugs
CPT/HCPCS: 51702; 70548; 70551; 72020; 72131; 72146; 72158; 76000; 80048; 80053; 81001; 82948; 83735; 85025; 85027; 85610; 93005; 94150; 94640; 94664; 96374; 96375; A9579; J0131; J0690; J1030; J1100; J1580; J1650; J1815; J2250; J2270; J2370; J2405; J2710; J3010; J7030; J7120; L0627

== ENCOUNTER → 2017-08-28 | Outpatient (CLI) | payer MEDICARE, BC ==
[~2017-08-28] MED LIST changes: -CARA1SUS3 PO; +COMMODE 3-IN-11 MIS; +GETGO ROLLING W1 MI1; -HUMALOG SQ; -LANTUS2P SQ; -LEVA.63I NEB; -LISI-515 PO; +OXYC1TAB35 PO; -PANT40P IV PUSH; +PERI PO; -PROT40TA PO; +TAMS5CAP PO; -TRAM50 PO; +TRAZ50TA12 PO; -TYLETAB34 PO; -ZYRT10TA PO
[2017-08-28 11:13] LABS: AUTOMATED NEUTROPHIL # 3.1 TH/MM3 (1.8-7.7); BASOPHIL # 0.1 TH/MM3 (0-0.2); BASOPHIL % 1.1 % (0.0-2.0); EOSINOPHIL # 0.3 TH/MM3 (0-0.4); EOSINOPHIL % 5.6 % (0.0-4.0); HEMATOCRIT 39.1 % (39.0-51.0); HEMOGLOBIN 13.4 GM/DL (13.0-17.0); LYMPH % 21.1 % (9.0-44.0); MEAN CELL VOLUME 88.4 FL (80.0-100.0); MEAN CORPUSCULAR HEMOGLOBIN 30.3 PG (27.0-34.0); MEAN CORPUSCULAR HGB CONC 34.2 % (32.0-36.0); MEAN PLATELET VOLUME 8.9 FL (7.0-11.0); MONO % 8.2 % (0.0-8.0); MONOCYTE # 0.4 TH/MM3 (0-0.9); PLATELET COUNT 130 TH/MM3 (150-450); RED BLOOD COUNT 4.43 MIL/MM3 (4.50-5.90); RED CELL DISTRIBUTION WIDTH 13.6 % (11.6-17.2); WHITE BLOOD COUNT 4.8 TH/MM3 (4.0-11.0)
[2017-08-28 11:25] LABS: ALBUMIN 3.9 GM/DL (3.4-5.0); AST (GOT) 13 U/L (15-37); BICARBONATE 27.6 MEQ/L (21.0-32.0); BLOOD UREA NITROGEN 15 MG/DL (7-18); CALCIUM 9.1 MG/DL (8.5-10.1); CHLORIDE 101 MEQ/L (98-107); CHOLESTEROL 99 MG/DL (120-200); GLOMERULAR FILTRATION RATE 91 ML/MIN (>89); GLUCOSE,FASTING 189 MG/DL (74-99); SODIUM (NA) 137 MEQ/L (136-145)
[2017-08-28 11:38] LABS: ALKALINE PHOSPHATASE 48 U/L (45-117); ALT (GPT) 19 U/L (12-78); CHOLESTEROL/ HDL RATIO 3.12 RATIO; FREE T4 0.89 NG/DL (0.76-1.46); HDL CHOLESTEROL 31.7 MG/DL (40.0-60.0); IRON (FE) 160 MCG/DL (65-175); LDL CHOLESTEROL 51 MG/DL (0-99); TOTAL IRON BINDING CAPACITY 391 MCG/DL (250-450); TOTAL PROTEIN 7.2 GM/DL (6.4-8.2); TRIGLYCERIDES 84 MG/DL (42-150)
[2017-08-28 15:23] LABS: HEMOGLOBIN A1C 7.8 % (4.3-6.0)
== END ==
LOC: PLAB 07:36
PROVIDERS: ATTEND Family Medicine
DX: E78.5 Hyperlipidemia, unspecified (principal); D64.9 Anemia, unspecified; R94.6 Abnormal results of thyroid function studies; E11.3299 Type 2 diabetes mellitus with mild nonproliferative diabetic retinopathy without macular edema, unspecified eye
CPT/HCPCS: 36415; 80053; 80061; 83036; 83540; 83550; 84439; 84443; 85025